=== PATIENT | female | born 1990 | race Caucasian/White ===

== ENCOUNTER 2017-10-03 17:28 | Emergency (ER) | payer BC, OTHER ==
[~2017-10-03] VITALS: Ht 172.7 cm; Wt 70.8 kg
[~2017-10-03 17:28] MED LIST: AMOX1TAB43 PO; ATV1 PO; BCPILLS PO; IBUP-1105 PO; LEVO88TA3 PO; METO25TA3 PO
[2017-10-03 17:34] VITALS: BP 123/82; TEMP 36.6; Ht 172.7 cm; Wt 70.8 kg
[2017-10-03] MEDS ORDERED: TRAMADOL HCL 50 MG TAB PO STA (17:54)
[2017-10-03] MEDS ORDERED: ULT/50 PO (17:59)
[2017-10-03] MEDS ORDERED: NRN/300 PO (17:59)
--- NOTE | 2017-10-03 18:03 | EMERGENCY ROOM VISIT NOTE ---
ED Visit Note First contact with patient: 17:45 CHIEF COMPLAINT: "My neck is pretty broken" HISTORY OF PRESENT ILLNESS: This 27-year-old female patient presents to the emergency department, ambulatory, with her mother, complaining of pain in the neck. She states she has been experiencing severe pain for 2 weeks. She describes a painful/bulging sensation in the lower cervical spine. She was seen by [facility] where a CT scan was performed which did show a bulging disc at C5-C6 with contact with the spinal cord. The patient states she has been having intermittent, but severe pain for the full 2 weeks. Due to her history of sinus tachycardia, she is unable to tolerate steroids or NSAIDs. She states she was started on a trial of steroids, but on day 1 of taking the prednisone, her heart rate was in the 180's. The patient rates the pain as sharp and severe and 8/10. The patient has taken muscle relaxers prescribed to her by her PCP for the pain without relief. She states she last saw her PCP today, and was advised to come to the emergency department for pain management. 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 The patient denies pain of the arms and shoulders. The patient does report numbness and tingling on occasion in the left arm. The patient denies chest pain or shortness of breath. There was no head injury and no loss of consciousness. The patient denies headache, blurred vision, abdominal pain, nausea, or vomiting. The patient denies change in personality. REVIEW OF SYSTEMS: A 10 system review of systems was completed with positives and pertinent negatives listed in the HPI. ALLERGIES: NSAIDs MEDICATIONS: Gay Thyroid, metoprolol succinate, control pills, lorazepam PMH: Sinus tachycardia, hypothyroidism, anxiety SOCIAL HISTORY: She lives locally with family. She denies drug, alcohol, tobacco use. PHYSICAL EXAM: VITALS: Vitals are noted on the nurse's note and reviewed by myself. Vital signs stable. GENERAL: This is a 27-year-old white female, in no acute distress , nondiaphoretic, well-developed well-nourished. SKIN: Capillary reflex less than 2 seconds. HEENT: Normocephalic. PERRLA. EOMI. Nares patent. Mucous membranes moist. Neck is supple without nuchal rigidity. Cervical spine is not tender to palpation. The patient does have tenderness of the paraspinal muscles on the left. There is no lymphadenopathy. MUSCULOSKELETAL: The patient has full range of motion of the bilateral arms. Strength 5/5 of the bilateral upper extremities. The patient has tenderness with any movement of the neck. NEURO: Patient was alert and oriented to person place and time. Normal sensation to light and sharp touch. No focal neurologic deficits. EMERGENCY DEPARTMENT COURSE: I examined the patient. I reviewed her CT scan from [facility]. The patient was given 50 mg tramadol here in the emergency department. I discussed with her proper management of nerve pain including gabapentin. I advised her that the emergency Department is not capable of managing chronic pain. Discharge instructions were reviewed, and the patient was discharged home in good condition. I attest that I have personally reviewed the patient's current medication list. Patient was found to have normal blood pressure on screening and does not require follow-up. DIFFERENTIAL DIAGNOSIS: Disc protrusion, disc herniation, cervicalgia, radiculopathy, malignancy, and others DIAGNOSIS: Disc protrusion at C5-C6 with contact of the spinal cord, neck pain with radiculopathy Problem List Medical Problems: (1) Anxiety Status: Chronic (2) Body aches Status: Resolved (3) Fever Status: Resolved (4) Malaise Status: Resolved (5) Precordial chest pain Status: Resolved (6) Tachycardia Status: Resolved (7) Vaginal delivery Status: Resolved (8) Viral illness Status: Resolved Current/Historical Medications Scheduled Control Pills ( Control Pills), 1 TAB PO DAILY Cyclobenzaprine HCl (Cyclobenzaprine HCl), 10 MG PO HS Gabapentin (Neurontin), 1 CAP PO TID Metoprolol Succinate (Metoprolol Succinate ER), 25 MG PO DAILY Thyroid (Thyroid Extract), 60 MG PO QAM Scheduled PRN Lorazepam (Lorazepam), 0.5 MG PO Q8 PRN for Anxiety Naproxen (Naproxen), 500 MG PO BID PRN for Pain Tramadol Hcl (Ultram), 50 MG PO Q4H PRN for Pain Allergies Coded Allergies: NSAIDs (Verified Adverse Reaction, Unknown, it bothers my heart, 03/08/16) Vital Signs Date Time Temp Pulse Resp B/P (MAP) Pulse Ox O2 Delivery O2 Flow Rate FiO2 11/13/17 18:46 65 20 100 Room Air 10/03/17 17:34 36.6 79 20 123/82 100 Room Air Medications Administered Medications (Trade) Dose Ordered Sig/Damian Route Start Time Stop Time Status Last Admin Dose Admin Tramadol HCl (Ultram Tab) 50 mg NOW STAT PO 10/03/17 17:54 10/03/17 17:56 DC 10/03/17 18:15 50 MG Departure Information Impression Primary Impression: Neck pain Dispostion Home / Self-Care Condition GOOD Prescriptions Gabapentin (NEURONTIN) 300 Mg Cap 1 CAP PO TID for 30 Days, #90 CAP Prov: Eileen Del Rio PA-C 10/03/17 Tramadol Hcl (ULTRAM) 50 Mg Tab 50 MG PO Q4H Y for Pain for 3 Days, #12 TAB PRN PAIN Prov: Eileen Del Rio PA-C 10/03/17 Referrals Yasir Edge PA-C (PCP) Aneudy Vásquez,D.O. Patient Instructions ED Neck Pain No Trauma, My [facility] Additional Instructions You have been treated in the Emergency Department for Neck Pain. You have received pain medicine in the emergency department which impairs your ability to operate a vehicle. It is illegal for you to drive after receiving these medicines. You have been prescribed tramadol 1 tab every 4-6 hours as needed for pain. This is a narcotic medication. You cannot drive or consume alcohol while on this medicine. This medicine should only be used for pain that cannot be controlled with [id number] pain medicines. Continue the muscle relaxers which were prescribed to you by your PCP. For pain control, you can use the following [id number] medicines (if >12 yo): Acetaminophen(Tylenol) may be used for fever or pain. Use 1000mg every six hours as needed. Avoid using more than 3000mg in a 24 hour period. If this is an acute injury, ice can be applied to the area of pain for the first 3 days to help decrease pain and inflammation. After the first 3 days, a heating pad can be used over the area for continued soothing relief. You should schedule a follow-up appointment in 2-3 days with your Primary Care Provider for further evaluation and treatment of your neck pain. As discussed, the ED can not chronically manage your pain. You will need to have this discussion with your PCP and/or mirror painter regarding ongoing pain management. Return to the Emergency Department if your current symptoms worsen despite treatment course outlined above, or if you develop any of the following symptoms : intractable pain despite aforementioned treatment course, facial droop, slurred speech, unilateral weakness, or worsening of her current symptoms.
[2017-10-03] MEDS ORDERED: THY/60 PO (18:41)
[2017-10-03] MEDS ORDERED: TPRSR/25 PO (18:41)
[2017-10-03] MEDS ORDERED: ATV5X PO (18:41)
[2017-10-03] MEDS ORDERED: FLX10 PO (18:41)
[2017-10-03] MEDS ORDERED: NAPR500T3 PO (18:41)
[2017-10-03 18:46] VITALS: PULSE 65; O2SAT 100
== END 2017-10-03 18:46 | disposition home or self-care (01) ==
LOC: C.EDB 17:28 → C.EDD 18:46
DX: M50.122 Cervical disc disorder at C5-C6 level with radiculopathy (principal); Z79.3 Long term (current) use of hormonal contraceptives

== ENCOUNTER 2019-03-01 16:42 | Inpatient (IN) ==
[2019-03-01 18:29] LABS: Basophils # (auto) 0.03 K/uL (0-0.2); Basophils % (auto) 0.4 %; Eosinophils # (auto) 0.11 K/uL (0-0.5); Eosinophils % (auto) 1.5 %; Hematocrit (blood only) 35.3 % (37-47); Hemoglobin 11.9 g/dL (12.0-16.0); Immature Granulocytes # (auto) 0.04 K/uL (0.00-0.02); Immature Granulocytes % (auto) 0.6 %; Lymphocytes % (auto) 26.6 %; Mean Corpuscular Hgb Conc 33.7 g/dL (32-36); Mean Corpuscular Volume 79.1 fL (80-100); Monocytes # (auto) 0.65 K/uL (0.11-0.59); Monocytes % (auto) 9.1 %; Neutrophils % (auto) 61.8 %; Platelet Count 269 K/uL (130-400); RDW Coefficient of Variation 14.2 % (11.5-14.5); RDW Standard Deviation 40.5 fL (36.4-46.3); Red Blood Count 4.46 M/uL (4.2-5.4); White Blood Count 7.13 K/uL (4.8-10.8)
[2019-03-01] MEDS ORDERED: ONDANSETRON INJ 2 MG/ML 2 ML VIAL IV STA (18:45)
[2019-03-01 18:47] LABS: Alanine Aminotransferase 113 U/L (12-78); Albumin Level 3.2 gm/dl (3.4-5.0); Aspartate Aminotransferase 110 U/L (15-37); BUN Creatinine Ratio 11.2 (10-20); Blood Urea Nitrogen 6 mg/dl (7-18); Calcium 9.2 mg/dl (8.5-10.1); Carbon Dioxide 25 mmol/L (21-32); Chloride 108 mmol/L (98-107); Creatinine Clr Calc Pharmacy 180.2 ml/min; Est GFR (African American) > 150.0; Est GFR (Non-African American) 129.9; Glucose 97 mg/dl (70-99); Potassium 3.8 mmol/L (3.5-5.1); Sodium 138 mmol/L (136-145)
--- NOTE | 2019-03-01 19:01 | CT Scan Report ---
CT SCAN OF THE CHEST WITHOUT IV CONTRAST CLINICAL HISTORY: Dyspnea. Atypical chest pain. Status post cardiac arrest. COMPARISON STUDY: Chest x-ray dated 03/08/2016. TECHNIQUE: CT scan of the thorax was performed from the thoracic inlet to the upper abdomen. Images are reviewed in the axial, sagittal, and coronal planes. IV contrast was not administered for this ex amination as per the referring clinician. Note that the examination is suboptimal without IV contrast . A dose lowering technique was utilized adhering to the principles of ALARA. CT DOSE: 307.39 mGy.cm FINDINGS: Thyroid: Imaged portions of the thyroid gland are normal in size and attenuation. Thoracic aorta: The thoracic aorta is normal in caliber and demonstrates standard 3-vessel arch anato my. Heart: The heart is normal in size and there is trace pericardial effusion. Lungs and pleural spaces: Evaluation of the lung parenchyma is modestly degraded by motion artifact. There is bibasilar atelectasis. No airspace consolidation is seen typical for pneumonia. There is no pleural effusion or pneumothorax. The trachea and central airways are clear. Mediastinum: Minimal residual thymic tissue is noted in the anterior mediastinum. There is no mediast inal hematoma or lymphadenopathy. Asha: Not well assessed without IV contrast. Axillae: There is no axillary lymphadenopathy. Upper abdomen: Enteric contrast is identified within the partially imaged left colon. Partially visua lized upper abdominal viscera is otherwise grossly unremarkable. Skeletal structures: The bony thorax appears intact. No distracted rib fracture is seen. No lytic or blastic bony lesions are seen. IMPRESSION: 1. There is no airspace consolidation, pleural effusion, or pneumothorax. 2. The bony thorax appears intact. Electronically signed by: Tavon Acosta M.D. 03/01/2019 7:00 PM
[2019-03-01 19:04] LABS: Albumin Globulin Ratio 0.7 (0.9-2); Alkaline Phosphatase 73 U/L (45-117); Bilirubin,Total 0.2 mg/dl (0.2-1); Globulin 4.3 gm/dl (2.5-4.0); Total Protein 7.5 gm/dl (6.4-8.2); Troponin I 0.139 ng/ml (0-0.045)
[2019-03-01] MEDS: HYDROmorphone INJ 0.5 MG/0.5 ML SYR IV PRN ×3 (19:05→21:56)
[2019-03-01] MEDS ORDERED: ALUMINUM/MAGNESIUM SUSP 30 ML UDC PO STA (21:08)
[2019-03-02] MEDS: HYDROmorphone INJ 0.5 MG/0.5 ML SYR IV PRN (00:17)
--- NOTE | 2019-03-02 00:28 | History & Physical Report ---
Date of Service March 02, 2019 Assessment & Plan (1) Substernal chest pain: 29-year-old female with a past medical history of SVT status post ablation presents with substernal chest pain. The patient was recently ablated on 02/23/2019 at [facility] [place] and subsequently had a cardiac arrest. She received chest compressions. Patient was subsequently found to have Tak[place]ubo cardiomyopathy. She received a heart catheterization which did not show any coronary artery disease. Substernal chest pain, pericarditis? Troponin mildly elevated from 0.1390.144, will continue to trend CT scan showed no abnormalities except for a trace pleural effusion Will empirically treat for pericarditis with 650 mg of aspirin 3 times dailythe patient is allergic to colchicine Cardiology consulted, appreciate recommendations Echocardiogram ordered Ordered the following labs ESR, CRP, mag, phosphorus, TSH Percocet for pain, as needed every 4 hours Reviewed [facility] records: 02/23/2019 post ROSC EF was 25-30%, ---02/26/2019 repeat echo showed EF of 55% with mild LV dilation. ---Cardiac catheterization on 02/23/2019 did not show any [place] coronary artery disease. Other medical conditions: include hypothyroidism, anxietycurrently not on levothyroxine, will continue as needed Lorazepam DVT prophylaxis SCDs, ambulate CODE STATUS Full (2) Elevated troponin: (3) History of prior ablation treatment: (4) Pericardial effusion: (5) H/O supraventricular tachycardia: (6) History of cardiac arrest: History of Present Illness Primary Care Provider: Yasir Edge 29-year-old female with a past medical history of recurrent SVT status post ablation presents with substernal chest pain. Patient was recently admitted at [facility] where she received an ablation on 02/23/2019. The patient experienced cardiac arrest and received chest compressions. She was later transferred to the ICU and was diagnosed with [place] cardiomyopathy. Her echocardiogram showed an ejection fraction of 25%. Patient subsequently received a cardiac catheterization which was negative for coronary artery disease. The patient was discharged on 02/26/2019. At discharge her echocardiogram showed an EF of 55%, mild LV dilation, normal systolic function. The patient had chest pain the days following her resuscitation related to the trauma of chest compressions. She came into the hospital today because she feels like the chest pain is not improving and changing in quality. She describes the chest pain is substernal, pressure like pain that radiates to her back. The pain is palpable and was relieved by Dilaudid in the emergency room. Patient reports feeling lightheaded and occasionally having heart palpitations, but denies syncope or lower extremity swelling. She reports getting winded easily at baseline, but denies any new shortness of breath. Allergies Allergy/AdvReac Type Severity Reaction Status Date / Time Iodinated Contrast- Oral and Allergy Paleness Unverified 03/01/19 17:46 IV Dye NSAIDS (Non-Steroidal AdvReac Unknown it bothers Verified 03/08/16 10:25 Anti-Inflamma my heart Home Medications Home Medications Medication Instructions Recorded Confirmed Type drospirenone-ethinyl estradiol 1 tab PO DAILY 03/01/19 03/01/19 History [Kumar (28)] tizanidine 4 mg PO Q8H 03/01/19 03/01/19 History Past Med/Surg History Medical History Anxiety (Chronic) Cardiac arrest as complication of care Family history non-contributory Surgical History History of prior ablation treatment Family History Other Family history non-contributory Social History Preferred Language: Nepali Communication Ability: Unable 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 Beliefs That Will Affect Care: None Current Living Situation: Family Other Information That Helps Us Care for You: No Feels Safe at Home: Yes Safety Concerns: Feels Safe At This Time Smoking Status: Current every day smoker Hx Alcohol Use: No Hx Substance Use: No Review of Systems All systems reviewed & are unremarkable except as noted in HPI & below Physical Exam Vital Signs (Past 24 Hours): Last Vital Signs Temp 37 C 03/01/19 16:49 Pulse 84 03/01/19 23:01 Resp 14 03/01/19 23:01 BP 121/76 03/01/19 23:00 Pulse Ox 97 03/01/19 23:01 Constitutional: WD/WN, vitals as above Eyes: PERRL, conjunctivae normal, anicteric sclerae ENMT: external ear and nose normal, oropharynx normal Neck: trachea midline, no thyromegaly Respiratory: normal respiratory effort, lungs clear to auscultation Cardiovascular: RRR, no murmur, no edema Vessels: + JVD Chest (Breasts): Additional Comments: chest wall tenderness Gastrointestinal (Abdomen): normal bowel sounds, soft, nontender, no hepatosplenomegaly Musculoskeletal: no cyanosis or clubbing, extremities motor strength 5/5 Skin: no rashes, warm and dry Neurologic: PERRL, EOMI, accommodation nl, no face palsy, no dysarthria CN's II-XI intact bilaterally Psychiatric: A+Ox3, euthymic affect Results & Data Laboratory Results Laboratory Last Values WBC 7.13 K/uL (4.8-10.8) 03/01/19 18:10 RBC 4.46 M/uL (4.2-5.4) 03/01/19 18:10 Hgb 11.9 g/dL (12.0-16.0) L 03/01/19 18:10 Hct 35.3 % (37-47) L 03/01/19 18:10 MCV 79.1 fL (80-100) L 03/01/19 18:10 MCH 26.7 pg (25-34) 03/01/19 18:10 MCHC 33.7 g/dL (32-36) 03/01/19 18:10 RDW Std Deviation 40.5 fL (36.4-46.3) 03/01/19 18:10 RDW Coeff of Dorian 14.2 % (11.5-14.5) 03/01/19 18:10 Plt Count 269 K/uL (130-400) 03/01/19 18:10 MPV 10.0 fL (7.4-10.4) 03/01/19 18:10 Immature Gran % (Auto) 0.6 % 03/01/19 18:10 Neut % (Auto) 61.8 % 03/01/19 18:10 Lymph % (Auto) 26.6 % 03/01/19 18:10 Braxton % (Auto) 9.1 % 03/01/19 18:10 Eos % (Auto) 1.5 % 03/01/19 18:10 Baso % (Auto) 0.4 % 03/01/19 18:10 Immature Gran # (Auto) 0.04 K/uL (0.00-0.02) H 03/01/19 18:10 Neut # (Auto) 4.40 K/uL (1.4-6.5) 03/01/19 18:10 Lymph # (Auto) 1.90 K/uL (1.2-3.4) 03/01/19 18:10 Braxton # (Auto) 0.65 K/uL (0.11-0.59) H 03/01/19 18:10 Eos # (Auto) 0.11 K/uL (0-0.5) 03/01/19 18:10 Baso # (Auto) 0.03 K/uL (0-0.2) 03/01/19 18:10 Sodium 138 mmol/L (136-145) 03/01/19 18:10 Potassium 3.8 mmol/L (3.5-5.1) 03/01/19 18:10 Chloride 108 mmol/L (98-107) H 03/01/19 18:10 Carbon Dioxide 25 mmol/L (21-32) 03/01/19 18:10 Anion Gap 5.0 (3-11) 03/01/19 18:10 BUN 6 mg/dl (7-18) L 03/01/19 18:10 Creatinine 0.51 mg/dl (0.6-1.2) L 03/01/19 18:10 Est Cr Clr Drug Dosing 180.2 ml/min 03/01/19 18:10 Est GFR ( Amer) > 150.0 03/01/19 18:10 Est GFR (Non-Af Amer) 129.9 03/01/19 18:10 BUN/Creatinine Ratio 11.2 (10-20) 03/01/19 18:10 Glucose 97 mg/dl (70-99) 03/01/19 18:10 Calcium 9.2 mg/dl (8.5-10.1) 03/01/19 18:10 Total Bilirubin 0.2 mg/dl (0.2-1) 03/01/19 18:10 AST 110 U/L (15-37) H 03/01/19 18:10 ALT 113 U/L (12-78) H 03/01/19 18:10 Alkaline Phosphatase 73 U/L (45-117) 03/01/19 18:10 Troponin I 0.144 ng/ml (0-0.045) H* 03/01/19 21:27 Total Protein 7.5 gm/dl (6.4-8.2) 03/01/19 18:10 Albumin 3.2 gm/dl (3.4-5.0) L 03/01/19 18:10 Globulin 4.3 gm/dl (2.5-4.0) H 03/01/19 18:10 Albumin/Globulin Ratio 0.7 (0.9-2) L 03/01/19 18:10 Lipase 167 U/L (73-393) 03/01/19 18:10 Diagnostic Findings [place] [phone] CT Scan Report Patient: JOEL TAYLORAdmit Date: 03/01/19 MR#: [id number]: [address] [place] [address] Acct ID:[id number]: Date: 1990ty Zip: [place] [id number] Age: 29Location: ED Sex: F Room/Bed: Att Phy: Diagnosis: CHEST PAIN INTO BACK S/P HEART ABLATION Nathalia Phy: Yasir Edge-CService Date: 03/01/19 Fam Phy: Interpreting Phy: Tavon Acosta MD Admit Phy: Ordering Phy: Matt Lyles MD cc: ~ CT SCAN OF THE CHEST WITHOUT IV CONTRAST CLINICAL HISTORY: Dyspnea. Atypical chest pain. Status post cardiac arrest. COMPARISON STUDY: Chest x-ray dated 03/08/2016. TECHNIQUE: CT scan of the thorax was performed from the thoracic inlet to the upper abdomen. Images are reviewed in the axial, sagittal, and coronal planes. IV contrast was not administered for this examination as per the referring clinician. Note that the examination is suboptimal without IV contrast. A dose lowering technique was utilized adhering to the principles of ALARA. CT DOSE: 307.39 mGy.cm FINDINGS: Thyroid: Imaged portions of the thyroid gland are normal in size and attenuation. Thoracic aorta: The thoracic aorta is normal in caliber and demonstrates standard 3-vessel arch anatomy. Heart: The heart is normal in size and there is trace pericardial effusion. Lungs and pleural spaces: Evaluation of the lung parenchyma is modestly degraded by motion artifact. There is bibasilar atelectasis. No airspace consolidation is seen typical for pneumonia. There is no pleural effusion or pneumothorax. The trachea and central airways are clear. Mediastinum: Minimal residual thymic tissue is noted in the anterior mediastinum. There is no mediastinal hematoma or lymphadenopathy. Asha: Not well assessed without IV contrast. Axillae: There is no axillary lymphadenopathy. Upper abdomen: Enteric contrast is identified within the partially imaged left colon. Partially visualized upper abdominal viscera is otherwise grossly unremarkable. Skeletal structures: The bony thorax appears intact. No distracted rib fracture is seen. No lytic or blastic bony lesions are seen. IMPRESSION: 1. There is no airspace consolidation, pleural effusion, or pneumothorax. 2. The bony thorax appears intact. Electronically signed by: Tavon Acosta M.D. 03/01/2019 7:00 PM Dictated: 03/01/191852 Transcribed: 03/01/191852 Code Status & VTE Plan Code Status full VTE Prophylaxis Plan VTE Prophylaxis will be ordered: Yes Supervising Physician Co-Signing Physician Notes Patient seen and examined, chart reviewed, case discussed with Dr. Coronado and I agree with his assessment and plan as above. Briefly, patient is a 29yo female with history of hypothyroidism, anxiety, atrial tachycardia s/p ablation in 02/2016 with recurrence, s/p ablation last week at [facility]. Patient with subsequent cardiac arrest s/p CPR/epi/shock x 1 with ROSC. Mother reports she was out for appx 2 minutes. Cardiac catheterization performed with clean coronary vessels. Echo with suggestion of stress induced cardiomyopathy with EF of 30% which recovered to 55% with mild LV dilation. Patient presents today with substernal chest pressure as well as back pain. Pain is worse with laying flat and much worse with leaning forward No associated fevers/chills/recent viral illness. No SOB. Troponin mildly elevated 0.139 --> 0.144. As above, patient had ablation performed in 2016 and was admitted 4 days after with chest pain - at that time thought to be possible pericarditis. She was treated with Colchicine and NSAIDS. States that her pain today is much worse than before. On exam she is afebrile, mildlly tachycardic at 101bpm, BP stable Gen: pleasant, non-toxic Skin: redness at tape sites, no lesions HEENT: NC/AT, PERRL, anicteric, MMM, neck supple, No JVD Heart: +S1/S2, regular, tachycardic, no m/r/g, reproducible CP Lungs: CTA Abd: +BS, soft, NT/ND Ext: no edema Labs and images reviewed - small pericardial effusion mentioned on CT Assessment/Plan: 29yo female with SVT s/p ablation followed by cardiac arrest s/p CPR/shock x 1 with ROSC now presenting 6 days later with chest pain, mildly elevated troponin -Suspect pericarditis/inflammation after chest compressions as well as some costochondritis -Admit to PCU, trend troponin, check Echo in AM -Start ASA for possible pericarditis (patient reports having rash with Colchicine) -Cardiology consultation - appreciated -Remainder of plan as above Resident Activity Tracking Resident Involvement: Resident Care Provided Care Provided: Adult Hospital Medicine
[2019-03-02] MEDS ORDERED: ACETAMINOPHEN 325 MG TAB PO PRN (01:20)
[2019-03-02] MEDS: OXYCODONE/ACETAMINOPHEN 5mg/325mg TAB PO PRN ×5 (01:51→20:49)
[2019-03-02 04:20] LABS: C Reactive Protein 2.05 mg/dl (0-0.29); Magnesium 2.2 mg/dl (1.8-2.4); Phosphorus 3.6 mg/dl (2.5-4.9); Troponin I 0.139 ng/ml (0-0.045)
[2019-03-02] MEDS: MoRPHine SULFATE 2 MG/ML CARP IV PRN ×4 (05:17→20:48)
[2019-03-02] MEDS: TIZANIDINE HCL 4 MG TABLET PO SCH ×3 (06:23→21:55)
[2019-03-02 07:20] LABS: Basophils # (auto) 0.04 K/uL (0-0.2); Basophils % (auto) 0.5 %; Eosinophils # (auto) 0.12 K/uL (0-0.5); Eosinophils % (auto) 1.6 %; Hematocrit (blood only) 34.8 % (37-47); Hemoglobin 11.7 g/dL (12.0-16.0); Immature Granulocytes # (auto) 0.02 K/uL (0.00-0.02); Immature Granulocytes % (auto) 0.3 %; Lymphocytes # (auto) 2.11 K/uL (1.2-3.4); Lymphocytes % (auto) 28.9 %; Mean Corpuscular Hgb Conc 33.6 g/dL (32-36); Mean Corpuscular Volume 79.3 fL (80-100); Mean Platelet Volume 9.6 fL (7.4-10.4); Monocytes # (auto) 0.58 K/uL (0.11-0.59); Neutrophils # (auto) 4.42 K/uL (1.4-6.5); Neutrophils % (auto) 60.7 %; Platelet Count 259 K/uL (130-400); RDW Coefficient of Variation 14.2 % (11.5-14.5); RDW Standard Deviation 40.8 fL (36.4-46.3); Red Blood Count 4.39 M/uL (4.2-5.4); White Blood Count 7.29 K/uL (4.8-10.8)
[2019-03-02 08:02] LABS: Albumin Level 3.1 gm/dl (3.4-5.0); BUN Creatinine Ratio 8.7 (10-20); Calcium 9.1 mg/dl (8.5-10.1); Creatinine Clr Calc Pharmacy 176.1 ml/min; Est GFR (African American) 149.6; Est GFR (Non-African American) 129.1; Potassium 3.8 mmol/L (3.5-5.1)
[2019-03-02 08:05] LABS: Albumin Globulin Ratio 0.8 (0.9-2); Bilirubin,Total 0.2 mg/dl (0.2-1); Globulin 3.9 gm/dl (2.5-4.0)
--- NOTE | 2019-03-02 08:57 | Cardiology Consultation ---
Date of Consultation March 02, 2019 Assessment & Plan (1) Substernal chest pain: Based on her symptoms I cannot be sure what is causing her chest discomfort however it sounds as though it may be a combination of pericarditis (which she could have even without a rub or an effusion) and chest wall discomfort from CPR. She is receiving morphine for pain relief, however that needs to be switched to other agents. She is not really allergic to nonsteroidal anti-inflammatory agents and is those. She cannot use colchicine, which would not work for her chest wall discomfort in any case. I am going to start her on high-dose Motrin to see if that can help with her symptoms. I do not believe this is comfort represents myocardial ischemia. (2) Elevated troponin: Although technically elevated her troponin is not terribly high and there is no specific trend so I do not think this represents recurrent spasm, etc. We will continue to follow them but I would treat her symptoms with nonsteroidals at this time. If her echo shows worsening left ventricular function we may have to consider myocarditis but there is no evidence so far of that. 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 We will need to follow this over the long run. (4) Cardiomyopathy: She had a cardiomyopathy identified immediately after her event fifth, however 3 days later her ejection fraction was near normal. I suspect this was standing from the event, corrected quickly. If her ejection fraction on echo today is good I would not consider medical therapy for cardiomyopathy. History of Present Illness Reason for Consultation: Chest discomfort following ablation Attending Physician: Madeline Louise, DO History of Present Illness This is a 29-year-old woman well-known to me from prior evaluations who has a long history of symptomatic sinus tachycardia. We did perform ablation in 2016 which helped temporarily, however with return of her symptoms of palpitations she was sent to [facility] where she underwent elective is a study and ablation on February 23, 2019. As far as I know the procedure was uncomplicated however in the recovery room she had a cardiac arrest as well as asystole, not sure exactly what the sequence of events is. She ended up with a temporary pacemaker for several days, a catheterization which did not show any coronary disease and severe left ventricular dysfunction which evidently was standing because a follow-up echo several days later showed near normalization of her left ventricular function. She did receive chest compressions during this event. She presents now with chest discomfort, she was discharged on Tuesday from [place], was having some discomfort then but not severe, Tuesday the discomfort was much more severe as it was on and she came into the emergency room. She has received intravenous morphine for pain relief. She had chest discomfort after her initial ablation interestingly, but not so severe, and colchicine was attempted but she had hives taking it. She can take nonsteroidal anti-inflammatory agents, she feels that they may increase her heart rate but she is not allergic to them although it is listed as an allergy. The time of my evaluation she is feeling fairly well, she describes the chest discomfort as a tightness in her chest with radiation to her back, aggravated by sitting up, aggravated by deep breathing and aggravated by lifting her arms overhead. She has had no lightheadedness or dizziness and her palpitations seem to be better controlled. Allergies Allergy/AdvReac Type Severity Reaction Status Date / Time colchicine Allergy Hives Verified 03/02/19 09:59 Iodinated Contrast- Oral and Allergy Paleness Unverified 03/01/19 17:46 IV Dye Home Medications Home Medications Medication Instructions Recorded Confirmed Type drospirenone-ethinyl estradiol 1 tab PO DAILY 03/01/19 03/01/19 History [Kumar (28)] tizanidine 4 mg PO Q8H 03/01/19 03/01/19 History Patient History Medical History Anxiety (Chronic) Cardiac arrest as complication of care Family history non-contributory Surgical History History of prior ablation treatment Family History Other Family history non-contributory Social History Preferred Language: Wallisian Communication Ability: Unable [place] Worker Required: No Beliefs That Will Affect Care: None Current Living Situation: Family Other Information That Helps Us Care for You: No Feels Safe at Home: Yes Safety Concerns: Feels Safe At This Time Smoking Status: Current every day smoker Hx Alcohol Use: No Hx Substance Use: No Review of Systems Negative for lightheadedness, dizziness, palpitations, presyncope or syncope. No exertional symptoms, no dyspnea on exertion or exertional chest pain, rest pain as noted. No orthopnea or PND or peripheral edema. No GI complaints, no bleeding. No neurologic complaints such as TIA or stroke symptoms. Other systems negative. Physical Exam Vital Signs (Past 24 Hours): Last Vital Signs Temp 37.1 C 03/02/19 07:41 Pulse 80 03/02/19 07:41 Resp 16 03/02/19 07:41 BP 93/51 L 03/02/19 07:41 Pulse Ox 97 03/02/19 07:41 Physical Exam: Constitutional: Alert, cooperative and in no distress. HEENT: Unremarkable Neck: No jugular venous distention, carotid pulses are normal and equal bilaterally without bruits. Pulmonary: Clear to auscultation bilaterally. Cardiac: Regular rhythm with no murmur, gallop or rub. Abdomen: Soft, nontender with normal bowel sounds. Extremities: No edema. Distal pulses intact. Neurologic: No focal findings. Gait is steady. Skin: No rash, ecchymoses or petechiae. Results & Data Diagnostic Findings Telemetry: Sinus rhythm, overall rate is acceptable and not tachycardic although somewhat elevated for being at rest but she is under stress Electrocardiography: Sinus rhythm, no significant abnormalities
[2019-03-02] MEDS ORDERED: ASPIRIN 325 MG ECTAB PO SCH (09:00)
[2019-03-02] MEDS ORDERED: IBUPROFEN 800 MG TAB PO STA (09:03)
[2019-03-02] MEDS ORDERED: predniSONE 20 MG TAB PO SCH (10:15)
--- NOTE | 2019-03-02 10:54 | Family Medicine Progress Note ---
Date of Service March 02, 2019 Assessment & Plan (1) Substernal chest pain: 29-year-old female with a past medical history of SVT status post ablation presents with substernal chest pain. The patient was recently ablated on 02/23/2019 at [facility] and subsequently had a cardiac arrest. She received chest compressions. Patient was subsequently found to have Takotsubo cardiomyopathy. She received a heart catheterization which did not show any coronary artery disease. Reviewed [facility] records: 02/23/2019 post ROSC EF was 25-30%, ---02/26/2019 repeat echo showed EF of 55% with mild LV dilation. ---Cardiac catheterization on 02/23/2019 did not show any tanacross coronary art savi disease. #Substernal chest pain, 2/2 ?pericarditis v chest wall pain Troponin elev .144 -> .139 -> .096 CT scan showed no abnormalities except for a trace pleural effusion 12Apr repeat TTE shows normal EF 60%, no wall motion abnormalities, mild pericardial effusion. elevated ESR, CRP, elev TSH -Cardiology consulted, appreciate recs. -Motrin 800mg TID (to be continued for as long as symptoms persist, usually at least 2 weeks) -pt is allergic to colchicine -- possible h/o pericarditis. -Pain control requiring IV opioids -plan for transition to PO pain medication tomorrow -heat, supportive care #GERD -PPI started here with some benefit #Abnormal Thyroid function test - TSH >6 -currently not on thyroid medications. Should have it rechecked as outpatient FEN/GI: no indication for fluids at this time DVT ppx: SCDs, ambulate CODE STATUS: FULL DISPO: Tele, daily EKGs. Other medical conditions: include #anxiety -Not on any home meds. will continue as needed Lorazepam #s/p cervical fusion -cont tizanidine (2) Elevated troponin: (3) History of prior ablation treatment: (4) Pericardial effusion: (5) H/O supraventricular tachycardia: (6) History of cardiac arrest: Supervising Physician Co-Signing Physician Notes Resident Physician Supervision Note: I independently interviewed and examined the patient and verified the ocampo history and physical, reviewed labs and image studies, discussed the case with the resident Dr. Coronado and agree with the findings and care plan. Subjective Examined at the bedside this AM. Endorses constant chest pain, "feels like a tightening". Endorses reflux symptoms. Denies visual changes, abdominal pain. Endorses neck tightness. Review of Systems All systems reviewed & are unremarkable except as noted in HPI & below Physical Exam Vital Signs (Past 24 Hours): Last Vital Signs Temp 37.1 C 03/02/19 07:41 Pulse 80 03/02/19 07:41 Resp 16 03/02/19 07:41 BP 93/51 L 03/02/19 07:41 Pulse Ox 97 03/02/19 07:41 Physical Exam: Vitals noted as above and within normal limits . GENERAL: Awake, alert to person, place, and time, nontoxic-appearing, in no distress HENT: Normocephalic, atraumatic. Mucus membranes appear moist. EYES: Normal conjunctiva. Sclera non-icteric. EOMI. NECK: Supple. Full range of motion. No JVD RESPIRATORY: Clear to auscultation. Normal work of breathing. CARDIAC: Regular rate, normal rhythm. Extremities warm and well perfused, 2+ radial pulses bilaterally; 2+ posterior tibialis pulses bilaterally. CHEST: palpation to chest limited by pt's pain. ABDOMEN: Soft, non-distended. No tenderness to palpation in all four quadrants. No rebound or guarding. No masses. Bowel sounds are normal. LOWER EXTREMITIES: Inspection of calves reveal equal size bilaterally. They are non-tender. No edema. No discoloration. NEURO: No focal gross focal motor deficits noted. Sensation in tact. CN II-XII grossly in tact. SKIN: Rash not present. No jaundice noted. Significant lesions not present. PSYCH: Appropriate mood and affect. Cooperative. Exam as done by Geraldine Coronado MD, Clinical Rehabilitation Aide. Results & Data Laboratory Results 03/02/19 03/02/19 03/02/19 Range/Units 09:25 07:07 07:07 WBC 7.29 (4.8-10.8) K/uL RBC 4.39 (4.2-5.4) M/uL Hgb 11.7 L (12.0-16.0) g/dL Hct 34.8 L (37-47) % MCV 79.3 L (80-100) fL MCH 26.7 (25-34) pg MCHC 33.6 (32-36) g/dL RDW Std Deviation 40.8 (36.4-46.3) fL RDW Coeff of Dorian 14.2 (11.5-14.5) % Plt Count 259 (130-400) K/uL MPV 9.6 (7.4-10.4) fL Immature Gran % (Auto) 0.3 % Neut % (Auto) 60.7 % Lymph % (Auto) 28.9 % Lamar % (Auto) 8.0 % Eos % (Auto) 1.6 % Baso % (Auto) 0.5 % Immature Gran # (Auto) 0.02 (0.00-0.02) K/uL Neut # (Auto) 4.42 (1.4-6.5) K/uL Lymph # (Auto) 2.11 (1.2-3.4) K/uL Lamar # (Auto) 0.58 (0.11-0.59) K/uL Eos # (Auto) 0.12 (0-0.5) K/uL Baso # (Auto) 0.04 (0-0.2) K/uL ESR (0-21) mm/hr Sodium 138 (136-145) mmol/L Potassium 3.8 (3.5-5.1) mmol/L Chloride 107 (98-107) mmol/L Carbon Dioxide 24 (21-32) mmol/L Anion Gap 7.0 (3-11) BUN 5 L (7-18) mg/dl Creatinine 0.52 L (0.6-1.2) mg/dl Est Cr Clr Drug Dosing 176.1 ml/min Est GFR ( Amer) 149.6 Est GFR (Non-Af Amer) 129.1 BUN/Creatinine Ratio 8.7 L (10-20) Glucose 98 (70-99) mg/dl Calcium 9.1 (8.5-10.1) mg/dl Phosphorus (2.5-4.9) mg/dl Magnesium (1.8-2.4) mg/dl Total Bilirubin 0.2 (0.2-1) mg/dl AST 77 H (15-37) U/L ALT 102 H (12-78) U/L Alkaline Phosphatase 68 (45-117) U/L Troponin I 0.096 H* (0-0.045) ng/ml C-Reactive Protein (0-0.29) mg/dl Total Protein 7.0 (6.4-8.2) gm/dl Albumin 3.1 L (3.4-5.0) gm/dl Globulin 3.9 (2.5-4.0) gm/dl Albumin/Globulin Ratio 0.8 L (0.9-2) TSH (0.300-4.500) uIu/ml 03/02/19 03/02/19 03/01/19 Range/Units 03:41 03:41 21:27 WBC (4.8-10.8) K/uL RBC (4.2-5.4) M/uL Hgb (12.0-16.0) g/dL Hct (37-47) % MCV (80-100) fL MCH (25-34) pg MCHC (32-36) g/dL RDW Std Deviation (36.4-46.3) fL RDW Coeff of Dorian (11.5-14.5) % Plt Count (130-400) K/uL MPV (7.4-10.4) fL Immature Gran % (Auto) % Neut % (Auto) % Lymph % (Auto) % Lamar % (Auto) % Eos % (Auto) % Baso % (Auto) % Immature Gran # (Auto) (0.00-0.02) K/uL Neut # (Auto) (1.4-6.5) K/uL Lymph # (Auto) (1.2-3.4) K/uL Lamar # (Auto) (0.11-0.59) K/uL Eos # (Auto) (0-0.5) K/uL Baso # (Auto) (0-0.2) K/uL ESR 45 H (0-21) mm/hr Sodium (136-145) mmol/L Potassium (3.5-5.1) mmol/L Chloride (98-107) mmol/L Carbon Dioxide (21-32) mmol/L Anion Gap (3-11) BUN (7-18) mg/dl Creatinine (0.6-1.2) mg/dl Est Cr Clr Drug Dosing ml/min Est GFR ( Amer) Est GFR (Non-Af Amer) BUN/Creatinine Ratio (10-20) Glucose (70-99) mg/dl Calcium (8.5-10.1) mg/dl Phosphorus 3.6 (2.5-4.9) mg/dl Magnesium 2.2 (1.8-2.4) mg/dl Total Bilirubin (0.2-1) mg/dl AST (15-37) U/L ALT (12-78) U/L Alkaline Phosphatase (45-117) U/L Troponin I 0.139 H* 0.144 H* (0-0.045) ng/ml C-Reactive Protein 2.05 H (0-0.29) mg/dl Total Protein (6.4-8.2) gm/dl Albumin (3.4-5.0) gm/dl Globulin (2.5-4.0) gm/dl Albumin/Globulin Ratio (0.9-2) TSH 6.290 H (0.300-4.500) uIu/ml Diagnostic Findings 12Apr: Echo shows normal EF 60%, no wall motion abnormalities, mild pericardial effusion. Medications Administered Current Inpatient Medications Acetaminophen (Tylenol) 650 mg PO Q4H PRN PRN Reason: Pain or Fever Stop: 04/01/19 01:19 Ibuprofen (Motrin) 600 mg PO Q6H [facility] Stop: 04/01/19 15:59 Last Admin: 03/02/19 16:15 Dose: 600 mg Documented by: Lorazepam (Ativan) 1 mg PO QPM PRN PRN Reason: Anxiety Stop: 04/01/19 01:19 Magnesium Hydroxide (Milk Of Magnesia) 30 ml PO Q12H PRN PRN Reason: Constipation Stop: 04/01/19 01:19 Miscellaneous (Order Awaiting Action) 1 ea N/A QS [facility] Stop: 04/01/19 07:59 Last Admin: 03/02/19 17:45 Dose: Not Given Documented by: Morphine Sulfate (Morphine Sulfate) 2 mg IV Q2H PRN PRN Reason: Pain Stop: 03/16/19 04:46 Last Admin: 03/02/19 17:46 Dose: 2 mg Documented by: Oxycodone/Acetaminophen (Percocet 5mg/325mg) 1 tab PO Q4H PRN PRN Reason: Pain Stop: 03/16/19 01:19 Last Admin: 03/02/19 16:19 Dose: 1 tab Documented by: Polyethylene Glycol (Miralax Powder Packet) 17 gm PO DAILY PRN PRN Reason: Constipation Stop: 04/01/19 01:19 Last Admin: 03/02/19 16:20 Dose: 17 gm Documented by: Tizanidine HCl (Zanaflex) 4 mg PO Q8H [facility] Stop: 04/01/19 05:59 Last Admin: 03/02/19 16:15 Dose: 4 mg Documented by: Resident Activity Tracking Resident Involvement: Resident Care Provided Care Provided: Adult Hospital Medicine
[2019-03-02] MEDS ORDERED: HYDROmorphone INJ 1 MG/ML SYRINGE IV STA (11:43)
[2019-03-02] MEDS: IBUPROFEN 600 MG TAB PO SCH ×2 (16:15→21:55)
[2019-03-02] MEDS: POLYETHYLENE (MIRALAX) 17 GM PACK PO PRN (16:20)
--- NOTE | 2019-03-02 19:25 | Emergency Department Note ---
Entered by Caridad Reese acting as a scribe for Matt Lyles MD ED Provider Note CHIEF COMPLAINT: Chest pain HISTORY OF PRESENT ILLNESS: The patient is a 29 year old female presenting to the ED with CP beginning a few days ago. Patient states she recently had an ablation of the inappropriate sinus tachycardia when she coded in the middle of the procedure. Patient shares that CPR was performed twice; she was shocked once and given one dose of Epinephrine. She notes that since the procedure, she has been having moderate CP which has worsened beginning yesterday. Pain is rated a 9/10 and describes as squeezing. She shares she has been having trouble breathing, noting the pain is radiating t o the back. She also includes that she is having associated dizziness, headache and mild abd pain. Patient lastly notes she is allergic to contrast dye as it makes her nauseous. Pt denies LOC, fevers, chills, diaphoresis, visual changes, neck pain, nausea, vomiting, back pain, melena, hematochezia, urinary symptoms, numbness, lymphadenopathy, rash, leg swelling, or other complaints. REVIEW OF SYSTEMS: See HPI for pertinent positives and negatives. A total of ten systems were reviewed and were otherwise negative. PMHx/PSHx: Anxiety, S/P Ablation SOCIAL HISTORY: Patient lives at home. PHYSICAL EXAM: GENERAL: Awake, alert, uncomfortable appearing, in no distress HENT: Normocephalic, atraumatic. Oropharynx unremarkable. EYES: Normal conjunctiva. Sclera non-icteric. NECK: Inspection normal. Non-tender. Supple. No nuchal rigidity. FROM. No masses. RESPIRATORY: Clear to auscultation. No wheezes. No rales. Normal respiratory effort. CARDIAC: Normal rate. Normal rhythm. No murmurs. No rubs. Extremities warm and well perfused. Pulses equal. No JVD. GI: Soft, non-distended. No tenderness to palpation. No rebound or guarding. No masses. RECTAL: Deferred. MUSCULOSKELETAL: Atraumatic.The back is symmetrical on inspection without obvious abnormality. There is no CVA tenderness to palpation. No joint edema. Chest wall tenderness anteriorly LOWER EXTREMITIES: Calves are equal size bilaterally and non-tender. No edema. No discoloration. NEURO: Normal sensorium. No sensory or motor deficits noted. SKIN: No rash or jaundice noted. Erythematous patches on chest. EMERGENCY DEPARTMENT COURSE: 1800: The patient was evaluated in room C11B, and a complete history and physical examination were performed. 2001: Reassessed patient who notes she is feeling better. 2099: Reviewed old notes which showed: On 02/23/19, EKG shows sinus bradycardia with inferior ST. After ablation: EKG shows sinus rhythm with 83 BPM, no ST elevation or depression. Admitted for inappropriate tachycardia and syncope. Catherization reviewed and showed no negative coronary artery disease. Post ablation: asystolic cardiac arrest with low injection fraction of 30%.Patient had temporary pacemaker. Discharged with cardiac arrest with cardiogenic shock secondary to takotsubo cardiomyopathy. Inappropriate sinus tachycardia. 2120: Reassessed patient. Patient will have repeated troponin. 2229: Patients troponin pending. 2250: Updated patient on elevated troponin and plan for admission. She is agreeable to plan. 2252: Discussed patient case with Dr. Louise, who accepts patient for admission. MEDICAL DECISION MAKING: Prior records/ancillary studies reviewed. The patient had a significant event after her ablation. She had an arrest. She had CPR performed. The patient was ultimately diagnosed with a cardiomyopathy, Takotsubo. Triage Nursing notes reviewed and agree them. Additional history obtained from the family. The patient's history was concerning for chest pain. Differential diagnosis: Etiologies such as cardiomyopathy, fracture secondary to CPR, cardiac ischemia, aortic dissection, pulmonary embolism, pneumonia, pneumothorax, musculoskeletal, infections, pericarditis, myocarditis, esophageal rupture, gastrointestinal, as well as others were entertained. Physical examination: As above. ER treatment provided: IV Zofran IV Dilaudid x2 On reassessment the patient felt better. Diagnostic interpretation by me: The electrocardiogram was negative for pathologic change. The labs revealed an unremarkable CBC and chemistry panel except for mild anemia. The patient's LFTs are negative. The patient's troponin is elevated. This was repeated and did increase slightly. Imaging studies: CT scan performed and revealed no evidence of trauma, rib fracture, or intrathoracic pathology. The patient has a an elevated troponin and this has trended upwards. She will need further management in the hospital. Patient and family are in agreement. Consultation: A consultation was placed with the hospitalist. The case was discussed and diagnostics were reviewed. The patient was evaluated in the ER for further t reatment. IMPRESSION: Substernal chest pain, elevated troponin PLAN: Admitted under Dr. Louise's care. Impression & Plan Substernal chest pain, Elevated troponin Past Med/Surg History Medical History Anxiety (Chronic) Cardiac arrest as complication of care Family history non-contributory Surgical History History of prior ablation treatment Family History Other Family history non-contributory Social History Preferred Language: Macedonian Communication Ability: Unable Adapted Physical Education Teacher Required: No Beliefs That Will Affect Care: None Current Living Situation: Family Other Information That Helps Us Care for You: No Feels Safe at Home: Yes Safety Concerns: Feels Safe At This Time Smoking Status: Current every day smoker Hx Alcohol Use: No Hx Substance Use: No Results & Data Vital Signs Vital Signs - 24 hr 03/01/19 19:30 03/01/19 19:31 03/01/19 20:00 Temperature Temperature Source Pulse Rate 90 101 H 85 Pulse Rate [Right Finger] Pulse Rate from SpO2 Sensor 89 100 H 85 Pulse Rhythm [Right Finger] Pulse Strength [Right Finger] Respiratory Rate 13 20 22 Respiratory Effort / Characteristics Respiratory Depth Respiratory Pattern Blood Pressure 110/67 127/73 Blood Pressure [Left Arm] Blood Pressure [Right Arm] Blood Pressure Mean 81 91 Blood Pressure Mean [Left Arm] Blood Pressure Mean [Right Arm] Blood Pressure Position [Left Arm] Blood Pressure Position [Right Arm] Pulse Oximetry 98 97 98 Oxygen Delivery Method 03/01/19 20:01 03/01/19 20:30 03/01/19 20:31 Temperature Temperature Source Pulse Rate 91 H 84 90 Pulse Rate [Right Finger] Pulse Rate from SpO2 Sensor 92 H 84 93 H Pulse Rhythm [Right Finger] Pulse Strength [Right Finger] Respiratory Rate 20 26 H 18 Respiratory Effort / Characteristics Respiratory Depth Respiratory Pattern Blood Pressure 113/74 Blood Pressure [Left Arm] Blood Pressure [Right Arm] Blood Pressure Mean 87 Blood Pressure Mean [Left Arm] Blood Pressure Mean [Right Arm] Blood Pressure Position [Left Arm] Blood Pressure Position [Right Arm] Pulse Oximetry 99 98 98 Oxygen Delivery Method 03/01/19 21:02 03/01/19 21:03 03/01/19 21:30 Temperature Temperature Source Pulse Rate 96 H 102 H 89 Pulse Rate [Right Finger] Pulse Rate from SpO2 Sensor 86 89 Pulse Rhythm [Right Finger] Pulse Strength [Right Finger] Respiratory Rate 21 27 H 15 Respiratory Effort / Characteristics Respiratory Depth Respiratory Pattern Blood Pressure 128/78 Blood Pressure [Left Arm] Blood Pressure [Right Arm] Blood Pressure Mean 94 Blood Pressure Mean [Left Arm] Blood Pressure Mean [Right Arm] Blood Pressure Position [Left Arm] Blood Pressure Position [Right Arm] Pulse Oximetry 96 96 Oxygen Delivery Method 03/01/19 21:35 03/01/19 22:00 03/01/19 22:01 Temperature Temperature Source Pulse Rate 87 93 H 92 H Pulse Rate [Right Finger] Pulse Rate from SpO2 Sensor 89 94 H 91 H Pulse Rhythm [Right Finger] Pulse Strength [Right Finger] Respiratory Rate 16 16 22 Respiratory Effort / Characteristics Respiratory Depth Respiratory Pattern Blood Pressure 116/72 119/73 Blood Pressure [Left Arm] Blood Pressure [Right Arm] Blood Pressure Mean 86 88 Blood Pressure Mean [Left Arm] Blood Pressure Mean [Right Arm] Blood Pressure Position [Left Arm] Blood Pressure Position [Right Arm] Pulse Oximetry 97 96 96 Oxygen Delivery Method 03/01/19 22:30 03/01/19 22:31 03/01/19 23:00 Temperature Temperature Source Pulse Rate 97 H 91 H 86 Pulse Rate [Right Finger] Pulse Rate from SpO2 Sensor 96 H 91 H 85 Pulse Rhythm [Right Finger] Pulse Strength [Right Finger] Respiratory Rate 16 18 19 Respiratory Effort / Characteristics Respiratory Depth Respiratory Pattern Blood Pressure 128/79 121/76 Blood Pressure [Left Arm] Blood Pressure [Right Arm] Blood Pressure Mean 95 91 Blood Pressure Mean [Left Arm] Blood Pressure Mean [Right Arm] Blood Pressure Position [Left Arm] Blood Pressure Position [Right Arm] Pulse Oximetry 96 96 97 Oxygen Delivery Method 03/01/19 23:01 03/02/19 00:18 03/02/19 01:13 Temperature Temperature Source Pulse Rate 84 92 H Pulse Rate [Right Finger] 93 H Pulse Rate from SpO2 Sensor 84 Pulse Rhythm [Right Finger] Regular Pulse Strength [Right Finger] Normal Respiratory Rate 14 21 19 Respiratory Effort / Characteristics Non-Labored Respiratory Depth Normal Respiratory Pattern Regular Blood Pressure 126/75 Blood Pressure [Left Arm] Blood Pressure [Right Arm] 126/77 Blood Pressure Mean Blood Pressure Mean [Left Arm] Blood Pressure Mean [Right Arm] 93 Blood Pressure Position [Left Arm] Blood Pressure Position [Right Arm] Lying Pulse Oximetry 97 98 98 Oxygen Delivery Method Room Air Room Air 03/02/19 01:36 03/02/19 03:10 03/02/19 07:41 Temperature 36.5 C 36.6 C 37.1 C Temperature Source Oral Oral Oral Pulse Rate Pulse Rate [Right Finger] 101 H 83 80 Pulse Rate from SpO2 Sensor Pulse Rhythm [Right Finger] Regular Pulse Strength [Right Finger] Normal Respiratory Rate 20 20 16 Respiratory Effort / Characteristics Non-Labored Respiratory Depth Normal Normal Respiratory Pattern Blood Pressure Blood Pressure [Left Arm] Blood Pressure [Right Arm] 142/81 H 123/60 93/51 L Blood Pressure Mean Blood Pressure Mean [Left Arm] Blood Pressure Mean [Right Arm] 101 81 65 Blood Pressure Position [Left Arm] Blood Pressure Position [Right Arm] Sitting Lying Lying Pulse Oximetry 98 97 97 Oxygen Delivery Method Room Air Room Air Room Air 03/02/19 11:15 03/02/19 15:33 03/02/19 16:00 Temperature 36.7 C 36.7 C Temperature Source Oral Oral Pulse Rate 92 H Pulse Rate [Right Finger] 89 84 Pulse Rate from SpO2 Sensor Pulse Rhythm [Right Finger] Regular Pulse Strength [Right Finger] Normal Respiratory Rate 14 18 Respiratory Effort / Characteristics Non-Labored Respiratory Depth Normal Respiratory Pattern Blood Pressure Blood Pressure [Left Arm] 112/69 Blood Pressure [Right Arm] 116/68 Blood Pressure Mean Blood Pressure Mean [Left Arm] 83 Blood Pressure Mean [Right Arm] 84 Blood Pressure Position [Left Arm] Lying Blood Pressure Position [Right Arm] Sitting Pulse Oximetry 96 99 Oxygen Delivery Method Room Air Room Air Home Medications Current Medication List: was personally reviewed by me Laboratory Data Attestation: I reviewed the patient's lab results. Result diagrams: 03/02/19 07:07 03/02/19 07:07 Lab Results 03/01/19 03/01/19 03/01/19 Range/Units 18:10 18:10 21:27 WBC 7.13 (4.8-10.8) K/uL RBC 4.46 (4.2-5.4) M/uL Hgb 11.9 L (12.0-16.0) g/dL Hct 35.3 L (37-47) % MCV 79.1 L (80-100) fL MCH 26.7 (25-34) pg MCHC 33.7 (32-36) g/dL RDW Std Deviation 40.5 (36.4-46.3) fL RDW Coeff of Dorian 14.2 (11.5-14.5) % Plt Count 269 (130-400) K/uL MPV 10.0 (7.4-10.4) fL Immature Gran % (Auto) 0.6 % Neut % (Auto) 61.8 % Lymph % (Auto) 26.6 % [place] % (Auto) 9.1 % Eos % (Auto) 1.5 % Baso % (Auto) 0.4 % Immature Gran # (Auto) 0.04 H (0.00-0.02) K/uL Neut # (Auto) 4.40 (1.4-6.5) K/uL Lymph # (Auto) 1.90 (1.2-3.4) K/uL [place] # (Auto) 0.65 H (0.11-0.59) K/uL Eos # (Auto) 0.11 (0-0.5) K/uL Baso # (Auto) 0.03 (0-0.2) K/uL ESR (0-21) mm/hr Sodium 138 (136-145) mmol/L Potassium 3.8 (3.5-5.1) mmol/L Chloride 108 H (98-107) mmol/L Carbon Dioxide 25 (21-32) mmol/L Anion Gap 5.0 (3-11) BUN 6 L (7-18) mg/dl Creatinine 0.51 L (0.6-1.2) mg/dl Est Cr Clr Drug Dosing 180.2 ml/min Est GFR ( Amer) > 150.0 Est GFR (Non-Af Amer) 129.9 BUN/Creatinine Ratio 11.2 (10-20) Glucose 97 (70-99) mg/dl Calcium 9.2 (8.5-10.1) mg/dl Phosphorus (2.5-4.9) mg/dl Magnesium (1.8-2.4) mg/dl Total Bilirubin 0.2 (0.2-1) mg/dl AST 110 H (15-37) U/L ALT 113 H (12-78) U/L Alkaline Phosphatase 73 (45-117) U/L Troponin I 0.139 H* 0.144 H* (0-0.045) ng/ml C-Reactive Protein (0-0.29) mg/dl Total Protein 7.5 (6.4-8.2) gm/dl Albumin 3.2 L (3.4-5.0) gm/dl Globulin 4.3 H (2.5-4.0) gm/dl Albumin/Globulin Ratio 0.7 L (0.9-2) Lipase 167 (73-393) U/L TSH (0.300-4.500) uIu/ml 03/02/19 03/02/19 03/02/19 Range/Units 03:41 03:41 07:07 WBC (4.8-10.8) K/uL RBC (4.2-5.4) M/uL Hgb (12.0-16.0) g/dL Hct (37-47) % MCV (80-100) fL MCH (25-34) pg MCHC (32-36) g/dL RDW Std Deviation (36.4-46.3) fL RDW Coeff of Dorian (11.5-14.5) % Plt Count (130-400) K/uL MPV (7.4-10.4) fL Immature Gran % (Auto) % Neut % (Auto) % Lymph % (Auto) % [place] % (Auto) % Eos % (Auto) % Baso % (Auto) % Immature Gran # (Auto) (0.00-0.02) K/uL Neut # (Auto) (1.4-6.5) K/uL Lymph # (Auto) (1.2-3.4) K/uL [place] # (Auto) (0.11-0.59) K/uL Eos # (Auto) (0-0.5) K/uL Baso # (Auto) (0-0.2) K/uL ESR 45 H (0-21) mm/hr Sodium 138 (136-145) mmol/L Potassium 3.8 (3.5-5.1) mmol/L Chloride 107 (98-107) mmol/L Carbon Dioxide 24 (21-32) mmol/L Anion Gap 7.0 (3-11) BUN 5 L (7-18) mg/dl Creatinine 0.52 L (0.6-1.2) mg/dl Est Cr Clr Drug Dosing 176.1 ml/min Est GFR ( Amer) 149.6 Est GFR (Non-Af Amer) 129.1 BUN/Creatinine Ratio 8.7 L (10-20) Glucose 98 (70-99) mg/dl Calcium 9.1 (8.5-10.1) mg/dl Phosphorus 3.6 (2.5-4.9) mg/dl Magnesium 2.2 (1.8-2.4) mg/dl Total Bilirubin 0.2 (0.2-1) mg/dl AST 77 H (15-37) U/L ALT 102 H (12-78) U/L Alkaline Phosphatase 68 (45-117) U/L Troponin I 0.139 H* (0-0.045) ng/ml C-Reactive Protein 2.05 H (0-0.29) mg/dl Total Protein 7.0 (6.4-8.2) gm/dl Albumin 3.1 L (3.4-5.0) gm/dl Globulin 3.9 (2.5-4.0) gm/dl Albumin/Globulin Ratio 0.8 L (0.9-2) Lipase (73-393) U/L TSH 6.290 H (0.300-4.500) uIu/ml 03/02/19 03/02/19 Range/Units 07:07 09:25 WBC 7.29 (4.8-10.8) K/uL RBC 4.39 (4.2-5.4) M/uL Hgb 11.7 L (12.0-16.0) g/dL Hct 34.8 L (37-47) % MCV 79.3 L (80-100) fL MCH 26.7 (25-34) pg MCHC 33.6 (32-36) g/dL RDW Std Deviation 40.8 (36.4-46.3) fL RDW Coeff of Dorian 14.2 (11.5-14.5) % Plt Count 259 (130-400) K/uL MPV 9.6 (7.4-10.4) fL Immature Gran % (Auto) 0.3 % Neut % (Auto) 60.7 % Lymph % (Auto) 28.9 % [place] % (Auto) 8.0 % Eos % (Auto) 1.6 % Baso % (Auto) 0.5 % Immature Gran # (Auto) 0.02 (0.00-0.02) K/uL Neut # (Auto) 4.42 (1.4-6.5) K/uL Lymph # (Auto) 2.11 (1.2-3.4) K/uL [place] # (Auto) 0.58 (0.11-0.59) K/uL Eos # (Auto) 0.12 (0-0.5) K/uL Baso # (Auto) 0.04 (0-0.2) K/uL ESR (0-21) mm/hr Sodium (136-145) mmol/L Potassium (3.5-5.1) mmol/L Chloride (98-107) mmol/L Carbon Dioxide (21-32) mmol/L Anion Gap (3-11) BUN (7-18) mg/dl Creatinine (0.6-1.2) mg/dl Est Cr Clr Drug Dosing ml/min Est GFR ( Amer) Est GFR (Non-Af Amer) BUN/Creatinine Ratio (10-20) Glucose (70-99) mg/dl Calcium (8.5-10.1) mg/dl Phosphorus (2.5-4.9) mg/dl Magnesium (1.8-2.4) mg/dl Total Bilirubin (0.2-1) mg/dl AST (15-37) U/L ALT (12-78) U/L Alkaline Phosphatase (45-117) U/L Troponin I 0.096 H* (0-0.045) ng/ml C-Reactive Protein (0-0.29) mg/dl Total Protein (6.4-8.2) gm/dl Albumin (3.4-5.0) gm/dl Globulin (2.5-4.0) gm/dl Albumin/Globulin Ratio (0.9-2) Lipase (73-393) U/L TSH (0.300-4.500) uIu/ml Administered Medications Ibuprofen (Motrin) 600 mg PO Q6H ADRIAN Stop: 04/01/19 15:59 Last Admin: 03/02/19 16:15 Dose: 600 mg Documented by: [id number] Miscellaneous (Order Awaiting Action) 1 ea N/A QS ADRIAN Stop: 04/01/19 07:59 Last Admin: 03/02/19 17:45 Dose: Not Given Documented by: [id number] Admin: 03/02/19 10:06 Dose: Not Given Documented by: [id number] Morphine Sulfate (Morphine Sulfate) 2 mg IV Q2H PRN PRN Reason: Pain Stop: 03/16/19 04:46 Last Admin: 03/02/19 17:46 Dose: 2 mg Documented by: [id number] Oxycodone/Acetaminophen (Percocet 5mg/325mg) 1 tab PO Q4H PRN PRN Reason: Pain Stop: 03/16/19 01:19 Last Admin: 03/02/19 16:19 Dose: 1 tab Documented by: [id number] Admin: 03/02/19 11:31 Dose: 1 tab Documented by: [id number] Admin: 03/02/19 06:49 Dose: 1 tab Documented by: [id number] Admin: 03/02/19 01:51 Dose: 1 tab Documented by: [id number] Polyethylene Glycol (Miralax Powder Packet) 17 gm PO DAILY PRN PRN Reason: Constipation Stop: 04/01/19 01:19 Last Admin: 03/02/19 16:20 Dose: 17 gm Documented by: [id number] Tizanidine HCl (Zanaflex) 4 mg PO Q8H ADRIAN Stop: 04/01/19 05:59 Last Admin: 03/02/19 16:15 Dose: 4 mg Documented by: [id number] Admin: 03/02/19 06:23 Dose: 4 mg Documented by: [id number] Discontinued Medications Al Hydrox/Mg Hydrox/Simethicone (Maalox) 30 ml PO NOW STA Stop: 03/01/19 21:09 Last Admin: 03/01/19 21:14 Dose: 30 ml Documented by: [id number] Aspirin (Ecotrin) 650 mg PO TID ADRIAN Stop: 04/01/19 08:59 Last Admin: 03/02/19 11:34 Dose: Not Given Documented by: [id number] Hydromorphone HCl (Dilaudid) 0.5 mg IV Q15M PRN PRN Reason: Pain Stop: 03/15/19 18:44 Last Admin: 03/02/19 00:17 Dose: 0.5 mg Documented by: [id number] Admin: 03/01/19 21:56 Dose: 0.5 mg Documented by: [id number] Admin: 03/01/19 21:13 Dose: 0.5 mg Documented by: [id number] Admin: 03/01/19 19:05 Dose: 0.5 mg Documented by: [id number] Hydromorphone HCl (Dilaudid) 1 mg IV NOW STA Stop: 03/02/19 11:44 Last Admin: 03/02/19 12:17 Dose: 1 mg Documented by: [id number] Ibuprofen (Motrin) 800 mg PO NOW STA Stop: 03/02/19 09:04 Last Admin: 03/02/19 10:06 Dose: 800 mg Documented by: [id number] Morphine Sulfate (Morphine Sulfate) 2 mg IV Q4H PRN PRN Reason: Pain Stop: 03/16/19 04:46 Last Admin: 03/02/19 10:11 Dose: 2 mg Documented by: [id number] Admin: 03/02/19 05:17 Dose: 2 mg Documented by: [id number] Ondansetron HCl (Zofran) 4 mg IV NOW STA Stop: 03/01/19 18:46 Last Admin: 03/01/19 19:05 Dose: 4 mg Documented by: [id number] Imaging Data Radiologist's Impression: CT SCAN OF THE CHEST WITHOUT IV CONTRAST CLINICAL HISTORY: Dyspnea. Atypical chest pain. Status post cardiac arrest. COMPARISON STUDY: Chest x-ray dated 03/08/2016. TECHNIQUE: CT scan of the thorax was performed from the thoracic inlet to the upper abdomen. Images are reviewed in the axial, sagittal, and coronal planes. IV contrast was not administered for this examination as per the referring clinician. Note that the examination is suboptimal without IV contrast. A dose lowering technique was utilized adhering to the principles of ALARA. CT DOSE: 307.39 mGy.cm FINDINGS: Thyroid: Imaged portions of the thyroid gland are normal in size and attenu ation. Thoracic aorta: The thoracic aorta is normal in caliber and demonstrates standard 3-vessel arch anatomy. Heart: The heart is normal in size and there is trace pericardial effusion. Lungs and pleural spaces: Evaluation of the lung parenchyma is modestly degraded by motion artifact. There is bibasilar atelectasis. No airspace consolidation is seen typical for pneumonia. There is no pleural effusion or pneumothorax. The trachea and central airways are clear. Mediastinum: Minimal residual thymic tissue is noted in the anterior mediastinum. There is no mediastinal hematoma or lymphadenopathy. Asha: Not well assessed without IV contrast. Axillae: There is no axillary lymphadenopathy. Upper abdomen: Enteric contrast is identified within the partially imaged left colon. Partially visualized upper abdominal viscera is otherwise grossly unremarkable. Skeletal structures: The bony thorax appears intact. No distracted rib fracture is seen. No lytic or blastic bony lesions are seen. IMPRESSION: 1. There is no airspace consolidation, pleural effusion, or pneumothorax. 2. The bony thorax appears intact. Electronically signed by: Tavon Acosta M.D. 03/01/2019 7:00 PM ECG Data Attestation: I personally reviewed and interpreted this ECG as follows: Indication: chest pain Rate (beats per minute): 98 Rhythm: normal sinus Findings: + nonspecific-ST abn; no PAC, no PVC, no ST depression and no ST eleva tion Additional Comments: Repeat EKG at 2105: Normal sinus rhythm at 90 BPM, no acute ischemic changes or ectopy. Blood Pressure Blood Pressure Findings: Normal blood pressure Discharge Plan Visit Data *Final* Discharge Date/Time: 03/02/19 01:13 Chief Complaint: Chest Pain Stated Complaint: CHEST PAIN INTO BACK S/P HEART ABLATION ED Provider: Matt Lyles Discharge Problem: Substernal chest pain, Elevated troponin Patient Disposition: Admitted As Inpatient Discharge Instructions Interventions: ED Discharge Assessment Last Done: 03/02/19 01:13 The scribe's documentation has been prepared under my direction and personally reviewed by me in its entirety. I confirm that the note above accurately reflects all work, treatment, procedures, and medical decision making performed by me.
[2019-03-02] MEDS: LORazepam 1 MG TAB PO PRN (20:49)
[2019-03-02] MEDS ORDERED: MoRPHine SULFATE 4 MG/ML 1 ML CARP\\VIAL ONE (20:59)
[2019-03-02] MEDS ORDERED: OXYCODONE HCL IR 5 MG TAB (IMMEDIATE RELEASE) PO PRN (21:30)
[2019-03-02] MEDS ORDERED: ONDANSETRON INJ 2 MG/ML 2 ML VIAL ONE (21:57)
[2019-03-03] MEDS: ONDANSETRON INJ 2 MG/ML 2 ML VIAL IV PRN ×3 (01:35→12:19)
[2019-03-03] MEDS: MoRPHine SULFATE 4 MG/ML 1 ML CARP\\VIAL IV PRN ×2 (01:35→08:09)
[2019-03-03] MEDS: IBUPROFEN 600 MG TAB PO SCH ×2 (04:13→10:04)
[2019-03-03] MEDS: OXYCODONE HCL IR 5 MG TAB (IMMEDIATE RELEASE) PO PRN ×3 (04:13→18:37)
[2019-03-03] MEDS: TIZANIDINE HCL 4 MG TABLET PO SCH ×3 (08:09→23:06)
[2019-03-03] MEDS: POLYETHYLENE (MIRALAX) 17 GM PACK PO PRN (08:23)
[2019-03-03] MEDS: POLYETHYLENE (MIRALAX) 17 GM PACK PO SCH ×2 (10:03→15:41)
[2019-03-03] MEDS: DOCUSATE SODIUM 100 MG CAP PO SCH ×2 (10:04→20:26)
--- NOTE | 2019-03-03 11:17 | Cardiology Progress Note ---
Date of Service March 03, 2019 Assessment & Plan (1) Substernal chest pain: Based on her symptoms I cannot be sure what is causing her chest discomfort however it sounds as though it may be a combination of pericarditis (which she could have even without a rub or an effusion) and chest wall d iscomfort from CPR. She cannot use colchicine, which probably would not work for her chest wall discomfort in any case. Unfortunately Motrin does not seem to be effective so far, it has now been about 24 hours and usually we see her response. She does not want to try steroids as she feels it affects her heart rate. I do not believe this is comfort represents myocardial ischemia. (2) Elevated troponin: Although technically elevated her troponin is not terribly high and there is no specific trend although the last is slightly lower I do not think this represents recurrent spasm, etc. I would treat her symptoms with nonsteroidals at this time. 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 We will need to follow this over the long run. (4) Cardiomyopathy: She had a cardiomyopathy identified immediately after her event fifth, however 3 days later her ejection fraction was near normal. And now by echo her cardiac function is normal. This is consistent with transient stunning and not a cardiomyopathy. Subjective She continues to have severe chest discomfort, she feels that the current management (Motrin) has not changed her discomfort. No other complaints. Physical Exam Vital Signs (Past 24 Hours): Last Vital Signs Temp 36.7 C 03/03/19 07:38 Pulse 72 03/03/19 07:38 Resp 16 03/03/19 07:38 BP 112/69 03/03/19 07:38 Pulse Ox 98 03/03/19 07:38 Physical Exam: Constitutional: Alert, cooperative and in no distress. HEENT: Unremarkable Neck: No jugular venous distention, carotid pulses are normal and equal bilaterally without bruits. Pulmonary: Clear to auscultation bilaterally. Cardiac: Regular rhythm with no murmur, gallop or rub. Abdomen: Soft, nontender with normal bowel sounds. Extremities: No edema. Distal pulses intact. Neurologic: No focal findings. Gait is steady. Skin: No rash, ecchymoses or petechiae. Results & Data Diagnostic Findings Electrocardiogram: Her last several electrocardiograms have shown sinus rhythm and are essentially normal, although she does have a little bit more ST elevation in the inferolateral leads that was seen on her initial presentation. This could be normal variation as it is really not abnormal or it could be related to pericarditis. So far there have not been T wave inversions adjusting evolution of pericarditis. Echocardiogram: Normal left ventricular size and function, trace pericardial effusion. No regional wall motion abnormalities.
[2019-03-03] MEDS ORDERED: OXYCODONE HCL IR 5 MG TAB (IMMEDIATE RELEASE) PO PRN (11:38)
[2019-03-03] MEDS ORDERED: MoRPHine SULFATE 2 MG/ML CARP ONE (12:17)
--- NOTE | 2019-03-03 13:12 | Family Medicine Progress Note ---
Date of Service March 03, 2019 Assessment & Plan (1) Substernal chest pain: 29-year-old female with a past medical history of SVT status post ablation presents with substernal chest pain. The patient was recently ablated on 02/23/2019 at [place] and subsequently had a cardiac arrest. She received chest compressions. Patient was subsequently found to have Takotsubo cardiomyopathy. She received a heart catheterization which did not show any coronary artery disease. Reviewed [facility] records: 02/23/2019 post ROSC EF was 25-30%, ---02/26/2019 repeat echo showed EF of 55% with mild LV dilation. ---Cardiac catheterization on 02/23/2019 did not show any [place] coronary art savi disease. Substernal chest pain, 2/2 ?pericarditis v chest wall pain Troponin elev .144 -> .139 -> .096 CT scan showed no abnormalities except for a trace pleural effusion 12Apr repeat TTE shows normal EF 60%, no wall motion abnormalities, mild pericardial effusion. elevated ESR, CRP, elev TSH -Cardiology consulted, appreciate recs. -Motrin 800mg TID recommended on discharge. Not responding currently. Will try toradol. -pt is allergic to colchicine -- possible h/o pericarditis. -Pain control requiring IV opioids -plan for transition to PO pain medication -heat, supportive care GERD -PPI started here with some benefit FEN/GI: no indication for fluids at this time DVT ppx: SCDs, ambulate CODE STATUS: FULL DISPO: Tele, daily EKGs. Other medical conditions: include Hypothyroidism -TSH >6 -currently not on thyroid medications; outpatient f/u Anxiety -will continue as needed Lorazepam s/p cervical fusion -cont tizanidine (2) Elevated troponin: (3) History of prior ablation treatment: (4) Pericardial effusion: (5) H/O supraventricular tachycardia: (6) History of cardiac arrest: Supervising Physician Co-Signing Physician Notes Resident Physician Supervision Note: I independently interviewed and examined the patient and verified the ocampo history and physical, reviewed labs and image studies, discussed the case with the resident Dr. Diaz and agree with the findings and care plan. Subjective Patient reports she had rough night with excess pain last night. IV medications were resumed by necessity. She reports on our visit that her pain is minimal. Constitutional: + body aches and + fatigue; no fever Ear, Nose, Mouth, Throat: no dizziness Respiratory: + pain on inspiration; no cough and no dyspnea Cardiovascular: + chest pain (retrosternal, radiates to back); no palpitations Gastrointestinal: + heartburn Genitourinary (Female): no dysuria and no urinary frequency Physical Exam Vital Signs (Past 24 Hours): Last Vital Signs Temp 37.0 C 03/03/19 11:33 Pulse 92 H 03/03/19 11:33 Resp 17 03/03/19 11:33 BP 113/64 03/03/19 11:33 Pulse Ox 98 03/03/19 11:33 Constitutional: WD/WN, vitals as above Eyes: PERRL, conjunctivae normal, anicteric sclerae ENMT: external ear and nose normal, oropharynx normal Neck: trachea midline, no thyromegaly Respiratory: normal respiratory effort, lungs clear to auscultation Cardiovascular: RRR, no murmur, no edema Gastrointestinal (Abdomen): normal bowel sounds, soft, nontender, no hepatosplenomegaly Musculoskeletal: no cyanosis or clubbing, extremities motor strength 5/5 Skin: no rashes, warm and dry Neurologic: PERRL, EOMI, accommodation nl, no face palsy, no dysarthria CN's II-XI intact bilaterally Psychiatric: A+Ox3, euthymic affect Results & Data Medications Administered Current Inpatient Medications Docusate Sodium (Colace) 100 mg PO BID [facility] Stop: 04/02/19 09:59 Last Admin: 03/03/19 10:04 Dose: 100 mg Documented by: Ibuprofen (Motrin) 600 mg PO Q6H [facility] Stop: 04/01/19 15:59 Last Admin: 03/03/19 10:04 Dose: 600 mg Documented by: Lorazepam (Ativan) 1 mg PO QPM PRN PRN Reason: Anxiety Stop: 04/01/19 01:19 Last Admin: 03/02/19 20:49 Dose: 1 mg Documented by: Magnesium Hydroxide (Milk Of Magnesia) 30 ml PO Q12H PRN PRN Reason: Constipation Stop: 04/01/19 01:19 Miscellaneous (Order Awaiting Action) 1 ea N/A QS [facility] Stop: 04/01/19 07:59 Last Admin: 03/03/19 07:17 Dose: Not Given Documented by: Morphine Sulfate (Morphine Sulfate) 4 mg IV Q2H PRN PRN Reason: Pain Stop: 03/16/19 20:59 Last Admin: 03/03/19 08:09 Dose: 4 mg Documented by: Morphine Sulfate (Morphine Sulfate) 2 mg IV Q4H PRN PRN Reason: Pain Stop: 03/17/19 12:13 Ondansetron HCl (Zofran) 4 mg IV Q4H PRN PRN Reason: Nausea Stop: 04/01/19 21:54 Last Admin: 03/03/19 12:19 Dose: 4 mg Documented by: Oxycodone HCl (Roxicodone Immediate Rel) 5 mg PO Q4H PRN PRN Reason: Pain Stop: 03/16/19 21:29 Oxycodone HCl (Roxicodone Immediate Rel) 10 mg PO Q4H PRN PRN Reason: Pain Stop: 03/16/19 21:30 Polyethylene Glycol (Miralax Powder Packet) 17 gm PO Q4H [facility] Stop: 04/02/19 09:59 Last Admin: 03/03/19 10:03 Dose: Not Given Documented by: Tizanidine HCl (Zanaflex) 4 mg PO Q8H [facility] Stop: 04/01/19 05:59 Last Admin: 03/03/19 08:09 Dose: Not Given Documented by: Resident Activity Tracking Resident Involvement: Resident Care Provided Care Provided: Adult Hospital Medicine
[2019-03-03] MEDS: KETOROLAC TROMETHAMINE 15 MG/ML VIAL IV PRN ×2 (15:41→23:06)
[2019-03-03] MEDS: LIDOCAINE 5% 1 PATCH TD SCH (15:41)
[2019-03-03] MEDS: MoRPHine SULFATE 2 MG/ML CARP IV PRN (20:29)
[2019-03-04] MEDS: OXYCODONE HCL IR 5 MG TAB (IMMEDIATE RELEASE) PO PRN ×5 (01:19→23:23)
[2019-03-04] MEDS: KETOROLAC TROMETHAMINE 15 MG/ML VIAL IV PRN ×4 (04:59→21:50)
[2019-03-04] MEDS: TIZANIDINE HCL 4 MG TABLET PO SCH ×3 (04:59→21:48)
[2019-03-04] MEDS: DOCUSATE SODIUM 100 MG CAP PO SCH ×2 (07:58→20:08)
[2019-03-04] MEDS: LIDOCAINE 5% 1 PATCH TD SCH (07:58)
--- NOTE | 2019-03-04 09:49 | Cardiology Progress Note ---
Date of Service March 04, 2019 Assessment & Plan (1) Substernal chest pain: Based on her symptoms I cannot be sure what is causing her chest discomfort however it sounds as though it may be a combination of pericarditis (which she could have even without a rub or an effusion) and chest wall d iscomfort from CPR. She cannot use colchicine, which probably would not work for her chest wall discomfort in any case. Unfortunately Motrin does not seem to be effective, Toradol is working better but I do not know if there is much data on long-term benefit if it is pericarditis. She does not want to try steroids as she feels it affects her heart rate. I do not believe this discomfort represents myocardial ischemia. (2) Elevated troponin: Although technically elevated her troponin is not terribly high and there is no specific trend although the last is slightly lower I do not think this represents recurrent spasm, etc. I would treat her symptoms with nonsteroidals at this time. 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 We will need to follow this over the long run, especially with exercise. (4) Cardiomyopathy: She had a cardiomyopathy identified immediately after her event, however 3 days later her ejection fraction was near normal. And now by echo her cardiac f unction is normal. This is consistent with transient stunning and not a cardiomyopathy. Subjective She is doing better now on Toradol, she still has the discomfort but it is under better control. She has not been having palpitations. Physical Exam Vital Signs (Past 24 Hours): Last Vital Signs Temp 36.7 C 03/04/19 07:27 Pulse 75 03/04/19 09:17 Resp 17 03/04/19 07:27 BP 103/57 L 03/04/19 07:27 Pulse Ox 98 03/04/19 07:27 Physical Exam: Constitutional: Alert, cooperative and in no distress. HEENT: Unremarkable Neck: No jugular venous distention, carotid pulses are normal and equal bilaterally without bruits. Pulmonary: Clear to auscultation bilaterally. Cardiac: Regular rhythm with no murmur, gallop or rub. Abdomen: Soft, nontender with normal bowel sounds. Extremities: No edema. Distal pulses intact. Neurologic: No focal findings. Gait is steady. Skin: No rash, ecchymoses or petechiae. Results & Data Diagnostic Findings ECG: Sinus rhythm, inferolateral ST elevation which could be normal, could represent pericarditis Telemetry: Sinus rhythm with a well-controlled heart rate
[2019-03-04] MEDS: MoRPHine SULFATE 2 MG/ML CARP IV PRN ×2 (11:00→20:08)
--- NOTE | 2019-03-04 11:25 | Family Medicine Progress Note ---
Date of Service March 04, 2019 Assessment & Plan (1) Substernal chest pain: 29-year-old female with a past medical history of SVT status post ablation presents with substernal chest pain. The patient was recently ablated on 02/23/2019 at [place] and subsequently had a cardiac arrest. She received chest compressions. Patient was subsequently found to have Takotsubo cardiomyopathy. She received a heart catheterization which did not show any coronary artery disease. Reviewed [facility] records: 02/23/2019 post ROSC EF was 25-30%, ---02/26/2019 repeat echo showed EF of 55% with mild LV dilation. ---Cardiac catheterization on 02/23/2019 did not show any [place] coronary art savi disease. Substernal chest pain, 2/2 ?pericarditis v chest wall pain Troponin elev .144 -> .139 -> .096 CT scan showed no abnormalities except for a trace pleural effusion 12Apr repeat TTE shows normal EF 60%, no wall motion abnormalities, mild pericardial effusion. elevated ESR, CRP, elev TSH -Cardiology consulted, appreciate recs. -Motrin 800mg TID recommended on discharge. -pt is allergic to colchicine -- possible h/o pericarditis. -Pain better controlled with 15 mg toradol q6h. Has used less of IV opioids -plan for transition to PO pain medication only -heat, supportive care GERD -PPI started here with some benefit FEN/GI: no indication for fluids at this time DVT ppx: SCDs, ambulate CODE STATUS: FULL DISPO: Tele, daily EKGs. Other medical conditions: Hypothyroidism -TSH >6 -currently not on thyroid medications; outpatient f/u Anxiety -will continue as needed Lorazepam s/p cervical fusion -cont tizanidine (2) Elevated troponin: (3) History of prior ablation treatment: (4) Pericardial effusion: (5) H/O supraventricular tachycardia: (6) History of cardiac arrest: Supervising Physician Co-Signing Physician Notes Resident Physician Supervision Note: I independently interviewed and examined the patient and verified the ocampo history and physical, reviewed labs and image studies, discussed the case with the resident Dr. Diaz and agree with the findings and care plan. Subjective Patient had another rough night last night. She does report that she thinks the lidoderm/toradol is slightly better than the motrin. She states she has been trying to use less of the IV morphine but still needs it at times. She finds getting up and about aggravates her pain. She reports her appetite is returning and she did have a bowel movement finally. Physical Exam Vital Signs (Past 24 Hours): Last Vital Signs Temp 36.7 C 03/04/19 07:27 Pulse 75 03/04/19 09:17 Resp 17 03/04/19 07:27 BP 103/57 L 03/04/19 07:27 Pulse Ox 98 03/04/19 07:27 Constitutional: WD/WN, vitals as above Eyes: PERRL, conjunctivae normal, anicteric sclerae ENMT: external ear and nose normal, oropharynx normal Neck: trachea midline, no thyromegaly Respiratory: normal respiratory effort, lungs clear to auscultation Cardiovascular: RRR, no murmur, no edema Vessels: + JVD Gastrointestinal (Abdomen): normal bowel sounds, soft, nontender, no hepatosplenomegaly Musculoskeletal: no cyanosis or clubbing, extremities motor strength 5/5 Skin: no rashes, warm and dry Neurologic: PERRL, EOMI, accommodation nl, no face palsy, no dysarthria CN's II-XI intact bilaterally Psychiatric: A+Ox3, euthymic affect Results & Data Medications Administered Current Inpatient Medications Docusate Sodium (Colace) 100 mg PO BID [facility] Stop: 04/02/19 09:59 Last Admin: 03/04/19 07:58 Dose: 100 mg Documented by: Ibuprofen (Motrin) 600 mg PO Q6H [facility] Stop: 04/01/19 15:59 Last Admin: 03/03/19 10:04 Dose: 600 mg Documented by: Ketorolac Tromethamine (Toradol) 15 mg IV Q6H PRN PRN Reason: Pain Stop: 03/08/19 14:59 Last Admin: 03/04/19 10:10 Dose: 15 mg Documented by: Lidocaine (Lidoderm 5%) 1 patch TD QAM [facility] Stop: 04/02/19 14:44 Last Admin: 03/04/19 07:58 Dose: 1 patch Documented by: Lorazepam (Ativan) 1 mg PO QPM PRN PRN Reason: Anxiety Stop: 04/01/19 01:19 Last Admin: 03/02/19 20:49 Dose: 1 mg Documented by: Magnesium Hydroxide (Milk Of Magnesia) 30 ml PO Q12H PRN PRN Reason: Constipation Stop: 04/01/19 01:19 Miscellaneous (Order Awaiting Action) 1 ea N/A QS [facility] Stop: 04/01/19 07:59 Last Admin: 03/04/19 07:41 Dose: Not Given Documented by: Miscellaneous (Remove Lidoderm Patch) 1 ea N/A DAILY@2100 [facility] Stop: 04/02/19 22:59 Last Admin: 03/03/19 23:06 Dose: 1 ea Documented by: Morphine Sulfate (Morphine Sulfate) 4 mg IV Q2H PRN PRN Reason: Pain Stop: 03/16/19 20:59 Last Admin: 03/03/19 08:09 Dose: 4 mg Documented by: Morphine Sulfate (Morphine Sulfate) 2 mg IV Q4H PRN PRN Reason: Pain Stop: 03/17/19 12:13 Last Admin: 03/04/19 11:00 Dose: 2 mg Documented by: Ondansetron HCl (Zofran) 4 mg IV Q4H PRN PRN Reason: Nausea Stop: 04/01/19 21:54 Last Admin: 03/03/19 12:19 Dose: 4 mg Documented by: Oxycodone HCl (Roxicodone Immediate Rel) 5 mg PO Q4H PRN PRN Reason: Pain Stop: 03/16/19 21:29 Oxycodone HCl (Roxicodone Immediate Rel) 10 mg PO Q4H PRN PRN Reason: Pain Stop: 03/16/19 21:30 Last Admin: 03/04/19 07:56 Dose: 10 mg Documented by: Polyethylene Glycol (Miralax Powder Packet) 17 gm PO DAILY PRN PRN Reason: Constipation Stop: 03/18/19 16:35 Tizanidine HCl (Zanaflex) 4 mg PO Q8H [facility] Stop: 04/01/19 05:59 Last Admin: 03/04/19 04:59 Dose: Not Given Documented by: Resident Activity Tracking Resident Involvement: Resident Care Provided Care Provided: Adult Hospital Medicine
[2019-03-04] MEDS ORDERED: MoRPHine SULFATE 4 MG/ML 1 ML CARP\\VIAL IV STA (13:56)
[2019-03-04] MEDS ORDERED: MoRPHine SULFATE 4 MG/ML 1 ML CARP\\VIAL ONE (13:59)
[2019-03-04] MEDS: POLYETHYLENE (MIRALAX) 17 GM PACK PO PRN (20:03)
[2019-03-04] MEDS: ONDANSETRON INJ 2 MG/ML 2 ML VIAL IV PRN (20:03)
[2019-03-04] MEDS: LORazepam 1 MG TAB PO PRN (21:50)
[2019-03-05] MEDS: OXYCODONE HCL IR 5 MG TAB (IMMEDIATE RELEASE) PO PRN ×2 (03:59→14:46)
[2019-03-05] MEDS: TIZANIDINE HCL 4 MG TABLET PO SCH ×2 (06:05→21:24)
[2019-03-05] MEDS: DOCUSATE SODIUM 100 MG CAP PO SCH ×2 (07:37→21:24)
[2019-03-05] MEDS: LIDOCAINE 5% 1 PATCH TD SCH (07:38)
[2019-03-05] MEDS: MoRPHine SULFATE 2 MG/ML CARP IV PRN ×2 (07:42→12:55)
[2019-03-05] MEDS ORDERED: ACETAMINOPHEN SOLN 160 MG/5 ML BTL PO SCH (09:00)
[2019-03-05] MEDS: KETOROLAC TROMETHAMINE 15 MG/ML VIAL IV PRN (10:08)
[2019-03-05] MEDS: ACETAMINOPHEN 500 MG TAB PO SCH ×3 (10:11→21:25)
--- NOTE | 2019-03-05 13:26 | Cardiology Progress Note ---
Date of Service March 05, 2019 Assessment & Plan (1) Substernal chest pain: Based on her symptoms I cannot be sure what is causing her chest discomfort however it sounds as though it may be a combination of pericarditis (which she could have even without a rub or an effusion) and chest wall d iscomfort from CPR. She cannot use colchicine, which probably would not work for her chest wall discomfort in any case. Unfortunately Motrin does not seem to be effective, Toradol is working better but I do not know if there is much data on long-term benefit if it is pericarditis. She does not want to try steroids as she feels it affects her heart rate. I do not believe this discomfort represents myocardial ischemia. Consider pain management evaluation to see what there is a skeletal issue related to CPR that might be treated by injection, etc. or if they have any other suggestions. (2) Elevated troponin: Although technically elevated her troponin is not terribly high and there is no specific trend although the last is slightly lower I do not think this represents recurrent spasm, etc. I would treat her symptoms with nonsteroidals at this time. 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 We will need to follow this over the long run, especially with exercise. (4) Cardiomyopathy: She had a cardiomyopathy identified immediately after her event, however 3 days later her ejection fraction was near normal. And now by echo her cardiac function is normal. This is consistent with transient stunning and not a cardiomyopathy. Subjective She continues to have severe chest discomfort, it appears to be unrelenting and I am not sure we have made much difference in it with medical therapy. Physical Exam Vital Signs (Past 24 Hours): Last Vital Signs Temp 36.9 C 03/05/19 11:45 Pulse 76 03/05/19 11:45 Resp 18 03/05/19 11:45 BP 103/72 03/05/19 11:45 Pulse Ox 100 03/05/19 11:45 Physical Exam: Constitutional: Alert, cooperative and in no distress. Pulmonary: Clear to auscultation bilaterally. Cardiac: Regular rhythm with no murmur, gallop or rub. Abdomen: Soft, nontender with normal bowel sounds. Extremities: No edema. Skin: No rash, ecchymoses or petechiae. Results & Data Diagnostic Findings Telemetry: Sinus rhythm, no significant arrhythmia
[2019-03-05] MEDS ORDERED: MoRPHine SULFATE 2 MG/ML CARP IV PRN (14:26)
--- NOTE | 2019-03-05 14:31 | Family Medicine Progress Note ---
Date of Service March 05, 2019 Assessment & Plan (1) Substernal chest pain: 29-year-old female with a past medical history of SVT status post ablation presents with substernal chest pain. The patient was recently ablated on 02/23/2019 at [place] and subsequently had a cardiac arrest. She received chest compressions. Patient was subsequently found to have Takotsubo cardiomyopathy. She received a heart catheterization which did not show any coronary artery disease. Reviewed [facility] records: 02/23/2019 post ROSC EF was 25-30%, ---02/26/2019 repeat echo showed EF of 55% with mild LV dilation. ---Cardiac catheterization on 02/23/2019 did not show any [place] coronary art savi disease. Substernal chest pain, 2/2 pericarditis and complicated chest wall pain Troponin peaked .144 -> .139 -> .096, EKG with semi diffuse mild ST elevations in anterior leads. EKG stable. 11Apr CT scan showed no abnormalities except for a trace pleural effusion - no bony abnormalities or fractures. 12Apr repeat TTE shows normal EF 60%, no wall motion abnormalities, mild pericardial effusion. Elevated ESR, CRP. -chest pain seems to be a combination of pericarditis with musculoskeletal spasms/contusion after chest compressions -still a question as to iatrogenic hyperthyroidism (historically) contributing to SVT, now with hypothyroid labs (as below) which needs addressed in outpatient office. Did have outpatient endo appt set up for this week. -Cardiology consulted, appreciate recs: NSAIDs for pericarditis until asymptomatic. Pt is allergic to colchicine. (Initially had said she was allergic to NSAIDs but this was clarified to namely colchicine). Motrin 800mg TID. 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 Add Lyrica 75 BID. -plan for eventual transition to PO pain medication only prior to discharge. Did review PDMP, does not show any suspicious activity. -heat, supportive care Anxiety -ativan PRN FEN/GI: no indication for fluids at this time. Heart healthy diet. DVT ppx: SCDs, ambulate CODE STATUS: FULL DISPO: Step down to Med/Surg, request for single room made given anxiety level and pt is requesting. Other medical conditions: Hypothyroidism -TSH >6 -currently not on thyroid medications; outpatient f/u s/p cervical fusion -cont tizanidine . (2) Elevated troponin: (3) History of prior ablation treatment: (4) Pericardial effusion: (5) H/O supraventricular tachycardia: (6) History of cardiac arrest: Supervising Physician Co-Signing Physician Notes I personally examined the patient and verified all ocampo points of history and exam, discussed case, and agree with decision making with Dr Coronado. Notes pain is completely uncontrolled. She notes about the only thing that help with something they gave her in the ER. She wriley jokes to the rounding team "do not , this is what happens" she notes significant amount of pain with movement Vitals noted, in general she is lying in bed quite still somewhat tearful appearing to be in pain. HEENT normal cephalic atraumatic mucous members are moist. Breathing is unlabored no accessory muscle use. Skin shows no rashes no pallor or icterus. Neuro shows no focal deficits. Chest painappears to be predominantly biomechanical/rib related after CPR. She notes that it does feel better than when she was discharged from [place] but is still fairly atrocious in intensity. There is a question of pericarditis, given a nominal amount of EKG changes and her troponin, but certainly if there is it seems it would be mostly posttraumatic. Continue to work towards better symptom control, given the duration of his symptoms thus far with slow and fairly minimal improvement, we discussed the risks and benefits of adding something that is more geared towards longer-term pain control such as pregabalin. She expresses understanding and willingness to try. 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 Hypothyroidher TSH is currently 6.2, we will need to determine better her prior treatments and tolerabilitys, and certainly medications such as [place] Thyroid are typically less than optimal for treatment of hypothyroidism in general Otherwise as above Subjective Pt seen and examined at bedside this AM and then again in afternoon -- was called to nursing due to crying "I'm tired of this pain" and "I'm tired of being here". Chest pain is described as "tightness" and symptoms increase with walking, showering, brushing her teeth. Very bothersome for the patient. Is overall better than when she left [place], but still pretty bad. Review of Systems All systems reviewed & are unremarkable except as noted in HPI & below Physical Exam Vital Signs (Past 24 Hours): Last Vital Signs Temp 36.9 C 03/05/19 11:45 Pulse 76 03/05/19 11:45 Resp 18 03/05/19 11:45 BP 103/72 03/05/19 11:45 Pulse Ox 100 03/05/19 11:45 Physical Exam: Vitals noted as above and within normal limits . GENERAL: Awake, alert to person, place, and time, nontoxic-appearing, in moderate distress HENT: Normocephalic, atraumatic. Mucus membranes appear moist. EYES: Normal conjunctiva. Sclera non-icteric. EOMI. NECK: Supple. Full range of motion. No JVD RESPIRATORY: Clear to auscultation. Normal work of breathing. CARDIAC: Regular rate, normal rhythm. Extremities warm and well perfused. ABDOMEN: Soft, non-distended. No tenderness to palpation in all four quadrants. Bowel sounds are normal. LOWER EXTREMITIES: They are non-tender. NEURO: No focal gross focal motor deficits noted. Sensation in tact. CN II-XII grossly in tact. SKIN: Rash not present. No jaundice noted. Significant lesions not present. PSYCH: Appropriate mood and affect. Cooperative. +anxious CHEST: exquisitely tender to palpation to sternum at mid chest. Lido patch in place. Exam as done by Geraldine Coronado MD, [employer]. Results & Data Medications Administered Current Inpatient Medications Acetaminophen (Tylenol) 1,000 mg PO TID [facility] Stop: 04/04/19 08:59 Last Admin: 03/05/19 14:41 Dose: 1,000 mg Documented by: Docusate Sodium (Colace) 100 mg PO BID [facility] Stop: 04/02/19 09:59 Last Admin: 03/05/19 07:37 Dose: 100 mg Documented by: Ibuprofen (Motrin) 600 mg PO Q6H [facility] Stop: 04/01/19 15:59 Last Admin: 03/03/19 10:04 Dose: 600 mg Documented by: Ketorolac Tromethamine (Toradol) 15 mg IV Q6H PRN PRN Reason: Pain Stop: 03/08/19 14:59 Last Admin: 03/05/19 10:08 Dose: 15 mg Documented by: Lidocaine (Lidoderm 5%) 1 patch TD QAM [facility] Stop: 04/02/19 14:44 Last Admin: 03/05/19 07:38 Dose: 1 patch Documented by: Lorazepam (Ativan) 1 mg PO TID PRN PRN Reason: Anxiety Stop: 04/01/19 01:19 Last Admin: 03/05/19 14:41 Dose: 1 mg Documented by: Magnesium Hydroxide (Milk Of Magnesia) 30 ml PO Q12H PRN PRN Reason: Constipation Stop: 04/01/19 01:19 Miscellaneous (Order Awaiting Action) 1 ea N/A QS [facility] Stop: 04/01/19 07:59 Last Admin: 03/05/19 10:10 Dose: Not Given Documented by: Miscellaneous (Remove Lidoderm Patch) 1 ea N/A DAILY@2100 [facility] Stop: 04/02/19 22:59 Last Admin: 03/04/19 20:08 Dose: 1 ea Documented by: Morphine Sulfate (Morphine Sulfate) 4 mg IV Q4H PRN PRN Reason: Pain Stop: 03/17/19 12:13 Ondansetron HCl (Zofran) 4 mg IV Q4H PRN PRN Reason: Nausea Stop: 04/01/19 21:54 Last Admin: 03/04/19 20:03 Dose: 4 mg Documented by: Oxycodone HCl (Roxicodone Immediate Rel) 5 mg PO Q4H PRN PRN Reason: Pain Stop: 03/16/19 21:29 Oxycodone HCl (Roxicodone Immediate Rel) 10 mg PO Q4H PRN PRN Reason: Pain Stop: 03/16/19 21:30 Last Admin: 03/05/19 14:46 Dose: 10 mg Documented by: Polyethylene Glycol (Miralax Powder Packet) 17 gm PO DAILY PRN PRN Reason: Constipation Stop: 03/18/19 16:35 Last Admin: 03/04/19 20:03 Dose: 17 gm Documented by: Tizanidine HCl (Zanaflex) 4 mg PO HS [facility] Stop: 04/04/19 20:59 Resident Activity Tracking Resident Involvement: Resident Care Provided Care Provided: Adult Hospital Medicine
[2019-03-05] MEDS: LORazepam 1 MG TAB PO PRN (14:41)
[2019-03-05] MEDS ORDERED: HYDROmorphone INJ 1 MG/ML SYRINGE IV STA (15:22)
[2019-03-05] MEDS: IBUPROFEN 600 MG TAB PO SCH ×2 (16:42→21:27)
[2019-03-05] MEDS: POLYETHYLENE (MIRALAX) 17 GM PACK PO PRN (16:42)
[2019-03-05] MEDS: ONDANSETRON INJ 2 MG/ML 2 ML VIAL IV PRN (17:36)
[2019-03-05] MEDS ORDERED: NALOXONE HCL 0.4 MG/1 ML VIAL/CARP IV PRN (18:49)
[2019-03-05] MEDS: HYDROmorphone HCL 0.5MG/ML 50 ML CASSETTE IV PRN ×2 (19:51→23:21)
--- NOTE | 2019-03-05 20:26 | Medical Student Progress Note ---
Date of Service March 05, 2019 is a 29-year-old female with a pmhx of recurrent SVT and recent dx of Takotsubo cardiomyopathy who is in hospital day 3 for chest pressure and shortness of breath. On 02/23 she received a cardiac ablation in [place] for SVT and went into asystole shortly after the procedure which resulted in her receiving chest compressions. Chest pressure-At first she explains that chest pressure began on 02/23 and has steadily gotten worse. Later, she mentioned that chest pressure has improved since her time in [place] but is still quite bad. She feels as if an elephant is sitting on my chest. Pressure is localized to the center of her chest and she says that even lightly touching her chest hurts tremendously. She notes pressure in the middle of her lower back as well and at posterior portion of her neck at the base. Deep breaths make the pressure worse. Sitting supine at 30 degrees and tilted slightly to the left lessen the pressure somewhat. She notes that she is unsure if pain medication is really helping. She is unsure if she is having any chest palpitations because she thinks that her pressure might be masking these sx. Shortness of breath-She describes feeling short of breath especially when she is walking around. She denies any wheezing. Assessment & Plan (1) Substernal chest pain: Pressure is likely due to a combination of musculoskeletal trauma as well as pericarditis following chest compressions. There is also possibility that her hypothyroidism could be associated with SVT -Pt is allergic to colchicine so cannot be given -Motrin 800 mg TID -Because pain is not well controlled with morphine and oxycodone, begin Dilaudid with SOLE MOLDER to get ahead of the pain. Pt was checked in PDMP. -Pregabalin 75 mg po b.i.d which she can continue in the outpatient setting -Continue with heating pad Present on Admission?: Yes (2) Anxiety: -Lorazepam 1 mg PO qPM as needed Present on Admission?: Yes (3) Hypothyroidism: Pt had an appointment with endocrinology tomorrow which she will have to reschedule because of her hospitalization -TSH was 6.29 It was explained to her that symptomatic hypothyroidism usually begins at a TSH level of 10. Her fatigue is likely due to chest pressure sx. -She could consider levothyroxine over [place] Thyroid which has more stable effects Present on Admission?: Yes Supervising Attestation I personally examined the patient and verified all ocampo points of history and exam, discussed case, and agree with decision making with Hilario Nobles MS2 Notes pain is completely uncontrolled. She notes about the only thing that help with something they gave her in the ER. She wriley jokes to the rounding team "do not , this is what happens" she notes significant amount of pain with movement Vitals noted, in general she is lying in bed quite still somewhat tearful appearing to be in pain. HEENT normal cephalic atraumatic mucous members are moist. Breathing is unlabored no accessory muscle use. Skin shows no rashes no pallor or icterus. Neuro shows no focal deficits. Chest painappears to be predominantly biomechanical/rib related after CPR. She notes that it does feel better than when she was discharged from [place] but is still fairly atrocious in intensity. There is a question of pericarditis, given a nominal amount of EKG changes and her troponin, but certainly if there is it seems it would be mostly posttraumatic. Continue to work towards better symptom control, given the duration of his symptoms thus far with slow and fairly minimal improvement, we discussed the risks and benefits of adding something that is more geared towards longer-term pain control such as pregabalin. She expresses understanding and willingness to try. We also discussed in the acute setting trying to break the "pain cycle" with a SOLE MOLDER, she expresses understanding and appreciation of this approach as well. Hypothyroidher TSH is currently 6.2, we will need to determine better her prior treatments and tolerabilitys, and certainly medications such as [place] Thyroid are typically less than optimal for treatment of hypothyroidism in general Otherwise as above Subjective Review of Systems All systems reviewed & are unremarkable except as noted in HPI & below Constitutional: + fever (denies), + chills (denies ), + fatigue, + weakness and + weight loss Respiratory: as per Subjective / HPI Cardiovascular: as per Subjective / HPI Gastrointestinal: + nausea (denies) and + vomiting (denies ) Physical Exam Vital Signs (Past 24 Hours): Last Vital Signs Temp 36.5 C 03/05/19 18:13 Pulse 96 H 03/05/19 18:13 Resp 20 03/05/19 15:34 BP 117/72 04/15/19 18:13 Pulse Ox 96 03/05/19 18:13 Constitutional: WD/WN, vitals as above + in distress Able to converse though reports being in mild distress Neck: Thyroid: normal thyroid No JVD Respiratory: normal respiratory effort, lungs clear to auscultation Cardiovascular: RRR, no murmur, no edema Vessels: + JVD (NO JVD ) and + carotid bruit (None noted ) Extremities: + edema (None ) Gastrointestinal (Abdomen): normal bowel sounds, soft, nontender, no hepatosplenomegaly Musculoskeletal: no cyanosis or clubbing, extremities motor strength 5/5 Skin: no rashes, warm and dry Psychiatric: Affect: + tearful affect
[2019-03-05] MEDS: PREGABALIN 75 MG CAP PO SCH (21:27)
[2019-03-06] MEDS: IBUPROFEN 600 MG TAB PO SCH ×4 (04:02→21:28)
[2019-03-06 06:30] LABS: BUN Creatinine Ratio 9.4 (10-20); Calcium 8.5 mg/dl (8.5-10.1); Creatinine Clr Calc Pharmacy 154.5 ml/min; Est GFR (African American) 143.6; Est GFR (Non-African American) 123.9
[2019-03-06] MEDS: MAGNESIUM HYDROXIDE SUSP 30 ML UDC PO PRN (07:28)
[2019-03-06] MEDS: DOCUSATE SODIUM 100 MG CAP PO SCH ×2 (09:02→21:28)
[2019-03-06] MEDS: ETHINYL ESTRADIOL PO SCH (09:02)
[2019-03-06] MEDS: DROSPIRENONE PO SCH (09:02)
[2019-03-06] MEDS: ACETAMINOPHEN 500 MG TAB PO SCH ×3 (09:02→21:29)
[2019-03-06] MEDS: PREGABALIN 75 MG CAP PO SCH ×2 (09:04→21:28)
[2019-03-06] MEDS: LIDOCAINE 5% 1 PATCH TD SCH (09:05)
[2019-03-06] MEDS: POLYETHYLENE (MIRALAX) 17 GM PACK PO PRN (09:11)
--- NOTE | 2019-03-06 10:12 | Family Medicine Progress Note ---
Date of Service March 06, 2019 Assessment & Plan (1) Substernal chest pain: 29-year-old female with a past medical history of SVT status post ablation presents with substernal chest pain. The patient was recently ablated on 02/23/2019 at [place] and subsequently had a cardiac arrest. She received chest compressions. Patient was subsequently found to have Takotsubo cardiomyopathy. She received a heart catheterization which did not show any coronary artery disease. Reviewed [facility] records: 02/23/2019 post ROSC EF was 25-30%, ---02/26/2019 repeat echo showed EF of 55% with mild LV dilation. ---Cardiac catheterization on 02/23/2019 did not show any [place] coronary ar saloni disease. #Substernal chest pain, 2/2 pericarditis and complicated chest wall pain Troponin peaked .144 -> .139 -> .096, EKG with semi diffuse mild ST elevations in anterior leads. EKG stable. 11Apr CT scan showed no abnormalities except for a trace pleural effusion - no bony abnormalities or fractures. 12Apr repeat TTE shows normal EF 60%, no wall motion abnormalities, mild pericardial effusion. Elevated ESR, CRP. -chest pain seems to be a combination of pericarditis with musculoskeletal spasms/contusion after chest compressions -still a question as to iatrogenic hyperthyroidism (historically) contributing to SVT, now with hypothyroid labs (as below) which needs addressed in outpatient office. Did have outpatient endo appt set up for this week. -Cardiology consulted, appreciate recs: NSAIDs for pericarditis until asymptomatic. Pt is allergic to colchicine. (Initially had said she was allergic to NSAIDs but this was clarified to namely colchicine). Motrin 800mg TID. 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 Add Lyrica 75 BID. -plan for eventual transition to PO pain medication only prior to discharge. Did review PDMP, does not show any suspicious activity. -heat, supportive care Anxiety -ativan PRN FEN/GI: no indication for fluids at this time. Heart healthy diet. DVT ppx: SCDs, ambulate CODE STATUS: FULL DISPO: Step down to Med/Surg, request for single room made given anxiety level and pt is requesting. Other medical conditions: Hypothyroidism -TSH >6 -currently not on thyroid medications; outpatient f/u s/p cervical fusion -cont tizanidine (2) Elevated troponin: (3) History of prior ablation treatment: (4) Pericardial effusion: (5) H/O supraventricular tachycardia: (6) History of cardiac arrest: Subjective Review of Systems All systems reviewed & are unremarkable except as noted in HPI & below seen at bedside this AM -- states she did well with dilaudid INSULATOR TECHNICIAN, albeit was not able to push while sleeping. Did receive a total of 1.5mg IV from 4p yesterday and up until this AM, reviewed on jan with nursing. No acute events overnight. Per report later in afternoon did complain of more chest tightness. Does not endorse significant drowsiness/side effects/dizziness from lyrica added yesterday. Physical Exam Vital Signs (Past 24 Hours): Last Vital Signs Temp 36.7 C 03/06/19 07:16 Pulse 70 03/06/19 07:16 Resp 18 03/06/19 07:16 BP 111/71 03/06/19 07:16 Pulse Ox 96 03/06/19 07:16 Physical Exam: Vitals noted as above and within normal limits . GENERAL: Awake, alert to person, place, and time, nontoxic-appearing, in moderate distress HENT: Normocephalic, atraumatic. Mucus membranes appear moist. EYES: Normal conjunctiva. Sclera non-icteric. EOMI. NECK: Supple. Full range of motion. No JVD RESPIRATORY: Normal work of breathing. CARDIAC: Regular rate, normal rhythm. Extremities warm and well perfused. CHEST: mild TTP at mid sternum. ABDOMEN: Soft, non-distended. No tenderness to palpation in all four quadrants. Bowel sounds are normal. LOWER EXTREMITIES: No edema. NEURO: No focal gross focal motor deficits noted. Sensation in tact. CN II-XII grossly in tact. SKIN: Rash not present. No jaundice noted. Significant lesions not present. PSYCH: Appropriate mood and affect. Cooperative. +anxious Exam as done by Geraldine Coronado MD, [employer] [facility]. Results & Data Laboratory Results 03/06/19 03/06/19 Range/Units 16:46 05:54 Sodium 137 (136-145) mmol/L Potassium 4.0 (3.5-5.1) mmol/L Chloride 107 (98-107) mmol/L Carbon Dioxide 27 (21-32) mmol/L Anion Gap 3.0 (3-11) BUN 5 L (7-18) mg/dl Creatinine 0.59 L (0.6-1.2) mg/dl Est Cr Clr Drug Dosing 154.5 ml/min Est GFR ( Amer) 143.6 Est GFR (Non-Af Amer) 123.9 BUN/Creatinine Ratio 9.4 L (10-20) Glucose 82 (70-99) mg/dl Calcium 8.5 (8.5-10.1) mg/dl Troponin I 0.027 (0-0.045) ng/ml Medications Administered Current Inpatient Medications Acetaminophen (Tylenol) 1,000 mg PO TID ADRIAN Stop: 04/04/19 08:59 Last Admin: 03/06/19 21:29 Dose: 1,000 mg Documented by: Docusate Sodium (Colace) 100 mg PO BID ADRIAN Stop: 04/02/19 09:59 Last Admin: 03/06/19 21:28 Dose: 100 mg Documented by: Ethinyl Estradiol/Drospirenone (Gianvi 3 Mg-0.02 Mg Tablet) 1 ea PO DAILY ADRIAN Stop: 04/01/19 07:59 Last Admin: 03/06/19 09:02 Dose: 1 ea Documented by: Hydromorphone HCl (Dilaudid Small Package And Bundle Sorter Clerk) 0.25 mg IV PRN PRN; Protocol PRN Reason: Pain Stop: 03/19/19 15:04 Last Admin: 03/05/19 23:21 Dose: 0.25 mg Documented by: Ibuprofen (Motrin) 600 mg PO Q6H ADRIAN Stop: 04/01/19 15:59 Last Admin: 03/06/19 21:28 Dose: 600 mg Documented by: Ketorolac Tromethamine (Toradol) 30 mg IV Q6H PRN PRN Reason: Pain Stop: 03/11/19 14:44 Last Admin: 03/06/19 14:53 Dose: 30 mg Documented by: Lidocaine (Lidoderm 5%) 1 patch TD QAM ADRIAN Stop: 04/02/19 14:44 Last Admin: 03/06/19 09:05 Dose: Not Given Documented by: Lorazepam (Ativan) 1 mg PO TID PRN PRN Reason: Anxiety Stop: 04/01/19 01:19 Last Admin: 03/05/19 14:41 Dose: 1 mg Documented by: Magnesium Hydroxide (Milk Of Magnesia) 30 ml PO Q12H PRN PRN Reason: Constipation Stop: 04/01/19 01:19 Last Admin: 03/06/19 07:28 Dose: 30 ml Documented by: Miscellaneous (Remove Lidoderm Patch) 1 ea N/A DAILY@2100 [facility] Stop: 04/02/19 22:59 Last Admin: 03/06/19 21:30 Dose: Not Given Documented by: Naloxone HCl (Narcan) 0.4 mg IV Q15M PRN PRN Reason: Sedation Stop: 04/04/19 18:48 Ondansetron HCl (Zofran) 4 mg IV Q4H PRN PRN Reason: Nausea Stop: 04/01/19 21:54 Last Admin: 03/06/19 17:22 Dose: 4 mg Documented by: Polyethylene Glycol (Miralax Powder Packet) 17 gm PO DAILY PRN PRN Reason: Constipation Stop: 03/18/19 16:35 Last Admin: 03/06/19 09:11 Dose: 17 gm Documented by: Pregabalin (Lyrica) 75 mg PO BID [facility] Stop: 04/04/19 20:59 Last Admin: 03/06/19 21:28 Dose: 75 mg Documented by: Tizanidine HCl (Zanaflex) 4 mg PO HS [facility] Stop: 04/04/19 20:59 Last Admin: 03/06/19 21:28 Dose: 4 mg Documented by: Resident Activity Tracking Resident Involvement: Resident Care Provided Care Provided: Adult Hospital Medicine
--- NOTE | 2019-03-06 10:37 | Medical Student Progress Note ---
Date of Service March 06, 2019 #Substernal chest pressure-No acute events over night. She is feeling much better today and reports that Dilaudid has helped. Substernal chest pressure/pain is still present but is much more stable and manageable. Taking deep breaths is still difficult. When she took a shower, movement was quite painful. Still, lying at 30 degrees and on her side alleviate pressure. Slept well overnight. She is still feeling fatigued but more energy compared to yesterday. She is unsure how much she is pressing her TELLER COORDINATOR but thinks she is using it pretty frequently. She is tearful when talking about yesterday when she felt like she was perceived as being a burden for asking for pain medications and having to wait 2 hours for her meds. The TELLER COORDINATOR has helped resolved this issue. #SOB-She hasn't felt short of breath but hasn't been ambulating much. She is interested in trying to do more walking today. #Constipation-last bowel movement was Tuesday. Unsure if Colace is doing anything. Reported one episode of vomiting yesterday that was acute onset and quickly resolved. She has had no nausea or vomiting since. Her mother needs a written doctor's note for [place] paperwork so she can take leave from work to visit her. Her mom is her primary caregiver. Assessment & Plan (1) Substernal chest pain: Pressure is likely due to a combination of musculoskeletal trauma as well as pericarditis following chest compressions. -Pt is allergic to colchicine so cannot be given -Motrin 800 mg TID Continue dilaudid with TELLER COORDINATOR to get ahead of the pain. -Pregabalin 75 mg po b.i.d which she can continue in the outpatient setting -Continue with heating pad (2) Anxiety: -Lorazepam 1 mg PO qPM as needed, consider SNRI or TCA as this could modulate pain as well (3) Hypothyroidism: Pt had an appointment with endocrinology which she will have to reschedule because of her hospitalization -TSH was 6.29 It was explained to her that symptomatic hypothyroidism usually begins at a TSH level of 10. Her fatigue is likely due to chest pressure sx. -She could consider levothyroxine over [place] Thyroid which has more stable effects (4) Constipation: joaquina Supervising Attestation I personally examined the patient and verified all ocampo points of history and exam, discussed case, and agree with decision making with Hilario Nobles MS2 Was feeling much better earlier today when seen by medical student and resident, this afternoon we are paged because she was back into 10 out of 10 pain. She had been getting up to go to the bathroom and then had a sudden onset of pain she believes movement related. She does not think she is short of breath as much as it hurts to breathe. EKG was checked and is nonacute/unchanged from prior. Her pain is quite reproducible with palpation on her ribs and sternum. Vitals noted, sitting upright holding heating pad appearing to be sitting quite still to avoid any motion related pain. Breathing is unlabored no accessory muscle use. Chest wall is exquisitely tender to palpation without any crepitus, the pressure even that she is feeling as well as the pain are quite reproducible to palpation. Bilateral thoracic paraspinals right worse than left are high in tone, tender, decreased range of motiondirect myofascial with a degree of improvement in soft tissue. Patient tolerated well Chest painappears to be predominantly biomechanical/rib related after CPR. Was doing better earlier, now seems to have had a worsening due to movement. While this still appears most likely to be musculoskeletal after having had chest compressions, EKG was checked given that she did arrest, and a troponin will be followed up for completeness. Escalate TELLER COORDINATOR, resume Toradol, continue pregabalin (escalate dose tomorrow if she still having worsening pain and is not sedated), consider try cyclic versus S and RI for pain modulation especially given her anxiety surrounding the situation is been through) Hypothyroidher TSH is currently 6.2, we will need to determine better her prior treatments and tolerability, and certainly medications such as [place] Thyroid ar e typically less than optimal for treatment of hypothyroidism in generalwe will review outpatient records as it relates to her thyroid medicines/thyroid disease Somatic dysfunctions ribsOMT done at the rib heads at the thoracic spine, given that she was too tender to really attempt OMT for the entirety of her rib cage. Hopefully loosening of the muscles on the back may have a bit of a downstream effect Otherwise as above Subjective Constitutional: as per Subjective / HPI Respiratory: as per Subjective / HPI Cardiovascular: as per Subjective / HPI Gastrointestinal: as per Subjective / HPI Physical Exam Vital Signs (Past 24 Hours): Last Vital Signs Temp 36.7 C 03/06/19 07:16 Pulse 70 03/06/19 07:16 Resp 18 03/06/19 07:16 BP 111/71 03/06/19 07:16 Pulse Ox 96 03/06/19 07:16 Constitutional: WD/WN, vitals as above Neck: Thyroid: normal thyroid Respiratory: Reduced respiratory effort. Diminished chest rise bilaterally on deep inspiration. Lungs clear. No wheezes, crackles or rales. Cardiovascular: RRR, no murmur, no edema Gastrointestinal (Abdomen): normal bowel sounds, soft, nontender, no hepatosplenomegaly Musculoskeletal: no cyanosis or clubbing, extremities motor strength 5/5 Palpating back and base of neck elicits no pain. However, patient flinches when pressing on center of chest. Skin: no rashes, warm and dry Psychiatric: Affect: + tearful affect
[2019-03-06] MEDS: KETOROLAC 30 MG/ML VIAL IV PRN (14:53)
[2019-03-06] MEDS ORDERED: HYDROmorphone INJ 1 MG/ML SYRINGE IV STA (16:18)
[2019-03-06] MEDS ORDERED: ALUMINUM/MAGNESIUM SUSP 18 ML, LIDOCAINE HCL VISCOUS 2% 6 ML, BARCODE IDENTIFIER 1 EA PO ONE (16:30)
[2019-03-06] MEDS: ONDANSETRON INJ 2 MG/ML 2 ML VIAL IV PRN (17:22)
[2019-03-06] MEDS ORDERED: PROMETHAZINE HCL 12.5 MG in SODIUM CHLORIDE 0.9% 50 ML IV STA (19:02)
[2019-03-06] MEDS: TIZANIDINE HCL 4 MG TABLET PO SCH (21:28)
[2019-03-07] MEDS: IBUPROFEN 600 MG TAB PO SCH ×2 (04:09→09:26)
[2019-03-07] MEDS: KETOROLAC 30 MG/ML VIAL IV PRN (05:48)
[2019-03-07] MEDS: HYDROmorphone HCL 0.5MG/ML 50 ML CASSETTE IV PRN ×2 (07:20→19:15)
--- NOTE | 2019-03-07 08:09 | Medical Student Progress Note ---
Date of Service d March 07, 2019 No acute events over night. #Substernal chest pressure-she has been sleeping well throughout the night. However, when she wakes up she feels excruciating pressure/pain. 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 ARM[employer]ISS[employer]LE [employer] schedule shows that yesterday she received 17 of 54 pushes and received 4 mg total. She explains that pressure/pain has not changed in quality and that she still feels as if something is sitting on her chest. #Breathing-she has not had any SOB but recognizes that she is not working her lungs. She asks about a breathing funnel device that she used in [place] to help with air movement and wonders if that could be given to her here. #Nausea-yesterday she vomited after GI cocktail and eating. She felt pretty immediate relief and hasn't had any nausea today. #Constipation-first bowel movements since Tuesday last night Assessment & Plan (1) Substernal chest pain: Pressure is likely due to a combination of musculoskeletal trauma as well as pericarditis following chest compressions. -Concern that request for basal PCP will work in opposite direction by creating dependency and not move in the direction of getting her well enough to transition home. Consult pain management -Continue Dilaudid with ARM[employer]NAISSANCE [employer]LE CREWMAN 0.25 mg IV prn q15 minutes. Pt was checked in PDMP. 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 She understood this concern. Because pain still not controlled: 1. Increase Dilaudid to .5mg IV PRN q15 minutes 2. Discussed with patient the interplay between physical pain and anxiety and possibility of beginning an SNRI to help. She said that she has taken SSRIS and SNRIs in the past and they made her feel like a "zombie". Thus, we suggested possible TCA. She wrote down the names of some meds and is going to do research. This is something she can think about because as we discussed with her, this would be for halfway rather than immediate management of pain. As per pain managements request: 3. Discontinue Lidocaine patch as she does report difficulty keeping the patch on. 4. She was initiate on Diclofenac gel as it may stay on the chest wall more easily. 5. IV Toradol has been changed from PRN to ADRIAN x 6 hours. 6. PO Ibuprofen has been changed from ADRIAN to PRN x 6 hours. 6. Consider increasing Tizanidine frequency or changing to Baclofen for a short term. 7. Dilaudid [employer]ISS[employer]WMAN. Plan to calculate daily use and convert to PO medication tomorrow. (2) Anxiety: -Lorazepam 1 mg PO qPM as needed (3) Hypothyroidism: Pt had an appointment with endocrinology tomorrow which she will have to reschedule because of her hospitalization -TSH was 6.29 It was explained to her that symptomatic hypothyroidism usually begins at a TSH level of 10. Her fatigue is likely due to chest pressure sx. -She could consider levothyroxine over [place] Thyroid which has more stable effects (4) Constipation: -Continue Miralax 17 pg daily -Continue Colase 100 mg PO (5) Nausea: -Continue Zofran 4mg IV q4 hours PRN Supervising Attestation I personally examined the patient and verified all ocampo points of history and exam, discussed case, and agree with decision making with Hilario Nobles MS2 tearful and notes pain uncontrolled again. appreciates efforts underway to get pain under control, but still not tolerable a lot of the time. seems to come with movements, will go away/at least settle down some, but then when it comes back it typically comes back quickly and intensely. Vitals noted, sitting upright holding heating pad appearing to be sitting quite still to avoid any motion related pain, quite similar to the last few days. Breathing is unlabored no accessory muscle use. skin shows no rashes, no pallor or icterus. mental status is intact wtihout confusion/somnolence, grogginess. Chest painappears to be predominantly biomechanical/rib related after CPR. continue ARM[employer] (for now increase ARM[employer]NAISSANCE [employer]LE CREWMAN dose per click), increase lyrica, appreciate pain management recommendations. discussed with pt and will transition to baclofen as recommended. given that troponin is now negative, can utilize toradol for pain control as initially recommended by pain management, since pain control is larger issue than any lingering effects of pericarditis (which, if present at all, appears to have been post traumatic and now resolving). does appear to have an understandable and significant tie of pain with anxiety (both likely due to the intensity of the pain as well as due to the situation in which the pain arose) - in that respect discussed SNRI (she believes she was on in the past and felt spacey) or TCA (she will give consideration) Hypothyroidher TSH is currently 6.2, on review of old records, appears that at one point she had actually noted that she was feeling a little better on synthroid, then due to inability to affect weight loss she saw PCP who changed to armour (she is interestingly similar or slightly higher weight (depending on inter-scale reliability) than then, when she was on synthroid (april 2016) -- highest TSH i can find on record is around 7.5. 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 will try to have close and ongoing PCP f/u in this regard +/- conside rations for counselling if she feels she would benefit. Otherwise as above Subjective Constitutional: as per Subjective / HPI Respiratory: as per Subjective / HPI Cardiovascular: as per Subjective / HPI Gastrointestinal: as per Subjective / HPI Physical Exam Vital Signs (Past 24 Hours): Last Vital Signs Temp 36.7 C 03/07/19 07:19 Pulse 77 03/07/19 07:19 Resp 18 03/07/19 07:19 BP 98/59 L 03/07/19 07:19 Pulse Ox 96 03/07/19 07:19 Constitutional: WD/WN, vitals as above Neck: Thyroid: normal thyroid Respiratory: normal respiratory effort, lungs clear to auscultation Cardiovascular: RRR, no murmur, no edema Gastrointestinal (Abdomen): normal bowel sounds, soft, nontender, no hepatosplenomegaly Musculoskeletal: no cyanosis or clubbing, extremities motor strength 5/5 Skin: no rashes, warm and dry
[2019-03-07] MEDS: DROSPIRENONE PO SCH (08:41)
[2019-03-07] MEDS: ETHINYL ESTRADIOL PO SCH (08:41)
[2019-03-07] MEDS: ACETAMINOPHEN 500 MG TAB PO SCH ×3 (08:41→20:58)
[2019-03-07] MEDS: LIDOCAINE 5% 1 PATCH TD SCH (08:41)
[2019-03-07] MEDS: PREGABALIN 75 MG CAP PO SCH (08:44)
[2019-03-07] MEDS: DOCUSATE SODIUM 100 MG CAP PO SCH ×2 (08:45→20:59)
[2019-03-07] MEDS ORDERED: PREGABALIN 75 MG CAP PO ONE (09:15)
[2019-03-07] MEDS ORDERED: IBUPROFEN 600 MG TAB PO PRN (09:49)
--- NOTE | 2019-03-07 09:54 | Pain Management Consultation ---
Date of Consultation March 07, 2019 Assessment & Plan (1) Precordial chest pain: 1. Discontinue Lidocaine patch as she does report difficulty keeping the patch on. 2. She was initiate on Diclofenac gel as it may stay on the chest wall more easily. 3. IV Toradol has been changed from PRN to ADRIAN x 6 hours. 4. PO Ibuprofen has been changed from ADRIAN to PRN x 6 hours. 5. Consider increasing Tizanidine frequency or changing to Baclofen for a short term. 6. 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 Plan to calculate daily use and convert to PO medication tomorrow. History of Present Illness Reason for Consultation: Chest pain Attending Physician: Mak Rothman DO History of Present Illness This is a 29-year-old white female that has been seen in consultation at the [facility] for chest pain. Patient did have a cardiac ablation performed for SVT on 02/23/19 at [facility]. She did subsequently have an episode of cardiac arrest that required chest compressions. Was also found to have cardiomyopathy and EF of 25%. After 4 days of hospitalization the EF returned to 55%. She was discharged to home. Patient did go the [facility] on 03/01/19 for chest pain. Patient describes a deep aching and sharp pain with movement. Pain is primarily located along the distal sternum/xiphoid process area. Pain is rated 6/10 currently. The pain is the worst during the nighttime as she feels like she falls behind with pain medication and can't catch up with the pain until the mid morning with the medications. She does have a Dilaudid [employer]INA [employer]Y DOCK MANAGER and has been using it frequently. Used Dilaudid 10.25mg IV over the past 24 hours. Patient does take Tizanidine 4mg QHS since cervical surgery last year. She does find IV Toradol more effective than PO Ibuprofen. Lidocaine patches were slightly helpful but there is a lot of difficulty keeping the patch on her chest wall so she has stopped using them. Patient denies Allergies Allergy/AdvReac Type Severity Reaction Status Date / Time colchicine Allergy Hives Verified 03/02/19 09:59 Iodinated Contrast- Oral and Allergy Paleness Unverified 03/01/19 17:46 IV Dye Home Medications Home Medications Medication Instructions Recorded Confirmed Type drospirenone-ethinyl estradiol 1 tab PO DAILY 03/01/19 03/01/19 History [Kumar (28)] tizanidine 4 mg PO Q8H 03/01/19 03/01/19 History Patient History Medical History Hypothyroidism (Chronic) Cardiomyopathy Substernal chest pain (Acute) Elevated troponin (Acute) Pericardial effusion H/O supraventricular tachycardia History of cardiac arrest Anxiety (Chronic) Cardiac arrest as complication of care Family history non-contributory Surgical History History of prior ablation treatment Family History Other Family history non-contributory Social History Smoking Status: Current every day smoker Review of Systems Constitutional: Negative for fever, chills, sweats Eyes: Negative for eye pain, photophobia, drainage Ear, nose, mouth, throat: Negative for ear pain, nasal congestion, mouth lesions, change in voice Respiratory: Negative for wheezing, sputum production Cardiovascular: + dyspnea on exertion, sternal chest pain. No palpitations Gastrointestinal: Negative for abdominal pain, belching, bloating Genitourinary: Negative for dysuria, urinary incontinence, urinary urgency Musculoskeletal: Negative for deformities Integumentary: Negative for nail changes, skin yellowing, pruritus Neurological: Negative for abnormal speech, seizure type activity Physical Exam Vital Signs (Past 24 Hours): Last Vital Signs Temp 36.7 C 03/07/19 07:19 Pulse 77 03/07/19 07:19 Resp 18 03/07/19 07:19 BP 98/59 L 03/07/19 07:19 Pulse Ox 96 03/07/19 07:19 Physical Exam: GENERAL: 29 year old white female. Speech and cognition is intact. Mood and affect is appropriate. In no acute distress. HEAD: Normocephalic; atraumatic. EYES: Pupils are round, equal, and reactive to light; EOM intact. ENT: No external ear discharge or lesions. No rhinorrhea or epistaxis. No mucosal lesions. NECK: Full ROM; trachea is midline; no TTP. CHEST: Regular chest respiration and excursion. There is hyperpathia along the distal sternum and xiphoid process. No gross deformities noted. ABDOMEN: Non-tender to palpation. No peritoneal signs. EXTREMITIES: Using all extremities appropriately. NEURO: CN II-XII grossly intact with no focal deficits noted. SKIN: No lesions, erythema, or rashes noted. Results Diagnostic Review CT Findings: CT SCAN OF THE CHEST WITHOUT IV CONTRAST CLINICAL HISTORY: Dyspnea. Atypical chest pain. Status post cardiac arrest. COMPARISON STUDY: Chest x-ray dated 03/08/2016. TECHNIQUE: CT scan of the thorax was performed from the thoracic inlet to the upper abdomen. Images are reviewed in the axial, sagittal, and coronal planes. IV contrast was not administered for this examination as per the referring clinician. Note that the examination is suboptimal without IV contrast. A dose lowering technique was utilized adhering to the principles of ALARA. CT DOSE: 307.39 mGy.cm FINDINGS: Thyroid: Imaged portions of the thyroid gland are normal in size and attenuation. Thoracic aorta: The thoracic aorta is normal in caliber and demonstrates standard 3-vessel arch anatomy. Heart: The heart is normal in size and there is trace pericardial effusion. Lungs and pleural spaces: Evaluation of the lung parenchyma is modestly degraded by motion artifact. There is bibasilar atelectasis. No airspace consolidation is seen typical for pneumonia. There is no pleural effusion or pneumothorax. The trachea and central airways are clear. Mediastinum: Minimal residual thymic tissue is noted in the anterior mediastinum. There is no mediastinal hematoma or lymphadenopathy. Asha: Not well assessed without IV contrast. Axillae: There is no axillary lymphadenopathy. Upper abdomen: Enteric contrast is identified within the partially imaged left colon. Partially visualized upper abdominal viscera is otherwise grossly unremarkable. Skeletal structures: The bony thorax appears intact. No distracted rib fracture is seen. No lytic or blastic bony lesions are seen. IMPRESSION: 1. There is no airspace consolidation, pleural effusion, or pneumothorax. 2. The bony thorax appears intact. Electronically signed by: Tavon Acosta M.D. 03/01/2019 7:00 PM Other Findings: EKG: Normal sinus rhythm. Cannot rule out Anterior infarct , age undetermined. Abnormal ECG When compared with ECG of 04-MAR-2019 06:53, NH interval has decreased.
[2019-03-07] MEDS: DICLOFENAC SOD 1% GEL 100 GM TUBE EXT SCH ×3 (11:09→17:39)
[2019-03-07] MEDS ORDERED: KETOROLAC 30 MG/ML VIAL IV SCH (12:00)
[2019-03-07] MEDS ORDERED: IBUPROFEN 600 MG TAB PO SCH (12:15)
[2019-03-07] MEDS ORDERED: BACLOFEN 10 MG TAB PO ONE (14:18)
[2019-03-07] MEDS: KETOROLAC 30 MG/ML VIAL IV SCH (17:36)
[2019-03-07] MEDS ORDERED: KETOROLAC 30 MG/ML VIAL IV PRN (18:00)
[2019-03-07] MEDS: ONDANSETRON INJ 2 MG/ML 2 ML VIAL IV PRN (18:26)
[2019-03-07] MEDS: PREGABALIN 150 MG CAP PO SCH (20:58)
[2019-03-07] MEDS: BACLOFEN 10 MG TAB PO SCH (20:58)
[2019-03-07] MEDS ORDERED: PROMETHAZINE HCL 12.5 MG in SODIUM CHLORIDE 0.9% 50 ML IV STA (21:51)
[2019-03-08] MEDS: KETOROLAC 30 MG/ML VIAL IV SCH ×4 (00:03→17:52)
[2019-03-08] MEDS: DICLOFENAC SOD 1% GEL 100 GM TUBE EXT SCH ×4 (06:20→17:51)
[2019-03-08 06:45] LABS: Calcium 8.9 mg/dl (8.5-10.1); Creatinine Clr Calc Pharmacy 159.9 ml/min; Est GFR (African American) 145.2; Est GFR (Non-African American) 125.3
--- NOTE | 2019-03-08 07:09 | Family Medicine Progress Note ---
Date of Service March 08, 2019 Assessment & Plan (1) Substernal chest pain: 29-year-old female with a past medical history of SVT status post ablation presents with substernal chest pain. The patient was recently ablated on 02/23/2019 at [place] and subsequently had a cardiac arrest. She received chest compressions. Patient was subsequently found to have Takotsubo cardiomyopathy. She received a heart catheterization which did not show any coronary artery disease. Reviewed [facility] records: 02/23/2019 post ROSC EF was 25-30%, ---02/26/2019 repeat echo showed EF of 55% with mild LV dilation. ---Cardiac catheterization on 02/23/2019 did not show any [place] coronary ar saloni disease. #Substernal chest pain, 2/2 pericarditis and complicated chest wall pain Troponin peaked .144 -> .139 -> .096, EKG with semi diffuse mild ST elevations in anterior leads. EKG stable. 11Apr CT scan showed no abnormalities except for a trace pleural effusion - no bony abnormalities or fractures. 12Apr repeat TTE shows normal EF 60%, no wall motion abnormalities, mild pericardial effusion. Elevated ESR, CRP. -chest pain seems to be a combination of pericarditis with musculoskeletal spasms/contusion after chest compressions -Cardiology consulted, appreciate recs: NSAIDs for pericarditis until asymptomatic. Pt is allergic to colchicine. (Initially had said she was allergic to NSAIDs but this was clarified to namely colchicine). Previously on Motrin 600mg q6h, coupled with Toradol IV q6h (for 2 more days) scheduled to see if can help with the pain. -18 Apr: Pain level still requiring IV opioids - 17Apr escalated Dilaudid DEMURRAGE MAN to 0.5mg q15min with good effect. Plan to transition to PO dilaudid gradually tonight/tomorrow morning keeping in mind we want to avoid opioid induced hyperalgesia. -Tolerating Lyrica, increase to 150 BID. -Did review PDMP, does not show any suspicious activity. -Pain management consulted, appreciate assistance. Add Baclofen. -heat, supportive care #H/o SVT, s/p ablation -no acute issues -daily EKGs while on scheduled zofran to watch for QTc changes. #Anxiety / PTSD -pt endorses "PTSD" regarding her 6month old who in 2012 succumbed to SIDS. She said it is especially bothersome at night. Being here reminds her of the baby since this is where she delivered. -ativan PRN -discussed coping skills FEN/GI: no indication for fluids at this time. Heart healthy diet. DVT ppx: SCDs, ambulate CODE STATUS: FULL DISPO: Med/Surg, ongoing need for IV pain medication. Other medical conditions: Hypothyroidism -TSH >6 -still a question as to iatrogenic hyperthyroidism (historically) contributing to SVT, now with hypothyroid labs (as below) which needs addressed in outpatient office. Did have outpatient endo appt set up for this week. 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 s/p cervical fusion -hold home tizanidine - replaced with baclofen as above. (2) Elevated troponin: (3) History of prior ablation treatment: (4) Pericardial effusion: (5) H/O supraventricular tachycardia: (6) History of cardiac arrest: Supervising Physician Co-Signing Physician Notes I personally examined the patient and verified all ocampo points of history and exam, discussed case, and agree with decision making with Dr Coronado. pain doing better. notes that percocet makes her itch. worried about transition from DEMURRAGE MAN but does want to try to progress towards home Vitals noted, appearing to be far more comfortable than last few days - body positioning much more relaxed, laying semi upright no heating pad, breathing unlabored. no rashes no pallor or icterus. no somnolence Chest painappears to be predominantly biomechanical/rib related after CPR. will change prn PO percocet to dilauded since she notes that percocet makes her itch -- will have her work towards trying this first (probably starting at bedtime tonight) but will wait to actively wean DEMURRAGE MAN until tomorrow after discussions with patient regarding her anxiety about the pain worsening now that she finally feels like she's "getting ahead of it" - did discuss narcotics- hyperalgesia representing a bit of a "ticking clock" but that weaning DEMURRAGE MAN tomorrow would be reasonable - d/w nursing that once pt starts to try PO first, to heavily encourage holding off on DEMURRAGE MAN click for at least 30mins post PO dose, continue lyrica, appreciate pain management recommendations. continue baclofen. given that troponin is now negative, continue to utilize toradol for pain control as recommended by pain management, since pain control is larger issue than any lingering effects of pericarditis (which, if present at all, appears to have been post traumatic and now resolving). does appear to have an understandable and significant tie of pain with anxiety (both likely due to the intensity of the pain as well as due to the situation in which the pain arose) - in that respect previously discussed SNRI (she believes she was on in the past and felt spacey) or TCA (she is concerned about orthostasis and tachycardia given her ongoing issues with tachycardia up to most recent ablation) Hypothyroidher TSH is currently 6.2, on review of old records, appears that at one point she had actually noted that she was feeling a little better on synthroid, then due to inability to affect weight loss she saw PCP who changed to armour (she is interestingly similar or slightly higher weight (depending on inter-scale reliability) than then, when she was on synthroid (april 2016) -- highest TSH i can find on record is around 7.5. 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 will try to have close and ongoing PCP f/u in this regard +/- considerations for counselling if she feels she would benefit. anticipate starting low dose synthroid in near future (no urgency, and adjusting so many other meds i would hesitate to add more for now) nausea - likely med side effect related, zofran for now, follow QTc for safety DVT proph - ambulation Subjective Seen and examined pt at bedside this morning. No acute events overnight. Did have episode of increasing chest tightness after her shower yesterday. Was seen by pain management this AM. Pt voices concerns about changing the DEMURRAGE MAN to a decreased dose. Says the current dosing is only beginning to manage her pain. She reiterates that she does not want to be on the DEMURRAGE MAN but that her pain is not tolerable currently without it. She is tearful. She endorses anxiety and irritability. She also endorses "PTSD" regarding her 6month old who in 2013 succumbed to SIDS. She said it is especially bothersome at night. Being here reminds her of the baby since this is where she delivered. 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 She asks for a work note to be faxed to her boss at [phone]. Review of Systems Review of Systems: All systems reviewed & are unremarkable except as noted in HPI & below Physical Exam Physical Exam: Vitals noted and within normal limits . GENERAL: Awake, alert to person, place, and time, nontoxic-appearing, in moderate distress HENT: Normocephalic, atraumatic. Mucus membranes appear moist. EYES: Normal conjunctiva. Sclera non-icteric. EOMI. NECK: Supple. Full range of motion. No JVD RESPIRATORY: Normal work of breathing. CARDIAC: Regular rate, rhythm. Extremities warm and well perfused. CHEST: pt declines palpation to chest, but is able to self palpate without visible pain. ABDOMEN: Soft, non-distended. No tenderness to palpation in all four quadrants. Bowel sounds are normal. LOWER EXTREMITIES: No edema. NEURO: No focal gross focal motor deficits noted. Sensation in tact. CN II-XII grossly in tact. SKIN: Rash not present. No jaundice noted. Significant lesions not present. PSYCH: Appropriate mood and affect. Cooperative. +anxious, tearful at times. Exam as done by Geraldine Coronado MD, High School Band Teacher. Results & Data Vital Signs (Past 12 Hours) Vital Signs Temp Pulse Resp BP Pulse Ox 03/07/19 23:07 36.7 C 68 18 108/69 96 Laboratory Results 03/08/19 Range/Units 05:29 Sodium 140 (136-145) mmol/L Potassium 4.0 (3.5-5.1) mmol/L Chloride 109 H (98-107) mmol/L Carbon Dioxide 25 (21-32) mmol/L Anion Gap 6.0 (3-11) BUN 7 (7-18) mg/dl Creatinine 0.57 L (0.6-1.2) mg/dl Est Cr Clr Drug Dosing 159.9 ml/min Est GFR ( Amer) 145.2 Est GFR (Non-Af Amer) 125.3 BUN/Creatinine Ratio 12.0 (10-20) Glucose 85 (70-99) mg/dl Calcium 8.9 (8.5-10.1) mg/dl Medications Administered Current Inpatient Medications Acetaminophen (Tylenol) 1,000 mg PO TID [facility] Stop: 04/04/19 08:59 Last Admin: 03/08/19 08:09 Dose: 1,000 mg Documented by: Baclofen (Lioresal) 10 mg PO QID [facility] Stop: 04/07/19 12:59 Last Admin: 03/08/19 12:56 Dose: 10 mg Documented by: Diclofenac Sodium (Voltaren 1% Top) 2 appln EXT [id number] [facility] Stop: 04/06/19 09:59 Last Admin: 03/08/19 09:56 Dose: Not Given Documented by: Docusate Sodium (Colace) 100 mg PO BID [facility] Stop: 04/02/19 09:59 Last Admin: 03/08/19 08:11 Dose: 100 mg Documented by: Duloxetine HCl (Cymbalta) 30 mg PO QAM [facility] Stop: 04/07/19 09:14 Last Admin: 03/08/19 12:23 Dose: Not Given Documented by: Ethinyl Estradiol/Drospirenone (Gianvi 3 Mg-0.02 Mg Tablet) 1 ea PO DAILY [facility] Stop: 04/01/19 07:59 Last Admin: 03/08/19 08:12 Dose: 1 ea Documented by: Hydromorphone HCl (Dilaudid Corporate Real Estate Manager) 25 mg IV PRN PRN; Protocol PRN Reason: Pain Stop: 03/21/19 09:28 Last Admin: 03/07/19 19:15 Dose: 25 mg Documented by: Ibuprofen (Motrin) 600 mg PO Q6H PRN PRN Reason: pain Stop: 04/06/19 14:17 Ketorolac Tromethamine (Toradol) 30 mg IV Q6H [facility] Stop: 03/09/19 23:59 Last Admin: 03/08/19 12:55 Dose: 30 mg Documented by: Lorazepam (Ativan) 1 mg PO TID PRN PRN Reason: Anxiety Stop: 04/01/19 01:19 Last Admin: 03/08/19 09:56 Dose: 1 mg Documented by: Magnesium Hydroxide (Milk Of Magnesia) 30 ml PO Q12H PRN PRN Reason: Constipation Stop: 04/01/19 01:19 Last Admin: 03/06/19 07:28 Dose: 30 ml Documented by: Naloxone HCl (Narcan) 0.4 mg IV Q15M PRN PRN Reason: Sedation Stop: 04/04/19 18:48 Ondansetron HCl (Zofran) 4 mg IV Q4H PRN PRN Reason: Nausea Stop: 04/01/19 21:54 Last Admin: 03/08/19 13:29 Dose: 4 mg Documented by: Oxycodone/Acetaminophen (Percocet 5mg/325mg) 1 tab PO Q4H PRN PRN Reason: Pain Stop: 03/22/19 09:14 Polyethylene Glycol (Miralax Powder Packet) 17 gm PO DAILY PRN PRN Reason: Constipation Stop: 03/18/19 16:35 Last Admin: 03/06/19 09:11 Dose: 17 gm Documented by: Pregabalin (Lyrica) 150 mg PO BID [facility] Stop: 04/06/19 08:59 Last Admin: 03/08/19 08:16 Dose: 150 mg Documented by: Resident Activity Tracking Resident Involvement: Resident Care Provided Care Provided: Adult Hospital Medicine
[2019-03-08] MEDS: ACETAMINOPHEN 500 MG TAB PO SCH ×3 (08:09→20:39)
[2019-03-08] MEDS: DOCUSATE SODIUM 100 MG CAP PO SCH ×2 (08:11→20:38)
[2019-03-08] MEDS: DROSPIRENONE PO SCH (08:12)
[2019-03-08] MEDS: BACLOFEN 10 MG TAB PO SCH ×4 (08:12→20:38)
[2019-03-08] MEDS: ETHINYL ESTRADIOL PO SCH (08:12)
[2019-03-08] MEDS: PREGABALIN 150 MG CAP PO SCH ×2 (08:16→20:38)
--- NOTE | 2019-03-08 09:04 | Pain Management Progress Note ---
Date of Service March 08, 2019 Assessment & Plan (1) Precordial chest pain: 1. Will adjust baclofen to 10 mg 4 times daily. 2. Continue diclofenac gel . 3. Patient will continue scheduled IV Toradol per Dr. Rothman. 4. We discussed concerns over her ongoing utilization of hydromorphone SOLUTIONS ARCHITECT and the need to attempt to transition to oral therapies. The patient is hesitant. We discussed the potential contribution of her anxiety. We will adjust her hydromorphone SOLUTIONS ARCHITECT to 0.1 mg every 20 minutes. Will initiate Percocet 5/325 1 tablet p.o. every 4 hours as needed for breakthrough pain. Please encourage the patient to utilize the oral Percocet in place of the Dilaudid SOLUTIONS ARCHITECT to assess e fficacy/tolerability. 5. Will initiate Cymbalta 30 mg every morning in attempt to improve pain control and diminish anxiety response 6. Consider further adjustment of Lyrica therapy moving forward Subjective is a 29-year-old white female with persisting anterior chest wall/sternal pain status post an episode of asystole post cardiac ablation procedure performed for SVT on 02/23/2019 which required chest compressions. Patient describes the pain as aching and sharp with any movement or deep breathing activities. The pain is 100% anterior in the chest wall without any radiating factor. She is rating her pain as a 6-8/10. She reports slightly improved pain today compared to yesterday. She is reporting improved tolerability of baclofen versus tizanidine which contributed to sedation. Patient had been on tizanidine chronically over the past 1 year status post a cervical spine surgery. Patient has utilized 15 mg of IV hydromorphone over the past 24 hours through SOLUTIONS ARCHITECT. She continues to apply Voltaren gel to the anterior chest wall without notable benefit but denies any notable side effects at this time. She reports prior utilization of Percocet around the time of her cervical spine surgery for which she tolerated the medication without side effects. The patient is reporting scheduled Toradol which was adjusted by Dr. Rothman yesterday afternoon has been somewhat effective but feels that the combination of Toradol and hydromorphone SOLUTIONS ARCHITECT is able to control her pain adequately at this time. The patient has no further constitutional complaints at this time. Physical Exam Vital Signs (Past 24 Hours): Last Vital Signs Temp 36.8 C 03/08/19 07:00 Pulse 82 03/08/19 07:00 Resp 18 03/08/19 07:00 BP 116/76 03/08/19 07:00 Pulse Ox 95 03/08/19 07:00 Physical Exam: General: Patient sitting up quietly upon entering the room in no acute distress. Patient hugging a heating pad to the anterior chest wall. Patient appears to be generally anxious. Speech and thought process appropriate. Cognition intact. Chest wall: Patient is tender to palpation over the sternal and costosternal junction from proximal to the level of the third rib distally to the xiphoid region. Patient is apprehensive with physical examination. No significant tenderness with lateral compression of the chest wall. No visible abnormalities of the anterior chest wall region. Neurologic: Cranial nerves grossly intact. Ambulatory function not witnessed.
[2019-03-08] MEDS ORDERED: DULOXETINE HCL 30 MG CAP PO SCH (09:15)
[2019-03-08] MEDS ORDERED: OXYCODONE/ACETAMINOPHEN 5mg/325mg TAB PO PRN (09:15)
[2019-03-08] MEDS: LORazepam 1 MG TAB PO PRN (09:56)
[2019-03-08] MEDS: ONDANSETRON INJ 2 MG/ML 2 ML VIAL IV PRN (13:29)
--- NOTE | 2019-03-08 13:56 | Medical Student Progress Note ---
Date of Service is feeling much better and in much less pain this morning. No acute events overnight. Substernal chest pressure-She says that her chest pressure is becoming "much more bearable". She continues to hold a heating pad to her chest while conversing in bed. She does not have any pain in her back or neck. She denies any chest palpitations, dizziness, or headaches. She is concerned about getting up and moving around in case this will exacerbate the pressure/pain. She denies any shortness of breath but is unsure if she might feel short of breath with more movement. Nausea-She says that during breakfast and lunch she feels fine but tends to have nausea around dinner time especially the past 2 nights. Last night, she had nausea but did not vomit. She is not experiencing any nausea at the moment. Constipation-Mostly resolved. She continues to drink prune juice which has been helping. Anxiety-She researched TCAs as a potential for LT treatment. However, she is concerned because was reading about side effects of hypotension and tachycardia so is wary given her cardiac condition. March 08, 2019 Assessment & Plan (1) Substernal chest pain: Pressure is likely due to a combination of musculoskeletal trauma as well as pericarditis following chest compressions. -Continue Tyelonol 1000 mg PO TID -Continue Motrin 600 mg PO q6HR As per pain managements rec -Change baclofen to 10 mg 4 times daily -Continue diclofenac gel -Continue IV Toradol 30 mg IV q 6H 6. Consider further adjustment of Lyrica therapy moving forward (2) Anxiety: -Lorazepam 1 mg PO qPM as needed (3) Hypothyroidism: Pt had an appointment with endocrinology tomorrow which she will have to reschedule because of her hospitalization -TSH was 6.29 It was explained to her that symptomatic hypothyroidism usually begins at a TSH level of 10. Her fatigue is likely due to chest pressure sx. -She could consider levothyroxine over [place] Thyroid which has more stable effects (4) Constipation: -Continue Miralax 17 pg daily -Continue Colase 100 mg PO (5) Nausea: -Continue Zofran 4mg IV q4 hours PRN Supervising Attestation I personally examined the patient and verified all ocampo points of history and exam, discussed case, and agree with decision making with Hilario Nobles MS2. pain doing better. notes that percocet makes her itch. 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 no rashes no pallor or icterus. no somnolence Chest painappears to be predominantly biomechanical/rib related after CPR. will change prn PO percocet to dilauded since she notes that percocet makes her itch -- will have her work towards trying this first (probably starting at bedtime tonight) but will wait to actively wean MOTOR ASSEMBLER until tomorrow after discussions with patient regarding her anxiety about the pain worsening now that she finally feels like she's "getting ahead of it" - did discuss narcotics- hyperalgesia representing a bit of a "ticking clock" but that weaning MOTOR ASSEMBLER tomorrow would be reasonable - d/w nursing that once pt starts to try PO first, to heavily encourage holding off on MOTOR ASSEMBLER click for at least 30mins post PO dose, continue lyrica, appreciate pain management recommendations. continue baclofen. given that troponin is now negative, continue to utilize toradol for pain control as recommended by pain management, since pain control is larger issue than any lingering effects of pericarditis (which, if present at all, appears to have been post traumatic and now resolving). does appear to have an understandable and significant tie of pain with anxiety (both likely due to the intensity of the pain as well as due to the situation in which the pain arose) - in that respect previously discussed SNRI (she believes she was on in the past and felt spacey) or TCA (she is concerned about orthostasis and tachycardia given her ongoing issues with tachycardia up to most recent ablation) Hypothyroidher TSH is currently 6.2, on review of old records, appears that at one point she had actually noted that she was feeling a little better on synthroid, then due to inability to affect weight loss she saw PCP who changed to blas (she is interestingly similar or slightly higher weight (depending on inter-scale reliability) than then, when she was on synthroid (april 2016) -- highest TSH i can find on record is around 7.5. 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 will try to have close and ongoing PCP f/u in this regard +/- considerations for counselling if she feels she would benefit. anticipate starting low dose synthroid in near future (no urgency, and adjusting so many other meds i would hesitate to add more for now) nausea - likely med side effect related, zofran for now, follow QTc for safety DVT proph - ambulation Subjective Review of Systems All systems reviewed & are unremarkable except as noted in HPI & below Constitutional: as per Subjective / HPI Respiratory: as per Subjective / HPI Cardiovascular: as per Subjective / HPI Gastrointestinal: as per Subjective / HPI Physical Exam Vital Signs (Past 24 Hours): Last Vital Signs Temp 36.8 C 03/08/19 07:00 Pulse 82 03/08/19 07:00 Resp 18 03/08/19 07:00 BP 116/76 03/08/19 07:00 Pulse Ox 95 03/08/19 07:00 Constitutional: Lying in bed hugging a heating pad Respiratory: Clear to auscultation bilaterally. No wheezes, rhonchi or rales. Breath effort slightly diminished but improved since yesterday. Cardiovascular: RRR, no murmur, no edema Pt. does not want to be touched in substernal area because of pain. Stethoscope did not elicit pain or pressure. Gastrointestinal (Abdomen): normal bowel sounds, soft, nontender, no hepatosplenomegaly Musculoskeletal: no cyanosis or clubbing, extremities motor strength 5/5 Skin: no rashes, warm and dry
[2019-03-08] MEDS ORDERED: ONDANSETRON INJ 2 MG/ML 2 ML VIAL IV SCH (15:16)
[2019-03-08] MEDS: HYDROmorphone HCL 0.5MG/ML 50 ML CASSETTE IV PRN (17:04)
[2019-03-08] MEDS: ONDANSETRON HCL 8 MG in DEXTROSE 5% 50 ML IV SCH (17:59)
[2019-03-08] MEDS: POLYETHYLENE (MIRALAX) 17 GM PACK PO PRN (17:59)
[2019-03-08] MEDS: HYDROmorphone HCL 2 MG TAB PO PRN (21:40)
[2019-03-09] MEDS: ONDANSETRON HCL 8 MG in DEXTROSE 5% 50 ML IV SCH ×3 (00:07→12:27)
[2019-03-09] MEDS: KETOROLAC 30 MG/ML VIAL IV SCH ×4 (00:09→17:28)
[2019-03-09] MEDS: DICLOFENAC SOD 1% GEL 100 GM TUBE EXT SCH ×4 (06:24→16:03)
[2019-03-09] MEDS: HYDROmorphone HCL 2 MG TAB PO PRN ×5 (07:29→23:34)
[2019-03-09] MEDS: DOCUSATE SODIUM 100 MG CAP PO SCH ×2 (07:36→20:49)
[2019-03-09] MEDS: ACETAMINOPHEN 500 MG TAB PO SCH ×3 (07:36→20:50)
[2019-03-09] MEDS: BACLOFEN 10 MG TAB PO SCH ×4 (07:36→20:49)
[2019-03-09] MEDS: ETHINYL ESTRADIOL PO SCH (07:37)
[2019-03-09] MEDS: DROSPIRENONE PO SCH (07:37)
[2019-03-09] MEDS: PREGABALIN 150 MG CAP PO SCH ×2 (07:37→20:50)
--- NOTE | 2019-03-09 11:38 | Family Medicine Progress Note ---
Date of Service March 09, 2019 Assessment & Plan (1) Chest pain: (1) Substernal chest pain: 29-year-old female with a past medical history of SVT status post ablation presents with substernal chest pain. The patient was recently ablated on 02/23/2019 at [place] and subsequently had a cardiac arrest. She received chest compressions. Patient was subsequently found to have Takotsubo cardiomyopathy. She received a heart catheterization which did not show any coronary artery disease. She was discharged from [place] but several days after discharge she presented to [facility] with chest pain and found to have MSK pain from compressions and possible mild pericarditis Chest pain - likely multifactorial in nature, there is definitely pain associated with compressions and the mild peridarditis is likely from the chest compressions she received. There is also a psychogenic component to her pain which mild involve PTSD from her recent arrest. She has needed increasing doses of pain medications. Currently she is receiving the following meds: 1) Dilaudid NEURO OPHTHALMOLOGIST pump 2) Toradol 50mg IV q6 3) 2mg dialudid PO prn q4 4) baclofen 10mg tid 5) Lyrica 150mg bid 6) ibuprofen 600mg q6 7) Diclofenac topical gel Our plan for today would be to get the patient off the NEURO OPHTHALMOLOGIST pump and onto oral dilaudid. We will ask nursing to see if they have dilaudid closer to bedside so that there is not such a delay in getting her the dilaudid. #H/o SVT, s/p ablation -no acute issues -daily EKGs while on scheduled zofran to watch for QTc changes. #Anxiety / PTSD -pt endorses "PTSD" regarding her 6month old who in 2013 succumbed to SIDS. She said it is especially bothersome at night. Being here reminds her of the baby since this is where she delivered. -ativan PRN -discussed coping skills FEN/GI: no indication for fluids at this time. Heart healthy diet. DVT ppx: SCDs, ambulate CODE STATUS: FULL DISPO: Med/Surg, ongoing need for IV pain medication. Other medical conditions: Hypothyroidism -TSH >6 -still a question as to iatrogenic hyperthyroidism (historically) contributing to SVT, now with hypothyroid labs (as below) which needs addressed in outpatient office. Did have outpatient endo appt set up for this week. -currently not on thyroid medications; outpatient f/u with her endoc rinologist. s/p cervical fusion -hold home tizanidine - replaced with baclofen as above. Supervising Physician Co-Signing Physician Notes I personally examined the patient and verified all ocampo points of history and exam, discussed case, and agree with decision making with Dr Nova Seems to be improving, did try a degree of the oral pain meds and was able to stave off using the NEURO OPHTHALMOLOGIST quite as much. No other acute complaints. Vitals noted, appearing to be far more comfortable than last few days -overall body positioning much more relaxed, breathing unlabored. no rashes no pallor or icterus. no somnolence Chest painappears to be predominantly biomechanical/rib related after CPR. Start to work a transition off of the NEURO OPHTHALMOLOGIST with oral Dilaudid first NEURO OPHTHALMOLOGIST as backup for breakthrough., continue lyrica, appreciate pain management recommendations. continue baclofen. given that troponin is now negative, continue to utilize toradol for pain control as recommended by pain management, since pain control is larger issue than any lingering effects of pericarditis (which, if present at all, appears to have been post traumatic and now resolving). does appear to have an understandable and significant tie of pain with anxiety (both likely due to the intensity of the pain as well as due to the situation in which the pain arose) - in that respect previously discussed SNRI (she believes she was on in the past and felt spacey) or TCA (she is concerned about orthostasis and tachycardia given her ongoing issues with tachycardia up to most recent ablation) Hypothyroidher TSH is currently 6.2, on review of old records, appears that at one point she had actually noted that she was feeling a little better on synthro id, then due to inability to affect weight loss she saw PCP who changed to armour (she is interestingly similar or slightly higher weight (depending on inter-scale reliability) than then, when she was on synthroid (april 2016) -- highest TSH i can find on record is around 7.5. Certainly her hypothyroidism needs to be managed, but given the potential of T3 preparations to cause hyperthyroid symptoms - which could worsen her tachycardia and anxiety (as well as worsen bone health for the alf) would probably retry synthroid, with ongiong PCP f/u and vigilance for other causes of symptoms that are being attributed to hypothyroidism -- the biggest concern being that she appears to have quite clinically significant and undermanaged anxiety and/or depression at play. will try to have close and ongoing PCP f/u in this regard +/- considerations for counselling if she feels she would benefit. anticipate starting low dose synthroid in near future (no urgency, and adjusting so many other meds i would hesitate to add more for now), probably start Synthroid at discharge or at her close outpatient follow-up. nausea - likely med side effect related, QTC did not lengthen, she is now back to as needed Zofran. DVT proph - ambulation Subjective Patient does note subjective improvement in chest pain this morning. She said she is having trouble with the fact that when she has pain she asks for oral pain meds but it takes 30-40 minutes to get these pain meds and therefore she ends up clicking the NEURO OPHTHALMOLOGIST pump because the pain becomes too severe by the time she gets the oral pain meds. The times at which she has received the oral pain meds promptly she notes she has had adequate pain control. She denies any other symptoms. She notes she is moving her bowels. She denies any shortness of breath, palpitations, fevers, chills, ab pain, nausea, vomiting, diarrhea or constipation. Review of Systems Review of Systems: All systems reviewed & are unremarkable except as noted in HPI & below Physical Exam Physical Exam: GENERAL: Awake, alert to person, place, and time, nontoxic- appearing, in moderate distress HENT: Normocephalic, atraumatic. Mucus membranes appear moist. EYES: Normal conjunctiva. Sclera non-icteric. EOMI. NECK: Supple. Full range of motion. No JVD RESPIRATORY: Normal work of breathing. CARDIAC: Regular rate, rhythm. Extremities warm and well perfused. CHEST: pt lower sternum and mid sternum very tender to palpation ABDOMEN: Soft, non-distended. No tenderness to palpation in all four quadrants. Bowel sounds are normal. LOWER EXTREMITIES: No edema. PSYCH: Appropriate mood and affect. Cooperative. Results & Data Vital Signs (Past 12 Hours) Vital Signs Temp Pulse Resp BP Pulse Ox 03/09/19 07:19 36.8 C 80 16 116/79 97
[2019-03-09] MEDS: LORazepam 1 MG TAB PO PRN (15:30)
[2019-03-09] MEDS ORDERED: ONDANSETRON HCL 8 MG in DEXTROSE 5% 50 ML IV PRN (18:00)
[2019-03-09] MEDS ORDERED: CALCIUM CARBONATE 500 MG CHEWABLE TAB PO PRN (23:40)
[2019-03-10] MEDS: HYDROmorphone HCL 2 MG TAB PO PRN ×5 (04:13→20:18)
[2019-03-10] MEDS: DICLOFENAC SOD 1% GEL 100 GM TUBE EXT SCH ×4 (06:26→16:27)
[2019-03-10] MEDS: BACLOFEN 10 MG TAB PO SCH ×4 (07:48→21:09)
[2019-03-10] MEDS: PREGABALIN 150 MG CAP PO SCH ×2 (07:48→21:12)
[2019-03-10] MEDS: ACETAMINOPHEN 500 MG TAB PO SCH ×3 (07:48→21:09)
[2019-03-10] MEDS: DOCUSATE SODIUM 100 MG CAP PO SCH ×2 (07:48→21:09)
[2019-03-10] MEDS: ETHINYL ESTRADIOL PO SCH (07:49)
[2019-03-10] MEDS: DROSPIRENONE PO SCH (07:49)
--- NOTE | 2019-03-10 10:33 | Family Medicine Progress Note ---
Date of Service March 10, 2019 Assessment & Plan (1) Chest pain: Jocelin is a 29-year-old female with a past medical history of SVT status post ablation to 3 weeks ago at [place] complicated by cardiac arrest and tachycardia Moriah Ryan cardiomyopathy requiring chest compressions. Echo performed at [facility] initially showed a decreased EF consistent with Dr. Carroll but repeat echo showed normal ejection fraction. She was [place] [facility] [place] readmitted to our hospital after she developed chest pain with concern for post compression pain versus pericarditis. Chest Pain, multifactorial like post-traumatic in CPR with possible element of pericarditis - EKG 03/09 nsr, no ST changes >1mm - Echo 03/02 shows no wall motion abnormalities, normal EF - Allergic to colchicine - Ibuprofen 600-800mg Q6H - Diclofenac - Pregabalin 150mg - Baclofen 10 TID - Toradol 50mg IV Q6H - Increase PO hydromorphone from 2mg to 4mg Q4H - Decrease hydromorphine HOUSE SERVANT to .25mg on 30min lockout - Goal to transition to orals in anticipate of d/c SVT s/p Ablation - Stable, ECG daily Constipation - Likely in setting of opioid use and pain - Senna daily - +Docusate, +Miralax - On Zofran 8mg IV Q6H Hypothyroidism - [place] held in setting of ?CP/SVT as above S/p Cervical Fusion - Tizanidine converted to baclofen as above Anxiety/PTSD - Ativan 1mg TID PRN - PDMP shows no excess/inappropriate use. (2) Elevated troponin: (3) H/O supraventricular tachycardia: (4) History of cardiac arrest: (5) History of prior ablation treatment: Supervising Physician Co-Signing Physician Notes I personally examined the patient and verified all ocampo points of history and exam, discussed case, and agree with decision making with Dr Spears. Continues to improve, notes though that the oral Dilaudid does not seem to work quite well enough to avoid the HOUSE SERVANT altogether. Vitals noted, continues to appear more comfortable more relaxed, breathing unlabored she is able to move around in the bed freely. Chest painappears to be predominantly biomechanical/rib related after CPR. Transitioning to p.o. Dilaudid to wean away from pump. Today we will increase the dosing, discussed risks benefits and alternatives, but this seems to be the most rational approach right now. We discussed narcotic hyperalgesia as a possible problem, but agreed that given how severe her pain was right now the main treatment for that would be trying to wean the medicine as soon as possible as an outpatient, and we also discussed physical dependency/addiction, given her background of using lorazepam very sparingly and her noting that she does not feel that she has a very addictive side to her, we discussed that more than likely physical dependency would be the main problem we have to work on and that would be something that could be accomplished by simply weaning the meds over a few weeks instead of a few days should it occur. With all of that we both agreed that given everything else were doing for pain right now increasing the dose of Dilaudid seemed to be the most favorable risk-benefit and working towards getting her off of the HOUSE SERVANT and getting her home. Continue lyrica, appreciate pain management recommendations. continue baclofen. Continue Toradol, but switch over to ibuprofen at time of discharge (pericarditis, which, if present at all, appears to have been post traumatic and now resolving). does appear to have an understandable and significant tie of pain with anxiety (both likely due to the intensity of the pain as well as due to the situation in which the pain arose) - in that respect previously discussed SNRI (she believes she was on in the past and felt spacey) or TCA (she is concerned about orthostasis and tachycardia given her ongoing issues with tachycardia up to most recent ablation) Hypothyroidsee below for prior review of chart and discussion, right now would anticipate starting Synthroid in the near future, but holding off given how many other new medicines are on board right now. Would anticipate starting it either at discharge or at her outpatient follow-up visit. Her TSH is currently 6.2, on review of old records, appears that at one point she had actually noted that she was feeling a little better on synthroid, then due to inability to affect weight loss she saw PCP who changed to blas (she is interestingly similar or slightly higher weight (depending on inter-scale reliability) than then, when she was on synthroid (april 2016) -- highest TSH i can find on record is around 7.5. Certainly her hypothyroidism needs to be managed, but given the potential of T3 preparations to cause hyperthyroid symptoms - which could worsen her tachycardia and anxiety (as well as worsen bone health for the alf) would probably retry synthroid, with ongiong PCP f/u and vigilance for other causes of symptoms that are being attributed to hypothyroidism -- the biggest concern being that she appears to have quite clinically significant and undermanaged anxiety and/or depression at play. will try to have close and ongoing PCP f/u in this regard +/- considerations for counselling if she feels she would benefit. anticipate starting low dose synthroid in near future (no urgency, and adjusting so many other meds i would hesitate to add more for now) nausea -overall improved, QTC did not increase, continue Zofran as needed now. DVT proph - ambulation Subjective She reports today that her pain is at a 6 out of 10. Her goal ranges 5-6 out of 10. The pain is in the low center of her chest just above the xiphoid process and radiates to the back between the shoulder blades. It is worsened by both sitting forward and leaning back. She slept poorly, she relates this is due to the pain but also having some Pepsi with caffeine last night. She endorses some intermittent sporadic shortness of breath, none present at time of visit. She would like to continue the conversion from HOUSE SERVANT to oral, but no she needed to use her HOUSE SERVANT several times last night and a couple of times this morning and thinks the 2 mg every 4 hour p.o. hydromorphone baseline may be a little bit too low. Denies palpitations, syncope, presyncope, headache, or pain this morning. Review of Systems Constitutional: no fever, no chills, no sweats and no fatigue Eyes: no worsening vision Ear, Nose, Mouth, Throat: no problem reported Respiratory: no cough, no chest congestion, no dyspnea, no dyspnea on exertion and no wheezing Cardiovascular: + chest pain and + chest pain at rest; no dyspnea, no dyspnea at rest, no orthopnea, no syncope and no edema Gastrointestinal: no abdominal pain, no nausea and no vomiting Genitourinary: no dysuria and no difficulty urinating Musculoskeletal: no muscle weakness and no body aches Integumentary: + wounds (Small amount of bruising on chest); no rash, no lesions and no new lesions Neurologic: no localized weakness, no generalized weakness, no tingling, no numbness, no dizziness, no syncope, no headache(s) and no confusion Psychiatric: + anxiety Physical Exam Physical Exam: General: A&Ox3. NAD. Cooperative. HEENT: Atraumatic, normocephalic. Pulm: CTAB A&P. -wheezes, -rales, -rhonchi. Symmetrical chest rise. No increase work of breathing. No respiratory distress. Cardiac: RRR, -mrg. Radial pulses intact and symmetrical. No JVD, no edema. Chest: Subtle contusion on the midline chest just above the xiphoid process. Bruised area exquisitely tender to palpation. Endorses pain low sternum on rib compression. Surrounding area of chest nontender to palpation. Abdominal: Nontender, nondistended, soft. BS present. Results & Data Vital Signs (Past 12 Hours) Vital Signs Temp Pulse Resp BP Pulse Ox 03/10/19 08:37 36.8 C 80 16 112/72 98 03/10/19 04:06 36.6 C 76 16 101/59 L 96 03/09/19 23:36 36.6 C 70 18 111/75 98 Resident Activity Tracking Resident Involvement: Resident Care Provided Care Provided: Adult Hospital Medicine
[2019-03-10] MEDS: HYDROmorphone HCL 0.5MG/ML 50 ML CASSETTE IV PRN (11:56)
[2019-03-10] MEDS: POLYETHYLENE (MIRALAX) 17 GM PACK PO PRN ×2 (12:05→18:18)
[2019-03-10] MEDS ORDERED: POLYETHYLENE (MIRALAX) 17 GM PACK PO PRN (12:44)
[2019-03-10] MEDS: BISACODYL 5 MG TABEC PO PRN (17:54)
[2019-03-10] MEDS: LORazepam 1 MG TAB PO PRN (21:12)
[2019-03-11] MEDS: HYDROmorphone HCL 2 MG TAB PO PRN ×6 (02:50→22:53)
[2019-03-11] MEDS: MAGNESIUM HYDROXIDE SUSP 30 ML UDC PO PRN (02:54)
[2019-03-11] MEDS: PREGABALIN 150 MG CAP PO SCH ×2 (07:16→20:41)
[2019-03-11] MEDS: DOCUSATE SODIUM 100 MG CAP PO SCH ×2 (07:16→20:41)
[2019-03-11] MEDS: BISACODYL 5 MG TABEC PO PRN (07:16)
[2019-03-11] MEDS: POLYETHYLENE (MIRALAX) 17 GM PACK PO PRN (07:16)
[2019-03-11] MEDS: DROSPIRENONE PO SCH (07:17)
[2019-03-11] MEDS: ETHINYL ESTRADIOL PO SCH (07:17)
[2019-03-11] MEDS: DICLOFENAC SOD 1% GEL 100 GM TUBE EXT SCH ×4 (07:17→16:52)
[2019-03-11] MEDS: BACLOFEN 10 MG TAB PO SCH ×4 (07:18→20:42)
[2019-03-11 08:36] LABS: BUN Creatinine Ratio 7.8 (10-20); Calcium 8.7 mg/dl (8.5-10.1); Est GFR (African American) 137.7; Est GFR (Non-African American) 118.8; Potassium 3.7 mmol/L (3.5-5.1)
[2019-03-11] MEDS: ACETAMINOPHEN 500 MG TAB PO SCH ×3 (09:04→20:40)
--- NOTE | 2019-03-11 09:56 | Family Medicine Progress Note ---
Date of Service March 11, 2019 Assessment & Plan (1) Chest pain: Jocelin is a 29-year-old female with a past medical history of SVT status post ablation to 3 weeks ago at [place] complicated by cardiac arrest and tachycardia Moriah Ryan cardiomyopathy requiring chest compressions. Echo performed at [facility] initially showed a decreased EF consistent with Dr. Carroll but repeat echo showed normal ejection fraction. She was discharged from [facility] but readmitted to our hospital after she developed chest pain with concern for post compression pain versus pericarditis. Chest Pain, multifactorial like post-traumatic in CPR with possible element of pericarditis - Her pain seems primarily MSK in the setting of post-compression trauma with additional concern for an element of pericarditis in the setting of recent ablation. She may also have some psychogenic component with her pain, although she seems to be low risk for addiction given her past hx. - EKG 03/09 nsr, no ST changes >1mm - Echo 03/02 shows no wall motion abnormalities, normal EF - Allergic to colchicine - Ibuprofen 600-800mg Q6H - Diclofenac - Pregabalin 150mg - Baclofen 10 TID - Toradol 50mg IV Q6H - PO hydromorphone 4mg Q4H - Hydromorphine MATCH UP PERSON to .25mg on 30min lockout. Goal to wean breakthrough doses in anticipation of d/c. no change in management today, anticipate her analgesic needs to decrease as her underlying pain improves. SVT s/p Ablation - Stable, ECG daily Constipation - Likely in setting of opioid use and pain - Senna daily - +Docusate, +Miralax - On Zofran 8mg IV Q6H Hypothyroidism - [place] held in setting of ?CP/SVT as above - Her TSH is currently 6.2. Had switch to armour out of concern for weight loss, but on chart review may have been feeling somehwat better on Synthroid.Question the degree to which she would have noticed her sx vs possible anxiety/depression element given TSH<12. - Will likely restart synthroid on d/c with close PCP followup. Will have to watch for exacerbation of cardiac sx. S/p Cervical Fusion - Tizanidine converted to baclofen as above Anxiety/PTSD - Ativan 1mg TID PRN - PDMP shows no excess/inappropriate use. (2) Elevated troponin: (3) H/O supraventricular tachycardia: (4) History of cardiac arrest: (5) History of prior ablation treatment: Supervising Physician Co-Signing Physician Notes I personally examined the patient and verified all ocampo points of history and e edgardo, discussed case, and agree with decision making with Dr Spears. Feels like maybe she is able to go home but very scared about doing without the MATCH UP PERSON given that she is needed at some. Vitals noted, continues to appear more comfortable more relaxed, breathing unlabored she is able to move around in the bed freely. Chest painappears to be predominantly biomechanical/rib related after CPR. Tra nsitioning to p.o. Dilaudid to wean away from pump. Continue current oral dosing, stop MATCH UP PERSON, in terms of the overall approach we have discussed risks benefits and alternatives, but this seems to be the most rational approach right now. We discussed narcotic hyperalgesia as a possible problem, but agreed that given how severe her pain was right now the main treatment for that would be trying to wean the medicine as soon as possible as an outpatient, and we also discussed physical dependency/addiction, given her background of using lorazepam very sparingly and her noting that she does not feel that she has a very addictive side to her, we discussed that more than likely physical dependency would be the main problem we have to work on and that would be something that could be accomplished by simply weaning the meds over a few weeks instead of a few days should it occur. Stopping MATCH UP PERSON, hopefully she will do well and can go home tomorrow. Continue lyrica, appreciate pain management recommendations. continue baclofen. Continue ibuprofen at time of discharge (pericarditis, which, if present at all, appears to have been post traumatic and now resolving). does appear to have an understandable and significant tie of pain with anxiety (both likely due to the intensity of the pain as well as due to the situation in which the pain arose) - in that respect previously discussed SNRI (she believes she was on in the past and felt spacey) or TCA (she is concerned about orthostasis and tachycardia given her ongoing issues with tachycardia up to most recent ablation) Hypothyroidno current problems, see below for prior review of chart and discussion, right now would anticipate starting Synthroid in the near future, but holding off given how many other new medicines are on board right now. Would anticipate starting it either at discharge or at her outpatient follow-up visit. Her TSH is currently 6.2, on review of old records, appears that at one point she had actually noted that she was feeling a little better on synthroid, then due to inability to affect weight loss she saw PCP who changed to blas (she is interestingly similar or slightly higher weight (depending on inter- scale reliability) than then, when she was on synthroid (april 2016) -- highest TSH i can find on record is around 7.5. Certainly her hypothyroidism needs to be managed, but given the potential of T3 preparations to cause hyperthyroid symptoms - which could worsen her tachycardia and anxiety (as well as worsen bone health for the long-term) would probably retry synthroid, with ongiong PCP f/u and vigilance for other causes of symptoms that are being attributed to hypothyroidism -- the biggest concern being that she appears to have quite clinically significant and undermanaged anxiety and/or depression at play. will try to have close and ongoing PCP f/u in this regard +/- considerations for counselling if she feels she would benefit. anticipate starting low dose synthroid in near future (no urgency, and adjusting so many other meds i would hesitate to add more for now) nausea -overall improved, QTC did not increase, continue Zofran as needed now. DVT proph - ambulation Dispelhopefully home tomorrow as long as she has not struggled off of the MATCH UP PERSON. Alex Jocelin reports she is very tired today, but feels a little bit better than yesterday. She notes she still has not had a bowel movement, but did take both MiraLAX and bisacodyl yesterday. She has had some intermittent nausea, but no repeated episodes of emesis since yesterday afternoon. She is having toast and eggs this morning, has been able to eat about half of her breakfast. Does not currently feel nauseous. She feels her pain still about a 6 out of 10. Notes that she went for an hour yesterday without using the MATCH UP PERSON but that her pain became difficult to bear within that hour and she had to continue to use the MATCH UP PERSON. Feels that it has a much stronger effect than her oral medication. She notes that the vomiting yesterday worsened her chest pain. No fever, chills, sweats, rash, lightheadedness, dizziness, syncope, presyncope, hematemesis, cold-like symptoms, shortness of breath, difficulty breathing, chest pressure today. She continues to endorse central chest pain worsened by laying down, sitting up, and on rib compression. Review of Systems Review of Systems: See HPI. 12 point review of symptoms negative unless otherwise noted. Physical Exam Physical Exam: General: A&Ox3. NAD. Cooperative. HEENT: Atraumatic, normocephalic. Pulm: CTAB A&P. -wheezes, -rales, -rhonchi. Symmetrical chest rise. No increase work of breathing. No respiratory distress. Cardiac: RRR, -mrg. Radial pulses intact and symmetrical. No JVD, no edema. Chest: Subtle contusion on the midline chest just above the xiphoid process. Bruised area continues to be tender to palpation. Endorses pain low sternum on rib compression. Surrounding area of chest nontender to palpation. Abdominal: Mild tenderness to palpation at epigastrum with radiation to central chest pain. Nontender, nondistended, soft. BS present. Results & Data Vital Signs (Past 12 Hours) Vital Signs Temp Pulse Pulse Resp BP BP Pulse Ox 03/11/19 06:50 36.7 C 77 18 105/72 96 03/10/19 23:16 36.6 C 91 H 18 100/65 94 Resident Activity Tracking Resident Involvement: Resident Care Provided Care Provided: Adult Hospital Medicine
[2019-03-11] MEDS ORDERED: HYDROmorphone INJ 1 MG/ML SYRINGE IV PRN (17:25)
[2019-03-11] MEDS: IBUPROFEN 600 MG TAB PO PRN (18:02)
[2019-03-12] MEDS: HYDROmorphone HCL 2 MG TAB PO PRN ×3 (02:59→11:02)
[2019-03-12] MEDS: DICLOFENAC SOD 1% GEL 100 GM TUBE EXT SCH ×3 (06:33→12:42)
[2019-03-12 07:00] VITALS: BP 108/73; PULSE 68; TEMP 97.9; O2SAT 100
[2019-03-12] MEDS: DOCUSATE SODIUM 100 MG CAP PO SCH (07:07)
[2019-03-12] MEDS: ACETAMINOPHEN 500 MG TAB PO SCH (07:07)
[2019-03-12] MEDS: ETHINYL ESTRADIOL PO SCH (07:08)
[2019-03-12] MEDS: BACLOFEN 10 MG TAB PO SCH ×2 (07:08→12:42)
[2019-03-12] MEDS: DROSPIRENONE PO SCH (07:08)
[2019-03-12] MEDS: PREGABALIN 150 MG CAP PO SCH (07:10)
[2019-03-12] MEDS: IBUPROFEN 600 MG TAB PO PRN (09:56)
--- NOTE | 2019-03-12 10:52 | Cardiology Progress Note ---
Date of Service March 12, 2019 Assessment & Plan (1) Substernal chest pain: Based on her symptoms I cannot be sure what is causing her chest discomfort however it sounds as though it may be a combination of pericarditis (which she could have even without a rub or an effusion) and chest wall discomfort from CPR. Her electrocardiogram has shown some J-point elevation which could be pericarditis however it has not changed and there have been no evolutionary changes suggestive of pericarditis (T wave inversion, etc.). Like this makes it less likely that the pain was due to pericarditis although perhaps it was a component early on. (2) Elevated troponin: Although technically elevated her troponin was not terribly high and there was no specific trend. I would not pursue further evaluation. (3) Sinus tachycardia: She has a long history of an inappropriate sinus tachycardia, so far it is symptomatically improved following ablation. We will need to follow this over the long run, especially with exercise. She would prefer to follow-up here rather than go to [place], I think that is acceptable and I have arranged a follow-up visit for her in about 2 weeks. (4) Cardiomyopathy: She had a cardiomyopathy identified immediately after her event, however 3 days later her ejection fraction was near normal. And this visit by echo her cardiac function is normal. This is consistent with transient stunning and not a cardiomyopathy. Subjective Today she is definitely feeling better. She relates this to improved pain medication control as well as time from her event. Symptoms are still present but minimally so. No palpitations or symptoms suggestive of recurrent SVT. Physical Exam Physical Exam: Constitutional: Alert, cooperative and in no distress. Pulmonary: Clear to auscultation bilaterally. Cardiac: Regular rhythm with no murmur, gallop or rub. Abdomen: Soft, nontender with normal bowel sounds. Extremities: No edema. Skin: No rash, ecchymoses or petechiae. Results & Data Vital Signs (Past 12 Hours) Vital Signs Temp Pulse Resp BP Pulse Ox 03/12/19 06:59 36.6 C 68 18 108/73 100 03/11/19 23:13 36.5 C 72 16 111/73 99 Diagnostic Findings Electrocardiogram today demonstrates sinus rhythm with mild J-point elevation consistent with age and a normal electrocardiogram. Similar to prior electrocardiograms.
[2019-03-12] MEDS: POLYETHYLENE (MIRALAX) 17 GM PACK PO PRN (11:07)
--- NOTE | 2019-03-12 17:47 | Discharge Summary ---
Date of Service March 12, 2019 Admission HPI Per Admitting Provider 29-year-old female with a past medical history of recurrent SVT status post ablation presents with substernal chest pain. Patient was recently admitted at [facility] where she received an ablation on 02/23/2019. The patient experienced cardiac arrest and received chest compressions. She was later transferred to the ICU and was diagnosed with [place] cardiomyopathy. Her echocardiogram showed an ejection fraction of 25%. Patient subsequently received a cardiac catheterization which was negative for coronary artery disease. The patient was discharged on 02/26/2019. At discharge her echocardiogram showed an EF of 55%, mild LV dilation, normal systolic function. The patient had chest pain the days following her resuscitation related to the trauma of chest compressions. She came into the hospital today because she feels like the chest pain is not improving and changing in quality. She describes the chest pain is substernal, pressure like pain that radiates to her back. The pain is palpable and was relieved by Dilaudid in the emergency room. Patient reports feeling lightheaded and occasionally having heart palpitations, but denies syncope or lower extremity swelling. She reports getting winded easily at baseline, but denies any new shortness of breath. Admission Exam Per Admitting Provider Constitutional: WD/WN, vitals as above Eyes: PERRL, conjunctivae normal, anicteric sclerae ENMT: external ear and nose normal, oropharynx normal Neck: trachea midline, no thyromegaly Respiratory: normal respiratory effort, lungs clear to auscultation Cardiovascular: RRR, no murmur, no edema Vessels: + JVD Chest (Breasts): Additional Comments: chest wall tenderness Gastrointestinal (Abdomen): normal bowel sounds, soft, nontender, no hepatosplenomegaly Musculoskeletal: no cyanosis or clubbing, extremities motor strength 5/5 Skin: no rashes, warm and dry Neurologic: PERRL, EOMI, accommodation nl, no face palsy, no dysarthria CN's II-XI intact bilaterally Psychiatric: A+Ox3, euthymic affect Principal Diagnosis Chest pain Discharge Exam Constitutional WD/WN, vitals as above no acute distress Eyes PERRL and EOM intact bilaterally Respiratory normal respiratory effort, lungs clear to auscultation Cardiovascular RRR, no murmur, no edema Gastrointestinal (Abdomen) normal bowel sounds, soft, nontender, no hepatosplenomegaly Skin no rashes, warm and dry Discharge Data Allergies Allergy/AdvReac Type Severity Reaction Status Date / Time acetaminophen [From Percocet] Allergy itching Verified 03/08/19 14:29 colchicine Allergy Hives Verified 03/02/19 09:59 Iodinated Contrast- Oral and Allergy Paleness Unverified 03/01/19 17:46 IV Dye oxycodone [From Percocet] Allergy itching Verified 03/08/19 14:29 Consultations 03/01/19 22:57 ED Decision to Admit Stat 03/02/19 01:20 Consult Cardiology Routine 03/07/19 08:41 Consult Pain Management Routine Ordered Studies 03/01/19 18:08 CT chest wo con Stat Hospital Course (1) Chest pain: Jocelin is a 29-year-old female with a past medical history of SVT status post ablation to 3 weeks ago at [place] complicated by cardiac arrest and Tak[place] cardiomyopathy requiring chest compressions. Echo performed at [facility] initially showed a decreased EF consistent with Dr. Carroll but repeat echo showed normal ejection fraction. [place] [facility] [place] hospital after she developed chest pain with concern for post compression pain versus pericarditis. Chest Pain, multifactorial like post-traumatic in CPR with possible element of pericarditis - Her pain seems primarily MSK in the setting of post-compression trauma with additional concern for an element of pericarditis in the setting of recent ablation. She may also have some psychogenic component with her pain, although she seems to be low risk for addiction given her past hx. - EKG 03/09 nsr, no ST changes >1mm - Echo 03/02 shows no wall motion abnormalities, normal EF - Allergic to colchicine - Ibuprofen 600-800mg Q6H - Diclofenac - Pregabalin 150mg - Baclofen 10 TID - Toradol 50mg IV Q6H - PO hydromorphone 4mg Q4H - Hydromorphine [employer]MENT[employer]ICK [employer] to .25mg on 30min lockout. - Weaned to PO Dilaudid on discharge - F/u appointments with primary care and cardiology confirmed SVT s/p Ablation - Stable, ECG daily Constipation - Likely in setting of opioid use and pain - Senna daily - +Docusate, +Miralax - On Zofran 8mg IV Q6H Hypothyroidism - [place] held in setting of ?CP/SVT as above - Her TSH is currently 6.2. Had switch to [place] out of concern for weight loss - Restart [place] and Recheck TSH on f/u S/p Cervical Fusion - baclofen on discharge Anxiety/PTSD - Ativan 1mg TID PRN - PDMP shows no excess/inappropriate use. (2) Elevated troponin: (3) H/O supraventricular tachycardia: (4) History of cardiac arrest: (5) History of prior ablation treatment: Total Time Total Time Spent Total Time Spent (In Minutes): 30 Discharge Plan Discharge Items Patient Disposition: Home - Self-Care Reason For Visit: ELEVATED TROP, RECENT H/O CARDIAC ARREST Discharge Diagnosis: Chest pain Condition: Fair Discharge Goals: Improve disease control, Improve function, Prevent disease and Therapeutic intervention Activity: Resume your previous activity Non-emergency contact: Primary Care Provider and Director Inbound Sales Call non-emergency contact if: you have any medication questions, your symptoms worsen, your pain is not controlled, your pain is worsening and your pain is concerning for you Follow-up/Referrals: Scott Julio MD [Physician] - 03/23/19 12:00 pm (Please, follow up at [facility] Cardiology Office with Dr. Julio on TuesdayMarch 23 at 12:00 pm. *The office is located in [address] of [facility]. This is the big building next to [facility]. If you need to change this appointment, call the office at [phone].) Geraldine Coronado MD [Primary Care Provider] - 03/14/19 3:30 pm (Please, follow up with Dr. Geraldine Coronado on TuesdayMarch 14 at 3:30 pm. *She will be your new primary care provider. The office is located in [address] of [facility]. This is the big building next to this [facility]. If you need to change this appointment, call the office at [phone].) Diet: Regular Addtl Provider Instructions: You were admitted with chest pain following discharge for cardiac ablation and subsequent cardiac arrest/resuscitation. Your current symptoms of chest pain at this time appear to musculoskeletal in origin. You will be sent home with oral Dilaudid pain medication for 5 days. Please take on as needed basis as prescribed. You will need to follow with your PCP within 48 hrs and you will need to follow up with Cardiology for further care. If you experience worsening chest pain uncontrolled by pain medication prior to primary care appointment. Prescriptions: New baclofen 10 mg Tablet 10 mg PO QID PRN (Reason: Pain) Qty: 40 RF: 0 diclofenac sodium 1 % gel See Rx Instructions .ROUTE .COMPLEX PRN (Reason: pain) Qty: 100 RF: 0 hydromorphone 2 mg Tablet 4 mg PO Q4H PRN (Reason: pain) Qty: 24 RF: 0 Lyrica 150 mg Capsule 150 mg PO BID 30 Days Qty: 60 RF: 0 ibuprofen 600 mg Tablet 600 mg PO Q6H Qty: 20 RF: 0 Continued tizanidine 4 mg tablet 4 mg PO Q8H RF: 0 drospirenone-ethinyl estradiol [Gianvi (28)] 3-0.02 mg tablet 1 tab PO DAILY RF: 0 Stand-Alone Forms: [facility], Work/School Release (Inpt) Discharge Orders: Discharge Order (Routine); Ordered 03/12/19 Ordered By: Jamarcus Rojas Admission Data Admit Date/Time: 03/02/19 00:11 Attending Provider: Suki Mao Admit Provider: Brad Coronado Primary Care Provider: Geraldine Coronado Other Providers: Zully Jeff ; Madeline Louise ; Giuseppe Moreira ; Amanda Hobbs Service: Medical Other Interventions: Discharge Summary Assessment (RN) Last Done: 03/12/19 12:34 DC Date/Time DO NOT enter until pt leaves facility: 03/12/19 13:26 Resident Activity Tracking Resident Involvement: Resident Care Provided Care Provided: Adult Hospital Medicine
== END 2019-03-12 13:26 | disposition home or self-care (01) | DRG 315 ==
LOC: ED 16:42 → 2E 03-02 00:11 → SUATTDRO 03-02 00:11 → 2E 03-02 01:13 → 4E 03-05 15:10
DX: Y92.009 Unspecified place in unspecified non-institutional (private) residence as the place of occurrence of the external cause; F17.200 Nicotine dependence, unspecified, uncomplicated; I31.3 Pericardial effusion (noninflammatory); Z98.1 Arthrodesis status; E03.9 Hypothyroidism, unspecified; Y84.8 Other medical procedures as the cause of abnormal reaction of the patient, or of later complication, without mention of misadventure at the time of the procedure; G89.18 Other acute postprocedural pain; I47.1 Supraventricular tachycardia; Z86.74 Personal history of sudden cardiac arrest; F41.9 Anxiety disorder, unspecified; K59.00 Constipation, unspecified

== ENCOUNTER 2019-06-29 06:15 | Observation (INO) ==
[2019-06-29] MEDS ORDERED: LIDOCAINE HCL 1% 20 ML VIAL ONE (06:57)
[2019-06-29] MEDS ORDERED: BACITRACIN INJ 50,000 UNIT VIAL ONE (06:57)
[2019-06-29] MEDS ORDERED: fentaNYL citrate 100 MCG/2 ML VIAL ONE ×3 (07:16→08:28)
[2019-06-29] MEDS ORDERED: MIDAZOLAM HCL 5 MG/ML 1 ML VIAL ONE ×2 (07:16→08:01)
[2019-06-29] MEDS ORDERED: CEFAZOLIN 250 MG/ML 1 GM VIAL ONE (07:16)
--- NOTE | 2019-06-29 07:17 | History & Physical Bridge Note ---
Date of Service June 29, 2019 History & Physical Bridge Note I have examined the patient, reviewed the History & Physical and in the interval since the performance of the History & Physical I have noted the following changes of clinical significance: no changes noted. I reviewed the indications, procedure, risks and alternatives of the procedure with her and her mother and she understands and agrees to proceed. Consent obtained. I also reviewed conscious sedation and she agrees. Consent obtained. She states that she cannot be .
--- NOTE | 2019-06-29 07:18 | Pre Anesthesia Assessment ---
Date of Service June 29, 2019 Pre Sedation Assessment Vital Signs Temp Resp 06/29/19 06:54 36.7 C 16 Cardiovascular RRR, no murmur, no edema Respiratory normal respiratory effort, lungs clear to auscultation Pre-Sedation Airway Assessment Smoking Status: Never smoker Hx Sleep Apnea: No Hx Difficult Intubation: No Short, Thick Neck: No Thyromental Distance: > or= 3.5 Finger Breadths Oral Cavity: + WNL Mallampati Class: I ASA: ASA2 NPO Status Date of Last Intake of Fluids: 06/28/19 Time of Last Intake of Fluids: 21:00 Date of Last Intake of Solid Food: 06/28/19 Time of Last Intake of Solid Foods: 21:00 Procedure Planning Contraindications for Sedation: none Current Medications Reviewed: Yes Notes The planned sedation has been discussed with the patient. Informed Consent was obtained. I have identified the patient, determined the appropriateness of sedation and have assessed the patient immediately prior to the procedure. All medicine(s) and interventions are by my order.
[2019-06-29] MEDS ORDERED: MIDAZOLAM HCL 1 MG/ML 2ML VIAL ONE (08:28)
--- NOTE | 2019-06-29 08:36 | Operative Report ---
Post Operative Report Pre & Post Diagnosis Operation Date: 06/29/19 07:30 Preoperative diagnosis: Inappropriate sinus tachycardia Postoperative diagnosis: Same Procedure Operation Date: 06/29/19 07:30 Actual Procedures p Pacer with Atrial Lead - Scott Julio MD Surgeon Scott Julio MD Cartography Technician None Estimated Blood Loss 20 Findings Consistent with Post-Op Diagnosis Good atrial lead position in the appendage, excellent measurements Specimens None Anesthesia Type Local Complications none Disposition Accompanied Patient To Recovery: No Disposition: PCU Description of Procedure After obtaining informed consent for the procedure, the patient was brought to the laboratory and prepped and draped in the standard sterile manner. The left prepectoral region was anesthetized with 1% lidocaine local anesthetic and left axillary venipuncture was performed by percutaneous technique and a guidewire placed through the left subclavian vein into the superior vena cava. The area was further infiltrated with 1% lidocaine local anesthetic and a 5 cm incision was made parallel to the left clavicle and 2 cm below it and carried down to the anterior pectoralis fascia. A pacemaker pocket was formed by blunt dissection anterior to the pectoralis fascia and a bacitracin-soaked sponge (50,000 units in 50 cc normal saline solution) was placed in the pocket. An 8 Fijian Medtronic lead introducer was placed over the guidewire into the left subclavian vein, the dilator and guidewire were removed and a bipolar active fixation steroid tipped Biotronik atrial lead was advanced through the introducer into the superior vena cava. A guidewire was placed through the introducer and the introducer was stripped from the lead and guidewire. Using a curved stylette the atrial lead was positioned in the right atrial appendage. The screw was extended fixing the lead in position. Pacing and sensing thresholds were evaluated in bipolar configuration and are recorded on the implant data sheet. Once the lead was in position it was attached to the anterior pectoralis fascia using 2 sutures of 0 silk around the lead collar. The bacitracin-soaked sponge was removed from the pocket, hemostasis was obtained, the pacemaker was attached to the lead and placed in the pocket with the lead coiled beneath it. The incision was closed with a running double subcutaneous closure of 3-0 Vicryl absorbable suture, followed by running subcuticular skin closure of 4-0 Vicryl absorbable suture. Bacitracin ointment was placed on the incision and a pressure dressing applied. I attest to the content of the Intraoperative Record and any orders documented therein. Any exceptions are noted below.
[2019-06-29] MEDS ORDERED: KETOROLAC TROMETHAMINE 10 MG TABLET PO PRN (08:38)
[2019-06-29] MEDS ORDERED: LORazepam 0.5 MG TAB PO PRN (08:40)
--- NOTE | 2019-06-29 08:42 | Post Anesthesia Assessment ---
Date of Service June 29, 2019 Post Sedation Assessment Vital Signs Temp Resp 06/29/19 06:54 36.7 C 16 Recovery Score Activity: Moves 4 extremities Respiration: Deep Breath/Cough Circulation: +/-20% PreAnes Value Consciousness: Fully Awake Oxygen Saturation: > 92% On Room Air Discharge Sedation Level of Care: Fast Track Phase II Post Sedation Plan On clinical assessment, the patient appears to have tolerated the sedation without complications. Patient is recovering as anticipated. Patient will continue to be monitored by nursing and may be discharged when sedation discharge criteria are met per below protocol. Upon Completions of procedure and additional 15 minutes continue every 5 minute vital signs and the P.A.R. score; then discharge to a Phase I or Fast Track to Phase II per the following guidelines: * Discharge Patient to appropriate Phase II area if PAR is 8 or greater or return to pre- procedure baseline. The post - procedure orders will be as directed. * If PAR score is less than 8 or not return to pre-procedure baseline then patient will follow Phase I monitoring till PAR is reached for Phase II. The Phase I may be done in procedure room or may call to secure a Phase I area. * If naloxone or flumazenil are used for reversal, hold in Phase I for continued monitoring from when last reversal dose was given for a minimum of 60 minutes or longer pending the nurse and/or physician discretion of patient condition before discharge to Phase II. Please call the Sedation Physician to re-evaluate and complete post-note for discharge to Phase II area. Do NOT discharge from procedure sedation or Phase 1 until post- sedation evaluation note is complete by procedure /sedation MD Sedation Discharge Instructions to be given to the patient at discharge to home.
[2019-06-29] MEDS: TIZANIDINE HCL 4 MG TABLET PO SCH ×3 (09:29→21:59)
[2019-06-29] MEDS: LEVOTHYROXINE SODIUM 50 MCG TABLET PO SCH (09:29)
[2019-06-29] MEDS ORDERED: SODIUM CHLORIDE 0.9% 1000ML 1,000 ML IV SCH (13:00)
--- NOTE | 2019-06-29 13:01 | XRay Report ---
XR chest 2V routine HISTORY: 29 years-old Female Evaluate A lead position status post placement of a left subclavian pac er COMPARISON: Chest CT 03/01/2019, chest radiograph 03/08/2016 TECHNIQUE: Portable AP view of the chest FINDINGS: Cardiomediastinal and hilar silhouettes are within normal limits. Status post placement of a single l ead left subclavian pacer with distal tip of the lead projected over the expected location of the rig ht atrium. The superior lung apices are excluded from the [id number] secondary to positioning. No pneumothorax, pleural effusion, focal airspace consolidation or overt pulmonary edema. Bones appear n ormal. IMPRESSION: Status post placement of a single lead left subclavian pacer. No postprocedural pneumotho rax identified. The above report was generated using voice recognition software. It may contain grammatical, syntax o r spelling errors. Electronically signed by: Jarod Hallman M.D. 06/29/2019 12:59 PM
[2019-06-29] MEDS ORDERED: HYDROmorphone HCL 2 MG TAB PO PRN (16:07)
[2019-06-29] MEDS: HYDROmorphone INJ 1 MG/ML SYRINGE IV PRN (20:07)
[2019-06-30] MEDS: HYDROmorphone INJ 1 MG/ML SYRINGE IV PRN ×3 (00:02→07:09)
[2019-06-30] MEDS: LEVOTHYROXINE SODIUM 50 MCG TABLET PO SCH (06:14)
[2019-06-30] MEDS: TIZANIDINE HCL 4 MG TABLET PO SCH (06:14)
--- NOTE | 2019-06-30 08:12 | XRay Report ---
TWO VIEW CHEST CLINICAL HISTORY: Cardiac pacemaker implantation. FINDINGS: PA and lateral chest radiographs are compared to study dated 06/29/2019. A single lead cardia c pacemaker is in place. The lead projects over the right atrium. The cardiomediastinal silhouette is unremarkable. The pulmonary vasculature is noncongested. The lungs and pleural spaces are clear. The re is no pneumothorax. The bony thorax appears intact. IMPRESSION: 1. A single lead cardiac pacemaker is in place as detailed above. 2. There is no radiographic evidence of congestive failure. 3. No airspace consolidation or pleural effusion is identified. Electronically signed by: Tavon Acosta M.D. 06/30/2019 8:11 AM
--- NOTE | 2019-06-30 09:20 | Cardiology Progress Note ---
Date of Service June 30, 2019 Assessment & Plan (1) Status post placement of cardiac pacemaker: She is doing well following placement of the pacemaker, the device is working adequately although I will check it again on Tuesday prior to her ablation procedure and if characteristics do not improve I will need to reposition the lead at that time. She understands this. We can do it at the same time as the ablation procedure. (2) Sinus tachycardia: She has had no further sinus tachycardia, it is intermittent. We will continue to plan ablation on Tuesday. (3) Unresponsive episode: Her unresponsive episode yesterday and x-rays little hard to explain, it may have been a vagal reaction, her heart rate did not drop but now with the pacemaker in place a vagal reaction will not show up as bradycardia. She may have been hypotensive although her symptoms lasted much longer than a hypotensive episode would have. It clearly was not a significant arrhythmia. Subjective Events of yesterday noted, I suspect she had a vagal reaction as she has had before, most notably at [facility] after her procedure there. Today she feels well, she has had no recurrence. She has not had any of her palpitations here in the hospital. Physical Exam Physical Exam: Her pacemaker site is clean and dry, there is no additional bleeding, only minor bleeding on the dressing which has not continued. No ecchymosis or swelling. Minimal tenderness. Results & Data Vital Signs (Past 12 Hours) Vital Signs Temp Pulse Resp BP Pulse Ox 06/30/19 08:02 36.8 C 84 18 103/70 97 06/30/19 03:54 36.6 C 68 19 96/61 L 98 06/29/19 23:44 36.7 C 74 19 112/72 98 Diagnostic Findings Telemetry: Atrial pacing and sinus rhythm, occasional non-sensed beats and occasional possible loss of capture versus oversensing Pacemaker evaluation: Her pacemaker is functioning well in general, however she continues to have intermittent lack of capture which is hard to explain, this occurs at all outputs above 2 V and does not seem to be a threshold issue. Possible tissue exit block. Sensing has diminished as well, sensing was reduced to 0.5 mV. Chest x-ray: Good lead position on yesterday's and today's x-ray, no pneumothorax PG Care Time/CCT Total # of Minutes Spent Total Time Spent with Patient: Total time spent is greater than 50% in coordination of care (as documented) at patient's floor/unit and/or counseling patient:
--- NOTE | 2019-07-12 08:20 | Discharge Summary ---
Date of Service July 12, 2019 Admission HPI Per Admitting Provider She has had difficulty with paroxysmal tachycardia which is very symptomatic, she has had several ablations and is now being admitted for pacemaker implantation with follow-up ablation. Admission Exam (Per Admitting) [facility] Mallampati Class: I Respiratory normal respiratory effort, lungs clear to auscultation Cardiovascular RRR, no murmur, no edema Discharge Data Procedures Performed Operation Date: 06/29/19 07:30 Actual Procedures p Pacer with Atrial Lead - Scott Julio MD Hospital Course (1) Status post placement of cardiac pacemaker: She is doing well following placement of the pacemaker, the device is working adequately although I will check it again on Tuesday prior to her ablation procedure and if characteristics do not improve I will need to reposition the lead at that time. She understands this. We can do it at the same time as the ablation procedure. (2) Sinus tachycardia: She has had no further sinus tachycardia, it is intermittent. We will continue to plan ablation on Tuesday. (3) Unresponsive episode: She had unresponsive spell which was brief while getting a chest x-ray. Her unresponsive episode yesterday in x-ray is little hard to explain, it may have been a vagal reaction, her heart rate did not drop but now with the pacemaker in place a vagal reaction will not show up as bradycardia. She may have been hypotensive although her symptoms lasted much longer than a hypotensive episode would have. It clearly was not a significant arrhythmia.
== END 2019-06-30 11:32 | disposition home or self-care (01) ==
LOC: 2S 06:15 → EP 06:15
DX: R00.0 Tachycardia, unspecified; F17.210 Nicotine dependence, cigarettes, uncomplicated; Z79.899 Other long term (current) drug therapy; Z88.8 Allergy status to other drugs, medicaments and biological substances; Z88.6 Allergy status to analgesic agent; Z91.040 Latex allergy status; Z88.5 Allergy status to narcotic agent

== ENCOUNTER 2019-07-02 06:22 | Observation (INO) ==
[2019-07-02] MEDS ORDERED: fentaNYL citrate 100 MCG/2 ML VIAL ONE ×4 (08:02→09:34)
[2019-07-02] MEDS ORDERED: MIDAZOLAM HCL 5 MG/ML 1 ML VIAL ONE ×4 (08:03→09:34)
--- NOTE | 2019-07-02 08:06 | Pre Anesthesia Assessment ---
Date of Service July 02, 2019 Pre Sedation Assessment Vital Signs Temp Pulse Resp BP Pulse Ox 07/02/19 07:49 37.0 C 74 16 127/71 100 Cardiovascular RRR, no murmur, no edema Respiratory normal respiratory effort, lungs clear to auscultation Pre-Sedation Airway Assessment Smoking Status: Never smoker Hx Sleep Apnea: No Hx Difficult Intubation: No Short, Thick Neck: No Thyromental Distance: > or= 3.5 Finger Breadths Mallampati Class: II ASA: ASA2 NPO Status Date of Last Intake of Fluids: 07/01/19 Time of Last Intake of Fluids: 21:00 Date of Last Intake of Solid Food: 07/01/19 Time of Last Intake of Solid Foods: 21:00 Procedure Planning Contraindications for Sedation: none Current Medications Reviewed: Yes Notes The planned sedation has been discussed with the patient. Informed Consent was obtained. I have identified the patient, determined the appropriateness of sedation and have assessed the patient immediately prior to the procedure. All medicine(s) and interventions are by my order.
--- NOTE | 2019-07-02 08:06 | History & Physical Bridge Note ---
Date of Service July 02, 2019 History & Physical Bridge Note I have examined the patient, reviewed the History & Physical and in the interval since the performance of the History & Physical I have noted the following changes of clinical significance: no changes noted. I did evaluate her pacemaker, the sensing is still poor although the pacing is adequate. She should have the lead system revised although it will not interfere with the procedure. I am therefore going to proceed with the ablation and then if there is time we will revise the system this morning, if not tomorrow. I did review the indications, procedure, risks and alternatives of ablation and lead revision and she understands and agrees to proceed. Consent obtained. Her mother was present during the discussion. I also discussed sedation with her and she understands and agrees. Consent obtained.
[2019-07-02] MEDS ORDERED: CEFAZOLIN 250 MG/ML 1 GM VIAL ONE (08:07)
[2019-07-02] MEDS ORDERED: ISOPROTERENOL HCL 0.2 MG/ML 5 ML AMP IV ONE (08:07)
--- NOTE | 2019-07-02 10:13 | Post Operative Brief Note ---
PG Immediate Post Op with CF Date of Surgery July 02, 2019 Pre & Post Diagnosis Operation Date: 07/02/19 08:00 Preoperative diagnosis: Inappropriate sinus tachycardia postoperative diagnosis: Atrial tachycardia Procedure Operation Date: 07/02/19 08:00 Actual Procedures p EPS + Ablation for atrial tachycardia- Scott Julio MD Surgeon Scott Julio MD Food Specialist None Estimated Blood Loss 10 Findings See Below At baseline her rhythm map to the sinus node region, on Isuprel up to 6 mcg/min her regular rhythm map to the same region, however there was a lot of atrial ectopy which was difficult to map. This may originate lower in the atrium. Diaphragmatic pacing occurred in the region of the sinus node so ablation was not attempted there. Ablation was performed lowering the atrium where phrenic nerve stimulation was not present. The success is unclear. Anesthesia Type Local Disposition Accompanied Patient To Recovery: No Disposition: PCU
--- NOTE | 2019-07-02 10:14 | Post Anesthesia Assessment ---
Date of Service July 02, 2019 Post Sedation Assessment Vital Signs Temp Pulse Resp BP Pulse Ox 07/02/19 07:49 37.0 C 74 16 127/71 100 Recovery Score Activity: Moves 4 extremities Respiration: Deep Breath/Cough Consciousness: Fully Awake Oxygen Saturation: > 92% On Room Air Discharge Sedation Level of Care: Fast Track Phase II Post Sedation Plan On clinical assessment, the patient appears to have tolerated the sedation without complications. Patient is recovering as anticipated. Patient will continue to be monitored by nursing and may be discharged when sedation discharge criteria are met per below protocol. Upon Completions of procedure and additional 15 minutes continue every 5 minute vital signs and the P.A.R. score; then discharge to a Phase I or Fast Track to Phase II per the following guidelines: * Discharge Patient to appropriate Phase II area if PAR is 8 or greater or return to pre- procedure baseline. The post - procedure orders will be as directed. * If PAR score is less than 8 or not return to pre-procedure baseline then patient will follow Phase I monitoring till PAR is reached for Phase II. The Phase I may be done in procedure room or may call to secure a Phase I area. * If naloxone or flumazenil are used for reversal, hold in Phase I for continued monitoring from when last reversal dose was given for a minimum of 60 minutes or longer pending the nurse and/or physician discretion of patient condition before discharge to Phase II. Please call the Sedation Physician to re-evaluate and complete post-note for discharge to Phase II area. Do NOT discharge from procedure sedation or Phase 1 until post- sedation evaluation note is complete by procedure /sedation MD Sedation Discharge Instructions to be given to the patient at discharge to home.
[2019-07-02] MEDS: CODEINE SULFATE 30 MG TAB PO PRN ×2 (16:42→21:27)
[2019-07-03] MEDS: CODEINE SULFATE 30 MG TAB PO PRN ×3 (01:49→11:41)
--- NOTE | 2019-07-03 09:16 | Cardiology Progress Note ---
Date of Service July 03, 2019 Assessment & Plan (1) Tachycardia: She has had no further tachycardia, the success of the procedure to eliminate her tachycardia is uncertain due to difficulty in performing the ablation due to diaphragmatic pacing from activation of the phrenic nerve in the area of the sinus node. Her arrhythmia is typically with exertion so we may have had better success than it appears. We will know over the next days to weeks. She is stable for discharge (2) Status post placement of cardiac pacemaker: Her pacemaker site looks good, the device continues to have poor sensing but this is not a safety issue therefore she is going to go home today and will plan on revising the system in 3 days. Subjective She is having discomfort at her right groin and her pacemaker insertion site, no bleeding or swelling at either site. No chest pain. No palpitations. Physical Exam Physical Exam: Constitutional: Alert, cooperative and in no distress. Pulmonary: Clear to auscultation bilaterally. Cardiac: Regular rhythm with no murmur, gallop or rub. Abdomen: Soft, nontender with normal bowel sounds. Extremities: No edema. The right groin site looks very good without swelling or bleeding, mild tenderness. Skin: No rash, ecchymoses or petechiae. Her pacemaker site looks clean and dry with no swelling, very minimal ecchymosis as expected. Results & Data Vital Signs (Past 12 Hours) Vital Signs Temp Pulse Pulse Pulse Resp BP Pulse Ox 07/03/19 07:03 36.7 C 86 16 116/68 98 07/03/19 04:19 36.7 C 77 16 102/60 95 07/03/19 00:11 81 07/03/19 00:00 36.9 C 81 16 101/61 95 Diagnostic Findings Electrocardiogram post procedure: Atrial paced predominantly, appropriate pacer function, intact AV conduction Telemetry: Atrial pacing in sinus rhythm, occasional missed sensing of the atrial lead, as before. No tachycardia other than occasional mild sinus tachycardia. PG Care Time/CCT Total # of Minutes Spent Total Time Spent with Patient: Total time spent is greater than 50% in coordination of care (as documented) at patient's floor/unit and/or counseling patient:
--- NOTE | 2019-07-03 09:41 | Operative Report ---
Post Operative Report Pre & Post Diagnosis Operation Date: 07/02/19 08:00 <No data on this case meets the specified criteria> Procedure Operation Date: 07/02/19 08:00 Actual Procedures p EPS + Ablation for SVT Flutter - Scott Julio MD s Drug Stimulation(Not Applicable) - Scott Julio MD s 3D Mapping (Carto)(Not Applicable) - MD carmela Esteban [place] Pacing (Add-On)(Not Applicable) - Scott Julio MD Surgeon Scott Julio MD Leak Hunter None Estimated Blood Loss 10 Findings Consistent with Post-Op Diagnosis Specimens None Anesthesia Type Local Complications none Disposition Accompanied Patient To Recovery: No Disposition: PCU Description of Procedure The patient was brought to laboratory after being n.p.o. after midnight. She was placed on the table, she was prepped and draped in standard manner for an electrophysiologic study. The right groin was anesthetized with lidocaine local anesthetic and a 7 Malay sheath was placed in right femoral vein, additionally an SR 0 ablation sheath was placed in the right femoral vein. Catheters were advanced under fluoroscopic guidance to position in the coronary sinus and the ablation catheter was positioned in the right atrium. Using 3D mapping the atrium was mapped for sinus node activity which appeared to be located in the typical sinus node position. Isuprel was administered and an escalating dose up to 6 mcg/min, for the most part the sinus chencho location on repeat mapping remained in the same position. There was however atrial ectopy and short runs of tachycardia which were difficult to map due to irritability from the catheter as well as the brief episodes of the arrhythmia. Some of these appeared to come from the lower right atrium. There were split potentials in the region of the sinus node consistent with her prior ablation. Phrenic nerve activation was mapped using high voltage pacing output and seem to be present in the normal position along the right lateral right atrium, but also in the region of the earliest sinus chencho activity was present. Ablation could not performed at the site of earliest sinus chencho activity due to risk of phrenic nerve damage. Ablation was performed in the lower right atrium at the site of irritability and possibly earlier atrial ectopy. Ectopy is appeared to be diminished to some extent at the conclusion of the procedure but extensive ablation was not performed due to difficulty in mapping and to determine whether this was the clinical tachycardia. At the conclusion of the procedure the catheters were removed under fluoroscopic guidance, the sheaths were removed and hemostasis was obtained by firm pressure at the catheter sites. I attest to the content of the Intraoperative Record and any orders documented therein. Any exceptions are noted below.
--- NOTE | 2019-07-03 09:44 | Discharge Summary ---
Date of Service July 03, 2019 Admission HPI Per Admitting Provider This is a 29-year-old woman with a long history of palpitations consistent with either an inappropriate sinus tachycardia or paroxysmal atrial tachycardia. She has had 2 ablations performed in the past, one here several years ago and one at [place] this year. She returns now for repeat attempted ablation. Admission Exam (Per Admitting) [facility] Mallampati Class: II Respiratory normal respiratory effort, lungs clear to auscultation Cardiovascular RRR, no murmur, no edema Discharge Data Procedures Performed Operation Date: 07/02/19 08:00 Actual Procedures p EPS + Ablation for SVT Flutter - Soctt Julio MD s Drug Stimulation(Not Applicable) - Scott Julio MD s 3D Mapping (Carto)(Not Applicable) - Scott Julio MD s [place] Pacing (Add-On)(Not Applicable) - Scott Julio MD Hospital Course (1) Tachycardia: Electrophysiologic study and ablation was performed on July 02, 2019. She has had no further tachycardia, the success of the procedure to eliminate her tachycardia is uncertain due to difficulty in performing the ablation due to diaphragmatic pacing from activation of the phrenic nerve in the area of the sinus node. Her arrhythmia is typically with exertion so we may have had better success than it appears. We will know over the next days to weeks. She is stable for discharge (2) Status post placement of cardiac pacemaker: Her pacemaker site looks good, the device continues to have poor sensing but this is not a safety issue therefore she is going to go home today and will plan on revising the system in 3 days.
== END 2019-07-03 14:20 | disposition home or self-care (01) ==
LOC: EP 06:22 → 2E 06:22

== ENCOUNTER 2023-02-12 12:27 | Observation (INO) ==
[2023-02-12] MEDS ORDERED: ASPIRIN CHEW 324 MG PO STA (13:16)
[2023-02-12 13:32] LABS: Basophils # (auto) 0.01 K/uL (0-0.2); Basophils % (auto) 0.3 %; Hematocrit (blood only) 38.7 % (37.0-47.0); Hemoglobin 13.3 g/dl (12.0-16.0); Immature Granulocytes # (auto) 0.01 K/uL (0.01-0.20); Immature Granulocytes % (auto) 0.3 %; Lymphocytes # (auto) 0.32 K/uL (1.2-3.4); Lymphocytes % (auto) 9.5 %; Mean Corpuscular Hemoglobin 28.3 pg (25.0-34.0); Mean Corpuscular Hgb Conc 34.4 g/dL (32.0-36.0); Mean Corpuscular Volume 82.3 fL (80.0-100.0); Mean Platelet Volume 10.8 fL (9.4-12.4); Monocytes # (auto) 0.36 K/uL (0.11-0.59); Monocytes % (auto) 10.7 %; Neutrophils # (auto) 2.66 K/uL (1.40-6.50); Neutrophils % (auto) 79.2 %; Platelet Count 182 K/uL (130-400); RDW Coefficient of Variation 14.7 % (11.5-14.5); RDW Standard Deviation 44.7 fL (36.4-46.3); White Blood Count 3.36 K/ul (4.8-10.8)
[2023-02-12] MEDS ORDERED: SODIUM CHLORIDE 0.9% 1000ML 2,000 ML IV ONE (13:38)
[2023-02-12] MEDS ORDERED: cefTRIAXone SODIUM 1 GM ADDVIAL IV STA (13:45)
[2023-02-12 13:51] LABS: BUN Creatinine Ratio 11.5 (10-20); Calcium 8.6 mg/dl (8.6-10.3); Creatinine Clr Calc Pharmacy 133.6 ml/min; Potassium 3.6 mmol/L (3.5-5.1)
[2023-02-12 13:58] LABS: Troponin I High Sensitivity 3.5 pg/ml (0-14)
[2023-02-12] MEDS ORDERED: cefTRIAXone SODIUM 2000MG/70ML D5W IV ONE (14:00)
[2023-02-12 14:05] LABS: INR 1.1 (0.9-1.1); Partial Thromboplastin Ratio 1.2; Partial Thromboplastin Time 31.9 Seconds (21.0-31.0); Prothrombin Time 11.4 Seconds (9.0-12.0)
[2023-02-12 14:07] LABS: Appearance Urine Cloudy (Clear); Bacteria Urine Automated Negative (Negative); Bilirubin Urine Negative (Negative); Blood Urine Negative (Negative); Cast Urine Automated 0 /lpf (0-5); Color Urine Yellow; Epithelial Cell Urine Auto 0-5 /lpf (0-5); Glucose Urine UA Negative (Negative); Ketones Urine Negative (Negative); Leukocyte Esterase Urine Negative (Negative); Nitrite Urine Negative (Negative); Protein Urine Negative (Negative); RBC Urine Automated 0-4 /hpf (0-4); Specific Gravity Urine 1.004 (1.000-1.030); Urobilinogen Urine Negative (Negative); WBC Urine Automated 0 /hpf (0-5); pH Urine 6.5 (4.5-7.5)
[2023-02-12 14:13] LABS: D Dimer 1250 ug/L FEU (0-500)
--- NOTE | 2023-02-12 14:28 | XRay Report ---
SINGLE VIEW CHEST CLINICAL HISTORY: Atypical chest pain. FINDINGS: An AP, portable, upright chest radiograph is compared to study dated 09/11/2021 and correla [place] with chest CT dated 03/01/2019. A single lead cardiac pacemaker is unchanged in position and parti ally obscures the left lower chest. The cardiomediastinal silhouette is unremarkable. The lungs and p leural spaces are clear noting mild bibasilar atelectasis. No pneumothorax is seen. The bony thorax i s grossly intact. Fusion hardware is seen in the lower cervical spine. IMPRESSION: No active disease in the chest. ACT 112: Negative or not required by law. Electronically signed by: Tavon Acosta M.D. 02/12/2023 2:26 PM
[2023-02-12 14:50] LABS: Influenza A virus by PCR Negative (Neg); Influenza B virus by PCR Negative (Neg); RSV by PCR Negative (Neg)
[2023-02-12 14:58] LABS: SARS CoV2 RNA(COVID-19) Ceph POSITIVE (Negative)
--- NOTE | 2023-02-12 15:05 | History & Physical Report ---
Date of Service February 12, 2023 Assessment & Plan (1) COVID-19: Plan: Day 2 of symptoms on admission, possible exposure on Tuesday Vaccinated and previously had COVID Suspect this is the main cause of her acute symptoms and fever as above given lymphopenia No treatment recommended as she is not hypoxic and despite her complex history she is young and not immunocompromised (2) Pyelonephritis: Plan: I suspect most likely she has acute on chronic back pain related to her acute illness. However given specific right flank pain worse than usual and historically she believes it responds to antibiotics difficult to rule out pyelonephritis as contributing towards her fever on admission. Will repeat urine culture today as prior E. coli should have been treated with nitrofurantoin (I am unclear on the reasoning of recently prescribed ampicillin). Take blood cultures. Continue ceftriaxone pending results of these. Historically she has had normal UAs with positive urine culture although her one's from November are presumably in the [facility] EHR and not available on admission. (3) Elevated d-dimer: Plan: Suspect secondary to COVID-19 as above. Would be very early for a PE as a complication of COVID given symptoms for only 2 days. However she is at increased risk due to combined oral contraceptive pill Suspect sinus tachycardia due to her longstanding history of this in the setting of fever. She is no longer tachycardic (relatively surprisingly given her history) after 2 L NSS. She is not hypoxic. Will preliminary place order for a V/Q scan due to anaphylactic reaction previously to iodinated contrast however relatively low pre-test probability of this and will defer treatment dose anticoagulation on admission If worsening hypoxia prior to V/Q scan recommend treatment dose anticoagulation (4) Inappropriate sinus tachycardia: Plan: Longstanding and very complex history which is well summarized in outpatient cardiology notes from Dr Julio She requests cardiology consult while here given her HR has been up to 180 at home and she feels chronically she would benefit from something to slow down her HR, although I explained start in the current setting would not be advisable until she is definitively improving. I expect her heart rate to significant be elevated on any exertion (5) Interstitial cystitis: Plan: Started s/p straight cath after cervical spinal stenosis surgery. Under urology. Possible incomplete bladder emptying mentioned by patient but would avoid straight cath without urology involvement given this is what started her symptoms Likely worse currently due to E. coli recently found in her urine (6) Hypothyroidism: Plan: TSH WNL in August 2022 Will continue her usual thyroid medications (7) Cardiac arrest as complication of care: Plan: Noted history of this following sino-atrial node ablation for inappropriate sinus tachycardia. Requirement for subseqent ablation and risk of recurrence was the reason for her pacemaker insertion. (8) Cervicalgia: Plan VTE Prophylaxis - Lovenox 40mg SQ daily Diet - regular Disposition - admit to med/tele Admission and Anticipated Discharge Date Admission Date: February 12, 2023 History of Present Illness Chief Complaint: Fever, shortness of breath and tahycardia Primary Care Provider: Juan Manuel Christensen DO Jocelin Brown is a 32 year old female with complex medical history of cervical spine surgery, inappropriate sinus tachycardia and interstitial cystitis who presents to the ER with shortness of breath, tachycardia and fever. Symptoms started yesterday and progressively got worse today with her heart rate 160-180s and significant shortness of breath. She reports T max 103 degrees Fahrenheit yesterday. This is on a background of recent UTI being treated by urology with ampicillin just started yesterday. She reports chronic bilateral (right > left) flank pain, suprapubic pain and difficulty urinating since have a straight cath following cervical spine surgery in March. She is under urology for this with a diagnosis of interstitial cystitis. She did not have a urine culture for months until November when she said she had three different bacteria in her urine (presumably this result is in the [facility] EHR as I cannot confirm this on [facility]). Since then she has been on three different antibiotics which tend to help but not resolve her suprapubic and flank pain. Due to worsening symptoms another urine culture was performed on January 19. She was initially treated with nitrofurantoin for 7 days although she was called yesterday ( I am unclear why) to start on a course of ampicillin. She reports her urine analysis is normally negative but subsequent cultures grow bacteria. She notes her right flank pain is currently much worse than usual. In the ER SARS-COV-2 PCR positive. She does report exposure to someone with a child who was coughing on around Tuesday earlier in the week. She is not hypoxic. D-dimer was elevated but unfortunately is unable to undergo CT for PE de to prior anaphylactic reaction to iodinated contrast. She was referred to medicine for elevated d-dimer, palpitations and elevated lactate. Allergies Allergy/AdvReac Type Severity Reaction Status Date / Time colchicine Allergy Unknown Hives Verified 02/12/23 14:59 Iodinated Contrast Media AdvReac Unknown Paleness Verified 02/12/23 14:59 NSAIDS (Non-Steroidal AdvReac Unknown Palpitation Verified 02/12/23 14:59 Anti-Inflamma s oxycodone [From Percocet] AdvReac Unknown Itching Verified 02/12/23 14:59 Home Medications Medication Instructions Recorded Confirmed Type sumatriptan succinate 50 mg tablet 50 mg PO UD PRN migraines 08/25/21 02/12/23 History magnesium 500 mg PO DAILY 01/29/22 02/12/23 History onabotulinumtoxinA [Botox] 1 syringe intradermal UD 01/29/22 02/12/23 History pyridoxine (vitamin B6) 1 tab PO DAILY 01/29/22 02/12/23 History diazepam 10 mg tablet (Valium) 10 mg PO TID PRN Anxiety 07/28/22 02/12/23 History hydromorphone 4 mg tablet 4 mg PO Q4H PRN Migraine Headache 07/28/22 02/12/23 History (Dilaudid) D[place]den Thyroid 15 mg tablet 15 mg PO QAM #90 tabs 10/19/22 02/12/23 Rx (thyroid (pork)) Drayden Thyroid 60 mg tablet 60 mg PO QAM #90 tabs 10/19/22 02/12/23 Rx (thyroid (pork)) pentosan polysulfate sodium 100 mg 100 mg PO TID 90 days #270 caps 01/04/23 02/12/23 Rx capsule (Elmiron) nitrofurantoin 100 mg PO BID 7 days #14 caps 01/07/23 02/12/23 Rx monohydrate/macrocrystals 100 mg capsule (Macrobid) ethynodiol diacetate-ethinyl 1 tab PO DAILY #84 tabs 01/19/23 02/12/23 Rx estradiol 1 mg-35 mcg tablet (Zovia) ampicillin 500 mg capsule 500 mg PO QID 7 days #28 caps 02/11/23 02/12/23 Rx [id number] 1 tab PO DAILY 02/12/23 02/12/23 History ascorbic acid (vitamin C) 1,000 mg 1 g PO DAILY 02/12/23 02/12/23 History tablet (Vitamin C) cholecalciferol (vitamin D3) 25 25 mcg PO DAILY 02/12/23 02/12/23 History mcg (1,000 unit) tablet cyanocobalamin (vitamin B-12) 2,500 mcg sublingual DAILY 02/12/23 02/12/23 History 2,500 mcg sublingual tablet (Vitamin B-12) loratadine 10 mg tablet 10 mg PO DAILY 02/12/23 02/12/23 History zinc 50 mg tablet 50 mg PO DAILY 02/12/23 02/12/23 History Past Med/Surg History Medical History Anxiety Cardiomyopathy Congenital stricture of urethra Damion's disease History of cardiac arrest 2019- during cardiac ablation - s/p pacemaker placement Per cardio records: Pt had cardiac ablation 02/23/19- "An hour after the procedure she developed what was felt to be an intense vagal reaction for which she received chest compressions, continued to have bradycardia and received epinephrine from which she developed ventricular tachycardia and required cardioversion. A temporary pacemaker was placed, coronary angiography was performed which was unremarkable. Echocardiography showed diffuse hypokinesis with ejection fraction of 25 to 30% and she was hypotensive and required norepinephrine support. By February 26, 2019 her ejection fraction had normalized and she was discharged the following day." History of COVID-19 11/2020 Inappropriate sinus tachycardia Diagnosis several years ago s/p multiple cardiac ablations (per patient, cardiac arrest with second cardiac ablation requiring pacemaker placement) Interstitial cystitis Possible Pacemaker Implanted 2018, [employer], most recent check 04/2021 Surgical History H/O laparoscopy for ectopic, with salpingectomy History of dental surgery History of laparoscopy diagnostic laparoscopy + hysteroscopy 06/08/21 [facility] History of pacemaker Implanted 2019 History of prior ablation treatment x3 Hx of foot surgery Hx of tonsillectomy S/P cervical spinal fusion S/P cystourethroscopy with dilation of urethral stricture Family History Grandfather (Maternal) Coronary heart disease Grandmother (Paternal) Diabetes Aunt Breast cancer Uncle Colorectal cancer Family history of colonic polyps Other No family history of adverse response to anesthesia No family history of bleeding disorder Denies family history of Ovarian cancer Social History Smoking Status: Never smoker Second Hand Exposure: No; Hx Alcohol Use: No Hx Substance Use: No Preferred Language: Serbian Communication Ability: Effective 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[employer]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[employer] Sales Required: No Beliefs That Will Affect Care: None Current Living Situation: Alone 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 Other Information That Helps Us Care for You: No Feels Safe at Home: Yes Safety Concerns: Feels Safe At This Time Assistive Devices: Glasses Review of Systems Review of Systems: All systems reviewed & are unremarkable except as noted in HPI & below (chronic pain in her neck and arms from cervical disc disease) Physical Exam Constitutional: WD/WN, vitals as above no acute distress Eyes: + anicteric sclerae; normal pupil size ENMT: external ear and nose normal, oropharynx normal Neck: trachea midline, no thyromegaly Respiratory: normal respiratory effort, lungs clear to auscultation Cardiovascular: Rate/Rhythm: regular rhythm and + tachycardic Heart Sounds: no murmur Extremities: normal capillary refill; no calf tenderness and no pedal edema Gastrointestinal (Abdomen): normal bowel sounds, soft, nontender, no hepatosplenomegaly Musculoskeletal: no cyanosis or clubbing, extremities motor strength 5/5 Skin: no rashes, warm and dry Neurologic: moves all extremities and awake; not confused Psychiatric: A+Ox3, euthymic affect Genitourinary: + CVA tenderness (bilateral R > L) Results & Data Results & Data Vital Signs (Past 12 Hours) Vital Signs Temp Pulse Resp BP Pulse Ox O2 Del Method 02/12/23 13:30 94 H 18 127/73 95 02/12/23 13:14 95 H 02/12/23 12:33 36.7 C 112 H 20 133/94 96 Room Air Laboratory Results Abnormal lab results 02/12/23 02/12/23 02/12/23 Range/Units 13:00 13:00 13:00 WBC 3.36 L (4.8-10.8) K/ul RDW Coeff of Dorian 14.7 H (11.5-14.5) % Lymph # (Auto) 0.32 L (1.2-3.4) K/uL APTT 31.9 H (21.0-31.0) Seconds D-Dimer 1250 H* (0-500) ug/L FEU Glucose 163 H (70-99(Fasting)) mg/dl Lactate (0.4-2.0) mmol/L C-Reactive Protein 3.83 H (0-0.5) mg/dl Urine Appearance (Clear) SARS-CoV-2 (PCR) (Negative) 02/12/23 02/12/23 02/12/23 Range/Units 13:00 13:40 13:40 WBC (4.8-10.8) K/ul RDW Coeff of Dorian (11.5-14.5) % Lymph # (Auto) (1.2-3.4) K/uL APTT (21.0-31.0) Seconds D-Dimer (0-500) ug/L FEU Glucose (70-99(Fasting)) mg/dl Lactate 2.9 H* (0.4-2.0) mmol/L C-Reactive Protein (0-0.5) mg/dl Urine Appearance Cloudy A (Clear) SARS-CoV-2 (PCR) POSITIVE A* (Negative) Diagnostic Findings SINGLE VIEW CHEST CLINICAL HISTORY: Atypical chest pain. FINDINGS: An AP, portable, upright chest radiograph is compared to study dated 09/11/2021 and correlated with chest CT dated 03/01/2019. A single lead cardiac pacemaker is unchanged in position and partially obscures the left lower chest. The cardiomediastinal silhouette is unremarkable. The lungs and pleural spaces are clear noting mild bibasilar atelectasis. No pneumothorax is seen. The bony thorax is grossly intact. Fusion hardware is seen in the lower cervical spine. IMPRESSION: No active disease in the chest. Medications Administered ER Medications Given: ASA 324mg PO NSS 2L bolus Ceftriaxone 2g IV ECG Rate (beats per minute): 103 Rhythm: sinus tachycardia Findings: no acute ischemic change Comparison ECG Date: from (Sep 11, 2021) Change: no significant change Code Status & VTE Plan Code Status Full VTE Prophylaxis Plan VTE Prophylaxis will be ordered: Yes PG Care Time/CCT Total # of Minutes Spent Total Time Spent with Patient: Total time spent is greater than 50% in coordination of care (as documented) at patient's floor/unit and/or counseling patient: Coding Level of Care Code 84178 INT INP/OBS CARE MIN Diagnoses COVID-19 U07.1 Pyelonephritis N12 Elevated d-dimer R79.89 Inappropriate sinus tachycardia R00.0 Interstitial cystitis N30.10 Hypothyroidism E03.9 Cardiac arrest as complication of care Cervicalgia M54.2
--- NOTE | 2023-02-12 15:47 | Emergency Department Note ---
History of Present Illness General Chief complaint: Cardiac Assessment Stated complaint: CHEST PAIN, OB, KIDNEY PAIN, FEVER Time Seen by Provider: 02/12/23 12:54 History of Present Illness Provider complaint: Chest pain Onset (ago): day(s) 2 Maximum Pain Intensity: 8 Associated symptoms: + chest pain, + cough, + fever/chills and + shortness of breath 32-year-old female presents emergency department for chest pain. Patient reports for the last 2 days she has been having right-sided chest pain and shortness of breath. She also reports fever and cough. Patient also reports no hemoptysis. Patient is on exogenous hormones. No recent travel. Patient not on any blood thinners. Patient also notes right flank pain. Patient states she has been having a UTI that has been going on for the last a year and has been on multiple antibiotics by her urologist Dr. Ratliff. Home Medications Medication Instructions Recorded Confirmed Type sumatriptan succinate 50 mg tablet 50 mg PO UD PRN migraines 08/25/21 02/12/23 History magnesium 500 mg PO DAILY 01/29/22 02/12/23 History onabotulinumtoxinA [Botox] 1 syringe intradermal UD 01/29/22 02/12/23 History pyridoxine (vitamin B6) 1 tab PO DAILY 01/29/22 02/12/23 History diazepam 10 mg tablet (Valium) 10 mg PO TID PRN Anxiety 07/28/22 02/12/23 History hydromorphone 4 mg tablet 4 mg PO Q4H PRN Migraine Headache 07/28/22 02/12/23 History (Dilaudid) [place] Thyroid 15 mg tablet 15 mg PO QAM #90 tabs 10/19/22 02/12/23 Rx (thyroid (pork)) [place] Thyroid 60 mg tablet 60 mg PO QAM #90 tabs 10/19/22 02/12/23 Rx (thyroid (pork)) pentosan polysulfate sodium 100 mg 100 mg PO TID 90 days #270 caps 01/04/23 02/12/23 Rx capsule (Elmiron) nitrofurantoin 100 mg PO BID 7 days #14 caps 01/07/23 02/12/23 Rx monohydrate/macrocrystals 100 mg capsule (Macrobid) ethynodiol diacetate-ethinyl 1 tab PO DAILY #84 tabs 03/01/23 03/25/23 Rx estradiol 1 mg-35 mcg tablet (Zovia) ampicillin 500 mg capsule 500 mg PO QID 7 days #28 caps 02/11/23 02/12/23 Rx [id number] 1 tab PO DAILY 02/12/23 02/12/23 History ascorbic acid (vitamin C) 1,000 mg 1 g PO DAILY 02/12/23 02/12/23 History tablet (Vitamin C) cholecalciferol (vitamin D3) 25 25 mcg PO DAILY 02/12/23 02/12/23 History mcg (1,000 unit) tablet cyanocobalamin (vitamin B-12) 2,500 mcg sublingual DAILY 02/12/23 02/12/23 History 2,500 mcg sublingual tablet (Vitamin B-12) loratadine 10 mg tablet 10 mg PO DAILY 02/12/23 02/12/23 History zinc 50 mg tablet 50 mg PO DAILY 02/12/23 02/12/23 History Allergies Allergy/AdvReac Type Severity Reaction Status Date / Time colchicine Allergy Unknown Hives Verified 02/12/23 14:59 Iodinated Contrast Media AdvReac Unknown Paleness Verified 02/12/23 14:59 NSAIDS (Non-Steroidal AdvReac Unknown Palpitation Verified 02/12/23 14:59 Anti-Inflamma s oxycodone [From Percocet] AdvReac Unknown Itching Verified 02/12/23 14:59 Past Med/Surg History Medical History Anxiety Cardiomyopathy Congenital stricture of urethra Damion's disease History of cardiac arrest 2018- during cardiac ablation - s/p pacemaker placement Per cardio records: Pt had cardiac ablation 02/23/19- "An hour after the procedure she developed what was felt to be an intense vagal reaction for which she received chest compressions, continued to have bradycardia and received epinephrine from which she developed ventricular tachycardia and required cardioversion. A temporary pacemaker was placed, coronary angiography was performed which was unremarkable. Echocardiography showed diffuse hypokinesis with ejection fraction of 25 to 30% and she was h ypotensive and required norepinephrine support. By February 26, 2019 her ejection fraction had normalized and she was discharged the following day." History of COVID-19 11/2020 Inappropriate sinus tachycardia Diagnosis several years ago s/p multiple cardiac ablations (per patient, cardiac arrest with second cardiac ablation requiring pacemaker placement) Interstitial cystitis Possible Pacemaker Implanted 2019, [employer], most recent check 04/2021 Surgical History H/O laparoscopy for ectopic, with salpingectomy History of dental surgery History of laparoscopy diagnostic laparoscopy + hysteroscopy 06/08/21 [facility] History of pacemaker Implanted 2019 History of prior ablation treatment x3 Hx of foot surgery Hx of tonsillectomy S/P cervical spinal fusion S/P cystourethroscopy with dilation of urethral stricture Family History Grandfather (Maternal) Coronary heart disease Grandmother (Paternal) Diabetes Aunt Breast cancer Uncle Colorectal cancer Family history of colonic polyps Other No family history of adverse response to anesthesia No family history of bleeding disorder Denies family history of Ovarian cancer Social History Smoking Status: Never smoker Second Hand Exposure: No; Hx Alcohol Use: No Hx Substance Use: No Preferred Language: Micronesian Communication Ability: Effective Etiquette Coach Required: No Beliefs That Will Affect Care: None Current Living Situation: Parent 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 Feels Safe at Home: Yes Assistive Devices: Glasses Physical Exam Vital Signs Vital Signs - 24 hr 02/12/23 12:33 02/12/23 13:14 02/12/23 13:30 Temperature 36.7 C Temperature Source Temporal Artery Scan Pulse Rate 112 H 95 H 94 H Pulse Rate from SpO2 Sensor 96 H Respiratory Rate 20 18 Respiratory Effort / Characteristics Non-Labored Spontaneous Respiratory Depth Normal Respiratory Pattern Regular Blood Pressure 133/94 127/73 Blood Pressure Mean 107 91 Pulse Oximetry 96 95 Oxygen Delivery Method Room Air Sepsis Recent Fever Within 48 Hours No Sepsis New/Unexplained Change in Mental Status No Sepsis Action Taken by Nursing No Action Required Physical Exam GENERAL: She is oriented to person, place, and time. She appears well-developed and well-nourished. She does not appear distressed. HENT: Exam performed. -Head: Normocephalic and atraumatic. -Right Ear: External ear normal. No mastoid erythema -Left Ear: External ear normal. No mastoid erythema -Mouth/Throat: The oropharynx is clear and moist. No trismus in the jaw. No dental abscesses or uvula swelling. No oropharyngeal exudate or tonsillar abscesses. EYES: Conjunctivae and EOM are normal. Pupils are equal, round, and reactive to light. Right eye exhibits no discharge. Left eye exhibits no discharge. No scleral icterus. NECK: Normal range of motion. Neck supple. No JVD present. No rigidity. No tracheal deviation and normal range of motion present. CV: Tachycardic rate, regular rhythm, normal heart sounds and intact distal pulses. There is no peripheral edema. Palpable radial pulses bue. PULM/CHEST: Effort normal and breath sounds normal. No respiratory distress. No stridor. She has no wheezes. She has no rales. -Chest Wall: She exhibits no tenderness. ABD: The abdomen is soft. There is no tenderness. There is no rebound, no guarding, no cva tenderness bilaterally MUSC/SKEL: Normal range of motion. There is no peripheral edema, tenderness or deformity. LYMPH: No cervical adenopathy. NEURO: Motor and sensation grossly intact. SKIN: Skin is warm and dry. She is not diaphoretic. PSYCH: She has a normal mood and affect. Behavior is normal. Judgment and thought content normal. Course Course 1254: The patient was evaluated in room C12. A complete history and physical exam was performed Administered Medications Discontinued Medications Aspirin (Aspirin Chew 324 Mg) 324 mg PO NOW STA Stop: 02/12/23 13:17 Last Admin: 02/12/23 13:44 Dose: 324 mg Documented By: WANDA Ceftriaxone Sodium (Ceftriaxone Sodium 2000mg/70ml D5w) 2,000 mg IV NOW ONE Stop: 02/12/23 14:01 Last Admin: 02/12/23 14:03 Dose: 2,000 mg Documented By: WANDA Sodium Chloride (Nss 1000ml) 2,000 mls @ 999 mls/hr IV .Q2H1M ONE Stop: 02/12/23 15:38 Last Admin: 02/12/23 13:47 Dose: 999 mls/hr Documented By: WANDA Medical Decision Making Medical Records Attestation: I reviewed the patient's medical records. External medical records reviewed. Patient had a positive urine culture for E. coli done which was pansensitive Laboratory Data Attestation: I reviewed the patient's lab results. 02/12/23 13:00 02/12/23 13:00 Lab Results 02/12/23 02/12/23 02/12/23 Range/Units 13:00 13:00 13:00 WBC 3.36 L (4.8-10.8) K/ul RBC 4.70 (4.20-5.40) M/uL Hgb 13.3 (12.0-16.0) g/dl Hct 38.7 (37.0-47.0) % MCV 82.3 (80.0-100.0) fL MCH 28.3 (25.0-34.0) pg MCHC 34.4 (32.0-36.0) g/dL RDW Std Deviation 44.7 (36.4-46.3) fL RDW Coeff of Dorian 14.7 H (11.5-14.5) % Plt Count 182 (130-400) K/uL MPV 10.8 (9.4-12.4) fL Immature Gran % (Auto) 0.3 % Neut % (Auto) 79.2 % Lymph % (Auto) 9.5 % Walsh % (Auto) 10.7 % Eos % (Auto) 0.0 % Baso % (Auto) 0.3 % Neut # (Auto) 2.66 (1.40-6.50) K/uL Lymph # (Auto) 0.32 L (1.2-3.4) K/uL Walsh # (Auto) 0.36 (0.11-0.59) K/uL Eos # (Auto) 0.00 (0-0.50) K/uL Baso # (Auto) 0.01 (0-0.2) K/uL Immature Gran # (Auto) 0.01 (0.01-0.20) K/uL PT 11.4 (9.0-12.0) Seconds INR 1.1 (0.9-1.1) APTT 31.9 H (21.0-31.0) Seconds PTT Ratio 1.2 D-Dimer 1250 H* (0-500) ug/L FEU Sodium 136 (136-145) mmol/L Potassium 3.6 (3.5-5.1) mmol/L Chloride 106 (98-107) mmol/L Carbon Dioxide 21 (21-32) mmol/L Anion Gap 9 (3-11) BUN 7 (6-23) mg/dl Creatinine 0.61 (0.6-1.2) mg/dl Est Cr Clr Drug Dosing 133.6 ml/min Est GFR ( Amer) 139.0 ml/min Est GFR (Non-Af Amer) 120.0 ml/min BUN/Creatinine Ratio 11.5 (10-20) Glucose 163 H (70-99(Fasting)) mg/dl Lactate (0.4-2.0) mmol/L Calcium 8.6 (8.6-10.3) mg/dl Troponin I High Sens 3.5 (0-14) pg/ml Lipase 25 (11-82) U/L Urine Color Urine Appearance (Clear) Urine pH (4.5-7.5) Ur Specific [place] (1.000-1.030) Urine Protein (Negative) Urine Glucose (UA) (Negative) Urine Ketones (Negative) Urine Blood (Negative) Urine Nitrite (Negative) Urine Bilirubin (Negative) Urine Urobilinogen (Negative) Ur Leukocyte Esterase (Negative) Urine WBC (Auto) (0-5) /hpf Urine RBC (Auto) (0-4) /hpf U Hyaline Cast (Auto) (0-5) /lpf U Epithel Cells (Auto) (0-5) /lpf Urine Bacteria (Auto) (Negative) SARS-CoV-2 (PCR) (Negative) Influenza Type A (PCR) (Neg) Influenza Type B (PCR) (Neg) RSV (RT-PCR) (Neg) 02/12/23 02/12/23 02/12/23 Range/Units 13:00 13:40 13:40 WBC (4.8-10.8) K/ul RBC (4.20-5.40) M/uL Hgb (12.0-16.0) g/dl Hct (37.0-47.0) % MCV (80.0-100.0) fL MCH (25.0-34.0) pg MCHC (32.0-36.0) g/dL RDW Std Deviation (36.4-46.3) fL RDW Coeff of Dorian (11.5-14.5) % Plt Count (130-400) K/uL MPV (9.4-12.4) fL Immature Gran % (Auto) % Neut % (Auto) % Lymph % (Auto) % Walsh % (Auto) % Eos % (Auto) % Baso % (Auto) % Neut # (Auto) (1.40-6.50) K/uL Lymph # (Auto) (1.2-3.4) K/uL Walsh # (Auto) (0.11-0.59) K/uL Eos # (Auto) (0-0.50) K/uL Baso # (Auto) (0-0.2) K/uL Immature Gran # (Auto) (0.01-0.20) K/uL PT (9.0-12.0) Seconds INR (0.9-1.1) APTT (21.0-31.0) Seconds PTT Ratio D-Dimer (0-500) ug/L FEU Sodium (136-145) mmol/L Potassium (3.5-5.1) mmol/L Chloride (98-107) mmol/L Carbon Dioxide (21-32) mmol/L Anion Gap (3-11) BUN (6-23) mg/dl Creatinine (0.6-1.2) mg/dl Est Cr Clr Drug Dosing ml/min Est GFR ( Amer) ml/min Est GFR (Non-Af Amer) ml/min BUN/Creatinine Ratio (10-20) Glucose (70-99(Fasting)) mg/dl Lactate 2.9 H* (0.4-2.0) mmol/L Calcium (8.6-10.3) mg/dl Troponin I High Sens (0-14) pg/ml Lipase (11-82) U/L Urine Color Yellow Urine Appearance Cloudy A (Clear) Urine pH 6.5 (4.5-7.5) Ur Specific [place] 1.004 (1.000-1.030) Urine Protein Negative (Negative) Urine Glucose (UA) Negative (Negative) Urine Ketones Negative (Negative) Urine Blood Negative (Negative) Urine Nitrite Negative (Negative) Urine Bilirubin Negative (Negative) Urine Urobilinogen Negative (Negative) Ur Leukocyte Esterase Negative (Negative) Urine WBC (Auto) 0 (0-5) /hpf Urine RBC (Auto) 0-4 (0-4) /hpf U Hyaline Cast (Auto) 0 (0-5) /lpf U Epithel Cells (Auto) 0-5 (0-5) /lpf Urine Bacteria (Auto) Negative (Negative) SARS-CoV-2 (PCR) POSITIVE A* (Negative) Influenza Type A (PCR) Negative (Neg) Influenza Type B (PCR) Negative (Neg) RSV (RT-PCR) Negative (Neg) Imaging Data Attestation: I personally reviewed and interpreted this imaging study as follow s: My Impression: Chest x-ray negative. Airway clear. No pneumothorax. No consolidation. No cardiomegaly or cephalization.. No free air under the diaphragm. No fractures of the skeletal structures. Radiologist's Impression: Chest X-Ray 02/12/23 13:17 SINGLE VIEW CHEST CLINICAL HISTORY: Atypical chest pain. FINDINGS: An AP, portable, upright chest radiograph is compared to study dated 09/11/2021 and correlated with chest CT dated 03/01/2019. A single lead cardiac pacemaker is unchanged in position and partially obscures the left lower chest. The cardiomediastinal silhouette is unremarkable. The lungs and pleural spaces a re clear noting mild bibasilar atelectasis. No pneumothorax is seen. The bony thorax is grossly intact. Fusion hardware is seen in the lower cervical spine. IMPRESSION: No active disease in the chest. ACT 112: Negative or not required by law. Electronically signed by: Tavon Acosta M.D. 02/12/2023 2:26 PM ECG Data Attestation: I personally reviewed and interpreted this ECG as follows: Indication: + chest pain Rate (beats per minute): 103 Rhythm: + sinus tachycardia ECG Intervals/blocks: + Normal QRS, + Normal PA and + Normal QT-c ECG ST segments: + Normal ST segments MDM Narrative Cardiac monitoring: An order was placed for continuous cardiac monitoring. The monitor shows a rate of 100 with sinus rhythm interpreted by va Labs show leukopenia of 2.36. Lactic acid was elevated 2.9. Patient was treated empirically with Rocephin when the lactic acid resulted given her previous urine cultures being positive for E. coli. Liters of IV fluids ordered for the patient. Status post IV hydration the patient's tachycardia did improve. Urinalysis was negative today however though. The patient's D-dimer is elevated at 1250. Patient states she has an anaphylactic reaction to contrast stating her throat closes up and then she cannot breathe. Given this CT of the angio of the chest will not be performed in the emergency department. Patient will be admitted for rule out PE and to have a VQ scan. Patient did test positive for COVID also which given the positive COVID test, elevated D-dimer, tachycardia, patient being on exogenous hormones, increases her risk for PE significantly. I did discuss this with the [facility] hospitalist team Dr. Anaya will evaluate the patient for admission and states he will decide on anticoagulation for the patient. Impression & Plan COVID-19, Chest pain, D-dimer, elevated Discharge Plan Visit Data Chief Complaint: Cardiac Assessment Stated Complaint: CHEST PAIN, OB, KIDNEY PAIN, FEVER ED Provider: Geovanny Herrera Discharge Problem: COVID-19, Chest pain, D-dimer, elevated Patient Disposition: Being Evaluated by Hospitalist Forms Stand Alone Forms: [facility] Prescriptions Prescriptions: No Action diazepam [Valium] 10 mg tablet 10 mg PO TID PRN (Reason: Anxiety) hydromorphone [Dilaudid] 4 mg tablet 4 mg PO Q4H PRN (Reason: Migraine Headache) nitrofurantoin monohyd/m-cryst [Macrobid] 100 mg capsule 100 mg PO BID 7 Days Qty: 14 0RF Rx Instructions: must administer with a meal/food ethynodiol diac-eth estradiol [Zovia 1-35 (28)] 1-35 mg-mcg tablet 1 tab PO DAILY Qty: 84 0RF Rx Instructions: take active pills only in cont fashion, no placebo pills. ampicillin 500 mg capsule 500 mg PO QID 7 Days Qty: 28 0RF magnesium 500 mg PO DAILY pyridoxine (vitamin B6) 1 tab PO DAILY onabotulinumtoxinA [Botox] 1 syringe intradermal UD Rx Instructions: Q 12 weeks Elmiron 100 mg capsule 100 mg PO TID 90 Days Qty: 270 3RF thyroid (pork) [[place] Thyroid] 60 mg tablet 60 mg PO QAM MDD 75mg Qty: 90 3RF Rx Instructions: 60 mg PO Take 1 tablet daily along with a 15mg tablet; thyroid (pork) [[place] Thyroid] 15 mg tablet 15 mg PO QAM MDD 75mg Qty: 90 3RF Rx Instructions: 15 mg PO Take 1 tablet daily along with a 60mg tablet; sumatriptan succinate 50 mg Tablet 50 mg PO UD PRN (Reason: migraines) ascorbic acid (vitamin C) [Vitamin C] 1,000 mg Tablet 1 g PO DAILY cyanocobalamin (vitamin B-12) [Vitamin B-12] 2,500 mcg Tablet, Sublingual 2,500 mcg SUBLINGUAL DAILY zinc 50 mg Tablet 50 mg PO DAILY loratadine 10 mg Tablet 10 mg PO DAILY cholecalciferol (vitamin D3) 25 mcg (1,000 unit) Tablet 25 mcg PO DAILY [id number]/[id number]/[id number] tablet 1 tab PO DAILY Referrals Referrals: Juan Manuel Christensen DO [Primary Care Provider] -
[2023-02-12 16:03] LABS: C Reactive Protein 3.83 mg/dl (0-0.5)
[2023-02-12] MEDS: ACETAMINOPHEN 325 MG TAB PO PRN (20:05)
[2023-02-12] MEDS: HYDROmorphone HCL 2 MG TAB PO PRN (20:06)
[2023-02-12] MEDS: diazePAM 5 MG TABLET PO PRN (20:07)
[2023-02-12] MEDS: PENTOSAN POLYSULFATE SODIUM 100 MG CAP PO SCH (20:09)
[2023-02-12 20:53] LABS: Pregnancy Test, Urine Negative (Negative)
[2023-02-12] MEDS: ENOXAPARIN INJ 40 MG/0.4 ML SYR SQ SCH (21:39)
[2023-02-13] MEDS: HYDROmorphone HCL 2 MG TAB PO PRN ×2 (02:52→08:43)
[2023-02-13] MEDS: ACETAMINOPHEN 325 MG TAB PO PRN ×3 (02:53→17:06)
[2023-02-13] MEDS ORDERED: HYDROmorphone INJ 0.5 MG/0.5 ML SYR IV STA (03:32)
[2023-02-13] MEDS ORDERED: hydrOXYzine HCl 25 MG TAB PO STA (03:51)
[2023-02-13 06:48] LABS: Basophils # (auto) 0.01 K/uL (0-0.2); Basophils % (auto) 0.3 %; Hematocrit (blood only) 34.2 % (37.0-47.0); Hemoglobin 11.6 g/dl (12.0-16.0); Immature Granulocytes # (auto) 0.02 K/uL (0.01-0.20); Immature Granulocytes % (auto) 0.5 %; Lymphocytes # (auto) 0.53 K/uL (1.2-3.4); Lymphocytes % (auto) 13.6 %; Mean Corpuscular Hemoglobin 27.7 pg (25.0-34.0); Mean Corpuscular Hgb Conc 33.9 g/dL (32.0-36.0); Mean Corpuscular Volume 81.6 fL (80.0-100.0); Mean Platelet Volume 10.8 fL (9.4-12.4); Monocytes # (auto) 0.29 K/uL (0.11-0.59); Monocytes % (auto) 7.4 %; Neutrophils # (auto) 3.06 K/uL (1.40-6.50); Neutrophils % (auto) 78.2 %; Platelet Count 140 K/uL (130-400); RDW Coefficient of Variation 14.9 % (11.5-14.5); Red Blood Count 4.19 M/uL (4.20-5.40); White Blood Count 3.91 K/ul (4.8-10.8)
[2023-02-13 06:58] LABS: Anion Gap 5 (3-11); BUN Creatinine Ratio 8.3 (10-20); Blood Urea Nitrogen 4 mg/dl (6-23); Calcium 7.6 mg/dl (8.6-10.3); Carbon Dioxide 24 mmol/L (21-32); Chloride 108 mmol/L (98-107); Creatinine Clr Calc Pharmacy 169.7 ml/min; Est GFR (African American) > 150.0 ml/min; Est GFR (Non-African American) 129.8 ml/min; Glucose 105 mg/dl (70-99(Fasting)); Potassium 3.7 mmol/L (3.5-5.1); Sodium 137 mmol/L (136-145)
[2023-02-13] MEDS: ARMOUR THYROID 30 MG TAB PO SCH (08:22)
[2023-02-13] MEDS: ASCORBIC ACID 500 MG TAB PO SCH (08:23)
[2023-02-13] MEDS: MAGNESIUM OXIDE 400 MG TAB PO SCH (08:24)
[2023-02-13] MEDS: LORATADINE 10 MG TAB PO SCH (08:24)
[2023-02-13] MEDS: CYANOCOBALAMIN (B-12) 2,500 MCG TABLET SL SCH (08:24)
[2023-02-13] MEDS: CHOLECALCIFEROL 1,000 UNITS 25 MCG TAB PO SCH (08:24)
[2023-02-13] MEDS: PENTOSAN POLYSULFATE SODIUM 100 MG CAP PO SCH ×3 (08:25→20:56)
[2023-02-13] MEDS: ZINC SULFATE 220 MG CAPSULE PO SCH (08:25)
[2023-02-13] MEDS ORDERED: ARMOUR THYROID 30 MG TAB PO SCH (09:00)
[2023-02-13] MEDS ORDERED: [UNRECOGNIZED DRUG - MIXTURE] PO SCH (09:00)
[2023-02-13] MEDS ORDERED: HYDROmorphone HCL 2 MG TAB PO ONE (10:17)
[2023-02-13] MEDS: ONDANSETRON INJ 2 MG/ML 2 ML VIAL IV PRN (11:02)
--- NOTE | 2023-02-13 11:48 | Electrocardiogram Report ---
Test Reason : Blood Pressure : / mmHG Vent. Rate : 103 BPM Atrial Rate : 103 BPM P-R Int : 114 ms QRS Dur : 090 ms QT Int : 330 ms P-R-T Axes : 045 063 040 degrees QTc Int : 432 ms Sinus tachycardia Cannot rule out Anterior infarct , age undetermined Abnormal ECG When compared with ECG of 11-SEP-2021 14:58, Nonspecific T wave abnormality now evident in Anterior leads Confirmed by Juan Manuel Kerr ([id number]) on 02/13/2023 11:48:04 AM Referred By: REFERRED SELF Confirmed By:Juan Manuel Kerr
--- NOTE | 2023-02-13 11:53 | Ultrasound Report ---
US venous doppler LE BI CLINICAL HISTORY: elevated d-dimer, unable to perform CT, risk TECHNIQUE: Bilateral lower extremity real-time compression venous ultrasound with Color Doppler imagi ng. Utilizing real-time ultrasonic imaging multiple real time high-resolution ultrasonic images with compression and noncompression maneuvers of the deep venous system in addition to color doppler imagi ng were performed from the common femoral vein through the proximal calf veins. COMPARISON: Comparison is made to right lower extremity vascular ultrasound 09/25/2015 FINDINGS/IMPRESSION: Currently there is normal compressibility of the deep venous system from the common femoral vein thro ugh the proximal calf veins. No superficial venous thrombosis is identified. ACT 112: Negative or not required by law. Electronically signed by: Mauro Gunn M.D. 02/13/2023 11:52 AM
--- NOTE | 2023-02-13 12:55 | Cardiology Consultation ---
Date of Consultation February 13, 2023 Assessment & Plan (1) Tachycardia: -review of monitor notes sinus rhythm without significant tachycardia. -radiofrequency ablation x3 for inappropriate sinus tachycardia and an atrial tachycardia as above. -tachycardia just prior to presentation likely related to COVID infection and fever. -Dr. Julio to assume her care tomorrow. (2) Cardiac pacemaker: -Biotronik device placed in June 2019. -normal interrogation during an office visit in August. -will likely need a repeat interrogation during this hospitalization. History of Present Illness Attending Physician: Efra Ewing MD History of Present Illness is a 32-year-old female admitted yesterday with a COVID infection. This consultation was ordered to assist in her cardiac management. The patient is typically followed by Dr. Julio in the outpatient setting. She was in her usual state of health until approximately 24-36 hours prior to presentation. She began to note significant shortness of breath, intermittent tachycardia, and fever. She presented to the emergency room for further care and was found to have a COVID infection. In terms of her tachycardia, the patient has been noticing intermittent episodes of her heart rate jumping up to the 140 beats per minute range with associated shortness of breath while doing simple tasks such as walking across the room. 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 She is concerned that she may need another radiofrequency ablation. The patient was diagnosed with an inappropriate sinus tachycardia and underwent to radiofrequency ablations 1 in February 2016, and another in February 2019. The procedure performed in 2019 was complicated by an intense vagal reaction following the ablation required CPR. She required pressor support in the intensive care unit. She was found have a transient cardiomyopathy. She underwent a cardiac catheterization which showed no evidence of coronary disease. Fortunately, left ventricular systolic function normalized quickly and she was discharged home in stable fashion. She had an atrial pacemaker placed in June [address] Julio. Several days later, she underwent an atrial tachycardia ablation. She was last seen by Dr. Julio on August 25, 2022. Interrogation of her device noted normal function. An echocardiogram performed in October noted normal systolic function with ejection fraction 55-60%. There was no valvular pathology. This was unchanged compared with the study done in February 2019. Past medical and surgical history 1. Inappropriate sinus tachycardia-see above 2. Paroxysmal atrial tachycardia 3. Radiofrequency ablation x3-February 2016, February 2019, June 2019 4. Postprocedure arrest-February 2019 5. Transient nonischemic cardiomyopathy-February 2019 6. Atrial pacemaker-June 2019 6. Hypothyroidism 7. Interstitial cystitis 8. Congenital urethral stricture 9. Tonsillectomy 10. C-spine fusion 11. 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 Allergies Allergy/AdvReac Type Severity Reaction Status Date / Time colchicine Allergy Unknown Hives Verified 02/12/23 14:59 Iodinated Contrast Media AdvReac Severe Anaphylaxis Verified 02/13/23 11:19 NSAIDS (Non-Steroidal AdvReac Unknown Palpitation Verified 02/12/23 14:59 Anti-Inflamma s oxycodone [From Percocet] AdvReac Unknown Itching Verified 02/12/23 14:59 Home Medications Medication Instructions Recorded Confirmed Type sumatriptan succinate 50 mg tablet 50 mg PO UD PRN migraines 08/25/21 02/12/23 History magnesium 500 mg PO DAILY 01/29/22 02/12/23 History onabotulinumtoxinA [Botox] 1 syringe intradermal UD 01/29/22 02/12/23 History pyridoxine (vitamin B6) 1 tab PO DAILY 01/29/22 02/12/23 History diazepam 10 mg tablet (Valium) 10 mg PO TID PRN Anxiety 07/28/22 02/12/23 History hydromorphone 4 mg tablet 4 mg PO Q4H PRN Migraine Headache 07/28/22 02/12/23 History (Dilaudid) [place] Thyroid 15 mg tablet 15 mg PO QAM #90 tabs 10/19/22 02/12/23 Rx (thyroid (pork)) [place] Thyroid 60 mg tablet 60 mg PO QAM #90 tabs 10/19/22 02/12/23 Rx (thyroid (pork)) pentosan polysulfate sodium 100 mg 100 mg PO TID 90 days #270 caps 01/04/23 02/12/23 Rx capsule ([place]iron) nitrofurantoin 100 mg PO BID 7 days #14 caps 01/07/23 02/12/23 Rx monohydrate/macrocrystals 100 mg capsule (Macrobid) ethynodiol diacetate-ethinyl 1 tab PO DAILY #84 tabs 01/19/23 02/12/23 Rx estradiol 1 mg-35 mcg tablet (Zovia) ampicillin 500 mg capsule 500 mg PO QID 7 days #28 caps 02/11/23 02/12/23 Rx [id number] 1 tab PO DAILY 02/12/23 02/12/23 History ascorbic acid (vitamin C) 1,000 mg 1 g PO DAILY 02/12/23 02/12/23 History tablet (Vitamin C) cholecalciferol (vitamin D3) 25 25 mcg PO DAILY 02/12/23 02/12/23 History mcg (1,000 unit) tablet cyanocobalamin (vitamin B-12) 2,500 mcg sublingual DAILY 02/12/23 02/12/23 History 2,500 mcg sublingual tablet (Vitamin B-12) loratadine 10 mg tablet 10 mg PO DAILY 02/12/23 02/12/23 History zinc 50 mg tablet 50 mg PO DAILY 02/12/23 02/12/23 History Patient History Medical History (Updated 02/13/23 @ 12:52 by Juan Manuel Kerr MD) Anxiety Cardiomyopathy Congenital stricture of urethra Damion's disease History of cardiac arrest 2019- during cardiac ablation - s/p pacemaker placement Per cardio records: Pt had cardiac ablation 02/23/19- "An hour after the procedure she developed what was felt to be an intense vagal reaction for which she received chest compressions, continued to have bradycardia and received epinephrine from which she developed ventricular tachycardia and required cardioversion. A temporary pacemaker was placed, coronary angiography was performed which was unremarkable. Echocardiography showed diffuse hypokinesis with ejection fraction of 25 to 30% and she was hypotensive and required norepinephrine support. By February 26, 2019 her ejection fraction had normalized and she was discharged the following day." History of COVID-19 11/2020 Inappropriate sinus tachycardia Diagnosis several years ago s/p multiple cardiac ablations (per patient, cardiac arrest with second cardiac ablation requiring pacemaker placement) Interstitial cystitis Possible Pacemaker Implanted 2018, Biot[employer], most recent check 04/2021 Tachycardia Surgical History H/O laparoscopy for ectopic, with salpingectomy History of dental surgery History of laparoscopy diagnostic laparoscopy + hysteroscopy 06/08/21 [facility] History of pacemaker Implanted 2019 History of prior ablation treatment x3 Hx of foot surgery Hx of tonsillectomy S/P cervical spinal fusion S/P cystourethroscopy with dilation of urethral stricture Family History Grandfather (Maternal) Coronary heart disease Grandmother (Paternal) Diabetes Aunt Breast cancer Uncle Colorectal cancer Family history of colonic polyps Other No family history of adverse response to anesthesia No family history of bleeding disorder Denies family history of Ovarian cancer Social History Smoking Status: Never smoker Second Hand Exposure: No; Hx Alcohol Use: No Hx Substance Use: No Preferred Language: Slovak Communication Ability: Effective Emergency Management System Director Required: No Beliefs That Will Affect Care: None Current Living Situation: Alone 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 Anaya as patient in [facility]. Results & Data Vital Signs (Past 12 Hours) Vital Signs Temp Pulse Pulse Resp BP BP Pulse Ox 02/13/23 11:00 02/13/23 11:00 37.6 C H 84 18 111/65 98 02/13/23 08:30 36.9 C 84 18 94/54 L 98 02/13/23 07:37 88 02/13/23 02:55 37.8 C H 94 H 20 122/78 98 O2 Del Method 02/13/23 11:00 Room Air 02/13/23 11:00 Room Air 02/13/23 08:30 Room Air 02/13/23 07:37 02/13/23 02:55 Room Air Diagnostic Findings lunchroom monitor notes sinus rhythm with an occasional atrial paced beat. PG Care Time/CCT Total # of Minutes Spent Total Time Spent with Patient: Total time spent is greater than 50% in coordination of care (as documented) at patient's floor/unit and/or counseling patient: Coding Level of Care Code 66979 IN/OBS CONSULT LVL 4,60M Diagnoses Tachycardia R00.0 Cardiac pacemaker Z95.0
[2023-02-13] MEDS: cefTRIAXone SODIUM 2,000 MG in DEXTROSE 5% 50 ML IV SCH (13:51)
--- NOTE | 2023-02-13 15:53 | Hospitalist Progress Note ---
Date of Service February 13, 2023 Assessment & Plan (1) COVID-19: Plan: Day 2 of symptoms on admission, possible exposure on Tuesday Vaccinated and previously had COVID Suspect this is the main cause of her acute symptoms and fever as above given lymphopenia No treatment recommended as she is not hypoxic and despite her complex history she is young and not immunocompromised (2) Pyelonephritis: Plan: I suspect most likely she has acute on chronic back pain related to her acute illness. However given specific right flank pain worse than usual and historically she believes it responds to antibiotics difficult to rule out pyelonephritis as contributing towards her fever on admission. urine culture pending blood cultures pending. Continue ceftriaxone pending results of these. Historically she has had normal UAs with positive urine culture although her one's from November are presumably in the [facility] EHR and not available on admission. (3) Elevated d-dimer: Plan: Suspect secondary to COVID-19 as above. Would be very early for a PE as a complication of COVID given symptoms for only 2 days. However she is at increased risk due to combined oral contraceptive pill Suspect sinus tachycardia due to her longstanding history of this in the setting of fever. She is no longer tachycardic (relatively surprisingly given her history) after 2 L NSS. She is not hypoxic. Will preliminary place order for a V/Q scan due to anaphylactic reaction previously to iodinated contrast however relatively low pre-test probability of this and will defer treatment dose anticoagulation on admission If worsening hypoxia prior to V/Q scan recommend treatment dose anticoagulation Lower extremity duplex ultrasound negative for DVT (4) Inappropriate sinus tachycardia: Plan: Longstanding and very complex history which is well summarized in outpatient cardiology notes from Dr Julio She requests cardiology consult while here given her HR has been up to 180 at home and she feels chronically she would benefit from something to slow down her HR, although I explained start in the current setting would not be advisable until she is definitively improving. Not tachycardic anymore Bander Hand on board, no intervention recommended at this time (5) Interstitial cystitis: Plan: Started s/p straight cath after cervical spinal stenosis surgery. Under urology. Possible incomplete bladder emptying mentioned by patient but would avoid straight cath without urology involvement given this is what started her symptoms Likely worse currently due to E. coli recently found in her urine If urine cultures come back positive, will consult urology (6) Hypothyroidism: Plan: TSH WNL in August 2022 Will continue her usual thyroid medications (7) Cardiac arrest as complication of care: Plan: Noted history of this following sino-atrial node ablation for inappropriate sinus tachycardia. Requirement for subseqent ablation and risk of recurrence was the reason for her pacemaker insertion. (8) Cervicalgia: Plan: Ordered home dose of Dilaudid 8 mg every 4 as needed. Verified with the pharmacist that this is the correct dose that she has been receiving for several months. Plan VTE Prophylaxis - Lovenox 40mg SQ daily Diet - regular Admission and Anticipated Discharge Date Admission Date: February 12, 2023 Subjective Patient complains of right flank pain. No fever, shortness of breath Review of Systems Review of Systems: All systems reviewed & are unremarkable except as noted in Subjective Physical Exam Physical Exam: General: Awake, conversant, anxious appearing Heart: S1, S2/regular rate and rhythm, no murmur rubs or gallops Lungs: Clear to auscultation bilaterally. Normal effort Abdomen: Soft/nontender/nondistended. No hepatosplenomegaly Extremities: No clubbing/cyanosis. No edema Behavior: Appropriate, cooperative Results & Data Results & Data Vital Signs (Past 12 Hours) Vital Signs Temp Pulse Pulse Resp BP Pulse Ox O2 Del Method 02/13/23 11:00 Room Air 02/13/23 11:00 37.6 C H 84 18 111/65 98 Room Air 02/13/23 08:30 36.9 C 84 18 94/54 L 98 Room Air 02/13/23 07:37 88 Laboratory Results Abnormal lab results 02/12/23 02/13/23 02/13/23 Range/Units 13:00 06:17 06:17 WBC 3.91 L (4.8-10.8) K/ul RBC 4.19 L (4.20-5.40) M/uL Hgb 11.6 L (12.0-16.0) g/dl Hct 34.2 L (37.0-47.0) % RDW Coeff of Dorian 14.9 H (11.5-14.5) % Lymph # (Auto) 0.53 L (1.2-3.4) K/uL Chloride 108 H (98-107) mmol/L BUN 4 L (6-23) mg/dl Creatinine 0.48 L (0.6-1.2) mg/dl BUN/Creatinine Ratio 8.3 L (10-20) Glucose 105 H (70-99(Fasting)) mg/dl Calcium 7.6 L (8.6-10.3) mg/dl C-Reactive Protein 3.83 H (0-0.5) mg/dl Diagnostic Findings Venous Doppler Study 02/13/23 00:00 US venous doppler LE BI CLINICAL HISTORY: elevated d-dimer, unable to perform CT, risk TECHNIQUE: Bilateral lower extremity real-time compression venous ultrasound with Color Doppler imaging. Utilizing real-time ultrasonic imaging multiple real time high-resolution ultrasonic images with compression and noncompression maneuvers of the deep venous system in addition to color doppler imaging were performed from the common femoral vein through the proximal calf veins. COMPARISON: Comparison is made to right lower extremity vascular ultrasound 09/25/2015 FINDINGS/IMPRESSION: Currently there is normal compressibility of the deep venous system from the common femoral vein through the proximal calf veins. No superficial venous thrombosis is identified. ACT 112: Negative or not required by law. Electronically signed by: Mauro Gunn M.D. 02/13/2023 11:52 AM PG Care Time/CCT Total # of Minutes Spent Total Time Spent with Patient: Total time spent is greater than 50% in coordination of care (as documented) at patient's floor/unit and/or counseling patient: Coding Level of Care Code 87296 SUB INP/OBS CARE 2/35MIN Diagnoses COVID-19 U07.1 Pyelonephritis N12 Elevated d-dimer R79.89 Inappropriate sinus tachycardia R00.0 Interstitial cystitis N30.10 Hypothyroidism E03.9 Cardiac arrest as complication of care Cervicalgia M54.2
[2023-02-13] MEDS: ENOXAPARIN INJ 40 MG/0.4 ML SYR SQ SCH (20:56)
[2023-02-13] MEDS: diazePAM 5 MG TABLET PO PRN (21:05)
[2023-02-14] MEDS: ACETAMINOPHEN 325 MG TAB PO PRN ×4 (01:30→14:56)
[2023-02-14] MEDS: ARMOUR THYROID 30 MG TAB PO SCH (05:38)
[2023-02-14] MEDS: diazePAM 5 MG TABLET PO PRN (10:10)
[2023-02-14] MEDS: ASCORBIC ACID 500 MG TAB PO SCH (10:13)
[2023-02-14] MEDS: LORATADINE 10 MG TAB PO SCH (10:14)
[2023-02-14] MEDS: PENTOSAN POLYSULFATE SODIUM 100 MG CAP PO SCH ×3 (10:14→20:13)
[2023-02-14] MEDS: ZINC SULFATE 220 MG CAPSULE PO SCH (10:14)
[2023-02-14] MEDS: CYANOCOBALAMIN (B-12) 2,500 MCG TABLET SL SCH (10:14)
[2023-02-14] MEDS: CHOLECALCIFEROL 1,000 UNITS 25 MCG TAB PO SCH (10:14)
[2023-02-14] MEDS: MAGNESIUM OXIDE 400 MG TAB PO SCH (10:14)
[2023-02-14] MEDS: cefTRIAXone SODIUM 2,000 MG in DEXTROSE 5% 50 ML IV SCH (14:19)
--- NOTE | 2023-02-14 14:38 | Hospitalist Progress Note ---
Date of Service February 14, 2023 Assessment & Plan (1) COVID-19: Plan: Vaccinated and previously had COVID Suspect this is the main cause of her acute symptoms and fever as above given lymphopenia No treatment recommended as she is not hypoxic and despite her complex history she is young and not immunocompromised (2) Pyelonephritis: Plan: I suspect most likely she has acute on chronic back pain related to her acute illness. However given specific right flank pain worse than usual and historically she believes it responds to antibiotics difficult to rule out pyelonephritis as contributing towards her fever on admission. urine culture pending blood cultures pending. Continue ceftriaxone pending results of these. Historically she has had normal UAs with positive urine culture although her one's from November are presumably in the [facility] EHR and not available on admission. (3) Elevated d-dimer: Plan: Suspect secondary to COVID-19 as above. Would be very early for a PE as a complication of COVID given symptoms for only 2 days. However she is at increased risk due to combined oral contraceptive pill Suspect sinus tachycardia due to her longstanding history of this in the setting of fever. She is no longer tachycardic (relatively surprisingly given her history) after 2 L NSS. She is not hypoxic. VQ scan ordered due to anaphylactic reaction previously to iodinated contrast however relatively low pre-test probability of this. Not done yet If worsening hypoxia prior to V/Q scan recommend treatment dose anticoagulation Lower extremity duplex ultrasound negative for DVT (4) Inappropriate sinus tachycardia: Plan: Longstanding and very complex history which is well summarized in outpatient cardiology notes from Dr Julio She requests cardiology consult while here given her HR has been up to 180 at home and she feels chronically she would benefit from something to slow down her HR, although I explained start in the current setting would not be advisable until she is definitively improving. Not tachycardic anymore Rod Greaser on board, no intervention recommended at this time (5) Interstitial cystitis: Plan: Started s/p straight cath after cervical spinal stenosis surgery. Under urology. Possible incomplete bladder emptying mentioned by patient but would avoid straight cath without urology involvement given this is what started her symptoms Likely worse currently due to E. coli recently found in her urine If urine cultures come back positive, will consult urology (6) Hypothyroidism: Plan: TSH WNL in August 2022 Will continue her usual thyroid medications (7) Cardiac arrest as complication of care: Plan: Noted history of this following sino-atrial node ablation for inappropriate sinus tachycardia. Requirement for subseqent ablation and risk of recurrence was the reason for her pacemaker insertion. (8) Cervicalgia: Plan: Ordered home dose of Dilaudid 8 mg every 4 as needed. Verified with the pharmacist that this is the correct dose that she has been receiving for several months. Plan VTE Prophylaxis - Lovenox 40mg SQ daily Diet - regular VQ scan pending Follow-up on finalized urine culture and blood culture results Likely discharge tomorrow if all of the above negative Admission and Anticipated Discharge Date Admission Date: February 12, 2023 Subjective Patient complains that she was not able to sleep all night because of a constantly coughing neighbor. She is in tears because of not being able to sleep. She denies chest pain or shortness of breath. Still complains of flank pain. Review of Systems Review of Systems: All systems reviewed & are unremarkable except as noted in Subjective Physical Exam Physical Exam: General: Awake, conversant, anxious appearing and tearful Heart: S1, S2/regular rate and rhythm, no murmur rubs or gallops Lungs: Clear to auscultation bilaterally. Normal effort Abdomen: Soft/nontender/nondistended. No hepatosplenomegaly Extremities: No clubbing/cyanosis. No edema Behavior: Appropriate, cooperative Results & Data Results & Data Vital Signs (Past 12 Hours) Vital Signs Temp Pulse Pulse Resp BP BP Pulse Ox 02/14/23 11:14 37.2 C 89 18 102/69 98 02/14/23 08:08 36.9 C 78 21 105/68 96 02/14/23 07:21 73 02/14/23 03:00 37.1 C 90 16 106/65 96 O2 Del Method 02/14/23 11:14 Room Air 02/14/23 08:08 Room Air 02/14/23 07:21 02/14/23 03:00 Room Air PG Care Time/CCT Total # of Minutes Spent Total Time Spent with Patient: Total time spent is greater than 50% in coordination of care (as documented) at patient's floor/unit and/or counseling patient: Coding Level of Care Code 42094 SUB INP/OBS CARE 2/35MIN Diagnoses COVID-19 U07.1 Pyelonephritis N12 Elevated d-dimer R79.89 Inappropriate sinus tachycardia R00.0 Interstitial cystitis N30.10 Hypothyroidism E03.9 Cardiac arrest as complication of care Cervicalgia M54.2
--- NOTE | 2023-02-14 15:00 | Cardiology Progress Note ---
Date of Service February 14, 2023 Assessment & Plan (1) SVT (supraventricular tachycardia): (2) Cardiac pacemaker: Plan 1. Tachycardia: Symptomatically she has had difficulty with her atrial tachycardia, her initial electrocardiogram shows a somewhat rapid heart rate and the P wave morphology does not look normal for sinus rhythm and I suspect represents her atrial tachycardia. In the past that has responded well to beta- blockade, she does have some side effects with beta-blockers but at this point would prefer to be on one then feel the arrhythmia. I will start beta-blockade today. I am going to try Bystolic at a low dose due to its minimal side effects although she may have trouble with hypotension. 2. Pacemaker: Her pacemaker seems to be working normally on monitoring, I did not interrogate at this visit. Admission and Anticipated Discharge Date Admission Date: February 12, 2023 Subjective She is tearful and not feeling well today, it is not really cardiac in nature however. She does have intermittent palpitations and senses her heart beating rapidly, mostly when she is active. That has been worse recently and she would like treatment for it. Physical Exam Physical Exam: I did not examine her due to the COVID 19 diagnosis. Results & Data Vital Signs (Past 12 Hours) Vital Signs Temp Pulse Pulse Resp BP BP Pulse Ox 02/14/23 11:14 37.2 C 89 18 102/69 98 02/14/23 08:08 36.9 C 78 21 105/68 96 02/14/23 07:21 73 02/14/23 03:00 37.1 C 90 16 106/65 96 O2 Del Method 02/14/23 11:14 Room Air 02/14/23 08:08 Room Air 02/14/23 07:21 02/14/23 03:00 Room Air Laboratory Results Intake and Output 02/13/23 02/14/23 02/14/23 22:59 06:59 14:59 Intake Total 550 / 1675 500 / 1675 65 / 65 Balance 550 / 1675 500 / 1675 65 / 65 Intake: IV / / 65 cefTRIAXone SODIUM 2,000 mg In 70 65 / Dextrose 5% 50 ml @ 100 mls/hr IV Q24H [facility] Rx#:[id number] Oral 480 / 1605 500 / 1605 Other: # Unmeasured Voids 2 Diagnostic Findings Telemetry: Sinus rhythm with periods of sinus tachycardia, possibly representing an atrial tachycardia although the heart rate trend appears fairly smooth without clear transient heart rate changes. PG Care Time/CCT Total # of Minutes Spent Total Time Spent with Patient: Total time spent is greater than 50% in coordination of care (as documented) at patient's floor/unit and/or counseling patient: Coding Level of Care Code 51516 SUB INP/OBS CARE 2/35MIN Diagnoses SVT (supraventricular tachycardia) I47.1 Cardiac pacemaker Z95.0
--- NOTE | 2023-02-14 15:50 | Nuclear Medicine Report ---
NM pul perfusion CLINICAL HISTORY: Elevated d-dimer. Atypical chest pain.. Tachycardia. COMPARISON STUDY: Chest x-ray 02/12/2023. TECHNIQUE: Immediately following the intravenous administration of 5.6 mCi of technetium 99 M MAA for the perfusion scan, anterior, oblique, lateral, and posterior views of the chest were obtained. FINDINGS: Normal perfusion seen throughout the lungs. No defects identified. The cardiac silhouette i s normal in size. IMPRESSION: Normal perfusion scan. ACT 112: Negative or not required by law. Electronically signed by: Delfin Rice M.D. 02/14/2023 3:49 PM
[2023-02-14] MEDS: ENOXAPARIN INJ 40 MG/0.4 ML SYR SQ SCH (20:12)
[2023-02-14] MEDS: METOPROLOL SUCC 25MG EXT REL TAB PO SCH (20:14)
[2023-02-14] MEDS: ONDANSETRON INJ 2 MG/ML 2 ML VIAL IV PRN (22:12)
[2023-02-14] MEDS ORDERED: POLYETHYLENE (MIRALAX) 17 GM PACK PO PRN (23:08)
[2023-02-14] MEDS ORDERED: DEXTROMETHORPHAN POLYMR COMPLX 30 MG/5 ML UDP PO PRN (23:09)
[2023-02-15] MEDS: diazePAM 5 MG TABLET PO PRN ×3 (00:58→20:40)
[2023-02-15] MEDS: ACETAMINOPHEN 325 MG TAB PO PRN ×3 (03:20→14:42)
[2023-02-15] MEDS: ARMOUR THYROID 30 MG TAB PO SCH (05:15)
[2023-02-15] MEDS: ASCORBIC ACID 500 MG TAB PO SCH (08:31)
[2023-02-15] MEDS: METOPROLOL SUCC 25MG EXT REL TAB PO SCH ×2 (08:32→20:43)
[2023-02-15] MEDS: LORATADINE 10 MG TAB PO SCH (08:32)
[2023-02-15] MEDS: ZINC SULFATE 220 MG CAPSULE PO SCH (08:32)
[2023-02-15] MEDS: MAGNESIUM OXIDE 400 MG TAB PO SCH (08:34)
[2023-02-15] MEDS: CYANOCOBALAMIN (B-12) 2,500 MCG TABLET SL SCH (08:34)
[2023-02-15] MEDS: PENTOSAN POLYSULFATE SODIUM 100 MG CAP PO SCH ×3 (08:35→20:44)
[2023-02-15] MEDS: CHOLECALCIFEROL 1,000 UNITS 25 MCG TAB PO SCH (08:36)
[2023-02-15 09:20] LABS: Basophils # (auto) 0.02 K/uL (0-0.2); Basophils % (auto) 0.3 %; Eosinophils # (auto) 0.02 K/uL (0-0.50); Eosinophils % (auto) 0.3 %; Hematocrit (blood only) 40.4 % (37.0-47.0); Hemoglobin 13.5 g/dl (12.0-16.0); Immature Granulocytes # (auto) 0.01 K/uL (0.01-0.20); Immature Granulocytes % (auto) 0.2 %; Lymphocytes # (auto) 1.41 K/uL (1.2-3.4); Lymphocytes % (auto) 24.4 %; Mean Corpuscular Hgb Conc 33.4 g/dL (32.0-36.0); Mean Corpuscular Volume 83.8 fL (80.0-100.0); Mean Platelet Volume 10.6 fL (9.4-12.4); Monocytes % (auto) 3.5 %; Neutrophils # (auto) 4.13 K/uL (1.40-6.50); Neutrophils % (auto) 71.3 %; Platelet Count 193 K/uL (130-400); RDW Coefficient of Variation 14.7 % (11.5-14.5); RDW Standard Deviation 45.1 fL (36.4-46.3); Red Blood Count 4.82 M/uL (4.20-5.40); White Blood Count 5.79 K/ul (4.8-10.8)
[2023-02-15 09:45] LABS: Creatinine Clr Calc Pharmacy 129.3 ml/min; Est GFR (African American) 137.6 ml/min; Est GFR (Non-African American) 118.7 ml/min
[2023-02-15 09:46] LABS: BUN Creatinine Ratio 6.3 (10-20); Calcium 8.3 mg/dl (8.6-10.3); Creatinine Clr Calc Pharmacy 127.3 ml/min; Est GFR (African American) 136.8 ml/min; Est GFR (Non-African American) 118.1 ml/min; Potassium 3.8 mmol/L (3.5-5.1)
[2023-02-15] MEDS: cefTRIAXone SODIUM 2,000 MG in DEXTROSE 5% 50 ML IV SCH (14:41)
--- NOTE | 2023-02-15 16:26 | Hospitalist Progress Note ---
Date of Service February 15, 2023 Assessment & Plan (1) COVID-19: Plan: Mild stable o2 sats repeat cxr today due to worsening cough/mild rales on exam thus far, however, no indication for Remdesivir or steroid therapy cont airborne precautions try tessalon pearles scheduled for cough add mucinex BID as well (2) Pyelonephritis: Plan: blood cx's negative u/a completely normal urine cx negative she has received 3 days of IV rocephin; suspicion of active UTI/pyelo very low d/c abx today (3) Elevated d-dimer: Plan: likely 2nd to #1 itself LE venous dopplers neg for DVT perfusion scan of lungs negative (4) Inappropriate sinus tachycardia: Plan: s/p ablation procedures in past along with pacemaker placement by Dr Julio appreciate his consult he added back metoprolol succ 12.5mg BID pacing on monitor and no further tachycardia (5) Interstitial cystitis: Plan: cont outpatient meds no active UTI at this time (6) Hypothyroidism: Plan: TSH WNL in August 2022 Cont [place] Thyroid (7) Cardiac arrest as complication of care: Plan: Noted history of this following sino-atrial node ablation for inappropriate sinus tachycardia. Requirement for subsequent ablation and risk of recurrence was the reason for her pacemaker insertion. (8) Cervicalgia: Plan: s/p c-spine surgery x in 2021 chronic pain from such - uses dilaudid prn reports b/l arm weakness - obtain MRI c-spine follows with ortho-spine in [place] (9) Chronic headaches: Plan: migraine type headaches by history she now has acute headache imitrex SC 6mg x 1 along with zofran due to her concerns about family h/o aneurysm will obtain MRA brain along with MRI brain Plan VTE Prophylaxis - Lovenox 40mg SQ daily Diet - regular can d/c home when headache is improved, MRI scans completed, etc complex care coordination today of multiple acute & chronic issues Admission and Anticipated Discharge Date Admission Date: February 12, 2023 Subjective tele overnight - no further tachycardia primarily pacing she feels "a little better" but weak, coughing, appetite is only fair cough is worse today mildly dyspneic on exertion did sleep better overnight reports chronic migraine headaches for several years uses imitrex prn for such with good relief typically has photophobia/phonophobia she has a family history of brain aneurysms and has been worrying about such asks about imaging?? has never seen neurology for her headaches headaches have been a bit worse since her COVID started back pain is at baseline we discussed neg urine cx/blood cx's Review of Systems Review of Systems: gen - chills, fever cv - no chest pain or orthopnea pulm - cough, no wheezing GI - no abd pain; flank pain better - LUTs at baseline musculo - body aches Physical Exam Physical Exam: gen - looks sick but nontoxic mouth - MMM neck - no JVD heart - RRR, s1 s2, no murmur lungs - faint rales (dry) bases; no wheeze; occasionally coughing abd - soft NT ND BS+; no flank tenderness to palpation ext - no edema pulses 2+ b/l neuro - strength 5/5 x 4 exts Results & Data Results & Data Vital Signs (Past 12 Hours) Vital Signs Temp Pulse Pulse Resp BP Pulse Ox O2 Del Method 02/15/23 15:29 85 02/15/23 12:04 36.9 C 77 18 97/63 L 100 Room Air 02/15/23 11:57 70 02/15/23 11:04 Room Air 02/15/23 08:29 36.7 C 78 16 103/66 97 Room Air 02/15/23 05:15 36.8 C Laboratory Results Laboratory Results - last 24 hr 02/15/23 02/15/23 02/15/23 09:07 09:07 09:07 WBC 5.79 RBC 4.82 Hgb 13.5 Hct 40.4 MCV 83.8 MCH 28.0 MCHC 33.4 RDW Std Deviation 45.1 RDW Coeff of Dorian 14.7 H Plt Count 193 MPV 10.6 Immature Gran % (Auto) 0.2 Neut % (Auto) 71.3 Lymph % (Auto) 24.4 Emmons % (Auto) 3.5 Eos % (Auto) 0.3 Baso % (Auto) 0.3 Neut # (Auto) 4.13 Lymph # (Auto) 1.41 Emmons # (Auto) 0.20 Eos # (Auto) 0.02 Baso # (Auto) 0.02 Immature Gran # (Auto) 0.01 Sodium 136 Potassium 3.8 Chloride 102 Carbon Dioxide 28 Anion Gap 6 BUN 4 L Creatinine 0.63 0.64 Est Cr Clr Drug Dosing 129.3 127.3 Est GFR ( Amer) 137.6 136.8 Est GFR (Non-Af Amer) 118.7 118.1 BUN/Creatinine Ratio 6.3 L Glucose 167 H Calcium 8.3 L AST 33 ALT 34 PG Care Time/CCT Total # of Minutes Spent Total Time Spent with Patient: Total time spent is greater than 50% in coordination of care (as documented) at patient's floor/unit and/or counseling patient: Coding Level of Care Code 20462 SUB INP/OBS CARE 3/50MIN Diagnoses COVID-19 U07.1 Pyelonephritis N12 Elevated d-dimer R79.89 Inappropriate sinus tachycardia R00.0 Interstitial cystitis N30.10 Hypothyroidism E03.9 Cardiac arrest as complication of care Cervicalgia M54.2 Chronic headaches R51.9; G89.29
[2023-02-15] MEDS ORDERED: ONDANSETRON INJ 2 MG/ML 2 ML VIAL IV STA (16:27)
[2023-02-15] MEDS ORDERED: SUMAtriptan succinate 6 MG/0.5 ML VIAL SQ ONE (16:30)
--- NOTE | 2023-02-15 19:30 | XRay Report ---
SINGLE VIEW CHEST CLINICAL HISTORY: Cough. Covid. FINDINGS: An AP, portable, upright chest radiograph is compared to study dated 02/12/2023 and correlat ed with chest CT dated 03/01/2019. A single-lead cardiac pacemaker is unchanged in position and partia lly obscures the left lower chest. The heart is enlarged noting atherosclerotic calcification of the thoracic aorta. The pulmonary vasculature is noncongested. The lungs and pleural spaces are clear. No pneumothorax is seen. The skeletal structures are osteopenic. The bony thorax is grossly intact. Fus ion hardware is noted in the lower cervical spine. IMPRESSION: 1. Cardiomegaly and cardiac pacemaker without radiographic evidence of congestive failure. 2. No airspace consolidation or large pleural effusion is identified. ACT 112: Negative or not required by law. Electronically signed by: aTvon Acosta M.D. 02/15/2023 7:29 PM
[2023-02-15] MEDS: guaiFENesin 600 MG TABCR PO SCH (20:44)
[2023-02-15] MEDS: BENZONATATE 100 MG CAPSULE PO SCH (20:45)
[2023-02-15] MEDS: ENOXAPARIN INJ 40 MG/0.4 ML SYR SQ SCH (20:45)
[2023-02-16] MEDS: ARMOUR THYROID 30 MG TAB PO SCH (06:17)
[2023-02-16] MEDS: CYANOCOBALAMIN (B-12) 2,500 MCG TABLET SL SCH (09:32)
[2023-02-16] MEDS: ASCORBIC ACID 500 MG TAB PO SCH (09:32)
[2023-02-16] MEDS: ZINC SULFATE 220 MG CAPSULE PO SCH (09:33)
[2023-02-16] MEDS: guaiFENesin 600 MG TABCR PO SCH ×2 (09:33→20:36)
[2023-02-16] MEDS: CHOLECALCIFEROL 1,000 UNITS 25 MCG TAB PO SCH (09:33)
[2023-02-16] MEDS: BENZONATATE 100 MG CAPSULE PO SCH ×3 (09:33→20:36)
[2023-02-16] MEDS: MAGNESIUM OXIDE 400 MG TAB PO SCH (09:33)
[2023-02-16] MEDS: LORATADINE 10 MG TAB PO SCH (09:33)
[2023-02-16] MEDS: METOPROLOL SUCC 25MG EXT REL TAB PO SCH ×2 (09:33→20:34)
[2023-02-16] MEDS: PENTOSAN POLYSULFATE SODIUM 100 MG CAP PO SCH ×3 (09:34→20:35)
[2023-02-16] MEDS: diazePAM 5 MG TABLET PO PRN ×2 (11:19→20:36)
[2023-02-16] MEDS: ACETAMINOPHEN 325 MG TAB PO PRN ×2 (11:19→20:36)
--- NOTE | 2023-02-16 12:56 | Magnetic Resonance Report ---
MRI OF THE BRAIN WITHOUT IV CONTRAST CLINICAL HISTORY: Chronic migraine headache COMPARISON STUDY: No priors. TECHNIQUE: MRI of the brain was performed utilizing various T1 and T2-weighted sequences in the axial , sagittal, and coronal planes. IV contrast was not administered for this examination. FINDINGS: Brain parenchyma: The brain parenchyma is normal in appearance. There is no hemorrhage or mass effect . There is no restricted diffusion to suggest acute ischemia. Orellana-white matter differentiation is pr eserved. No extra-axial fluid collection is seen. The cerebellar tonsils are normal in configuration. Ventricles, sulci, and cisterns: Normal in configuration. Pituitary and sella: Unremarkable. Intracranial vasculature: Normal flow voids are maintained at the skull base. Orbits: The bony orbits are grossly intact. Orbital contents are normal in appearance. Sinuses and mastoids: There is moderate mucosal thickening within the maxillary antra, as well as the ethmoid and sphenoid sinuses. Trace mucosal thickening is noted in the left frontal sinus. The metat arsals are clear. Calvarium: Unremarkable. Cervical cord: Partially visualized cervical spinal cord is normal in morphology and signal intensity . IMPRESSION: No intracranial abnormality is identified. ACT 112: Negative or not required by law. Electronically signed by: Tavon Acosta M.D. 02/16/2023 12:54 PM
--- NOTE | 2023-02-16 13:00 | Magnetic Resonance Report ---
MR angio head wo con HISTORY: 32 years-old Female family h/o brain aneurysms screening study in a patient with history of aneurysms. No acute complaints COMPARISON: Brain MRI of same day TECHNIQUE: MRA of the head was obtained without the use of IV contrast utilizing 3-D [id number] s equencing with MIP reformats. FINDINGS: The imaged internal carotid arteries appear normal and are widely patent. The middle and anterior cer ebral arteries are patent. The imaged distal vertebral arteries, basilar and posterior cerebral arter ies also appear normal. No aneurysm, dissection, high-grade stenosis or arterial occlusion identified . IMPRESSION: Unremarkable MRA of the head. ACT 112: Negative or not required by law. The above report was generated using voice recognition software. It may contain grammatical, syntax o r spelling errors. Electronically signed by: Viktor Hallman M.D. 02/16/2023 12:59 PM
--- NOTE | 2023-02-16 15:06 | Magnetic Resonance Report ---
CERVICAL SPINE MRI HISTORY: b/l arm weakness, h/o c-spine surgery TECHNIQUE: Multiplanar multisequence MRI of the cervical spine was performed without the use of contr ast. COMPARISON STUDY: Cervical spine CT 02/10/2023. Cervical spine MRI 04/22/2022. FINDINGS: Suboptimal evaluation of the cervical spine due to the mild motion artifact. Anterior cervi michelle discectomy and fusion again noted from C4 through C6. Metallic artifact results in suboptimal bethany luation of these levels. There is straightening of the cervical spine, unchanged. No definite fractur e or subluxation. There is a normal marrow signal intensity seen throughout the visualized osseous st ructures. Remaining disc spaces are preserved. Prevertebral soft tissues and the C1-C2 interval are i ntact. The posterior fossa is unremarkable. The cervical spinal cord appears normal in course, calibe r, and signal intensity. C2-C3: No significant central canal or neural foraminal narrowing. C3-C4: No significant central canal or neural foraminal narrowing. C4-C5: Suboptimally assessed due to the metallic artifact. No definite central canal or neural forami nal narrowing. C5-C6: Suboptimally assessed due to the metallic artifact. No definite central canal or neural forami nal narrowing. C6-C7: No significant central canal or neural foraminal narrowing. C7-T1: No significant central canal or neural foraminal narrowing. IMPRESSION: 1. Suboptimal evaluation of the cervical spine due to the mild motion artifact and the metallic artif act within the mid cervical spine from the prior C4-C6 ACDF. 2. No fracture or subluxation. 3. No significant central canal or neural foraminal narrowing. 4. The cervical spinal cord appears within normal limits. ACT 112: Negative or not required by law. Electronically signed by: Delfin Rice M.D. 02/16/2023 3:03 PM
[2023-02-16] MEDS: ENOXAPARIN INJ 40 MG/0.4 ML SYR SQ SCH (20:36)
--- NOTE | 2023-02-16 21:41 | Hospitalist Progress Note ---
Date of Service February 16, 2023 Assessment & Plan (1) COVID-19: Plan: Mild Stable Improving stable o2 sats cxr 02/15 neg for pneumonia cont to have no indication for Remdesivir or steroid therapy cont airborne precautions cont tessalon pearles cont mucinex BID (2) Pyelonephritis: Plan: ruled out blood cx's negative u/a completely normal urine cx negative s/p 3 days of IV rocephin - abx d/c (3) Elevated d-dimer: Plan: likely 2nd to #1 itself LE venous dopplers neg for DVT perfusion scan of lungs negative o2 sats 100% in room air (4) Inappropriate sinus tachycardia: Plan: s/p ablation procedures in past along with pacemaker placement by Dr Julio appreciate his consult he added back metoprolol succ 12.5mg BID pacing on monitor and no further tachycardia BPs are low-normal - may only tolerate once daily metoprolol rather than BID dosing (5) Interstitial cystitis: Plan: cont outpatient meds no active UTI at this time (6) Hypothyroidism: Plan: TSH WNL in August 2022 Cont [place] Thyroid (7) Cardiac arrest as complication of care: Plan: Noted history of this following sino-atrial node ablation for inappropriate sinus tachycardia. Requirement for subsequent ablation and risk of recurrence was the reason for her pacemaker insertion. (8) Cervicalgia: Plan: s/p c-spine surgery x 2 in 2021 chronic pain from such - uses dilaudid prn reports b/l arm weakness - obtained MRI c-spine today - no neural compromise, hardware intact, no stenosis follows with ortho[place]ine in [place] will push those [place] [facility] [place]) Chronic headaches: Plan: migraine type headaches by history she now has acute headache imitrex SC 6mg x 1 along with zofran improved the headache MRA head neg for aneurysm MRI brain neg for any abnormalities consider neurology referral for chronic headaches Plan VTE Prophylaxis - Lovenox 40mg SQ daily Diet - regular hopefully can dc home tomorrow Admission and Anticipated Discharge Date Admission Date: February 12, 2023 Subjective patient underwent MRI brain, MRA brain, MRI c-spine today she was anxious about her scans also anxious because she thinks the MRI c-spine should have been with IV contrast? she is to see ortho-spine (or neurosurgery) for her c-spine in the next few weeks she continues with cough but no worse than previous eating a little better fatigue a little better headache improved s/p imitrex SC yesterday no new issues anxiety - previously tried buspar and multiple other meds w/o improved symptoms does have a counselor tele overnight - pacing or NSR; no tachycardia Review of Systems Review of Systems: gen - no further fevers, but did have sweats overnight cv - no chest pain pulm - no dyspnea GI - no pain Physical Exam Physical Exam: gen - looks better today, NAD, lying in bed comfortably mouth - MMM neck - no JVD heart - RRR, s1 s2, no murmur lungs - scant dry rales bases; no wheeze; no increased work of breathing; did not cough during the visit bd - soft NT ND BS+; no flank tenderness to palpation ext - no edema pulses 2+ b/l Results & Data Results & Data Vital Signs (Past 12 Hours) Vital Signs Temp Pulse Resp BP Pulse Ox O2 Del Method 02/16/23 20:33 36.8 C 90 20 108/74 94 Room Air 02/16/23 16:05 36.8 C 88 20 115/61 94 Room Air 02/16/23 11:24 36.6 C 81 18 107/71 97 Room Air Diagnostic Findings Brain MRI 02/16/23 00:00 MRI OF THE BRAIN WITHOUT IV CONTRAST CLINICAL HISTORY: Chronic migraine headache COMPARISON STUDY: No priors. TECHNIQUE: MRI of the brain was performed utilizing various T1 and T2-weighted sequences in the axial, sagittal, and coronal planes. IV contrast was not administered for this examination. FINDINGS: Brain parenchyma: The brain parenchyma is normal in appearance. There is no hemorrhage or mass effect. There is no restricted diffusion to suggest acute ischemia. Orellana-white matter differentiation is preserved. No extra-axial fluid collection is seen. The cerebellar tonsils are normal in configuration. Ventricles, sulci, and cisterns: Normal in configuration. Pituitary and sella: Unremarkable. Intracranial vasculature: Normal flow voids are maintained at the skull base. Orbits: The bony orbits are grossly intact. Orbital contents are normal in appearance. Sinuses and mastoids: There is moderate mucosal thickening within the maxillary antra, as well as the ethmoid and sphenoid sinuses. Trace mucosal thickening is noted in the left frontal sinus. The metatarsals are clear. Calvarium: Unremarkable. Cervical cord: Partially visualized cervical spinal cord is normal in morphology and signal intensity. IMPRESSION: No intracranial abnormality is identified. ACT 112: Negative or not required by law. Electronically signed by: Tavon Acosta M.D. 02/16/2023 12:54 PM Head MRA 02/16/23 00:00 MR angio head wo con HISTORY: 32 years-old Female family h/o brain aneurysms screening study in a patient with history of aneurysms. No acute complaints COMPARISON: Brain MRI of same day TECHNIQUE: MRA of the head was obtained without the use of IV contrast utilizing 3-D [id number]-[id number] sequencing with MIP reformats. FINDINGS: The imaged internal carotid arteries appear normal and are widely patent. The middle and anterior cerebral arteries are patent. The imaged distal vertebral arteries, basilar and posterior cerebral arteries also appear normal. No aneurysm, dissection, high-grade stenosis or arterial occlusion identified. IMPRESSION: Unremarkable MRA of the head. ACT 112: Negative or not required by law. The above report was generated using voice recognition software. It may contain grammatical, syntax or spelling errors. Electronically signed by: Viktor Hallman M.D. 02/16/2023 12:59 PM Cervical Spine MRI 02/16/23 08:45 CERVICAL SPINE MRI HISTORY: b/l arm weakness, h/o c-spine surgery TECHNIQUE: Multiplanar multisequence MRI of the cervical spine was performed without the use of contrast. COMPARISON STUDY: Cervical spine CT 02/10/2023. Cervical spine MRI 04/22/2022. FINDINGS: Suboptimal evaluation of the cervical spine due to the mild motion artifact. Anterior cervical discectomy and fusion again noted from C4 through C6. Metallic artifact results in suboptimal evaluation of these levels. There is straightening of the cervical spine, unchanged. No definite fracture or subluxation. There is a normal marrow signal intensity seen throughout the visualized osseous structures. Remaining disc spaces are preserved. Prevertebral soft tissues and the C1-C2 interval are intact. The posterior fossa is unremarkable. The cervical spinal cord appears normal in course, caliber, and signal intensity. C2-C3: No significant central canal or neural foraminal narrowing. C3-C4: No significant central canal or neural foraminal narrowing. C4-C5: Suboptimally assessed due to the metallic artifact. No definite central canal or neural foraminal narrowing. C5-C6: Suboptimally assessed due to the metallic artifact. No definite central canal or neural foraminal narrowing. C6-C7: No significant central canal or neural foraminal narrowing. C7-T1: No significant central canal or neural foraminal narrowing. IMPRESSION: 1. Suboptimal evaluation of the cervical spine due to the mild motion artifact and the metallic artifact within the mid cervical spine from the prior C4-C6 ACDF. 2. No fracture or subluxation. 3. No significant central canal or neural foraminal narrowing. 4. The cervical spinal cord appears within normal limits. ACT 112: Negative or not required by law. Electronically signed by: Delfin Rice M.D. 02/16/2023 3:03 PM PG Care Time/CCT Total # of Minutes Spent Total Time Spent with Patient: Total time spent is greater than 50% in coordination of care (as documented) at patient's floor/unit and/or counseling patient: Coding Level of Care Code 75712 SUB INP/OBS CARE 2/35MIN Diagnoses COVID-19 U07.1 Pyelonephritis N12 Elevated d-dimer R79.89 Inappropriate sinus tachycardia R00.0 Interstitial cystitis N30.10 Hypothyroidism E03.9 Cardiac arrest as complication of care Cervicalgia M54.2 Chronic headaches R51.9; G89.29
[2023-02-17] MEDS: ARMOUR THYROID 30 MG TAB PO SCH (06:34)
[2023-02-17 07:43] LABS: Calcium 8.5 mg/dl (8.6-10.3); Creatinine Clr Calc Pharmacy 161.4 ml/min; Est GFR (African American) 147.4 ml/min; Est GFR (Non-African American) 127.2 ml/min; Magnesium 2.1 mg/dl (1.7-2.4); Potassium 4.1 mmol/L (3.5-5.1)
[2023-02-17] MEDS: METOPROLOL SUCC 25MG EXT REL TAB PO SCH (08:27)
[2023-02-17] MEDS: MAGNESIUM OXIDE 400 MG TAB PO SCH (08:27)
[2023-02-17] MEDS: ASCORBIC ACID 500 MG TAB PO SCH (08:28)
[2023-02-17] MEDS: CYANOCOBALAMIN (B-12) 2,500 MCG TABLET SL SCH (08:28)
[2023-02-17] MEDS: LORATADINE 10 MG TAB PO SCH (08:28)
[2023-02-17] MEDS: PENTOSAN POLYSULFATE SODIUM 100 MG CAP PO SCH ×2 (08:28→14:46)
[2023-02-17] MEDS: guaiFENesin 600 MG TABCR PO SCH (08:28)
[2023-02-17] MEDS: ZINC SULFATE 220 MG CAPSULE PO SCH (08:28)
[2023-02-17] MEDS: CHOLECALCIFEROL 1,000 UNITS 25 MCG TAB PO SCH (08:28)
[2023-02-17] MEDS: BENZONATATE 100 MG CAPSULE PO SCH ×2 (08:28→14:46)
--- NOTE | 2023-02-17 14:20 | Discharge Summary ---
Date of Service February 17, 2023 Admission HPI Per Admitting Provider Jocelin Brown is a 32 year old female with complex medical history of cervical spine surgery, inappropriate sinus tachycardia and interstitial cystitis who presents to the ER with shortness of breath, tachycardia and fever. Symptoms started yesterday and progressively got worse today with her heart rate 160-180s and significant shortness of breath. She reports T max 103 degrees Fahrenheit yesterday. This is on a background of recent UTI being treated by urology with ampicillin just started yesterday. She reports chronic bilateral (right > left) flank pain, suprapubic pain and difficulty urinating since have a straight cath following cervical spine surgery in March. She is under urology for this with a diagnosis of interstitial cystitis. She did not have a urine culture for months until November when she said she had three different bacteria in her urine (presumably this result is in the [facility] EHR as I cannot confirm this on [employer]). Since then she has been on three different antibiotics which tend to help but not resolve her suprapubic and flank pain. Due to worsening symptoms another urine culture was performed on January 19. She was initially treated with nitrofurantoin for 7 days although she was called yesterday ( I am unclear why) to start on a course of ampicillin. She reports her urine analysis is normally negative but subsequent cultures grow bacteria. She notes her right flank pain is currently much worse than usual. In the ER SARS-COV-2 PCR positive. She does report exposure to someone with a child who was coughing on around Tuesday earlier in the week. She is not hypoxi c. D-dimer was elevated but unfortunately is unable to undergo CT for PE de to prior anaphylactic reaction to iodinated contrast. She was referred to medicine for elevated d-dimer, palpitations and elevated lactate. Discharge Exam gen - looks better today, NAD, lying in bed comfortably mouth - MMM neck - no JVD heart - RRR, s1 s2, no murmur lungs - scant dry rales bases; no wheeze; no increased work of breathing; did not cough during the visit bd - soft NT ND BS+; no flank tenderness to palpation ext - no edema pulses 2+ b/l Discharge Data Allergies Allergy/AdvReac Type Severity Reaction Status Date / Time colchicine Allergy Unknown Hives Verified 02/12/23 14:59 Iodinated Contrast Media AdvReac Severe Anaphylaxis Verified 02/13/23 11:19 NSAIDS (Non-Steroidal AdvReac Unknown Palpitation Verified 02/12/23 14:59 Anti-Inflamma s oxycodone [From Percocet] AdvReac Unknown Itching Verified 02/12/23 14:59 Consultations 02/12/23 14:25 ED Decision to Admit Stat 02/12/23 18:17 Consult Cardiology Routine 02/17/23 08:12 Burn CD for patient Routine Ordered Studies 02/13/23 00:00 US venous doppler LE BI Urgent 02/16/23 00:00 MR angio head wo con Routine MR brain wo con Routine 02/16/23 08:45 MR cervical spine wo con Routine Hospital Course (1) COVID-19: Mild Stable Improving stable o2 sats cxr 02/15 neg for pneumonia cont to have no indication for Remdesivir or steroid therapy cont airborne precautions cont tessalon pearles cont mucinex BID (2) Pyelonephritis: ruled out blood cx's negative u/a completely normal urine cx negative s/p 3 days of IV rocephin - abx d/c (3) Elevated d-dimer: likely 2nd to #1 itself LE venous dopplers neg for DVT perfusion scan of lungs negative o2 sats 100% in room air (4) Inappropriate sinus tachycardia: s/p ablation procedures in past along with pacemaker placement by Dr Julio appreciate his consult he added back metoprolol succ 12.5mg BID pacing on monitor and no further tachycardia BPs are low-normal - may only tolerate once daily metoprolol rather than BID dosing (5) Interstitial cystitis: cont outpatient meds no active UTI at this time (6) Hypothyroidism: TSH WNL in August 2022 Cont [place] Thyroid (7) Cardiac arrest as complication of care: Noted history of this following sino-atrial node ablation for inappropriate sinus tachycardia. Requirement for subsequent ablation and risk of recurrence was the reason for her pacemaker insertion. (8) Cervicalgia: s/p c-spine surgery x 2 in 2021 chronic pain from such - uses dilaudid prn reports b/l arm weakness - obtained MRI c-spine today - no neural compromise, hardware intact, no stenosis follows with ortho[place]spine in [place] will push those films via PACS [place] [facility] (9) Chronic headaches: migraine type headaches by history she now has acute headache imitrex SC 6mg x 1 along with zofran improved the headache MRA head neg for aneurysm MRI brain neg for any abnormalities consider neurology referral for chronic headaches Plan VTE Prophylaxis - Lovenox 40mg SQ daily Diet - regular hopefully can dc home tomorrow Discharge Plan Discharge Items Patient Disposition: Home - Self-Care Reason For Visit: COVID-19 Infection Discharge Diagnosis: 1. COVID-19 infection - improving 2. tachycardia (fast heart rate) - improved with medication 3. chronic, bothersome urinary tract symptoms (interstitial cystitis) - no urinary tract infection while here 4. chronic headaches 5. history of cervical spine surgery 6. family history of brain aneurysm - no aneurysms seen on brain MRA Activity: As commented below Activity Comment: gradually increase activities over the next week Non-emergency contact: Primary Care Provider, Specialist and Respiratory Tech Call non-emergency contact if: you have any medication questions, your symptoms worsen, your pain is not controlled, your pain is worsening and you have a fever Follow-up/Referrals: Mushtaq Majano MD [Physician] - 05/16/23 3:00 pm (THIS APPOINTMENT WILL BE WITH WILL) Scott Julio MD [Physician] - (please call Dr Julio's office to schedule follow-up in about 3-4 weeks) Alex Blanton MD [Outside Practitioners] - (see your neck surgeons at [facility] as scheduled; be sure to bring your CD with your films to that appointment) Ernesto Manzo MD [Resident] - 02/22/23 1:45 pm Diet: Regular Addtl Attending Provider Instructions: , You were hospitalized for COVID-19 infection. There was also some concern early on about possible urinary tract infection or even kidney infection. Your urine and blood cultures were both negative. Your urinalysis was normal as well. Thus, we did not find any urinary infection or bloodstream infection. Chest x-rays on two occasions did not show any pneumonia. Your scan of your lungs for blood clots was normal. Your dopplers of your legs did not show any blood clots in the legs either. Dr Julio saw you for your heart and your tachycardia. He started you back on "beta pipo" medication and this worked very well at controlling your fast heart rate. Due to chronic headaches we obtained an MRI of the brain and MRA of the head. Both studies were normal - we did not find tumors, excess fluid on the brain, aneurysms, or any other abnormalities. Your MRI of the cervical spine showed intact hardware and no other abnormalities. The openings through which the nerves travel appeared well opened. Your COVID symptoms gradually improved with time and supportive care. Your oxygen levels were normal throughout your stay. Recommendations - 1. For cough/wheeze/shortness of breath - * tessalon pearles 100mg every 8 hours as needed * xqtf-lof-bqnypjg mucinex up to 1200mg twice daily as needed * Xopenex inhaler - 2 puffs every 6 hours as needed for cough/wheeze/shortness of breath; use with spacer device (see handout) 2. For your heart take - * Bystolic 2.5mg once daily - first dose AM of 02/18/23 3. Through the COVID pandemic we have seen that the virus itself can increase the risk of DVT blood clots by way of "thickening the blood." Taking control pills can also increase the risk of DVT blood clots. To reduce the risk of developing clots during your recovery from COVID I would recommend taking -- * zffr-[id number]-[id number] aspirin, 81mg twice daily, for about 4 weeks * take the aspirin with food 4. Isolation - to be on the safe side I would recommend isolating at home through Tuesday, February 21. At that time you can return to normal activities out in the community as long as you are continuing to feel better and if you have no fever this weekend. 5. Focus on good nutrition and staying well-hydrated over the next week as you recover from your illness. 6. During your recovery take it easy and gradually increase activities as juvencio ated. Follow-up - see separate section Return to [facility] if - * you develop recurrent fevers over 101 degrees * you have worsening shortness of breath * you have chest pains * you have inability to eat or drink due to nausea/vomiting * you have severe headaches * any other concerns It was our pleasure to care for you! Please continue to feel better & Happy Birthday, Dr Olivas Pending Studies at Discharge: No Stand-Alone Forms: My [facility], Smoking Cessation Medications and DC Order Prescriptions: New benzonatate 100 mg Capsule 100 mg PO TID PRN (Reason: cough) Qty: 20 0RF nebivolol [Bystolic] 2.5 mg tablet 2.5 mg PO DAILY Qty: 30 2RF levalbuterol tartrate [Xopenex HFA] 45 mcg/actuation HFA aerosol inhaler 2 inh inhalation Q6H PRN (Reason: shortness of breath/cough/wheeze) Qty: 15 0RF (DME) Aerochamber MV Spacer See Rx Instructions .Route Qty: 10 0RF Rx Instructions: As directed with Xopenex HFA aspirin 81 mg tablet,delayed release (DR/EC) 81 mg PO BID Qty: 60 0RF Rx Instructions: purchase [id number] Continued diazepam [Valium] 10 mg tablet 10 mg PO TID PRN (Reason: Anxiety) hydromorphone [Dilaudid] 4 mg tablet 4 mg PO Q4H PRN (Reason: Migraine Headache) ethynodiol diac-eth estradiol [Zovia 1-35 (28)] 1-35 mg-mcg tablet 1 tab PO DAILY Qty: 84 0RF Rx Instructions: take active pills only in cont fashion, no placebo pills. magnesium 500 mg PO DAILY pyridoxine (vitamin B6) 1 tab PO DAILY onabotulinumtoxinA [Botox] 1 syringe intradermal UD Rx Instructions: Q 12 weeks Elmiron 100 mg capsule 100 mg PO TID 90 Days Qty: 270 3RF thyroid (pork) [[place] Thyroid] 60 mg tablet 60 mg PO QAM MDD 75mg Qty: 90 3RF Rx Instructions: 60 mg PO Take 1 tablet daily along with a 15mg tablet; thyroid (pork) [[place] Thyroid] 15 mg tablet 15 mg PO QAM MDD 75mg Qty: 90 3RF Rx Instructions: 15 mg PO Take 1 tablet daily along with a 60mg tablet; sumatriptan succinate 50 mg Tablet 50 mg PO UD PRN (Reason: migraines) ascorbic acid (vitamin C) [Vitamin C] 1,000 mg Tablet 1 g PO DAILY cyanocobalamin (vitamin B-12) [Vitamin B-12] 2,500 mcg Tablet, Sublingual 2,500 mcg SUBLINGUAL DAILY zinc 50 mg Tablet 50 mg PO DAILY loratadine 10 mg Tablet 10 mg PO DAILY cholecalciferol (vitamin D3) 25 mcg (1,000 unit) Tablet 25 mcg PO DAILY [id number] tablet 1 tab PO DAILY Discontinued nitrofurantoin monohyd/m-cryst [Macrobid] 100 mg capsule 100 mg PO BID 7 Days Qty: 14 0RF Rx Instructions: must administer with a meal/food ampicillin 500 mg capsule 500 mg PO QID 7 Days Qty: 28 0RF Discharge Orders: Discharge Order (Routine); Ordered 02/17/23 Ordered By: Albert Alvarado/Other Patient Handouts: Using an Inhaler with a Spacer Admission Data Admit Date/Time: 02/12/23 15:35 Attending Provider: Albert Olivas Admit Provider: Albert Anaya Primary Care Provider: Juan Manuel Christensen Other Providers: Albert Anaya ; Juan Manuel Kerr Coding Diagnoses COVID-19 U07.1 Pyelonephritis N12 Elevated d-dimer R79.89 Inappropriate sinus tachycardia R00.0 Interstitial cystitis N30.10 Hypothyroidism E03.9 Cardiac arrest as complication of care Cervicalgia M54.2 Chronic headaches R51.9; G89.29
[2023-02-17] MEDS: ACETAMINOPHEN 325 MG TAB PO PRN (14:46)
== END 2023-02-17 16:31 | disposition home or self-care (01) ==
LOC: ED 12:27 → 2N 15:35 → SUATTDRO 15:35 → INTOOBSV 15:35 → 2N 17:48

== ENCOUNTER 2023-12-16 17:43 | Inpatient (IN) ==
--- NOTE | 2023-12-16 17:58 | ED Triage Note ---
Date of Service December 16, 2023 Provider in Triage Author: Lashonda Cooper History of Present Illness This patient was briefly evaluated while in triage. An abbreviated physical exam was performed. This patient is a 33-year-old Female who presents to the ED for evaluation of concern by mother that she overdosed on her fentanyl patch. She was started on this about 2.5 weeks ago for her back/neck pain. Her dosage was just increased from 1 patch to 2 patches every 72 hours. Her mother states that the patient was talking to her girlfriend and seemed to be off, hallucinating and slurring her speech. The girlfriend called her mother who came home and removed 1 fentanyl patch, the patient had already removed 1 before she came home. Patient is now tearful, complaining of severe back pain. Physical Exam VITALS: Vitals are noted on the nurse's note and reviewed by myself. GENERAL: This is a 33-year-old female, tearful, shaky. HEART: Regular rate and rhythm without murmurs gallops or rubs. LUNGS: Clear to auscultation bilaterally without wheezes, rales or rhonchi. NEURO: Patient was alert and oriented to person place and time. Initial orders for labs and / or imaging were placed and patient was placed in the waiting area until a bed is available. Please see further documentation for the full ED course.
[2023-12-16 18:47] LABS: Basophils # (auto) 0.03 K/uL (0.00-0.20); Basophils % (auto) 0.4 %; Eosinophils # (auto) 0.01 K/uL (0.00-0.50); Eosinophils % (auto) 0.1 %; Hematocrit (blood only) 42.2 % (37.0-47.0); Immature Granulocytes # (auto) 0.03 K/uL (0.01-0.20); Immature Granulocytes % (auto) 0.4 %; Lymphocytes # (auto) 1.07 K/uL (1.20-3.40); Lymphocytes % (auto) 13.6 %; Mean Corpuscular Hemoglobin 27.1 pg (25.0-34.0); Mean Corpuscular Hgb Conc 33.2 g/dL (32.0-36.0); Mean Corpuscular Volume 81.6 fL (80.0-100.0); Mean Platelet Volume 11.1 fL (9.4-12.4); Monocytes # (auto) 0.31 K/uL (0.11-0.59); Monocytes % (auto) 3.9 %; Neutrophils # (auto) 6.43 K/uL (1.40-6.50); Neutrophils % (auto) 81.6 %; Platelet Count 268 K/uL (130-400); RDW Coefficient of Variation 13.8 % (11.5-14.5); RDW Standard Deviation 40.9 fL (36.4-46.3); Red Blood Count 5.17 M/uL (4.20-5.40); White Blood Count 7.88 K/ul (4.8-10.8)
[2023-12-16 19:14] LABS: Albumin Level 4.4 gm/dl (3.4-5.0); Anion Gap 7 (3-11); Bilirubin,Total 0.3 mg/dl (0.2-1.0); Calcium 9.2 mg/dl (8.6-10.3); Carbon Dioxide 24 mmol/L (21-32); Chloride 103 mmol/L (98-107); Sodium 134 mmol/L (136-145)
[2023-12-16 19:20] LABS: Alanine Aminotransferase 16 U/L (7-52); Albumin Globulin Ratio 1.5 (0.9-2); Alkaline Phosphatase 72 U/L (34-104); Aspartate Aminotransferase 17 U/L (13-39); BUN Creatinine Ratio 16.7 (10-20); Blood Urea Nitrogen 9 mg/dl (6-23); Est GFR (African American) 143.7 ml/min; Glucose 114 mg/dl (70-99(Fasting)); Total Protein 7.4 gm/dl (6.0-8.3)
[2023-12-16 20:37] LABS: Appearance Urine Clear (Clear); Bilirubin Urine Negative (Negative); Blood Urine Negative (Negative); Color Urine Yellow; Glucose Urine UA Negative (Negative); Ketones Urine Negative (Negative); Leukocyte Esterase Urine 1+ (Negative); Nitrite Urine Negative (Negative); Protein Urine Negative (Negative); Specific Gravity Urine 1.009 (1.000-1.030); Urobilinogen Urine Negative (Negative); pH Urine 7.5 (4.5-7.5)
[2023-12-16 20:47] LABS: Bacteria Urine 1+ (Negative); Hyaline Casts Urine 0-5 /lpf (0-5); Mucus Urine Present (None Prsent); RBC Urine 0-4 /hpf (0-4)
[2023-12-16] MEDS: HYDROmorphone INJ 1 MG/ML SYRINGE IV STA (21:51)
[2023-12-16 21:57] LABS: Amphetamines+Metham, Urine Neg (Neg); Barbiturates, Urine Neg (Neg); Benzodiazepine, Urine Pos (Neg); Cocaine, Urine Neg (Neg); MDMA (Ecstacy), Urine Neg (Neg); Marijuana, Urine Pos (Neg); Methadone, Urine Neg (Neg); Opiate, Urine Pos (Neg); Phencyclidine, Urine Neg (Neg)
[2023-12-16] MEDS: BACLOFEN 20 MG TAB PO STA (22:15)
[2023-12-16] MEDS: tiZANidine HCL 4 MG TABLET PO STA (22:23)
[2023-12-16] MEDS: diazePAM 5 MG/ML 10ML VIAL IV STA (22:23)
--- NOTE | 2023-12-16 22:27 | Emergency Department Note ---
Impression & Plan Chronic pain ED Provider Note NAME: JOEL TAYLOR AGE: 33 SEX: F : 1990 ARRIVES VIA: Walk-In INFORMANT: Patient, ED PROVIDER(S): Nam Maldonado MD CHIEF COMPLAINT: Medication overdose/withdrawal/pain HPI: This is a 33-year-old female with history of cervical spine fusion, SVT, Damion's thyroiditis presenting for possible medication overdose/withdrawal and pain. Patient recently had medication changes and was previous on high doses of Dilaudid orally as well as Valium. Patient has not had a decrease in her Dilaudid dose and increasing her fentanyl patch dose. Mother states that patient was confused earlier this afternoon, not making sense making calls and patient remembering. Patient will get 2 fentanyl patches on, as this was the medication change. Patient herself had removed 1 and mother remove the other around 5 PM. They then presented here for further evaluation. Patient now in excruciating neck pain. She recently had a cervical fusion after removal of spinal hardware which failed. ROS: See above HPI for pertinent positives & negatives. A total of 10 systems reviewed and were otherwise negative. PAST MEDICAL HISTORY: See Below PAST SURGICAL HISTORY: See Below FAMILY HISTORY: See Below SOCIAL HISTORY: See Below HOME MEDICATIONS: See Below ALLERGIES: See Below VITALS: See Below PHYSICAL EXAMINATION: General: Significant distress due to pain Head: Normocephalic and atraumatic Eyes: Normal inspection, extraocular muscles intact Ear, nose, throat: Normal external exam Neck: Normal range of motion Respiratory: lungs clear to auscultation bilaterally Cardiovascular: Regular rate/rhythm, no murmur GI: soft, nontender, no guarding or rebound Extremities: nontender, moves all extremities Neuro: Moves extremity spontaneously, awake and alert Skin: Warm, dry, and intact MEDICAL DECISION MAKING: This is a 33-year-old female with history of cervical spine fusion, Damion's diabetes presenting for possible medication overdose/withdrawal. Patient has a longstanding history of pain management and opioid prescription. Mother found her confused and took off fentanyl patches. Patient having excruciating spasming pain to her cervical spine. She had previous spinal fusion after a failed disc replacement. At this time will evaluate cervical spine for any fractures or surgical complications. Patient is an anaphylactic reaction to contrast. -Otherwise pain medications are limited as patient has allergies to NSAIDs -Patient given Valium, Dilaudid, Flexeril -Patient notes adverse reaction of Flexeril, requesting tenacity instead -Despite multiple doses of pain medications, patient still in excruciating severe muscle spasm and pain, patient is persistently tearful and crying in bed with episodes of spasm -Patient uses high doses of opiates, will likely require admission for pain control -Patient is comfortable with attempting ketamine use for pain control after multiple other methods of failed -Cervical spine did not reveal any new process -Will admit for further pain control as pain is still not adequately controlled Differential diagnosis: Hypersensitivity reaction, cervical spine fracture, spinal abscess ER treatment provided: See below Diagnostics interpreted by me: ECG: ECG independently interpreted by me with normal sinus rhythm, rate of 100, normal axis, normal VA, normal QRS, normal QTc, no ST segment elevations consistent with STEMI criteria Cardiac Monitoring: An order was placed for continuous cardiac monitoring. The monitor shows a rate of with rhythm. Laboratory studies: As stated above and show below. Imaging studies: See below. Past Med/Surg History Medical History (Updated 12/18/23 @ 00:34 by Nam Maldonado MD) History of anesthesia reaction TEND TO BURN THROUGH SEDATION QUICKLY Chronic headaches Chest pain Cervicalgia Congenital stricture of urethra Interstitial cystitis History of COVID-19 11/2020, TESTED THRU [facility] (-), BUT PARTNER TESTED POSITIVE AND THEY HAD ALL SAME SYMPTOMS>RESOLVED. END OF 01/2023, ADMITTED TO [facility] FOR 5 DAYS; WENT TO HOSPITAL WITH RT FLANK PAIN, FEVER, TACHYCARDIA, HEADACHE>RESOLVED. 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 HACKETT, [facility] SVT (supraventricular tachycardia) Hypothyroidism [place] Cardiomyopathy Cardiac arrest as complication of care 02/2019 [facility] [place]LLOWING CARDIAC ABLATION History of cardiac arrest 2018- during cardiac ablation - s/p pacemaker placement Per cardio records: Pt had cardiac ablation 02/23/19- "An hour after the procedure she developed what was felt to be an intense vagal reaction for which she received chest compressions, continued to have bradycardia and received epinephrine from which she developed ventricular tachycardia and required cardioversion. A temporary pacemaker was placed, coronary angiography was performed which was unremarkable. Echocardiography showed diffuse hypokinesis with ejection fraction of 25 to 30% and she was hypotensive and required norepinephrine support. By February 26, 2019 her ejection fraction had normalized and she was discharged the following day." Tachycardia Anxiety Surgical History (Updated 05/20/23 @ 14:11 by Leandra Knott PA-C) History of cardiac radiofrequency ablation 2015 [facility], 02/2019 [facility] [place], 06/2019 [facility] S/P cystourethroscopy with dilation of urethral stricture History of laparoscopy diagnostic laparoscopy + hysteroscopy 06/08/21 [facility] S/P cervical spinal fusion x2; ROM IS LIMITED H/O laparoscopy for ectopic, with salpingectomy Hx of tonsillectomy Hx of foot surgery History of dental surgery Family History Grandfather (Maternal) Coronary heart disease Grandmother (Paternal) Diabetes Aunt Breast cancer Uncle Colorectal cancer Family history of colonic polyps Other No family history of adverse response to anesthesia No family history of bleeding disorder Denies family history of Ovarian cancer Prostate cancer Myocardial infarction Social History Smoking Status: Never smoker Second Hand Exposure: No; Do You Dip or Chew Tobacco: No; Hx Alcohol Use: No Hx Substance Use: Yes Preferred Language: Greenlandic Communication Ability: Effective Visual Impairment: No Limitations Hvac Lead Required: No Beliefs That Will Affect Care: None Current Living Situation: Alone 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 Other Information That Helps Us Care for You: No Feels Safe at Home: Yes Safety Concerns: Feels Safe At This Time Assistive Devices: Contacts and Glasses Allergies Allergies Allergy/AdvReac Type Severity Reaction Status Date / Time colchicine Allergy Intermediate Hives Verified 12/16/23 19:11 oxycodone [From Percocet] Allergy Intermediate Itching Verified 12/16/23 19:11 Iodinated Contrast Media AdvReac Severe Anaphylaxis Verified 12/16/23 19:11 indomethacin AdvReac Intermediate Tachycardia Verified 12/16/23 19:11 NSAIDS (Non-Steroidal AdvReac Intermediate Palpitation Verified 12/16/23 19:11 Anti-Inflamma s Home Meds Home Medications Medication Instructions Recorded Confirmed onabotulinumtoxinA [Botox] 1 syringe intradermal DIRECTED 01/29/22 12/16/23 hydromorphone 4 mg tablet 4 mg PO QID PRN CERVICAL PAIN 07/28/22 12/16/23 (Dilaudid) ascorbic acid (vitamin C) 1,000 mg 1 g PO QAM 02/12/23 12/16/23 tablet (Vitamin C) cholecalciferol (vitamin D3) 25 25 mcg PO QAM 02/12/23 12/16/23 mcg (1,000 unit) tablet cyanocobalamin (vitamin B-12) 2,500 mcg sublingual QAM 02/12/23 12/16/23 2,500 mcg sublingual tablet (Vitamin B-12) loratadine 10 mg tablet 10 mg PO QAM 02/12/23 12/16/23 turmeric root extract 500 mg 500 mg PO HS 04/05/23 12/16/23 capsule diazepam 2 mg tablet 2 mg PO DIRECTED PRN NEEDED 11/30/23 12/16/23 PER PT fentanyl 25 mcg/hr transdermal 2 patch transdermal Q72H 11/30/23 12/16/23 patch etonogestrel 0.12 mg-ethinyl 1 vag ring vaginal DIRECTED 12/16/23 12/16/23 estradiol 0.015 mg/24 hr vaginal ring (NuvaRing) magnesium oxide 500 mg tablet 500 mg PO DAILY 12/16/23 12/16/23 pyridoxine (vitamin B6) 250 mg 0 mg PO DAILY 12/16/23 12/16/23 tablet (Vitamin B-6) zinc gluconate 50 mg tablet 50 mg PO DAILY 12/16/23 12/16/23 Previous Rx's Medication Instructions Recorded pentosan polysulfate sodium 100 mg 100 mg PO TID 90 days #270 caps 01/04/23 capsule (Elmiron) divalproex 500 mg tablet,extended 500 mg PO HS #7 tabs 05/16/23 release 24 hr (Depakote ER) nebivolol 5 mg tablet 5 mg PO DAILY #90 tabs 06/01/23 galcanezumab-gnlm 120 mg/mL 120 mg subcut MONTHLY #1 mL 07/08/23 subcutaneous pen injector (Emgality Pen) [place] Thyroid 15 mg tablet 15 mg PO QAM #90 tabs 08/11/23 (thyroid (pork)) [place] Thyroid 60 mg tablet 60 mg PO QAM #90 tabs 08/11/23 (thyroid (pork)) rizatriptan 10 mg tablet See Rx Instructions PO .COMPLEX #9 11/30/23 tabs Results & Data (ED) Vital Signs Vital Signs - 24 hr 12/17/23 01:00 12/17/23 01:00 12/17/23 01:30 Pulse Rate 81 87 Pulse Rate from SpO2 Sensor 82 87 Respiratory Rate 12 16 Blood Pressure 117/77 Blood Pressure Mean 82 Pulse Oximetry 98 99 12/17/23 01:30 Pulse Rate Pulse Rate from SpO2 Sensor Respiratory Rate Blood Pressure 107/77 Blood Pressure Mean 85 Pulse Oximetry Laboratory Data 12/17/23 06:02 12/17/23 06:02 Lab Results 12/16/23 12/16/23 Range/Units 18:11 20:18 WBC 7.88 (4.8-10.8) K/ul RBC 5.17 (4.20-5.40) M/uL Hgb 14.0 (12.0-16.0) g/dl Hct 42.2 (37.0-47.0) % MCV 81.6 (80.0-100.0) fL MCH 27.1 (25.0-34.0) pg MCHC 33.2 (32.0-36.0) g/dL RDW Std Deviation 40.9 (36.4-46.3) fL RDW Coeff of Dorian 13.8 (11.5-14.5) % Plt Count 268 (130-400) K/uL MPV 11.1 (9.4-12.4) fL Immature Gran % (Auto) 0.4 % Neut % (Auto) 81.6 % Lymph % (Auto) 13.6 % [place] % (Auto) 3.9 % Eos % (Auto) 0.1 % Baso % (Auto) 0.4 % Neut # (Auto) 6.43 (1.40-6.50) K/uL Lymph # (Auto) 1.07 L (1.20-3.40) K/uL Lipscomb # (Auto) 0.31 (0.11-0.59) K/uL Eos # (Auto) 0.01 (0.00-0.50) K/uL Baso # (Auto) 0.03 (0.00-0.20) K/uL Immature Gran # (Auto) 0.03 (0.01-0.20) K/uL Sodium 134 L (136-145) mmol/L Potassium 4.0 (3.5-5.1) mmol/L Chloride 103 (98-107) mmol/L Carbon Dioxide 24 (21-32) mmol/L Anion Gap 7 (3-11) BUN 9 (6-23) mg/dl Creatinine 0.54 L (0.6-1.2) mg/dl Est Cr Clr Drug Dosing Not Reportable Est GFR ( Amer) 143.7 ml/min Est GFR (Non-Af Amer) 124.0 ml/min BUN/Creatinine Ratio 16.7 (10-20) Glucose 114 H (70-99(Fasting)) mg/dl Calcium 9.2 (8.6-10.3) mg/dl Total Bilirubin 0.3 (0.2-1.0) mg/dl AST 17 (13-39) U/L ALT 16 (7-52) U/L Alkaline Phosphatase 72 (34-104) U/L Total Protein 7.4 (6.0-8.3) gm/dl Albumin 4.4 (3.4-5.0) gm/dl Globulin 3.0 (2.5-4.0) gm/dl Albumin/Globulin Ratio 1.5 (0.9-2) Urine Color Yellow Urine Appearance Clear (Clear) Urine pH 7.5 (4.5-7.5) Ur Specific [place] 1.009 (1.000-1.030) Urine Protein Negative (Negative) Urine Glucose (UA) Negative (Negative) Urine Ketones Negative (Negative) Urine Blood Negative (Negative) Urine Nitrite Negative (Negative) Urine Bilirubin Negative (Negative) Urine Urobilinogen Negative (Negative) Ur Leukocyte Esterase 1+ H (Negative) Urine RBC 0-4 (0-4) /hpf Urine WBC 5-10 H (0-5) /hpf Ur Epithelial Cells 5-10 H (0-5) /lpf Urine Bacteria 1+ H (Negative) Hyaline Casts 0-5 (0-5) /lpf Urine Mucus Present A (None Prsent) Urine Opiates Screen Pos H (Neg) Ur Methadone, Qual Neg (Neg) Urine Barbiturates Neg (Neg) Ur Phencyclidine (PCP) Neg (Neg) U Amphetamin/Meth Scrn Neg (Neg) MDMA (Ecstasy) Screen Neg (Neg) U Benzodiazepines Scrn Pos H (Neg) Ur Cocaine Metabolite Neg (Neg) U Marijuana (THC) Screen Pos H (Neg) Administered Medications Ascorbic Acid (Ascorbic Acid 500 Mg Tab) 1,000 mg PO QAM [facility] Stop: 01/16/24 08:59 Last Admin: 12/17/23 09:29 Dose: 1,000 mg Documented By: WANDA Cyanocobalamin (Cyanocobalamin (B-12) 2,500 Mcg Tablet) 2,500 mcg [facility] Stop: 01/16/24 08:59 Last Admin: 12/17/23 09:30 Dose: 2,500 mcg Documented By: WANDA Diazepam (Diazepam 5 Mg/Ml 10ml Vial) 4 mg IV Q6H PRN PRN Reason: spasm Stop: 01/16/24 11:42 Last Admin: 12/17/23 19:31 Dose: 4 mg Documented By: Admin: 12/17/23 13:26 Dose: 4 mg Documented By: WANDA Divalproex Sodium (Divalproex Extended Release 500 Mg Tab) 500 mg PO [facility] Stop: 01/16/24 20:59 Last Admin: 12/17/23 20:11 Dose: 500 mg Documented By: EDWARD Hydromorphone HCl (Hydromorphone Inj 2 Mg/Ml Syr/Vial) 2 mg IV Q4H PRN PRN Reason: Pain Stop: 12/31/23 15:15 Last Admin: 12/17/23 23:56 Dose: 2 mg Documented By: Admin: 12/17/23 19:44 Dose: 2 mg Documented By: Admin: 12/17/23 16:00 Dose: 2 mg Documented By: TERESO Hydromorphone HCl (Hydromorphone Inj 1 Mg/Ml Syringe) 1 mg IV Q6H PRN PRN Reason: Pain Stop: 12/31/23 18:26 Last Admin: 12/17/23 18:34 Dose: 1 mg Documented By: TERESO Lactated Ringer's (Lr) 1,000 mls @ 80 mls/hr IV .[id number] [facility] Stop: 01/16/24 11:29 Last Admin: 12/17/23 11:35 Dose: 80 mls/hr Documented By: WANDA Acetaminophen (Ofirmev) 1,000 mg in 100 mls @ 400 mls/hr IV Q8H [facility] Stop: 12/20/23 22:59 Last Infusion: 12/17/23 23:15 Dose: Infused Documented By: Admin: 12/17/23 23:00 Dose: 400 mls/hr Documented By: JENNIFER Loratadine (Loratadine 10 Mg Tab) 10 mg PO QAM [facility] Stop: 01/16/24 08:59 Last Admin: 12/17/23 09:30 Dose: 10 mg Documented By: WANDA Magnesium Oxide (Magnesium Oxide 400 Mg Tab) 400 mg PO DAILY [facility] Stop: 01/16/24 08:59 Last Admin: 12/17/23 09:30 Dose: 400 mg Documented By: WANDA Metaxalone (Metaxalone 800 Mg Tablet) 800 mg PO TID [facility] Stop: 01/16/24 13:59 Last Admin: 12/17/23 20:11 Dose: 800 mg Documented By: Admin: 12/17/23 15:06 Dose: 800 mg Documented By: MANDO Metoprolol Tartrate (Metoprolol Tartrate 25 Mg Tab) 25 mg PO BID [facility] Stop: 01/16/24 08:59 Last Admin: 12/17/23 22:05 Dose: 25 mg Documented By: Admin: 12/17/23 09:30 Dose: Not Given Documented By: WANDA Pyridoxine HCl (Pyridoxine Hcl 50 Mg Tab) 50 mg PO DAILY [facility] Stop: 01/16/24 08:59 Last Admin: 12/17/23 09:30 Dose: 50 mg Documented By: WANDA Thyroid ([place] Thyroid 30 Mg Tab) 60 mg PO DAILYBB [facility] Stop: 01/16/24 06:29 Last Admin: 12/17/23 09:28 Dose: 60 mg Documented By: WANDA Thyroid ([place] Thyroid 30 Mg Tab) 15 mg PO DAILYBB [facility] Stop: 01/16/24 06:29 Last Admin: 12/17/23 09:29 Dose: 15 mg Documented By: WANDA Vitamin D (Cholecalciferol 1,000 Units 25 Mcg Tab) 1,000 units PO QAM [facility] Stop: 01/16/24 08:59 Last Admin: 12/17/23 09:30 Dose: 1,000 units Documented By: WANDA Zinc Sulfate (Zinc Sulfate 220 Mg Capsule) 220 mg PO DAILY [facility] Stop: 01/16/24 08:59 Last Admin: 12/17/23 09:30 Dose: 220 mg Documented By: WANDA Discontinued Medications Acetaminophen (Acetaminophen 1000 Mg/100 Ml Iv) Confirm Administered Dose 1,000 mg IV .STK-MED ONE Stop: 12/17/23 22:57 Last Admin: 12/17/23 23:00 Dose: Not Given Documented By: JENNIFER Baclofen (Baclofen 20 Mg Tab) 20 mg PO NOW STA Stop: 12/16/23 21:31 Last Admin: 12/16/23 22:15 Dose: Not Given Documented By: MICAELA Diazepam (Diazepam 5 Mg/Ml 10ml Vial) 2 mg IV NOW STA Stop: 12/16/23 22:12 Last Admin: 12/16/23 22:23 Dose: 2 mg Documented By: MICAELA Diazepam (Diazepam 2 Mg Tablet) 2 mg PO QID PRN PRN Reason: muscle spasm/anxiety Stop: 01/16/24 04:06 Last Admin: 12/17/23 11:03 Dose: 2 mg Documented By: WANDA Diazepam (Diazepam 5 Mg/Ml 10ml Vial) 4 mg IV NOW STA Stop: 12/17/23 23:28 Last Admin: 12/17/23 23:33 Dose: 4 mg Documented By: EDWARD Diphenhydramine HCl (Diphenhydramine 50 Mg/Ml Vial) 25 mg IV NOW STA Stop: 12/17/23 21:24 Last Admin: 12/17/23 21:43 Dose: 25 mg Documented By: EDWARD Hydromorphone HCl (Hydromorphone Inj 1 Mg/Ml Syringe) 1 mg IV NOW STA Stop: 12/16/23 21:32 Last Admin: 12/16/23 21:51 Dose: 1 mg Documented By: MARISA Hydromorphone HCl (Hydromorphone Inj 2 Mg/Ml Syr/Vial) 2 mg IV NOW STA Stop: 12/16/23 23:21 Last Admin: 12/17/23 02:35 Dose: Not Given Documented By: MICAELA Hydromorphone HCl (Hydromorphone Hcl 2 Mg Tab) 4 mg PO QID PRN PRN Reason: CERVICAL PAIN Stop: 12/31/23 04:12 Last Admin: 12/17/23 09:27 Dose: 4 mg Documented By: WANDA Hydromorphone HCl (Hydromorphone Hcl 2 Mg Tab) 4 mg PO NOW STA Stop: 12/17/23 05:25 Last Admin: 12/17/23 05:40 Dose: 4 mg Documented By: TAVO Hydromorphone HCl (Hydromorphone Inj 2 Mg/Ml Syr/Vial) 2 mg IV NOW STA Stop: 12/17/23 11:20 Last Admin: 12/17/23 11:36 Dose: 2 mg Documented By: WANDA Hydromorphone HCl (Hydromorphone Inj 1 Mg/Ml Syringe) 1 mg IV NOW STA Stop: 12/17/23 21:24 Last Admin: 12/17/23 22:00 Dose: 1 mg Documented By: EDWARD Hydromorphone HCl (Hydromorphone Inj 2 Mg/Ml Syr/Vial) 2 mg IV NOW STA Stop: 12/17/23 22:35 Last Admin: 12/17/23 22:58 Dose: 2 mg Documented By: JENNIFER Ketamine HCl 5 mg/ Sodium (Chloride) 50.1 mls @ 300.6 mls/hr IV NOW ONE Stop: 12/16/23 23:55 Last Admin: 12/17/23 04:08 Dose: Not Given Documented By: MARY Miscellaneous (Fentanyl Patch Remove & Waste) 1 each N/A ONE ONE Stop: 12/17/23 04:08 Last Admin: 12/17/23 05:07 Dose: Not Given Documented By: TAVO Tizanidine HCl (Tizanidine Hcl 4 Mg Tablet) 4 mg PO NOW STA Stop: 12/16/23 22:12 Last Admin: 12/16/23 22:23 Dose: 4 mg Documented By: AAW Discharge Plan Visit Data Chief Complaint: Overdose (Accidental) Stated Complaint: FETNAL PATCH, POSSIBLE OVERDOSE ED Provider: Nam Maldonado Discharge Problem: Chronic pain Patient Disposition: Admitted As Inpatient Discharge Instructions Interventions: ED Discharge Assessment Last Done: 12/17/23 04:06
--- NOTE | 2023-12-16 23:56 | CT Scan Report ---
Exam(s): CT C SPINE EXAM: CT Cervical Spine Without Intravenous Contrast CLINICAL HISTORY: Reason for exam: recent spine surg/fusion. TECHNIQUE: Axial computed tomography images of the cervical spine without intravenous contrast. CTDI is 20.14 mGy and DLP is 408.88 mGy-cm. Automated exposure control was utilized for the study. A dose lowering technique was utilized adhering to the principles of ALARA. COMPARISON: No relevant prior studies available. FINDINGS: The vertebral body heights are maintained. The craniocervical junction is intact. The atlanto-dens interval is maintained. The dens is intact. There is no spondylolisthesis. ACDF at C4-C5. Anterior interbody fusion at C5-C6. No CT evidence of hardware failure. Evaluation is limited due to motion artifact. The intervertebral disc spaces are preserved. There is no spinal canal or neural foraminal stenosis. IMPRESSION: No acute fracture or subluxation of the cervical spine. ACDF at C4-C5. Anterior interbody fusion at C5-C6. No CT evidence of hardware failure. Evaluation is limited due to motion artifact. Electronically signed by: Hector Patricia MD 12/16/23 23:55 PM
--- OUTSIDE RECORDS SUMMARY | 2023-12-17 00:12 | External Medical Summary | Continuity of Care Document ---
Author Name Unknown Organization [address] Address [address] [place] [address] [id number] Care Team Providers Care Abalone Sheller Name Role Phone Sandra Hsu Primary Care Physician [phone] Encounter [facility] [id number] Date(s): 12/06/23 - 12/06/23 [facility] [address] [place] [id number] [facility] Sports Medicine [address] [place], [place] [id number] Encounter Diagnosis Neck pain(Discharge Diagnosis) - 12/06/23 Discharge Disposition: Home or Self Care Attending Physician: DO Hsu Mehwish Allergies, Adverse Reactions, Alerts Substance Reaction Severity Status colchicine 1 hives unknown Active oxyCODONE Itching Active IVP dye SOB Active NSAIDS (nonsteroidal anti-inflammatory a gents) 2 Palpitations unknown Active 1hives 2tachycardia Assessment and Plan Extracted from: Title:Orthopaedics Office Visit Note Author:Olivia gr DO, Ravin Date:12/06/23 1.Neck pain She should continue with her multimodalpain plan that she has in place with her pain management doctor as well as neurosurgeon Risks, benefits, alternatives, and indications fortrigger point injections at9 sites of herback/neckwere discussed (we looked at4 areas on the left including theparaspinal musculature in the C-spinetrapezius muscleand rhomboidas well as5 areas on the right side of her neck including theparaspinal musculaturein the C-spine trapezius muscle levator rhomboid. Consent was obtained. [facility] was [facility] by Dr. Hsu.Alcohol prep pad was used. Ethyl chloride was used for skin anesthesia. Then, a 25 gaugeneedle was placed at the5 trigger points. This was then injected with1 cc of 1% Lidocaine in each region. Fenestration of the trigger points wasdone. Pt tolerated the procedure well. After care discussed. She is okay to follow-up and repeat injections in6 weeks, okay to alternate between Dr. Ferguson and myself. Immunizations Given and Recorded Vaccine Date Status Refusal Reason SARS-CoV-2 (COVID-19) mRNA BNT-162b2 vax 1 11/25/21 Recorded 1Result Comment: Left Deltoid, Lot #[id number] Medications Hertel Thyroid 15 mg oral tablet 75 mg =, PO, qAM Start Date: 11/28/19 Status: Ordered Botox 100 units injection Start: 10/03/23 13:39:00 EST, See Instructions, Disp# 1 each, Refills: 3, For IM injections for headaches, Pharmacy: [facility] Start Date: 10/03/23 Status: Ordered Dilaudid 4 mg oral tablet Start: 11/23/23 15:16:00 EST, 1 tab, PO, q6h, Disp# 100 tab, Refills: 0, Skip if feeling drowsy., PRN: as needed for pain, Pharmacy: [facility] Start Date: 11/23/23 Status: Ordered divalproex sodium 500 mg oral tablet, extended release Take one tablet by mouth daily at bedtime Start Date: 05/26/23 Status: Ordered Elmiron 100 mg oral capsule TAKE 1 CAPSULE BY MOUTH 3 TIMES A DAY Start Date: 06/08/22 Status: Ordered fentaNYL 25 mcg/hr transdermal film, extended release Start: 11/23/23 15:13:00 EST, 1 patch, topical, q72h, Disp# 10 patch, Refills: 0, Pharmacy: [facility] Start Date: 11/23/23 Status: Ordered magnesium oxide 400 mg (241.3 mg elemental magnesium) oral tablet Start: 10/02/21 13:56:00 EST, 1 tab, PO, qhs, Disp# 100 tab, Pharmacy: [facility] Start Date: 10/02/21 Status: Ordered Nebivolol 2.5 mg oral tablet TAKE 1 TABLET BY MOUTH DAILY Start Date: 02/22/23 Status: Ordered nebivolol 5 mg oral tablet Start: 10/24/23 11:24:00 EST, 1 tab, PO, Daily Start Date: 10/24/23 Status: Ordered Nurtec ODT 75 mg oral tablet, disintegrating Start: 05/26/23 16:17:00 EDT, 1 tab, PO, ONCE, every other day Start Date: 05/26/23 Status: Ordered NuvaRing Start: 10/24/23 11:26:00 EST Start Date: 10/24/23 Status: Ordered Retin-A 0.05% topical cream Start: 09/27/23 15:31:00 EST, 1 appl, topical, qhs, Disp# 45 g, Refills: 0, Pharmacy: [facility] Start Date: 09/27/23 Status: Ordered SUMAtriptan 50 mg oral tablet Start: 05/02/23 14:36:00 EDT, 1 tab, PO, ONCE, Disp# 18 tab, Refills: 0, as needed for migraine; may repeat dose in 2 hours if needed, PRN: as needed for migraine headache, Pharmacy: [facility] Start Date: 05/02/23 Status: Ordered Valium 2 mg oral tablet Start: 11/23/23 15:20:00 EST, 1 tab, PO, qid, Disp# 80 tab, PRN: as needed for anxiety, Pharmacy: [facility] Start Date: 11/23/23 Status: Ordered Vitamin B6 Start: 01/15/22 13:23:00 EST, 100 mg =, PO, Daily Start Date: 01/15/22 Status: Ordered Vitamin C Start: 12/23/22 9:13:00 EST, 1,000 mg =, Daily Start Date: 12/23/22 Status: Ordered Vitamin D3 1000 intl units (25 mcg) oral tablet Start: 12/23/22 9:13:00 EST, 1 tab, PO, Daily Start Date: 12/23/22 Status: Ordered Mental Status 12/06/23 Barriers to Learning one year None evide nt Mandatory Health Literacy Documentation Yes Health Literacy Communication Barriers N ever Primary Language Ukrainian Problem List Condition Confirmation Course Effective Dates Status H ealth Status Informant Acute upper respiratory infection, unspecified Confirmed Active Anxiety Confirmed Active Pacemaker Confirmed Active Herniation of cervical intervertebral disc with radiculopathy Confirmed Active Fusion of spine, cervical region Confirmed Active Chronic tension headaches Confirmed Active Disc disease, degenerative, cervical Confirmed Active History of sudden cardiac arrest successfully resuscitated 1 Confirmed Active History of supraventricular tachycardia Confirmed Active History of recurrent UTIs Confirmed Active Hypothyroidism Confirmed Active Inappropriate sinus tachycardia Confirmed Active Migraines Confirmed Active PTSD (post-traumatic stress disorder) Confirmed Active 1after ablation therapy Diagnosis Diagnosis Type Effective Dates Health Status [facility] Service Informant Neck pain Discharge Diagnosis 12/06/23 Procedures Procedure Date Related Diagnosis Body Site Status Laparoscopy 1 06/08/21 Completed Pacemaker implantation 06/29/19 Co mpleted Discectomy 2 11/21/16 Completed Ablation 3 Completed Arthroplasty 4 Completed Cervical spinal fusion Co mpleted Cystoureteroscopy 5 Compl eted Dental Completed Foot Completed History of tubal ligation Completed Laparoscopy 6 Completed Tonsillectomy Completed 1diagnostic laparoscopy and hysteroscopy 2With Dr. Blount ULANG 3x3 ablation treatment 4cervical 5With dilation of urethral structure 6For ectopic with salpingectomy Social History Social History Type Response Tobacco Former smoker, Cigar ettes, Stopped age 22 Years. Smoking Status Never smoked cigaret regino Sex Female Implantable Device List Procedure Provider Procedure Date Device Type Site Unknown Unknown 06/08/22 Unknown Unknown Device Identifier Serial Number Lot or Batch Number Manufacturing Date Expiration Date Distinct Identification Code MRI Safety Implantable Status Assigning Authority Unknown Unknown n/a Unknown 09/05/24 Unknown Unknown Active Unk nown Unknown Unknown n/a Unknown Unknown Unknown Unknown Active Unkn own Unknown Unknown n/a Unknown Unknown Unknown Unknown Active Unkn own Unknown Unknown n/a Unknown Unknown Unknown Unknown Active Unkn own Procedure Provider Procedure Date Device Type Site Unknown Unknown 03/09/22 Unknown Unknown Device Identifier Serial Number Lot or Batch Number Manufacturing Date Expiration Date Distinct Identification Code MRI Safety Implantable Status Assigning Authority Unknown Unknown [id number] Unknown 10/21/25 Unknown Unknown Active Unk nown Ortho Outpt Note * DO Hsu Mehwish: MODIFY DO Hsu Mehwish: MODIFY, MODIFY Event Display: Ortho Outpt Note Authored Date: [id number] Primary Care Provider DO Hsu Mehwish Chief Complaint Trigger point injections History of Present Illness Joel is a 33-year-old female who is coming in for continued evaluation ofneck pain. She is here for trigger point injectioninto the bilateralparaspinalmusculature as well as trapezius and rhomboids. Physical Exam Generalwell-appearing MSK: Paraspinalhypertonicity along the cervical spine Tenderness palpation along thebilateral trapezius muscles as well as bilateralrhomboid muscles Assessment/Plan 1.Neck pain She should continue with her multimodalpain plan that she has in place with her pain management doctor as well as neurosurgeon Risks, benefits, alternatives, and indications fortrigger point injections at9 sites of herback/neckwere discussed (we looked at4 areas on the left including theparaspinal musculature in the C-spinetrapezius muscleand rhomboidas well as5 areas on the right side of her neck including theparaspinal musculaturein the C-spine trapezius muscle levator rhomboid. Consent was obtained. [facility]Procedure was [facility] by Dr. Hsu.Alcohol prep pad was used. Ethyl chloride was used for skin anesthesia. Then, a 25 gauge needle was placed at the5 trigger points. This was then injected with1 cc of 1% Lidocaine in each region. Fenestration of the trigger points wasdone. Pt tolerated the procedure well. After care discussed. She is okay to follow-up and repeat injections in6 weeks, okay to alternate between Dr. Ferguson and myself. Attestation I was present with fellow during ocampo portions of the history and physical exam. I discussed the case with Dr. Maldonado and agree with the findings and plan, as documented in the fellow's note. I was present for the entirety of the procedure available for assistance and supervision- bilateral neck/upper back trigger point injection. Verbal consent obtained by me. - Dr. Sandra Hsu, DO CA[facility] Problem List/Past Medical History Ongoing Acute upper respiratory infection, unspecified Anxiety Chronic tension headaches Disc disease, degenerative, cervical Fusion of spine, cervical region Herniation of cervical intervertebral disc with radiculopathy History of recurrent UTIs History of sudden cardiac arrest successfully resuscitated History of supraventricular tachycardia Hypothyroidism Inappropriate sinus tachycardia Migraines Pacemaker PTSD (post-traumatic stress disorder) Historical Chest wall pain Opioid use Palpitations Prolonged QT interval Sinusitis Procedure/Surgical History Laparoscopy (06/08/2021)Pacemaker implantation (06/29/2019)Discectomy (11/21/2016)FootHistory of tubal ligationTonsillectomyDentalCervical spinal fusionCystoureteroscopyAblationLaparoscopyArthroplasty Medications ascorbic acid(Vitamin C), 1000 mg, Daily cholecalciferol(Vitamin D3 1000 intl units (25 mcg) oral tablet), 25 mcg= 1 tab, PO, Daily diazePAM(Valium 2 mg oral tablet), 2 mg= 1 tab, PO, qid, PRN divalproex sodium(divalproex sodium 500 mg oral tablet, extended release) ethinyl estradiol-etonogestrel(NuvaRing) fentaNYL(fentaNYL 25 mcg/hr transdermal film, extended release), 1 patch, topical, q72h HYDROmorphone(Dilaudid 4 mg oral tablet), 4 mg= 1 tab, PO, q6h, PRN magnesium oxide(magnesium oxide 400 mg (241.3 mg elemental magnesium) oral tablet), 400 mg= 1 tab, PO, qhs nebivolol(Nebivolol 2.5 mg oral tablet) nebivolol(nebivolol 5 mg oral tablet), 5 mg= 1 tab, PO, Daily onabotulinumtoxinA(Botox 100 units injection), See Instructions, 3 refills pentosan polysulfate sodium(Elmiron 100 mg oral capsule) pyridoxine(Vitamin B6), 100 mg, PO, Daily rimegepant(Nurtec ODT 75 mg oral tablet, disintegrating), 75 mg= 1 tab, PO, ONCE SUMAtriptan(SUMAtriptan 50 mg oral tablet), 50 mg= 1 tab, PO, ONCE, PRN thyroid desiccated(Hertel Thyroid 15 mg oral tablet), 75 mg, PO, qAM tretinoin topical(Retin-A 0.05% topical cream), 1 appl, topical, qhs Allergies IVP dyeSOB NSAIDS (nonsteroidal anti-inflammatory agents)Palpitations, unknown colchicinehives, unknown oxyCODONEItching Social History Smoking Status Never smoked cigarettes Employment/School Status:Student 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 Cancer: Unknown. Health Status Family Member(s) Immunizations Vaccine Date Status SARS-CoV-2 (COVID-19) mRNA BNT-162b2 vax 11/25/2021 Recorded Comments : Left Deltoid, Lot #[id number] Electronic Signature on File Electronically Reviewed/Signed by: Ko Maldonado DO Author Signature Dt/Tm:12/06/2023 12:19 PM Resident Division of Sports Medicine Electronically Reviewed/Signed by: Ko Maldonado DO Cosigner Signature Dt/Tm: 12/06/2023 12:23 PM Resident Division of Sports Medicine Electronically Reviewed/Signed by: Sandra Hsu DO Cosigner Signature Dt/Tm: 12/06/2023 04:37PM Division of Sports Medicine RP Patient Care team information Care Team Personnel Name: MD Thalia, Juan M Becerra Position: Resident Member Role: Lifetime Relationship Address: Address: [address] [place] [address] [address] [place] [address] [place] Name: MD Ariana, Naresh Position: Physician - Anesthesiologist Member Role: Lifetime Relationship Address: Address: [address] [place] [address] [address] [place] [address] [place] Name: DO Hsu Mehwish Position: Physician Member Role: Primary Care Provider Address: Address: [address] [address] [place] Name: Neha Barrett Kyle Position: Pharmacist Member Role: Pharmacy - Lifetime Address: Address: [address] [place] [id number] Care Team Related Persons Name: TIM TAYLOR Address: home [address] [place] [phone]
--- NOTE | 2023-12-17 01:04 | History & Physical Report ---
Date of Service December 17, 2023 Assessment & Plan (1) Chronic neck pain: Plan: -Patient with multiple spinal surgeries last in 2021 and has chronic neck pain and follows with pain management. -Cervical spine CT showed no acute fractures or subluxation. Also showed no evidence of hardware failure of ACDF at C4-C5 or anterior interbody fusion at C5-C6. -Thoracic spine CT negative. -CBC and CMP benign. -UA showed leukocyte Estrace and white blood cells. Patient not having any urinary complaints at this time. -Drug screen positive for opioids, benzodiazepine, and marijuana. -Will hold fentanyl patch at this time, unclear when patient put on and took off fentanyl patch. Patient's mother is also at bedside and does not want her daughter on a fentanyl patch. Should be reassessed with patient once more alert. -Continue current pain management and monitor for signs of withdrawal/overdose. Narcan as needed ordered. -4 mg Dilaudid 4 times daily as needed. -Will need to try to change to a better schedule if she is no longer wanting to use the patch. Should be assessed once the patient is more alert. (2) Opioid use: Plan: -Pain management consulted. -Once patient is more alert, talk about treatment plan for pain. (3) Cardiac pacemaker: Plan: -Pacemaker investigated on 12/05. (4) Damion's thyroiditis: Plan: -Continue home medication. History of Present Illness Chief Complaint: Opioid withdrawal Primary Care Provider: Sandra Hsu DO Patient is a 33-year-old female with past medical history for chronic neck pain, pacemaker in place, SVT, 3 cervical surgeries. Patient has received trigger point injections and Botox injections. Patient has had 2 C-spine surgeries in 2021, C4-5 arthroplasty followed by C4-5 ACDF. She has also had a C5-6 ACDF. Patient has been following with pain management and has been taking hydromorphone and recently started fentanyl patches. Patient was started on 25 mcg fentanyl patches back on 11/23. She then had a follow-up approximately 3 days ago and her fentanyl patch was increased to 50 mcg. Patient also takes Valium which was decreased from 5 mg to 2 mg back on 11/23. Patient presented to the ED with mother. Patient's mother called patient this afternoon and the patient was not making sense and was mumbling things and leonie jared about her daughter. Mother states that the patient was having trouble with walking. Patient's brother removed her fentanyl patch and states that the patient earlier removed her other fentanyl patch. The mother removed the second fentanyl patch around 5 PM. The patient came into the ED in excruciating neck pain. She was given [place] morphine 1 mg, tizanidine 4 mg, and diazepam 2mg. When going to evaluate patient, patient was sleeping and majority of history had to be obtained from mother and chart review. Did wake up patient briefly to ask about fentanyl patch. Patient states that she put the patches on Tuesday and was supposed to take about Tuesday. Patient states that she is also having pain everywhere and specifically excruciating pain in her neck. Patient though was still going in and out of sleep and not responding to some questions due to falling back asleep. Of note, mother states that she does not want her daughter to be on a fentanyl patch. Allergies Allergy/AdvReac Type Severity Reaction Status Date / Time colchicine Allergy Intermediate Hives Verified 12/16/23 19:11 oxycodone [From Percocet] Allergy Intermediate Itching Verified 12/16/23 19:11 Iodinated Contrast Media AdvReac Severe Anaphylaxis Verified 12/16/23 19:11 indomethacin AdvReac Intermediate Tachycardia Verified 12/16/23 19:11 NSAIDS (Non-Steroidal AdvReac Intermediate Palpitation Verified 12/16/23 19:11 Anti-Inflamma s Home Medications Medication Instructions Recorded Confirmed Type onabotulinumtoxinA [Botox] 1 syringe intradermal DIRECTED 01/29/22 12/16/23 History hydromorphone 4 mg tablet 4 mg PO QID PRN CERVICAL PAIN 07/28/22 12/16/23 History (Dilaudid) pentosan polysulfate sodium 100 mg 100 mg PO TID 90 days #270 caps 01/04/23 12/16/23 Rx capsule (Elmiron) ascorbic acid (vitamin C) 1,000 mg 1 g PO QAM 02/12/23 12/16/23 History tablet (Vitamin C) cholecalciferol (vitamin D3) 25 25 mcg PO QAM 02/12/23 12/16/23 History mcg (1,000 unit) tablet cyanocobalamin (vitamin B-12) 2,500 mcg sublingual QAM 02/12/23 12/16/23 History 2,500 mcg sublingual tablet (Vitamin B-12) loratadine 10 mg tablet 10 mg PO QAM 02/12/23 12/16/23 History turmeric root extract 500 mg 500 mg PO HS 04/05/23 12/16/23 History capsule divalproex 500 mg tablet,extended 500 mg PO HS #7 tabs 05/16/23 12/16/23 Rx release 24 hr (Depakote ER) nebivolol 5 mg tablet 5 mg PO DAILY #90 tabs 06/01/23 12/16/23 Rx galcanezumab-gnlm 120 mg/mL 120 mg subcut MONTHLY #1 mL 07/08/23 12/16/23 Rx subcutaneous pen injector (Emgality Pen) [place] Thyroid 15 mg tablet 15 mg PO QAM #90 tabs 08/11/23 12/16/23 Rx (thyroid (pork)) [place] Thyroid 60 mg tablet 60 mg PO QAM #90 tabs 08/11/23 12/16/23 Rx (thyroid (pork)) diazepam 2 mg tablet 2 mg PO DIRECTED PRN NEEDED 11/30/23 12/16/23 History PER PT fentanyl 25 mcg/hr transdermal 2 patch transdermal Q72H 11/30/23 12/16/23 History patch rizatriptan 10 mg tablet See Rx Instructions PO .COMPLEX #9 11/30/23 12/16/23 Rx tabs etonogestrel 0.12 mg-ethinyl 1 vag ring vaginal DIRECTED 12/16/23 12/16/23 History estradiol 0.015 mg/24 hr vaginal ring (NuvaRing) magnesium oxide 500 mg tablet 500 mg PO DAILY 12/16/23 12/16/23 History pyridoxine (vitamin B6) 250 mg 0 mg PO DAILY 12/16/23 12/16/23 History tablet (Vitamin B-6) zinc gluconate 50 mg tablet 50 mg PO DAILY 12/16/23 12/16/23 History Past Med/Surg History Medical History (Updated 12/18/23 @ 00:34 by Nam Maldonado MD) History of anesthesia reaction TEND TO BURN THROUGH SEDATION QUICKLY Chronic headaches Chest pain Cervicalgia Congenital stricture of urethra Interstitial cystitis History of COVID-19 11/2020, TESTED THRU [facility] (-), BUT PARTNER TESTED POSITIVE AND THEY HAD ALL SAME SYMPTOMS>RESOLVED. END OF 01/2023, ADMITTED TO [facility] FOR 5 DAYS; WENT TO HOSPITAL WITH RT FLANK PAIN, FEVER, TACHYCARDIA, HEADACHE>RESOLVED. [facility]/2021 Inappropriate sinus tachycardia Diagnosis several years ago s/p multiple cardiac ablations (per patient, cardiac arrest with second cardiac ablation requiring pacemaker placement) Damion's disease Cardiac pacemaker 06/2019, [facility]; F/[place] [facility] [facility] [place]supraventricular tachy[place]) Hypothyroidism [place] Cardiomyopathy Cardiac arrest as complication of care 02/2019 [facility] [place] FOLLOWING CARDIAC ABLATION History of cardiac arrest 2018- during cardiac ablation - s/p pacemaker placement Per cardio records: Pt had cardiac ablation 02/23/19- "An hour after the procedure she developed what was felt to be an intense vagal reaction for which she received chest compressions, continued to have bradycardia and received epinephrine from which she developed ventricular tachycardia and required cardioversion. A temporary pacemaker was placed, coronary angiography was performed which was unremarkable. Echocardiography showed diffuse hypokinesis with ejection fraction of 25 to 30% and she was hypotensive and required norepinephrine support. By February 26, 2019 her ejection fraction had normalized and she was discharged the following day." Tachycardia Anxiety Surgical History (Updated 05/20/23 @ 14:11 by Leandra Knott PA-C) History of cardiac radiofrequency ablation 2015 [facility], 02/2019 [facility] [place], 06/2019 [facility] S/P cystourethroscopy with dilation of urethral stricture History of laparoscopy diagnostic laparoscopy + hysteroscopy 06/08/21 [facility] S/P cervical spinal fusion x2; ROM IS LIMITED H/O laparoscopy for ectopic, with salpingectomy Hx of tonsillectomy Hx of foot surgery History of dental surgery Family History Grandfather (Maternal) Coronary heart disease Grandmother (Paternal) Diabetes Aunt Breast cancer Uncle Colorectal cancer Family history of colonic polyps Other No family history of adverse response to anesthesia No family history of bleeding disorder Denies family history of Ovarian cancer Prostate cancer Myocardial infarction Social History Smoking Status: Never smoker Second Hand Exposure: No; Do You Dip or Chew Tobacco: No; Hx Alcohol Use: No Hx Substance Use: Yes Preferred Language: Barbadian Communication Ability: Effective Visual Impairment: No 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 Beliefs That Will Affect Care: None Current Living Situation: Alone 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 Other Information That Helps Us Care for You: No Feels Safe at Home: Yes Safety Concerns: Feels Safe At This Time Assistive Devices: Contacts and Glasses Review of Systems Review of Systems: Unobtainable due to reduced consciousness Physical Exam Constitutional: + lethargic; no acute distress Neck: trachea midline, no thyromegaly Respiratory: normal respiratory effort, lungs clear to auscultation Cardiovascular: RRR, no murmur, no edema Gastrointestinal (Abdomen): Normal bowel sounds, diffused tenderness throughout abdomen with mild palpitation Musculoskeletal: Unable to assess due to patient being asleep Results & Data Results & Data Vital Signs (Past 12 Hours) Vital Signs Temp Pulse Pulse Resp BP BP Pulse Ox 12/17/23 00:00 90 21 95 12/17/23 00:00 123/82 12/16/23 23:30 120/91 12/16/23 23:30 89 20 97 12/16/23 23:23 79 23 99 12/16/23 22:30 117/70 12/16/23 22:30 73 19 98 12/16/23 22:17 90 12/16/23 22:00 83 15 98 12/16/23 21:20 103 H 17 12/16/23 19:03 107 H 22 118/74 97 12/16/23 18:38 79 12/16/23 17:48 36.4 C L 108 H 20 102/58 L 100 O2 Del Method 12/17/23 00:00 12/17/23 00:00 12/16/23 23:30 12/16/23 23:30 12/16/23 23:23 12/16/23 22:30 12/16/23 22:30 12/16/23 22:17 12/16/23 22:00 12/16/23 21:20 12/16/23 19:03 Room Air 12/16/23 18:38 12/16/23 17:48 Room Air Supervising Physician Co-Signing Physician Notes Attending addendum: I have physically seen this patient, have supervised the medical residents activities, and agree with the H&P unless as otherwise noted. Assessment and Plan: Acute worsening of chronic back pain- Patient is status post multiple cervical spine surgeries, hardware failure, with most recent resulting in spinal fusion Patient reportedly had an recently started on fentanyl patch, which was removed by family due to concerns regarding what they felt was potential for drug abuse Patient is somewhat sedated after receiving appropriate treatment in the ED with IV Dilaudid and IV diazepam, tizanidine and baclofen Will need to hold off on any pain treatment this evening, unless patient becomes more alert and has breakthrough Fentanyl patch will be held, which again is noted above, was removed by family prior to coming to the ED Divalproex similarly will be converted to valproic acid IV Admit to monitored bed IV fluids as noted Consult to pain management Hypothyroidism- Appointment when patient is more alert, will resume her usual [place] Thyroid Interstitial cystitis- Will resume pentosan polysulfate when more alert to take p.o. Will resume oral medications as able to when patient depends more alert Resident Activity Tracking Resident Involvement: Resident Care Provided Care Provided: Adult Hospital Medicine
--- NOTE | 2023-12-17 01:35 | CT Scan Report ---
Exam(s): CT T SPINE EXAM: CT Thoracic Spine Without Intravenous Contrast CLINICAL HISTORY: Reason for exam: Recent surgery. TECHNIQUE: Axial computed tomography images of the thoracic spine without intravenous contrast. CTDI is 38.31 mGy and DLP is 1302.41 mGy-cm. Automated exposure control was utilized for the study. A dose lowering technique was utilized adhering to the principles of ALARA. COMPARISON: No relevant prior studies available. FINDINGS: The vertebral body heights are maintained. The thoracic kyphosis is preserved. There is no spondylolisthesis. The posterior elements are maintained, without evidence of acute fracture. The pedicles are intact. There is no spinal canal or foraminal stenosis. The visualized intra-thoracic contents are grossly unremarkable. IMPRESSION: No acute fracture or subluxation of the thoracic spine. The need for MRI should be determined clinically. Electronically signed by: Hector Patricia MD 12/17/23 01:34 AM
[2023-12-17] MEDS: HYDROmorphone INJ 2 MG/ML SYR/VIAL IV STA ×3 (02:35→22:58)
[2023-12-17] MEDS ORDERED: ONDANSETRON INJ 2 MG/ML 2 ML VIAL IV PRN (04:07)
[2023-12-17] MEDS: SODIUM CHLORIDE 0.9% IV ONE (04:08)
[2023-12-17] MEDS: KETAMINE HCL IV ONE (04:08)
[2023-12-17] MEDS: HYDROmorphone HCL 2 MG TAB PO STA (05:40)
[2023-12-17 06:37] LABS: Basophils # (auto) 0.04 K/uL (0.00-0.20); Basophils % (auto) 0.5 %; Eosinophils # (auto) 0.02 K/uL (0.00-0.50); Eosinophils % (auto) 0.2 %; Hematocrit (blood only) 41.5 % (37.0-47.0); Hemoglobin 14.1 g/dl (12.0-16.0); Immature Granulocytes # (auto) 0.03 K/uL (0.01-0.20); Immature Granulocytes % (auto) 0.4 %; Lymphocytes # (auto) 1.66 K/uL (1.20-3.40); Lymphocytes % (auto) 20.5 %; Mean Corpuscular Hemoglobin 27.2 pg (25.0-34.0); Mean Platelet Volume 11.1 fL (9.4-12.4); Monocytes % (auto) 6.2 %; Neutrophils # (auto) 5.86 K/uL (1.40-6.50); Neutrophils % (auto) 72.2 %; Platelet Count 267 K/uL (130-400); RDW Coefficient of Variation 13.6 % (11.5-14.5); RDW Standard Deviation 39.7 fL (36.4-46.3); Red Blood Count 5.19 M/uL (4.20-5.40); White Blood Count 8.11 K/ul (4.8-10.8)
[2023-12-17 06:51] LABS: Albumin Globulin Ratio 1.4 (0.9-2); Bilirubin,Total 0.4 mg/dl (0.2-1.0); Calcium 9.4 mg/dl (8.6-10.3); Creatinine Clr Calc Pharmacy 152.3 ml/min; Est GFR (African American) 144.6 ml/min; Est GFR (Non-African American) 124.8 ml/min; Globulin 2.9 gm/dl (2.5-4.0); Potassium 3.5 mmol/L (3.5-5.1); Total Protein 6.9 gm/dl (6.0-8.3)
--- NOTE | 2023-12-17 07:53 | Electrocardiogram Report ---
Test Reason : Blood Pressure : / mmHG Vent. Rate : 100 BPM Atrial Rate : 100 BPM P-R Int : 114 ms QRS Dur : 080 ms QT Int : 332 ms P-R-T Axes : 060 073 016 degrees QTc Int : 428 ms Normal sinus rhythm Nonspecific T wave abnormality Abnormal ECG When compared with ECG of 16-DEC-2023 18:07, (unconfirmed) No significant change was found Confirmed by Robles Boland ([id number]) on 12/17/2023 7:53:02 AM Referred By: REFERRED SELF Confirmed By:Gregorio Boland
[2023-12-17] MEDS: HYDROmorphone HCL 2 MG TAB PO PRN (09:27)
[2023-12-17] MEDS: ARMOUR THYROID 30 MG TAB PO SCH ×2 (09:28→09:29)
[2023-12-17] MEDS: ASCORBIC ACID 500 MG TAB PO SCH (09:29)
[2023-12-17] MEDS: METOPROLOL TARTRATE 25 MG TAB PO SCH (09:30)
[2023-12-17] MEDS: CYANOCOBALAMIN (B-12) 2,500 MCG TABLET SL SCH (09:30)
[2023-12-17] MEDS: MAGNESIUM OXIDE 400 MG TAB PO SCH (09:30)
[2023-12-17] MEDS: ZINC SULFATE 220 MG CAPSULE PO SCH (09:30)
[2023-12-17] MEDS: LORATADINE 10 MG TAB PO SCH (09:30)
[2023-12-17] MEDS: PYRIDOXINE HCL 50 MG TAB PO SCH (09:30)
[2023-12-17] MEDS: CHOLECALCIFEROL 25 MCG (1000 UNITS) TAB PO SCH (09:30)
--- NOTE | 2023-12-17 10:15 | Electrocardiogram Report ---
Test Reason : Blood Pressure : / mmHG Vent. Rate : 094 BPM Atrial Rate : 094 BPM P-R Int : 108 ms QRS Dur : 082 ms QT Int : 334 ms P-R-T Axes : 083 080 030 degrees QTc Int : 417 ms Sinus rhythm with short MT Abnormal ECG When compared with ECG of 12-FEB-2023 12:55, Inverted T waves have replaced nonspecific T wave abnormality in Inferior leads Nonspecific T wave abnormality now evident in Lateral leads Confirmed by Juan Manuel Kerr ([id number]) on 12/17/2023 10:15:16 AM Referred By: REFERRED SELF Confirmed By:Juan Manuel Kerr
[2023-12-17] MEDS: diazePAM 2 MG TABLET PO PRN (11:03)
[2023-12-17] MEDS: LACTATED RINGER'S 1,000 ML IV SCH (11:35)
[2023-12-17] MEDS ORDERED: HYDROmorphone HCL 2 MG TAB PO PRN (11:47)
[2023-12-17] MEDS: diazePAM 5 MG/ML 10ML VIAL IV PRN (13:26)
--- NOTE | 2023-12-17 14:28 | Hospitalist Progress Note ---
Date of Service December 17, 2023 Assessment & Plan (1) Chronic neck pain: (2) Opioid use: (3) Cardiac pacemaker: (4) Damion's thyroiditis: Plan #Chronic Neck Pain -Patient with multiple spinal surgeries last in 2021 -CT negative for acute process -2mg dilaudid IV q4h PRN -4mg valium IV q6h PRN -800mg skelaxin PO TID -Plan to titrate PRN dosing to appropriate level -Once achieved, convert to PO equivalent at lowest effective dose #Opioid Use -Pain management consulted. -Otherwise, as above #Cardiac Pacemaker -Pacemaker investigated on 12/05 #Damion's Thyroiditis -Continue home medication. Admission and Anticipated Discharge Date Admission Date: December 17, 2023 ATTESTATION I also saw the patient and confirmed ocampo portions of the history and exam. I agree with the impression and plan in the resident documentation, and as summarized below. Upon our midmorning exam, the patient remains in the emergency department. She is in quite a bit of pain; it causes her to pause her speech for what seems to be consistent with frequent, intermittent spasms. She states the pain is predominantly in her cervical and upper thoracic area. We were able to review the notes from her most recent two pain clinic visits at [facility] [place]. It looks as if they tried to transition her from hydromorphone to fentanyl patch; most recently they increased her fentanyl patch from 25 mcg to 50 mcg. Jocelin states that the pain was reasonably well-controlled on the prior regimen; since her transition, has had progressively increasing pain; since increasing the fentanyl to 50 mcg, she has felt increased pain as well as an altered sensorium (increased sleepiness, mumbling, talking about her daughter). EXAM 150/68, 80, 26, 36.4, 100% on room air She is oriented. Lying supine; obvious discomfort Mildly tachycardic and hypertensive, although consistent with her degree of pain DATA Labs CBC and BMP unremarkable LFTs normal UDS positive for opiates, benzodiazepine, THC Imaging CT of the thoracic and cervical spine show ACDF at C4-C5, anterior interbody fusion at C5-C6. No CT evidence of hardware failure. No other acute findings. Micro Urine culture collected 12/16/2023 shows no growth, preliminary, culture pending IMPRESSION & PLAN Acute on chronic neck pain Patient in obvious pain upon presentation; she was relatively well-controlled up until the transition to the Duragesic patch earlier this month At this point, discussed reverting back to her previous regimen to get her pain under more reasonable control; then likely outpatient follow-up with pain management to discuss other options She was really in too much pain today to have more extensive conversation Additional per resident documentation Subjective No acute events overnight. Patient seen and evaluated at bedside this morning. Very tearful and reporting 9-10/10 pain during encounter. Pt off of fentanyl patch since last evening. Only one dose of Dilaudid since admission. Complaining of extreme L neck pain radiating down LUE and neck/upper thoracic spasms. Prior had been on hydromorphone 4-8mg PO q4-6hr; diazepam 5-10mg qHS. This is prior to recently being switched to 25mcg fentanyl patch, Dilaudid up to 20mg per day (in 4mg tabs), and Valium 2-4mg qHS. Labs reviewed and unremarkable. VSS. Review of Systems Review of Systems: reviewed, per HPI Physical Exam Physical Exam: Constitutional: exam limited by acuity of pain. clearly distressed and tearful during exam HEENT: NCAT, no conjunctival injection CV: regular rhythm, no murmur appreciated, extremities well-perfused, no LE edema Resp: CTABL, no wheezes/rales/rhonchi appreciated, no increased work of breathing GI: soft, nondistended, nontender MSK: no gross deformities appreciated, acutely TTP L lateral neck Skin: warm, dry, no rash appreciated Neuro: alert, oriented, no focal neurologic deficit appreciated Results & Data Results & Data Vital Signs (Past 12 Hours) Vital Signs Pulse Pulse Resp BP BP Pulse Ox Pulse Ox 12/17/23 11:37 80 26 H 150/68 H 100 12/17/23 09:24 78 22 98/62 L 99 12/17/23 07:18 73 12/17/23 05:28 98 12/17/23 05:28 82 14 134/104 H 98 12/17/23 05:28 98 12/17/23 04:00 81 20 99/70 L 98 12/17/23 03:30 78 15 109/64 97 12/17/23 02:40 83 12/17/23 02:40 82 14 93 O2 Del Method O2 Del Method 12/17/23 11:37 Room Air 12/17/23 09:24 Room Air 12/17/23 07:18 12/17/23 05:28 Room Air 12/17/23 05:28 Room Air 12/17/23 05:28 Room Air 12/17/23 04:00 Room Air 12/17/23 03:30 Room Air 12/17/23 02:40 12/17/23 02:40 Room Air
[2023-12-17] MEDS: METAXALONE 800 MG TABLET PO SCH (15:06)
[2023-12-17] MEDS: HYDROmorphone INJ 2 MG/ML SYR/VIAL IV PRN (16:00)
[2023-12-17] MEDS: HYDROmorphone INJ 1 MG/ML SYRINGE IV PRN (18:34)
[2023-12-17] MEDS: DIVALPROEX EXTENDED RELEASE 500 MG TAB PO SCH (20:11)
[2023-12-17] MEDS ORDERED: NON-FORMULARY MEDICATION (Turmeric Root Extract 500 mg Capsule) PO SCH (21:00)
[2023-12-17] MEDS ORDERED: diphenhydrAMINE 50 MG/ML VIAL IV PRN (21:30)
[2023-12-17] MEDS: diphenhydrAMINE 50 MG/ML VIAL IV STA (21:43)
[2023-12-17] MEDS: HYDROmorphone INJ 1 MG/ML SYRINGE IV STA (22:00)
[2023-12-17] MEDS: LIDOCAINE 5% 1 PATCH TD STA (22:48)
[2023-12-17] MEDS: ACETAMINOPHEN 1,000 MG/100 ML VIAL IV SCH (23:00)
[2023-12-17] MEDS: ACETAMINOPHEN 1000 MG/100 ML IV IV ONE (23:00)
[2023-12-17] MEDS: diazePAM 5 MG/ML 10ML VIAL IV STA (23:33)
[2023-12-18] MEDS ORDERED: NALOXONE HCL 0.4 MG/1 ML VIAL/CARP IV PRN (00:29)
[2023-12-18] MEDS: SODIUM CHLORIDE 0.9% 1,000 ML IV SCH (01:21)
[2023-12-18] MEDS: HYDROmorphone Bolus from PCA IV STA (01:21)
[2023-12-18] MEDS: HYDROmorphone PCA 30 MG/30 ML IV PRN (01:21)
--- NOTE | 2023-12-18 08:57 | Hospitalist Progress Note ---
Date of Service December 18, 2023 Assessment & Plan (1) Chronic neck pain: (2) Opioid use: (3) Cardiac pacemaker: (4) Damion's thyroiditis: Plan #Chronic Neck Pain -Patient with multiple spinal surgeries last in 2021 -CT negative for acute process -[place] J neck brace -Now on dilaudid PC 0.5mg/hr base rate, 0.4mg q15m -4mg valium IV q6h PRN -800mg skelaxin PO TID -Plan to titrate PRN dosing to appropriate level -Once achieved, convert to PO equivalent at lowest effective dose #Opioid Use -Pain management consulted. -Otherwise, as above #Cardiac Pacemaker -Pacemaker investigated on 12/05 #Damion's Thyroiditis -Continue home medication. Admission and Anticipated Discharge Date Admission Date: December 17, 2023 Supervising Physician Co-Signing Physician Notes I also saw the patient and confirmed ocampo portions of the history and exam. I agree with the impression and plan in the resident documentation, and as summarized below. Overnight the patient was transition to a SAP MOBILITY ARCHITECT. She seems to be a little more comfortable this morning compared to when I saw her yesterday, but certainly still more pain than her usual baseline. EXAM Hemodynamically stable, afebrile. SpO2 90% on nasal cannula 1 L/min She is alert and oriented. Lying supine; she has a cervical collar in place for comfort. DATA Micro Urine culture collected 12/16/2023 shows probable skin juan. IMPRESSION & PLAN Acute on chronic neck pain Cervical degenerative disc disease status post fusion Continue current regimen, including SAP MOBILITY ARCHITECT, for today Consult pain management, will likely see Tuesday Additional per resident documentation Subjective Pt with extreme pain beginning late yesterday evening despite using all PRNs as written. Night team placed pt on SAP MOBILITY ARCHITECT pump which will offer up to 50.4mg/24hr of dilaudid IV. Also prn up to 16 valium daily. 800mg skelaxin scheduled TID. Labs reviewed and unremarkable. VSS. Pt reports improved pain control with SAP MOBILITY ARCHITECT and neck brace. Remains unable to ambulate without significant pain/spasm. Otherwise, denies CP, SOB, N/V/D. Review of Systems Review of Systems: reviewed, per HPI Physical Exam Physical Exam: Constitutional: exam limited by acuity of pain. less distressed today. Interactive and cooperative. Expresses understanding that PO pain regimen will have to be achieved for discharge HEENT: NCAT, no conjunctival injection CV: regular rhythm, no murmur appreciated, extremities well-perfused, no LE edema Resp: CTABL, no wheezes/rales/rhonchi appreciated, no increased work of breathing GI: soft, nondistended, nontender MSK: no gross deformities appreciated, acutely TTP L lateral neck Skin: warm, dry, no rash appreciated Neuro: alert, oriented, no focal neurologic deficit appreciated Results & Data Results & Data Vital Signs (Past 12 Hours) Vital Signs Temp Pulse Pulse Pulse Resp BP Pulse Ox 12/18/23 07:57 36.6 C 80 23 111/80 100 12/18/23 05:00 12/18/23 04:21 36.6 C 92 H 11 L 105/68 100 12/18/23 03:21 36.4 C 81 94/66 L 98 12/18/23 02:21 37.7 C H 83 13 112/69 98 12/18/23 01:21 91 H 24 136/82 100 12/17/23 22:33 80 12/17/23 22:00 37.6 C H 90 22 119/86 100 Pulse Ox O2 Del Method O2 Del Method O2 Flow Rate O2 Flow Rate 12/18/23 07:57 Nasal Cannula 1 12/18/23 05:00 99 Nasal Cannula 1 12/18/23 04:21 Nasal Cannula 1 12/18/23 03:21 Nasal Cannula 1 12/18/23 02:21 Nasal Cannula 1 12/18/23 01:21 Room Air 12/17/23 22:33 12/17/23 22:00 Room Air
--- NOTE | 2023-12-18 10:04 | Electrocardiogram Report ---
Test Reason : Blood Pressure : / mmHG Vent. Rate : 091 BPM Atrial Rate : 091 BPM P-R Int : 192 ms QRS Dur : 092 ms QT Int : 368 ms P-R-T Axes : 071 076 050 degrees QTc Int : 452 ms Poor data quality, interpretation may be adversely affected Atrial-paced rhythm Nonspecific T wave abnormality Abnormal ECG When compared with ECG of 16-DEC-2023 19:59, Electronic atrial pacemaker has replaced Sinus rhythm Inverted T waves have replaced nonspecific T wave abnormality in Inferior leads Confirmed by Juan Manuel Kerr ([id number]) on 12/18/2023 10:03:38 AM Referred By: REFERRED SELF Confirmed By:Juan Manuel Kerr
--- NOTE | 2023-12-18 19:15 | Billing Data ---
Date of Service December 18, 2023 Coding Level of Care Code 60182 INT INP/OBS CARE
[2023-12-18] MEDS: HYDROmorphone PCA 30 MG/30 ML IV ONE (23:41)
[2023-12-19] MEDS: METAXALONE 800 MG TABLET PO ONE (06:38)
[2023-12-19] MEDS ORDERED: HYDROmorphone HCL 2 MG TAB PO PRN (09:08)
[2023-12-19] MEDS: diazePAM 5 MG TABLET PO PRN (09:38)
[2023-12-19] MEDS ORDERED: HYDROmorphone INJ 1 MG/ML SYRINGE IV PRN (11:30)
[2023-12-19] MEDS: PREGABALIN 75 MG CAP PO SCH (11:49)
[2023-12-19] MEDS: HYDROmorphone INJ 1 MG/ML SYRINGE IV STA (11:49)
--- NOTE | 2023-12-19 12:42 | Hospitalist Progress Note ---
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 -Otherwise, as above #Cardiac Pacemaker -Pacemaker investigated on 12/05 #Damion's Thyroiditis -Continue home medication. Admission and Anticipated Discharge Date Admission Date: December 17, 2023 Supervising Physician Co-Signing Physician Notes I personally examined the patient and verified all ocampo points of history and exam, discussed case, and agree with decision making with Dr Zuleta Appearing to be in significant pain whenever I come in the room. Laying in bed fairly still but frequently tenses up with what appears to be waves of muscle spasm. Pain predominantly in her neck, although she notes whenever the spasms happen they radiate down to her back as well. Chronic pain largely in her neck, some to her left shoulder blade, and occasionally going down both arms and into her hands left more than right. She notes that she formerly saw a DO with [facility] sports medicine who was doing regular OMT and trigger point injections with significant benefit. Vitals noted, in general she is lying in bed appears to be fairly uncomfortable with waves of spasm a bit tearful. HEENT normocephalic atraumatic mucous membranes moist. Breathing unlabored no accessory muscle use good effort. Skin shows no rashes no pallor or icterus. Musculoskeletal deferred for today given that she has hard collar in place and was having spasms at the time I saw her. Acute on chronic neck paindoes not appear to have a clear role for nerve root injections or further surgeries. Work on pain control, mobility, multimodal pain management approach, we will work on getting her set up for outpatient OMT again, especially given that she had such benefit. Otherwise as above. DVT proph - ambulation Subjective No acute events overnight. Patient seen and evaluated at bedside this morning. VSS. Pt reports improved pain control with STAGECRAFT PROFESSOR and neck brace. Remains unable to ambulate without significant pain/spasm. Otherwise, denies CP, SOB, N/V/D. Review of Systems Review of Systems: reviewed, per HPI Physical Exam Physical Exam: Constitutional: appears very uncomfortable, in neck brace, tearful HEENT: NCAT, no conjunctival injection CV: regular rhythm, no murmur appreciated, extremities well-perfused, no LE edema Resp: CTABL, no wheezes/rales/rhonchi appreciated, hyperventilating GI: soft, nondistended, nontender, BS normoactive MSK: no gross deformities appreciated Skin: warm, dry, no rash appreciated Neuro: alert, oriented, no focal neurologic deficit appreciated Results & Data Results & Data Vital Signs (Past 12 Hours) Vital Signs Temp Pulse Pulse Resp BP Pulse Ox Pulse Ox 12/19/23 08:00 36.9 C 90 18 118/69 99 12/19/23 05:00 100 12/19/23 03:29 80 12/19/23 02:50 37.1 C 89 18 105/71 98 O2 Del Method O2 Del Method 12/19/23 08:00 Room Air 12/19/23 05:00 Room Air 12/19/23 03:29 12/19/23 02:50 Room Air
--- NOTE | 2023-12-19 12:53 | Pain Management Consultation ---
Date of Consultation December 19, 2023 Assessment & Plan (1) Opiate dependence: Complication of substance-induced condition: with unspecified complication (2) Opioid-induced hyperalgesia: (3) Myofascial muscle pain: (4) Chronic neck pain: Plan 1. Suspect opiate hyperalgesia as she has diffuse global tenderness. Due to concerns over sedation with fentanyl patches, recommend resuming previous plan of hydromorphone 4mg po TID prn pain. Recommend discontinuation of SHAREMILKER due to hypopnea. She may follow up with [facility] pain mgt as an outpt. She does not need to f/u at [facility] pain mgt as [facility] is her prescriber. 2. Recommend conversion of IV valium to PO in prep for d/c. 3. We discussed her MRI and CT scans in detail today. 4. Recommend she continue to work with psychology for her PTSD. 5. Discussed utilization of adjuvant medications such as baclofen, SNRI, etc but she states she has already tried a multitude of medications with side effects. 6. Please call with any questions. History of Present Illness Attending Physician: Mak Rothman DO History of Present Illness 33 year old female with cervicalgia, myofascial spasm and previous ACDF C4-6 (2- 3 separate procedures most recently 2021 Dr. Blanton [facility]). She has been on the bed bug exterminator opiates and is a relatively new patient of [facility] pain management office. She was placed on fentanyl patches which was recently increased to 50 mcg every 72 hours. In addition she has been utilizing hydromorphone and patient presented to ED 12/17/23 with mental status changes and her fentanyl patch was subsequently removed. She reports that her most successful pain management regimen in the past was hydromorphone 4 mg tablets. Per PDMP review she was receiving 80 tablets per 7 days. She reports use of baclofen with poor effect in the past and sedation. She reports utilization of other adjuvants such as Flexeril and gabapentin without success. She reports she has mild benefit from heat and wearing her [place] J collar for comfort. She reports she will sleep in her [place] J collar as it provides her stability. She denies dropping items or bowel/bladder incontinence. Pain ranges between 9- 10 out of 10 characterized as cramping sharp stabbing worst over her cervical spine region but radiating to her thoracolumbar margin. Additionally she reports some pain over her bilateral lateral thighs to the level of the knee. Pain is worse with movement improved with medication. She reports significant impact into her sleep quality secondary to pain. She has a counselor/neonatal social worker that she utilizes for her PTSD. Pain Assessment Full Body Front + Back: 2 1. 2. 3. Allergies Allergy/AdvReac Type Severity Reaction Status Date / Time colchicine Allergy Intermediate Hives Verified 12/16/23 19:11 oxycodone [From Percocet] Allergy Intermediate Itching Verified 12/16/23 19:11 Iodinated Contrast Media AdvReac Severe Anaphylaxis Verified 12/16/23 19:11 indomethacin AdvReac Intermediate Tachycardia Verified 12/16/23 19:11 NSAIDS (Non-Steroidal AdvReac Intermediate Palpitation Verified 12/16/23 19:11 Anti-Inflamma s Home Medications Medication Instructions Recorded Confirmed Type onabotulinumtoxinA [Botox] 1 syringe intradermal DIRECTED 01/29/22 12/16/23 History hydromorphone 4 mg tablet 4 mg PO QID PRN CERVICAL PAIN 07/28/22 12/16/23 History (Dilaudid) pentosan polysulfate sodium 100 mg 100 mg PO TID 90 days #270 caps 01/04/23 12/16/23 Rx capsule (Elmiron) ascorbic acid (vitamin C) 1,000 mg 1 g PO QAM 02/12/23 12/16/23 History tablet (Vitamin C) cholecalciferol (vitamin D3) 25 25 mcg PO QAM 02/12/23 12/16/23 History mcg (1,000 unit) tablet cyanocobalamin (vitamin B-12) 2,500 mcg sublingual QAM 02/12/23 12/16/23 History 2,500 mcg sublingual tablet (Vitamin B-12) loratadine 10 mg tablet 10 mg PO QAM 02/12/23 12/16/23 History turmeric root extract 500 mg 500 mg PO HS 04/05/23 12/16/23 History capsule divalproex 500 mg tablet,extended 500 mg PO HS #7 tabs 05/16/23 12/16/23 Rx release 24 hr (Depakote ER) nebivolol 5 mg tablet 5 mg PO DAILY #90 tabs 06/01/23 12/16/23 Rx galcanezumab-gnlm 120 mg/mL 120 mg subcut MONTHLY #1 mL 07/08/23 12/16/23 Rx subcutaneous pen injector (Emgality Pen) Liberty Thyroid 15 mg tablet 15 mg PO QAM #90 tabs 08/11/23 12/16/23 Rx (thyroid (pork)) Liberty Thyroid 60 mg tablet 60 mg PO QAM #90 tabs 08/11/23 12/16/23 Rx (thyroid (pork)) diazepam 2 mg tablet 2 mg PO DIRECTED PRN NEEDED 11/30/23 12/16/23 History PER PT fentanyl 25 mcg/hr transdermal 2 patch transdermal Q72H 11/30/23 12/16/23 History patch rizatriptan 10 mg tablet See Rx Instructions PO .COMPLEX #9 11/30/23 12/16/23 Rx tabs etonogestrel 0.12 mg-ethinyl 1 vag ring vaginal DIRECTED 12/16/23 12/16/23 History estradiol 0.015 mg/24 hr vaginal ring (NuvaRing) magnesium oxide 500 mg tablet 500 mg PO DAILY 12/16/23 12/16/23 History pyridoxine (vitamin B6) 250 mg 0 mg PO DAILY 12/16/23 12/16/23 History tablet (Vitamin B-6) zinc gluconate 50 mg tablet 50 mg PO DAILY 12/16/23 12/16/23 History Patient History Medical History (Updated 12/19/23 @ 12:49 by Amanda Hobbs DO) PTSD (post-traumatic stress disorder) Myofascial muscle pain Opioid-induced hyperalgesia Opiate dependence History of anesthesia reaction high tolerance Chronic headaches Chest pain Cervicalgia Congenital stricture of urethra Interstitial cystitis History of COVID-19 11/2020, TESTED THRU [facility] (-), BUT PARTNER TESTED POSITIVE AND THEY HAD ALL SAME SYMPTOMS>RESOLVED. END OF 01/2023, ADMITTED TO [facility] FOR 5 DAYS; WENT TO HOSPITAL WITH RT FLANK PAIN, FEVER, TACHYCARDIA, HEADACHE>RESOLVED. Pacemaker Implanted 2018, [facility], most recent check 04/2021 Inappropriate sinus tachycardia Diagnosis several years ago s/p multiple cardiac ablations (per patient, cardiac arrest with second cardiac ablation requiring pacemaker placement) Damion's disease Cardiac pacemaker 06/2019, [facility]; F/U DR. HACKETT, [facility] [place] (supraventricular tachycardia) Hypothyroidism Hashimotos Cardiomyopathy Cardiac arrest as complication of care 02/2019 [facility], FOLLOWING CARDIAC ABLATION History of cardiac arrest 2019- during cardiac ablation - s/p pacemaker placement Per cardio records: Pt had cardiac ablation 02/23/19- "An hour after the procedure she developed what was felt to be an intense vagal reaction for which she received chest compressions, continued to have bradycardia and received epinephrine from which she developed ventricular tachycardia and required cardioversion. A temporary pacemaker was placed, coronary angiography was performed which was unremarkable. Echocardiography showed diffuse hypokinesis with ejection fraction of 25 to 30% and she was hypotensive and required norepinephrine support. By February 26, 2019 her ejection fraction had normalized and she was discharged the following day." Tachycardia Anxiety Surgical History History of cardiac radiofrequency ablation 2015 [facility], 02/2019 [facility], 06/2019 [facility] S/P cystourethroscopy with dilation of urethral stricture History of laparoscopy diagnostic laparoscopy + hysteroscopy 06/08/21 [facility] S/P cervical spinal fusion x2; ROM IS LIMITED H/O laparoscopy for ectopic, with salpingectomy Hx of tonsillectomy Hx of foot surgery History of dental surgery Family History Grandfather (Maternal) Coronary heart disease Grandmother (Paternal) Diabetes Aunt Breast cancer Uncle Colorectal cancer Family history of colonic polyps Other No family history of adverse response to anesthesia No family history of bleeding disorder Denies family history of Ovarian cancer Prostate cancer Myocardial infarction Social History Smoking Status: Never smoker Second Hand Exposure: No; Do You Dip or Chew Tobacco: No; Hx Alcohol Use: No Hx Substance Use: Yes Preferred Language: [place]dean Communication Ability: Effective Visual Impairment: No Limitations Customer Liaison Required: No Beliefs That Will Affect Care: Pentecostal Current Living Situation: Alone 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 Respiratory rate slowed, patient easily arousable and able to answer questions with repeated verbal stimulation. Recent memory appears grossly intact, tearful at times. Eyes: Pupils are equally round and reactive to light with normal size pupils, eyelids appear normal Ear, nose, mouth, and throat: Moist nasal and oral membranes, lips and tongues appear normal, no external ear abnormalities are noted Neck: The trachea is midline without deviation and no thyromegaly is noted Respiratory: Normal respiratory effort without distress, no audible wheezes or rhonchi CV: Normal S1 and S2, warm distal extremities Chest: Deferred GI/abdomen: Non-tender Musculoskeletal: Head is normocephalic and atraumatic, gait not observed, slowly log rolls in bed Cervical: Patient in a [place] J collar throughout the exam at her desire Lordotic curve: Normal Range of motion is decreased in all planes secondary to collar Tenderness: moderately tender over the axial midline Facet provocation: Negative bilaterally Step-off injuries: None Strength: Strength is grossly equal bilaterally with 5 out of 5 strength in all planes Sensation of upper extremities: Intact bilaterally Myofascial spasm: Moderate global spasm. A few scattered discrete trigger points noted Thoracic: Kyphotic curve: Normal Range of motion is normal with extension, flexion, side-bending, rotation Tenderness: Moderately diffusely tender over the axial midline Facet provocation: Negative bilaterally Scoliosis present: None Step-off injuries: None Myofascial spasm: Moderate global spasm. A few scattered discrete trigger points noted Lumbar: Lordotic curve: Normal Range of motion is normal with extension, flexion, side-bending, rotation Tenderness: Moderately tender over the axial midline Strength: Strength is grossly equal bilaterally with 5 out of 5 strength in all planes Myofascial spasm: Moderate global spasm. A few scattered discrete trigger points noted Greater trochanters: mildly tender bilaterally Sacroiliac joints: mildly tender bilaterally Pathologic reflexes noted: None Skin: No rashes, lesions, ulcers, or induration noted Neuro: No nystagmus noted, the tongue is midline, the patient is able to rotate their head bilaterally : Deferred Results (Pain Clinic) Diagnostic Review MRI: non enhanced, reports reviewed and findings discussed with patient MRI Findings: 11/17/23 MRI OF THE CERVICAL SPINE WITHOUT IV CONTRAST CLINICAL HISTORY: Cervicalgia. Migraine. COMPARISON STUDY: MRI of the cervical spine dated 02/16/2023. CT of the cervical spine dated 02/10/2023. TECHNIQUE: MRI of the cervical spine is performed utilizing various T1 and T2- weighted sequences in the axial and sagittal planes. IV contrast was not administered for this examination. The examination is degraded by susceptibility artifact from metallic spinal hardware. FINDINGS: Cervical spine: Vertebral body height and alignment are maintained throughout the cervical spine. There is straightening of the cervical lordosis. The atlantodens articulation is maintained. The spinous processes appear intact. There is postsurgical change from anterior spinal fusion at C4-C5 and C5-C6. No destructive bony lesion is seen. Intervertebral discs: There has been discectomy at C4-C5 and C5-C6. The remaining disc spaces are maintained. Spinal cord: The cervical cord is normal in morphology and signal intensity. C2-C3: Unremarkable. C3-C4: Unremarkable. C4-C5: Unremarkable. C5-C6: Unremarkable. C6-C7: Unremarkable. C7-T1: Unremarkable. Soft tissues: The prevertebral and paraspinous soft tissues are normal as visualized. Brain parenchyma: The imaged brain parenchyma at the skull base is within normal limits. IMPRESSION: 1. Postsurgical change as above with no disc herniation, central canal stenosis, or neural foraminal narrowing seen throughout the cervical spine. 2. The cervical cord is normal in morphology and signal intensity. 3. No destructive bony process is identified. 11/17/23 MR brain wo/w con HISTORY: 33 years-old Female R27.8 - Other lack of coordination COMPARISON: MRI cervical spine of same day, brain MRI TECHNIQUE: Multiplanar multisequence MRI of the brain was obtained with and without the use of IV contrast. FINDINGS: There is no restricted diffusion. The midline structures appear unremarkable. Subcentimeter pineal gland cyst. No pathologic blooming artifact. No acute intracranial hemorrhage, midline shift, abnormal extra-axial collection, hydrocephalus or intracranial mass identified. Normal volume and signal of the brain parenchyma. There is no abnormal enhancement. Cerebral venous sinuses and major arterial flow voids appear patent. The skull, orbits and soft tissues are unremarkable. Mastoid air cells and paranasal sinuses are clear. IMPRESSION: Stable exam from the 02/16/2023 study with unremarkable appearance of the brain. CT: non enhanced, reports reviewed and findings discussed with patient CT Findings: 12/16/23 Exam(s): CT C SPINE EXAM: CT Cervical Spine Without Intravenous Contrast CLINICAL HISTORY: Reason for exam: recent spine surg/fusion. TECHNIQUE: Axial computed tomography images of the cervical spine without intravenous contrast. CTDI is 20.14 mGy and DLP is 408.88 mGy-cm. Automated exposure control was utilized for the study. A dose lowering technique was utilized adhering to the principles of ALARA. COMPARISON: No relevant prior studies available. FINDINGS: The vertebral body heights are maintained. The craniocervical junction is intact. The atlanto-dens interval is maintained. The dens is intact. There is no spondylolisthesis. ACDF at C4-C5. Anterior interbody fusion at C5-C6. No CT evidence of hardware failure. Evaluation is limited due to motion artifact. The intervertebral disc spaces are preserved. There is no spinal canal or neural foraminal stenosis. IMPRESSION: No acute fracture or subluxation of the cervical spine. ACDF at C4-C5. Anterior interbody fusion at C5-C6. No CT evidence of hardware failure. Evaluation is limited due to motion artifact. 12/16/23 Exam(s): CT T SPINE EXAM: CT Thoracic Spine Without Intravenous Contrast CLINICAL HISTORY: Reason for exam: Recent surgery. TECHNIQUE: Axial computed tomography images of the thoracic spine without intravenous contrast. CTDI is 38.31 mGy and DLP is 1302.41 mGy-cm. Automated exposure control was utilized for the study. A dose lowering technique was utilized adhering to the principles of ALARA. COMPARISON: No relevant prior studies available. FINDINGS: The vertebral body heights are maintained. The thoracic kyphosis is preserved. There is no spondylolisthesis. The posterior elements are maintained, without evidence of acute fracture. The pedicles are intact. There is no spinal canal or foraminal stenosis. The visualized intra-thoracic contents are grossly unremarkable. IMPRESSION: No acute fracture or subluxation of the thoracic spine. The need for MRI should be determined clinically. Previous Records Review Previous Records: none available for review Previous Records Findings: [facility] pain notes not available for review Opioid Risk Assessment Opioid Risk Assessment: risk assessment performed and moderate risk identified
[2023-12-19] MEDS ORDERED: NALOXONE HCL 0.4 MG/1 ML VIAL/CARP IV PRN (13:08)
[2023-12-19] MEDS ORDERED: diazePAM 5 MG/ML 10ML VIAL IV PRN ×2 (13:18→17:49)
[2023-12-19 13:23] LABS: 7-Aminoclonaz, Confirm NEGATIVE ng/mL (<25); Codeine Urine NEGATIVE ng/mL (<50); Hydro-Alp Ur, GC/MS NEGATIVE ng/mL (<25); Hydrocodone Urine NEGATIVE ng/mL (<50); Hydromor Urine 829 ng/mL (<50); Hydroxyethylflurazepam, Conf NEGATIVE ng/mL (<50); Hydroxymidazolam Ur, GC/MS NEGATIVE ng/mL (<50); Hydroxytriazolam NEGATIVE ng/mL (<50); Lorazepam, Ur GC/MS NEGATIVE ng/mL (<50); Marijuana Quant, GCMS Urine 901 ng/mL (<5); Morphine Urine NEGATIVE ng/mL (<50); Nordiazepam, Confirm 296 ng/mL (<50); Norhydrocodone Conf Ur NEGATIVE ng/mL (<50); Noroxycodone Urine NEGATIVE ng/mL (<50); Oxazepam Ur, GC/MS 735 ng/mL (<50); Oxycodone Urine NEGATIVE ng/mL (<50); Oxymorph Urine NEGATIVE ng/mL (<50); Temazepam, Confirm 988 ng/mL (<50)
[2023-12-19] MEDS: HYDROmorphone INJ 1 MG/ML SYRINGE IV PRN (13:28)
[2023-12-19] MEDS: HYDROmorphone PCA 30 MG/30 ML IV PRN (13:58)
[2023-12-19] MEDS: diazePAM 5 MG/ML 10ML VIAL IV STA (14:27)
[2023-12-19] MEDS: SODIUM CHLORIDE 0.9% 1,000 ML IV SCH (14:35)
[2023-12-19] MEDS: HYDROmorphone PCA 30 MG/30 ML IV ONE (14:36)
[2023-12-19] MEDS: DULoxetine HCL 30 MG CAP PO SCH (14:44)
--- NOTE | 2023-12-19 16:00 | Billing Data ---
Date of Service December 19, 2023 Coding Level of Care Code 64140 SUB INP/OBS CARE MIN
[2023-12-19] MEDS: NALOXONE HCL 0.4 MG/1 ML VIAL/CARP IV PRN (17:28)
[2023-12-19] MEDS: KETOROLAC 30 MG/ML VIAL IV ONE (17:49)
[2023-12-19] MEDS: KETOROLAC 30 MG/ML VIAL ONE (17:49)
[2023-12-19] MEDS: KETOROLAC 30 MG/ML VIAL IV SCH (18:28)
[2023-12-19 18:37] LABS: Base Excess ABG -2.5 mEq/L (-9-1.8); HCO3 ABG 22 mmol/L (19-24); Oxygen Saturation ABG 99.8 % (90-95); PCO2 ABG 35 mmHg (35-46); PO2 ABG 149 mmHg (80-95)
[2023-12-19 19:24] LABS: Allen Test Pos (Pos)
[2023-12-19] MEDS: ONDANSETRON 4 MG OD TAB PO PRN (19:58)
[2023-12-19] MEDS: DICLOFENAC SOD 1% GEL 100 GM TUBE EXT SCH (21:19)
[2023-12-19] MEDS: PENTOSAN POLYSULFATE SODIUM 100 MG CAP PO SCH (21:22)
--- NOTE | 2023-12-20 07:03 | Hospitalist Progress Note ---
Date of Service December 20, 2023 Assessment & Plan (1) Chronic neck pain: (2) Opioid use: (3) Cardiac pacemaker: (4) Damion's thyroiditis: Plan #Chronic Neck Pain -Patient with multiple spinal surgeries last in 2021 -CT negative for acute process -[place] J neck brace -800mg skelaxin PO TID -Lyrica 75mg -Cymbalta 30mg -Tylenol IV q8h -Lidocaine patch -Toradol 30mg q30m QID -1.5mg Dilaudid q30m PRN -Plan to titrate PRN dosing to appropriate level -Once achieved, convert to PO equivalent at lowest effective dose -Will require a combination of opioid, benzo, SNRI, neuropathic, and manipulative treatment for custodial management -Pain management consulted, unable to provide adequate therapy for pt #Opioid Use -Pain management consulted. -Otherwise, as above #Cardiac Pacemaker -Pacemaker investigated on 12/05 #Damion's Thyroiditis -Continue home medication. Admission and Anticipated Discharge Date Admission Date: December 17, 2023 Supervising Physician Co-Signing Physician Notes I personally examined the patient and verified all ocampo points of history and exam, discussed case, and agree with decision making with Dr Zuleta checked on 3 separate times today. Fortunately 2 of them she was sleeping and at rest. 1 she was unfortunately in a significant amount of pain. Pain was predominantly in her neck and her back, no clear radiation. Seemed to come and go in wavesbiggest trigger being any attempt at getting upright/moving. She relates that last night's episode this during which she received Narcan she believed were more of a passing out like she gets with her tachycardia syndromeshe has been evaluated for POTS type physiology and while she does not quite fit diagnostic criteria, it seems that she has a somewhat similar phenotypeand relates that during the episode during which she received Narcan she actually had pretty good recall for events. Currently still in a good deal of pain. Continuing to review voluminous old records to get a better feel for her background. Today she expresses concern about the strain that all of this pain is placing on her heart. Vitals noted, the 2 times I passed the room that she is asleep she appears to fortunately be resting comfortably. C-collar is in place. Whenever I see her and she is awake she is he unfortunately does appear to be in a significant amount of pain is tearful, uncomfortable in tenses with what appeared to be waves of pain. She does allow me to take the c-collar off, she has fairly exquisite bony tenderness and to a lesser degree left-sided paraspinal tenderness more than right-sided paraspinal tendernessparaspinal muscles themselves the left side feels mildly tight the right actually feels surprisingly supple, but it seems that the bony tenderness is the most significant. Neuro shows cranial nerves II through XII to be grossly intact gross motor and sensory are intact. Acute on chronic neck pain Etiology not clearthe specter of hardware loosening was apparently mentioned to herresident physician is trying to reach out to her neurosurgeon at [facility], was able to communicate with the on-call team, but not her actual neurosurgeonand the on-call team noted outpatient follow-up. Given a rather abrupt worsening of her pain that seems to be unremitting now, we will update her MRI. As far as pain control itself, we discussed in grave detail the risks/benefits and difficulty with pain control with herparticularly given last night's episode. Discussed that it certainly could have been a POTS like episode that was much more syncope than sedation (and the fact that she does recall events makes me feel more comfortable that probably was the case), but at the same time, certainly we need to be careful that we do not cause any true respiratory suppression that could in fact be life-threatening. She expresses a good understanding of that and understands the difficult balance that we are trying to face. Definitely tried to make it clear that we believe her pain and are validating her symptoms, but that it is a difficult balance given what appears to be a more narrow therapeutic window between benefit and harm. Given the POTS type physiologywe discussed that we might be able to help blunt that given that the main impact the narcotics would have on that would be reduction in SVRand to try to blunt that and provide a little more flexibility with dosingI doubled her IV fluid rate, and added m idodrine 3 times daily. With that, and with her understanding the risk/benefit, and understanding that if Narcan is administered its only out of concern for her wellbeing (and she expressed appreciation of that) will increase her as needed Dilaudid to 1.5 mg. Given that oral narcotics will likely have less of a reduction on her SVR, and given that they will have in most patients a longer "effective time" and given that we will eventually need to build an outpatient pain planwe will schedule 4 milligram Dilaudid p.o. 4 times daily in the hopes of the evening out her pain control having less ups and downs, and potentially having less ADRs than purely relying on IV. In the meantime continue pregabalinI will hold on increasing it just yet given yesterday's episode. We discussed changing her Skelaxin to baclofenbut she notes having had significant sedation and confusion to that in the past. Continue scheduled Toradol, continue scheduled Tylenol. With how tender her neck is, she has been declining Voltaren gelchanged to a lidocaine patch for topical benefit. Continue as needed Valium. Continue to follow closely. DVT proph - ambulation Subjective No acute events overnight. Patient seen and evaluated at bedside this morning. VSS. In dramatic pain this morning after having a oversedation event last night that resulted in narcan administration. Talking to patient she may have history of POTS like picture. Oversedation/syncopal episode may have been more related to this. Remains unable to ambulate without significant pain/spasm. Otherwise, denies CP, SOB, N/V/D. Review of Systems Review of Systems: reviewed, per HPI Physical Exam Physical Exam: Constitutional: appears very uncomfortable, in neck brace, tearful HEENT: NCAT, no conjunctival injection CV: regular rhythm, no murmur appreciated, extremities well-perfused, no LE edema Resp: CTABL, no wheezes/rales/rhonchi appreciated, hyperventilating GI: soft, nondistended, nontender, BS normoactive MSK: no gross deformities appreciated Skin: warm, dry, no rash appreciated Neuro: alert, oriented, no focal neurologic deficit appreciated Results & Data Results & Data Vital Signs (Past 12 Hours) Vital Signs Temp Pulse Pulse Resp BP Pulse Ox O2 Del Method 12/20/23 02:14 36.8 C 92 H 18 113/69 98 Room Air 12/19/23 23:20 73 12/19/23 19:54 86 20 123/77 100 Nasal Cannula O2 Flow Rate 12/20/23 02:14 12/19/23 23:20 12/19/23 19:54 6
[2023-12-20] MEDS: diazePAM 5 MG TABLET PO PRN (08:27)
[2023-12-20] MEDS: HYDROmorphone HCL 2 MG TAB PO STA (14:31)
[2023-12-20] MEDS: LIDOCAINE 5% 1 PATCH TD SCH (14:32)
--- NOTE | 2023-12-20 15:53 | XCELERA ---
[id number]
[2023-12-20] MEDS: HYDROmorphone INJ 2 MG/ML SYR/VIAL IV PRN (16:02)
[2023-12-20] MEDS: HYDROmorphone HCL 4 MG TAB PO SCH (17:32)
[2023-12-20] MEDS: MIDODRINE HCL 2.5 MG TAB PO SCH (17:33)
--- NOTE | 2023-12-20 18:01 | Billing Data ---
Date of Service December 20, 2023 Coding Level of Care Code 83452 SUB INP/OBS CARE MIN
--- NOTE | 2023-12-20 18:01 | Billing Data ---
Date of Service December 20, 2023 Coding Level of Care Code 60338 SUB INP/OBS CARE MIN
[2023-12-21 08:04] LABS: Basophils # (auto) 0.06 K/uL (0.00-0.20); Basophils % (auto) 0.7 %; Eosinophils # (auto) 0.23 K/uL (0.00-0.50); Eosinophils % (auto) 2.8 %; Hemoglobin 11.8 g/dl (12.0-16.0); Immature Granulocytes # (auto) 0.02 K/uL (0.01-0.20); Immature Granulocytes % (auto) 0.2 %; Lymphocytes # (auto) 2.18 K/uL (1.20-3.40); Lymphocytes % (auto) 26.6 %; Mean Corpuscular Hemoglobin 26.7 pg (25.0-34.0); Mean Corpuscular Hgb Conc 32.8 g/dL (32.0-36.0); Mean Corpuscular Volume 81.4 fL (80.0-100.0); Mean Platelet Volume 10.7 fL (9.4-12.4); Monocytes # (auto) 0.43 K/uL (0.11-0.59); Monocytes % (auto) 5.2 %; Neutrophils # (auto) 5.28 K/uL (1.40-6.50); Neutrophils % (auto) 64.5 %; Platelet Count 234 K/uL (130-400); RDW Coefficient of Variation 13.8 % (11.5-14.5); Red Blood Count 4.42 M/uL (4.20-5.40)
[2023-12-21 08:11] LABS: Alanine Aminotransferase 11 U/L (7-52); Albumin Globulin Ratio 1.5 (0.9-2); Albumin Level 3.4 gm/dl (3.4-5.0); Alkaline Phosphatase 50 U/L (34-104); Anion Gap 4 (3-11); Aspartate Aminotransferase 13 U/L (13-39); BUN Creatinine Ratio 7.1 (10-20); Bilirubin,Total 0.3 mg/dl (0.2-1.0); Blood Urea Nitrogen 3 mg/dl (6-23); C Reactive Protein 1.38 mg/dl (0-0.5); Calcium 8.6 mg/dl (8.6-10.3); Carbon Dioxide 29 mmol/L (21-32); Chloride 108 mmol/L (98-107); Creatinine Clr Calc Pharmacy 208.7 ml/min; Est GFR (African American) > 150.0 ml/min; Est GFR (Non-African American) 134.7 ml/min; Globulin 2.3 gm/dl (2.5-4.0); Glucose 105 mg/dl (70-99(Fasting)); Magnesium 1.8 mg/dl (1.7-2.4); Potassium 3.6 mmol/L (3.5-5.1); Sodium 141 mmol/L (136-145); Total Protein 5.7 gm/dl (6.0-8.3)
[2023-12-21] MEDS: diazePAM 5 MG/ML 10ML VIAL IV STA (09:24)
[2023-12-21] MEDS: HYDROmorphone INJ 2 MG/ML SYR/VIAL IV PRN (09:43)
[2023-12-21] MEDS: MAGNESIUM SULFATE / D5W 1 GM/100 ML BAG IV SCH (09:45)
--- NOTE | 2023-12-21 10:30 | Hospitalist Progress Note ---
Date of Service December 21, 2023 Assessment & Plan (1) Chronic neck pain: (2) Opioid use: (3) Cardiac pacemaker: (4) Damion's thyroiditis: Plan #Chronic Neck Pain -Patient with multiple spinal surgeries last in 2021 -CT negative for acute process -[place] J neck brace -800mg skelaxin PO TID -Lyrica 75mg -Cymbalta 30mg -Tylenol IV q8h -Lidocaine patch -Toradol 30mg q30m QID -2mg Dilaudid q30m PRN, frequent dosing when not able to tolerate PO -Plan to titrate PRN dosing to appropriate level -Once achieved, convert to PO equivalent at lowest effective dose -Will require a combination of opioid, benzo, SNRI, neuropathic, and manipulative treatment for director long term care management -Pain management consulted, unable to provide adequate therapy for pt #Opioid Use -Pain management no longer involved -Otherwise, as above #Cardiac Pacemaker -Pacemaker investigated on 12/05 #Damion's Thyroiditis -Continue home medication. Admission and Anticipated Discharge Date Admission Date: December 17, 2023 Subjective No acute events overnight. Patient seen and evaluated at bedside this morning. VSS. Having significant spasms again today. Remains unable to ambulate without significant pain/spasm. Otherwise, denies CP, SOB, N/V/D. Review of Systems Review of Systems: reviewed, per HPI Physical Exam Physical Exam: Constitutional: appears very uncomfortable, in neck brace, tearful HEENT: NCAT, no conjunctival injection CV: regular rhythm, no murmur appreciated, extremities well-perfused, no LE edema Resp: CTABL, no wheezes/rales/rhonchi appreciated, hyperventilating GI: soft, nondistended, nontender, BS normoactive MSK: no gross deformities appreciated Skin: warm, dry, no rash appreciated Neuro: alert, oriented, no focal neurologic deficit appreciated Results & Data Results & Data Vital Signs (Past 12 Hours) Vital Signs Temp Pulse Pulse Resp BP Pulse Ox O2 Del Method 12/21/23 08:04 36.9 C 75 16 134/82 95 Room Air 12/21/23 04:41 37.7 C H 90 22 120/83 96 Room Air 12/21/23 00:00 80
--- NOTE | 2023-12-21 14:03 | Magnetic Resonance Report ---
CERVICAL SPINE MRI HISTORY: Neck pain. Numbness in upper extremities. examine hardware for stability TECHNIQUE: Multiplanar multisequence MRI of the cervical spine was performed without the use of contr ast. COMPARISON STUDY: Cervical spine CT 12/16/2023. Cervical spine MRI 11/17/2023. FINDINGS: Suboptimal evaluation of the cervical spine due to the motion artifact. There is again note d straightening the cervical spine. Prevertebral soft tissues and the C1-C2 interval appear intact. N o definite fracture or subluxation. There is again noted anterior cervical discectomy and fusion from C4 through C6. Remaining disc spaces are preserved. Questionable focal deformity within the anterior cord at the C5-C6 levels likely due to the metallic artifact. This remains unchanged. Otherwise, the cervical spinal cord is normal in caliber. Evaluation for cord signal abnormality is near nondiagnos tic due to the motion artifact. The visualized posterior fossa is unremarkable. Difficult evaluation for central canal and neural foraminal narrowing due to the motion artifact. However, no high-grade c entral canal or neural foraminal stenosis. This is similar to the prior study. IMPRESSION: 1. Difficult evaluation of the cervical spine due to the significant motion artifact. 2. The cervical spine does not appear to be significantly changed compared to the 11/17/2023 examinat ion. 3. Postoperative changes as described above. 4. No high-grade central canal or neural foraminal narrowing. ACT 112: Negative or not required by law. Electronically signed by: Delfin Rice M.D. 12/21/2023 2:01 PM
[2023-12-21] MEDS: PREGABALIN 75 MG CAP PO SCH (15:03)
--- NOTE | 2023-12-21 19:22 | Hospitalist Progress Note ---
Date of Service December 21, 2023 Assessment & Plan (1) Chronic neck pain: Plan: Chronic pain syndrome with acute worseningexact cause of the acute worsening not entirely clear. This was in the context of her being at home with family concern of her being overmedicatedbut since then her pain has been significantly worse despite very aggressive attempts at pain control. MRI rechecked to evaluate for any signs of hardware looseningfortunately this does not appear to be the case, nor does her CT imaging from earlier this hospital stay. Discussed with patient I suspect her pain is likely multifactorialsome structural from bone/disc/arthritic changes, some musculoligamentous, and some nervous system facilitation (both peripheral and central). - Bone/disc: Nothing appears to be fractured or displaced loosened or otherwise surgical. Largely this will be function for pain control with medicationscontinue to titrate as possible. For now continuing an aggressive approach given the severity of her pain (she is frequently in bed with appearance of jolts of spasm, laying extremely still and tearful). Discussed with patient multiple times that I feel like a MORTICIAN INVESTIGATOR would be beneficial for the pain, but given her POTS like physiology leading to what appeared to be an unresponsive episode on Tuesday (that appeared quite consistent with narcotics related oversedation until after being able to really review the situation, including discussing with the patient the next day) I do not feel it is safe to have patient controlled IV narcotics in her contextgiven the need for nursing pre and post assessment with each dose. She expresses an understanding of this. - Muscle/ligamentlong-term I believe she would benefit from OMT (she notes that she did benefit from OMT and trigger point injections in the past) and we will set this up as we get closer to discharge. Short-term, utilizing muscle relaxants, initiated Voltaren gel, as she progresses hopefully I can start to do some gentle OMT in the hospital. Discussed the "gelling" phenomenon where roseanna iqbal still will make muscles and ligaments more stiffnoted that her cervical collar provides comfort by keeping things from being able to move, but also likely allows them to be stiff for overallshe expressed an understanding of this. We will have her try to take her cervical collar off for at least 5 minutes different times throughout the day. Initially "range of motion" may be nothing more than the basic movements her neck does without the collar in place, and then we will try to gradually progress this to more true range of motion, or hopefully even a degree of passive OMT techniques. - Peripheral and central nervous system facilitation: Continuing to titrate up on pregabalin, will titrate up further on duloxetine in the near future. Discussed desensitizationand discussed that while the Voltaren gel really primarily would be indicated for the muscle and ligament pain/arthritic pain, right now for her it is probably just as important to utilize as a means of desensitization. We discussed that it is likely to be a bit uncomfortable initially, and that it would be okay to premedicate (especially for the first time or 2) before treatment is applied. While she does not carry a rheumatologic diagnosis, it has been investigated. I wonder about the efficacy of steroids and assisting with her pain controlespecially if there is any degree of inflammatory or autoimmune process at play. The risk/benefit for therapeutic trial seems to be fairly low riskand after we discussed this, she agreed that it seemed reasonable to try. Will initiate corticosteroids tomorrow morning given the stimulant effectand I would rather that she be able to get good sleep. We will give that a therapeutic trial for a few daysif it seems to be benefiting, then we will continue treatment and likely taper similar to what we would do for unknown autoimmune/rheumatologic process, and also if she has affect, then it would warrant revisiting rheumatologic evaluation. If a few days go by and it does not really seem to be benefiting at all, then we will discontinue as a failed therapeutic trial. (2) Opioid use: Plan: Almost certainly will need some degree of narcotics regimen at dischargehopefully slowly over time with multimodal approach, reinitiation of OMT, etc.things may be able to be weaned, as we get closer to discharge we will definitely need to coordinate closely with her [place] pain management team to ensure a smooth transition of care. (3) Cardiac pacemaker: Plan: She has been investigated for POTS, and did not quite fit criteria, but definitely shows some degree of that type of physiologyparticularly with her syncopal event on Tuesday night that even to my eye initially appeared consistent with narcotics related sedation, and only after being able to truly evaluate with hindsight, including talking to the patient the next day, was it clear that it was more of a syncopal event not over sedation. because of this for now, and because of the ongoing need for fairly high potency narcotics to control what appears to be quite intense pain, continue isotonic IV fluids and midodrine to help protect against future syncopal events. As we are able to get away from especially IV narcotics, we should be able to stop the midodrine. (4) Damion's thyroiditis: Plan: Continue [place] Thyroid Plan DVT prophylaxisinitiate Lovenox given that she has been fairly immobile. Given patient's concerns about events of Tuesday night, I have tried to have open and honest conversations with hernoting that even to my eye initially things appeared consistent with narcotics mediated oversedation, and it was only after hindsight, including being able to talk to her the next day, that it was clear it was more of a syncopal event (probably brought on by narcotics dropping her SVR in the context of POTS like physiology) -especially given that she was generally poorly responsive enough during the episode that I felt compelled to check an ABG to ensure that she was not hypoventilating. Service excellence is looking into what are likely legitimate complaints on the patient's part, but in regards to her physician care team, I did discuss with her that Dr. Zuleta has been pouring a lot of effort into her care, and truly does care about her wellbeing. I noted that I did not want her to feel any pressure to accept him back into her care team, if she did not feel it right/if she did not want toand made it clear to her that I absolutely would not change my efforts taking care of her or my attitude towards her if she felt that she could not allow him back on the teambut noted that he definitely would like to mend their physician- patient relationship if she was willing. She very readily said that she would like to sit and talk with him. Admission and Anticipated Discharge Date Admission Date: December 17, 2023 Results & Data Results & Data Vital Signs (Past 12 Hours) Vital Signs Temp Pulse Resp BP Pulse Ox O2 Del Method 12/21/23 15:50 98.2 F 86 18 114/73 98 Room Air 12/21/23 11:06 98.2 F 90 18 117/82 95 Room Air 12/21/23 08:04 98.4 F 75 16 134/82 95 Room Air PG Care Time/CCT Total # of Minutes Spent Total Time Spent with Patient: Total time spent is greater than 50% in coordination of care (as documented) at patient's floor/unit and/or counseling patient: Coding Level of Care Code 67702 SUB INP/OBS CARE 3/50MIN Diagnoses Chronic neck pain M54.2; G89.29 Opioid use F11.90 Cardiac pacemaker Z95.0 Damion's thyroiditis E06.3
[2023-12-21] MEDS: DICLOFENAC SOD 1% GEL 100 GM TUBE EXT SCH (20:52)
[2023-12-21] MEDS: HYDROmorphone INJ 2 MG/ML SYR/VIAL IV SCH (21:10)
[2023-12-22] MEDS: HYDROmorphone HCL 4 MG TAB PO ONE (00:24)
[2023-12-22] MEDS: HYDROmorphone HCL 4 MG TAB PO SCH (06:23)
[2023-12-22 07:24] LABS: Anion Gap 5 (3-11); BUN Creatinine Ratio 5.1 (10-20); Basophils # (auto) 0.07 K/uL (0.00-0.20); Blood Urea Nitrogen 2 mg/dl (6-23); Calcium 8.7 mg/dl (8.6-10.3); Carbon Dioxide 29 mmol/L (21-32); Chloride 107 mmol/L (98-107); Creatinine Clr Calc Pharmacy 226.1 ml/min; Eosinophils # (auto) 0.44 K/uL (0.00-0.50); Est GFR (African American) > 150.0 ml/min; Glucose 97 mg/dl (70-99(Fasting)); Hematocrit (blood only) 39.2 % (37.0-47.0); Hemoglobin 12.9 g/dl (12.0-16.0); Immature Granulocytes # (auto) 0.03 K/uL (0.01-0.20); Immature Granulocytes % (auto) 0.4 %; Lymphocytes # (auto) 1.79 K/uL (1.20-3.40); Lymphocytes % (auto) 24.4 %; Magnesium 2.1 mg/dl (1.7-2.4); Mean Corpuscular Hgb Conc 32.9 g/dL (32.0-36.0); Mean Corpuscular Volume 82.2 fL (80.0-100.0); Mean Platelet Volume 11.1 fL (9.4-12.4); Monocytes % (auto) 5.4 %; Neutrophils # (auto) 4.61 K/uL (1.40-6.50); Neutrophils % (auto) 62.8 %; Platelet Count 254 K/uL (130-400); Potassium 4.1 mmol/L (3.5-5.1); RDW Coefficient of Variation 14.3 % (11.5-14.5); RDW Standard Deviation 42.5 fL (36.4-46.3); Red Blood Count 4.77 M/uL (4.20-5.40); Sodium 141 mmol/L (136-145); White Blood Count 7.34 K/ul (4.8-10.8)
[2023-12-22] MEDS: MAGNESIUM SULFATE / D5W 1 GM/100 ML BAG IV SCH (07:38)
[2023-12-22] MEDS: diazePAM 5 MG TABLET PO PRN (07:45)
[2023-12-22] MEDS: methylPREDNISolone 60 MG in SYRINGE 0 ML IV SCH (08:48)
[2023-12-22] MEDS: ENOXAPARIN INJ 40 MG/0.4 ML SYR SQ SCH (08:59)
[2023-12-22] MEDS: POLYETHYLENE (MIRALAX) 17 GM PACK PO PRN (09:06)
[2023-12-22] MEDS: PREGABALIN 150 MG CAP PO SCH (09:06)
--- NOTE | 2023-12-22 15:45 | Hospitalist Progress Note ---
Date of Service December 22, 2023 Assessment & Plan (1) Chronic neck pain: Plan: Chronic pain syndrome with acute worseningexact cause of the acute worsening not entirely clear. This was in the context of her being at home with family concern of her being overmedicatedbut since then her pain has been significantly worse despite very aggressive attempts at pain control. MRI rechecked to evaluate for any signs of hardware looseningfortunately this does not appear to be the case, nor does her CT imaging from earlier this hospital stay. Discussed with patient I suspect her pain is likely multifactorialsome structural from bone/disc/arthritic changes, some musculoligamentous, and some nervous system facilitation (both peripheral and central). - Bone/disc: Nothing appears to be fractured or displaced loosened or otherwise surgical. Largely this will be function for pain control with medicationscontinue to titrate as possible. For now continuing an aggressive approach given the severity of her pain (she is frequently in bed with appearance of jolts of spasm, laying extremely still and tearful). Discussed with patient multiple times that I feel like a SKI MAKER would be beneficial for the pain, but given her POTS like physiology leading to what appeared to be an unresponsive episode on Tuesday (that appeared quite consistent with narcotics related oversedation until after being able to really review the situation, including discussing with the patient the next day) I do not feel it is safe to have patient controlled IV narcotics in her contextgiven the need for nursing pre and post assessment with each dose. She expresses an understanding of this. Today (12/22/2023)it appears that we are starting to make headway in her pain. I think today it is most prudent to stay the course and not adjust anything, but hopefully by tomorrow if the trend of yesterday and today continue, I anticipate starting to switch more of her narcotics to oral and start to space out the IVs, possibly tomorrow versus the next day starting long-acting oral narcotics as well to start to build more of an outpatient plan. - Muscle/ligamentlong-term I believe she would benefit from OMT (she notes that she did benefit from OMT and trigger point injections in the past) and we will set this up as we get closer to discharge. Short-term, utilizing muscle relaxants, initiated Voltaren gel, as she progresses hopefully I can start to do some gentle OMT in the hospital. Discussed the "gelling" phenomenon where laying still will make muscles and ligaments more stiffnoted that her cervical collar provides comfort by keeping things from being able to move, but also likely allows them to be stiff for overallshe expressed an understanding of this. We will have her try to take her cervical collar off for at least 5 minutes different times throughout the day. Initially "range of motion" may be nothing more than the basic movements her neck does without the collar in place, and then we will try to gradually progress this to more true range of motion, or hopefully even a degree of passive OMT techniques. Today (12/22/2023) she is absolutely following through with removing her c-collar at times, and allowed very gentle OMT, allowing Voltaren gel. - Peripheral and central nervous system facilitation: Continuing to titrate up on pregabalin (up to 150 twice daily on 12/22/2023), will titrate up further on duloxetine in the near future. Discussed desensitizationand discussed that while the Voltaren gel really primarily would be indicated for the muscle and ligament pain/arthritic pain, right now for her it is probably just as important to utilize as a means of desensitization. She is following through with this well. While she does not carry a rheumatologic diagnosis, it has been investigated. I wonder about the efficacy of steroids and assisting with her pain controlespecially if there is any degree of inflammatory or autoimmune process at play. The risk/benefit for therapeutic trial seems to be fairly low riskand after we discussed this, she agreed that it seemed reasonable to try. Started methylprednisolone today. We will give that a therapeutic trial for a few days (probably through 12/24/2023 before really giving it a) number on efficacy)if it seems to be benefiting, then we will continue treatment and likely taper similar to what we would do for unknown autoimmune/rheumatologic process, and also if she has affect, then it would warrant revisiting rheumatologic evaluation. If a few days go by and it does not really seem to be benefiting at all, then we will discontinue as a failed therapeutic trial. (2) Opioid use: Plan: Almost certainly will need some degree of narcotics regimen at dischargehopefully slowly over time with multimodal approach, reinitiation of OMT, etc.things may be able to be weaned, as we get closer to discharge we will definitely need to coordinate closely with her [facility] pain management team to ensure a smooth transition of care. See above (3) Cardiac pacemaker: Plan: She has been investigated for POTS, and did not quite fit criteria, but defin itely shows some degree of that type of physiologyparticularly with her syncopal event on Tuesday night that even to my eye initially appeared consistent with narcotics related sedation, and only after being able to truly evaluate with hindsight, including talking to the patient the next day, was it clear that it was more of a syncopal event not over sedation. because of this for now, and because of the ongoing need for fairly high potency narcotics to control what appears to be quite intense pain, continue isotonic IV fluids (fairly high volume of clear urine outputreduce rate today) and midodrine to help protect against future syncopal events. As we are able to get away from especially IV narcotics, we should be able to stop the midodrine. (4) Damion's thyroiditis: Plan: Continue [place] Thyroid Plan DVT prophylaxis Lovenox given that she has been fairly immobile. Admission and Anticipated Discharge Date Admission Date: December 17, 2023 Subjective Multiple discussions with nursing todaypatient visited several times. Nursing notes that the patient had a fairly good night by comparison to previous nights, patient herself notes she slept about 5 hours. Nursing notes that once patient was awake she was fairly behind on pain and it took a little while to get caught back up, but then she was able to have breakfast (it sounds like probably better than for many days) and spent a reasonable amount of time with her cervical collar off. Whenever I saw the patient (after she was back in pain) she corroborated that she did have a pretty good night and a pretty good morning compared to her previous days, and she was actually feeling well enough that she thought she might be able to check a few work emails. Unfortunately where she went to do this, the movement precipitated a lot of neck muscle spasms and she was back to how she had been feeling frequently the last few days. Nursing gave her as needed Dilaudid, as well as as needed Valium, and reasonably quickly the spasms started to subsidewhen I revisited the patient about 2 hours later she was sleeping soundly and nursing noted that she had been more or less since I had last seen her. Patient had requested one-on-one discussion with resident physician, Dr. Zuleta has attempted to talk with her several timesand at first the patient had wanted it to be a little bit later to for it to be truly just the 2 of them, and then later she was fairly sedated with medications. He asked nursing to inform him when she is awake so that they can hopefully discuss things. Review of Systems Review of Systems: All systems reviewed & are unremarkable except as noted in HPI & below Physical Exam Physical Exam: Initial exam she is awake, pleasant but definitely in spasms of pain, and appears in a degree of distress with this. Her neck is supple, paraspinal muscles do feel a little bit more boggy than on prior exam, patient does in fact have her cervical collar off, and while I do exceedingly gentle myofascial OMT, she is able to tolerate very very gentle fairly superficial myofascial release. Breathing unlabored no accessory muscle use good effort. Skin shows no rashes no pallor or icterus. Neuro without focal deficits. On revisit later, she is sleeping comfortably, no more waves of spasm, breathing unlabored, appearing in no distress. Results & Data Results & Data Vital Signs (Past 12 Hours) Vital Signs Temp Pulse Resp BP Pulse Ox O2 Del Method 12/22/23 15:30 98.4 F 83 18 106/70 96 Room Air 12/22/23 11:59 97.9 F 80 113/76 95 Room Air 12/22/23 07:38 98.6 F 78 18 123/81 93 Room Air PG Care Time/CCT Total # of Minutes Spent Total Time Spent with Patient: Total time spent is greater than 50% in coordination of care (as documented) at patient's floor/unit and/or counseling patient: Coding Level of Care Code 80320 SUB INP/OBS CARE 3/50MIN Diagnoses Chronic neck pain M54.2; G89.29 Opioid use F11.90 Cardiac pacemaker Z95.0 Damion's thyroiditis E06.3
[2023-12-22] MEDS: POLYETHYLENE (MIRALAX) 17 GM PACK PO SCH (20:31)
[2023-12-22] MEDS ORDERED: Nursing to Pharmacy Communication SCH (22:00)
[2023-12-22] MEDS: LACTATED RINGER'S 1,000 ML IV SCH (22:26)
[2023-12-23 06:48] LABS: Basophils # (auto) 0.05 K/uL (0.00-0.20); Basophils % (auto) 0.6 %; Eosinophils # (auto) 0.17 K/uL (0.00-0.50); Eosinophils % (auto) 2.2 %; Hematocrit (blood only) 36.5 % (37.0-47.0); Hemoglobin 11.9 g/dl (12.0-16.0); Immature Granulocytes # (auto) 0.02 K/uL (0.01-0.20); Immature Granulocytes % (auto) 0.3 %; Lymphocytes % (auto) 32.1 %; Mean Corpuscular Hgb Conc 32.6 g/dL (32.0-36.0); Mean Platelet Volume 11.3 fL (9.4-12.4); Monocytes # (auto) 0.49 K/uL (0.11-0.59); Monocytes % (auto) 6.3 %; Neutrophils # (auto) 4.56 K/uL (1.40-6.50); Neutrophils % (auto) 58.5 %; Platelet Count 230 K/uL (130-400); RDW Coefficient of Variation 14.4 % (11.5-14.5); RDW Standard Deviation 43.2 fL (36.4-46.3); White Blood Count 7.79 K/ul (4.8-10.8)
[2023-12-23] MEDS: MAGNESIUM SULFATE / D5W 1 GM/100 ML BAG IV SCH (08:25)
[2023-12-23] MEDS: CHOLECALCIFEROL 25 MCG (1000 UNITS) TAB PO SCH (08:31)
[2023-12-23] MEDS: SENNA 8.6 MG TAB PO SCH (08:32)
[2023-12-23] MEDS: DULoxetine HCL 60 MG CAP PO SCH (08:41)
[2023-12-23] MEDS: MoRPHine SULFATE CR 15 MG TABCR PO SCH (11:28)
--- NOTE | 2023-12-23 12:29 | Hospitalist Progress Note ---
Date of Service December 23, 2023 Assessment & Plan (1) Chronic neck pain: Plan: Chronic pain syndrome with acute worseningexact cause of the acute worsening not entirely clear. This was in the context of her being at home with family concern of her being overmedicatedbut since then her pain has been significantly worse despite very aggressive attempts at pain control. MRI rechecked to evaluate for any signs of hardware looseningfortunately this does not appear to be the case, nor does her CT imaging from earlier this hospital stay. Discussed with patient I suspect her pain is likely multifactorialsome structural from bone/disc/arthritic changes, some musculoligamentous, and some nervous system facilitation (both peripheral and central). - Bone/disc: Nothing appears to be fractured or displaced loosened or otherwise surgical. Largely this will be function for pain control with medicationscontinue to titrate as possible. For now continuing an aggressive approach given the severity of her pain (she is frequently in bed with appearance of jolts of spasm, laying extremely still and tearful). Discussed with patient multiple times that I feel like a RIPPER OPERATOR would be beneficial for the pain, but given her POTS like physiology leading to what appeared to be an unresponsive episode on Tuesday (that appeared quite consistent with narcotics related oversedation until after being able to really review the situation, including discussing with the patient the next day) given that she is starting to have longer blocks of good moments with better pain controlwe will start to slowly transition off of significant doses that are predominantly IV and try to roll over to more moderate doses with a long and short acting p.o. strategy. Today we will add MS Contin 15 mg twice daily, and leave the rest of her plan unchangedhopefully by tomorrow we can escalate the MS Contin if needed, but also increase her p.o. Dilaudid and make it to every 4 hours as needed, and start to scale back to the IV Dilaudid. - Muscle/ligamentlong-term I believe she would benefit from OMT (she notes that she did benefit from OMT and trigger point injections in the past) and we will set this up as we get closer to discharge. Short-term, utilizing muscle relaxants, continue Voltaren gel, started 12/22 with very gentle OMT. Have previously discussed the "gelling" phenomenon where laying still will make muscles and ligaments more stiffnoted that her cervical collar provides comfort by keeping things from being able to move, but also likely allows them to be stiff for overallshe expressed an understanding of this. Removing cervical collar off for at least 5 minutes different times throughout the day. Initially "range of motion" may be nothing more than the basic movements her neck does without the collar in place, and then we will try to gradually progress this to more true range of motion, or hopefully even a degree of passive OMT techniques. - Peripheral and central nervous system facilitation: Continuing to titrate up on pregabalin (up to 150 twice daily on 12/22/2023), increased duloxetine to 60mg (12/23). Discussed desensitizationand discussed that while the Voltaren gel really primarily would be indicated for the muscle and ligament pain/arthritic pain, right now for her it is probably just as important to utilize as a means of desensitization. She is following through with this well. While she does not carry a rheumatologic diagnosis, it has been investigated. I wonder about the efficacy of steroids and assisting with her pain controlespecially if there is any degree of inflammatory or autoimmune process at play. The risk/benefit for therapeutic trial seems to be fairly low riskand after we discussed this, she agreed that it seemed reasonable to try. she does seem to be showing some improvement - it will be very difficult to tease apart variables but with correlation of showing improvement around the time of starting steroids - will conitnue IV through 12/24 then on 12/25 switch to PO prednisone with intent to taper. for pt safety - ONE short course of steroids given her medical hx is quite low risk, but will need to ensure she knows that it was largely in the category of having tried so many other things and pt still having significant pain - not a clear repeatable indication; and will need to make clear that with all the variables at play we can see correlation but this correlation absolutely doesn't prove cause-effect (will need to ensure this given that her risk of iatrogenic harm from one course of steroids empirically is quite low, but if this were to initiate a repeated mode of steroids over and over, then she truly could suffer iatrogenic harm - particularly if no clear indication arises. will ask she follow closely w PCP +/- revisit with rheumatology in this regard) (2) Opioid use: Plan: Almost certainly will need some degree of narcotics regimen at dischargehopefully slowly over time with multimodal approach, reinitiation of OMT, etc.things may be able to be weaned, as we get closer to discharge we will definitely need to coordinate closely with her [place] pain management team to ensure a smooth transition of care. See above (3) Cardiac pacemaker: Plan: She has been investigated for POTS, and did not quite fit criteria, but definitely shows some degree of that type of physiologyparticularly with her syncopal event on Tuesday night that even to my eye initially appeared consistent with narcotics related sedation, and only after being able to truly evaluate with hindsight, including talking to the patient the next day, was it clear that it was more of a syncopal event not over sedation. because of this for now, and because of the ongoing need for fairly high potency narcotics to control what appears to be quite intense pain, continue isotonic IV fluids (fairly high volume of clear urine outputreduce rate today) and midodrine to help protect against future syncopal events. As we are able to get away from especially IV narcotics, we should be able to stop the midodrine. (4) Damion's thyroiditis: Plan: Continue [place] Thyroid Plan DVT prophylaxis Lovenox given that she has been fairly immobile. Admission and Anticipated Discharge Date Admission Date: December 17, 2023 Subjective Once again had a bit of a better morning. Was able to eat breakfast. Was up more. Worked with therapy and now is having a ton of spasms and pain. Nursing working with as needed medications to get pain under better control. Tried to outline "big picture plan" for patient. Review of Systems Review of Systems: All systems reviewed & are unremarkable except as noted in HPI & below Physical Exam Physical Exam: Awake and alert, lying in bed appearing in a significant amount of pain, tearful, nursing actively getting medications to quell the pain, I got a cool washcloth to try to be helpful as well. Breathing unlabored no accessory muscle use good effort. Skin shows no rashes no pallor or icterus. Neuro without focal deficits. Results & Data Results & Data Vital Signs (Past 12 Hours) Vital Signs Temp Pulse Resp BP BP Pulse Ox O2 Del Method 12/23/23 11:48 99.1 F 86 20 124/85 Nasal Cannula 12/23/23 07:56 98.2 F 76 18 106/63 99 Nasal Cannula 12/23/23 05:50 96 Nasal Cannula 12/23/23 04:15 98.6 F 93 H 20 116/86 93 Room Air O2 Flow Rate 12/23/23 11:48 2 12/23/23 07:56 2 12/23/23 05:50 2 12/23/23 04:15 PG Care Time/CCT Total # of Minutes Spent Total Time Spent with Patient: Total time spent is greater than 50% in coordination of care (as documented) at patient's floor/unit and/or counseling patient: Coding Level of Care Code 78786 SUB INP/OBS CARE 3/50MIN Diagnoses Chronic neck pain M54.2; G89.29 Opioid use F11.90 Cardiac pacemaker Z95.0 Damion's thyroiditis E06.3
[2023-12-24 06:34] LABS: Basophils # (auto) 0.07 K/uL (0.00-0.20); Basophils % (auto) 0.9 %; Eosinophils # (auto) 0.13 K/uL (0.00-0.50); Eosinophils % (auto) 1.6 %; Hematocrit (blood only) 36.2 % (37.0-47.0); Hemoglobin 12.1 g/dl (12.0-16.0); Immature Granulocytes # (auto) 0.03 K/uL (0.01-0.20); Immature Granulocytes % (auto) 0.4 %; Lymphocytes # (auto) 2.86 K/uL (1.20-3.40); Lymphocytes % (auto) 35.3 %; Mean Corpuscular Hemoglobin 27.4 pg (25.0-34.0); Mean Corpuscular Hgb Conc 33.4 g/dL (32.0-36.0); Mean Corpuscular Volume 82.1 fL (80.0-100.0); Mean Platelet Volume 10.8 fL (9.4-12.4); Monocytes # (auto) 0.51 K/uL (0.11-0.59); Monocytes % (auto) 6.3 %; Neutrophils % (auto) 55.5 %; Platelet Count 236 K/uL (130-400); RDW Coefficient of Variation 14.5 % (11.5-14.5); RDW Standard Deviation 42.3 fL (36.4-46.3); Red Blood Count 4.41 M/uL (4.20-5.40)
[2023-12-24] MEDS ORDERED: HYDROmorphone INJ 2 MG/ML SYR/VIAL IV PRN (07:31)
[2023-12-24] MEDS: MoRPHine SULFATE CR 15 MG TABCR PO SCH (08:01)
--- NOTE | 2023-12-24 11:14 | Hospitalist Progress Note ---
Date of Service December 24, 2023 Assessment & Plan (1) Chronic neck pain: Plan: With acute- worsening Cervical collar Patient with multiple spinal surgeries last in 2021 Ct Neg for acute process MRI: Pain management: MS Contin 30 mg BID, Diluid PO 8 mg Q4hr prn, IV Diluid 2 mg q2hr prn, lidocaine patch Valium for spams Neuropathy: pregabalin, duloxetine Steroids IV- transition to po on / for taper, risks vs benefits discussed Plan to titrate PRN dosing to appropriate level Miralax janie Will require a combination of opioid, benzo, SNRI, neuropathic, and manipulative treatment for usp management Consider as well OMT and trigger point injections (2) Opioid use: Plan: Prob will discharge with opioid transitioning to PO today Close follow up with [facility] pain management (3) Cardiac pacemaker: Plan: POTS Syncopal event on admission IV fluids Midodrine consider d/c after full transition to po pain meds (4) Damion's thyroiditis: Plan: continue [place] thyroiditis Plan Dipo: PCU/Telemetry DVT prophylaxis Lovenox Regular diet Admission and Anticipated Discharge Date Admission Date: December 17, 2023 Supervising Physician Co-Signing Physician Notes I personally examined the patient and verified all [place]ampo points of history and exam, discussed case, and agree with decision making with Dr Jay De La Cruz feeling better overall resting. slept well. pain doing better. less need for prn meds. doesn't feel sedated or confused. vitals noted nad heent nc at mmm breathing unlabored no accessory muscles good effort skin no rashes no pallor or icterus Chronic pain syndrome with acute worseningexact cause of the acute worsening not entirely clear. This was in the context of her being at home with family concern of her being overmedicatedbut since then her pain has been significantly worse despite very aggressive attempts at pain control. MRI rechecked to evaluate for any signs of hardware looseningfortunately this does not appear to be the case, nor does her CT imaging from earlier this hospital stay. Discussed with patient I suspect her pain is likely multifactorialsome structural from bone/disc/arthritic changes, some musculoligamentous, and some nervous system facilitation (both peripheral and central). - Bone/disc: Nothing appears to be fractured or displaced loosened or otherwise surgical. Largely this will be function for pain control with medicationscontinue to titrate as possible. For now continuing an aggressive approach given the severity of her pain (she is frequently in bed with appearance of jolts of spasm, laying extremely still and tearful). Discussed with patient multiple times that I feel like a BROADCAST OPERATIONS MANAGER would be beneficial for the pain, but given her POTS like physiology leading to what appeared to be an unresponsive episode on Tuesday (that appeared quite consistent with narcotics related oversedation until after being able to really review the situation, including discussing with the patient the next day) given that she is starting to have longer blocks of good moments with better pain controlwe will start to slowly transition off of significant doses that are predominantly IV and try to roll over to more moderate doses with a long and short acting p.o. strategy. doing well on transition to PO meds for discharge - with some sleepiness today and very little need for prn, i am (a) optimistic that this transition will be successful and possibly faster than i anticipated, and (b) will need to follow - it's probably that she just was so far behind on rest that now that she has adequate pain control she is catching up on sleep (especially since she does not appear confused/delirious/etc) but will be paying attention to if the MSContin dose needs to be adjusted down at all - Muscle/ligamentlong-term I believe she would benefit from OMT (she notes that she did benefit from OMT and trigger point injections in the past) and we will set this up as we get closer to discharge. Short-term, utilizing muscle relaxants, continue Voltaren gel, started 12/22 with very gentle OMT. Have previously discussed the "gelling" phenomenon where laying still will make muscles and ligaments more stiffnoted that her cervical collar provides comfort by keeping things from being able to move, but also likely allows them to be stiff for overallshe expressed an understanding of this. Removing cervical collar off for at least 5 minutes different times throughout the day. Initially "range of motion" may be nothing more than the basic movements her neck does without the collar in place, and then we will try to gradually progress this to more true range of motion, or hopefully even a degree of passive OMT techniques. - Peripheral and central nervous system facilitation: Continuing to titrate up on pregabalin (up to 150 twice daily on 12/22/2023), increased duloxetine to 60mg (12/23). Discussed desensitizationand discussed that while the Voltaren gel really primarily would be indicated for the muscle and ligament pain/arthritic pain, right now for her it is probably just as important to utilize as a means of desensitization. She is following through with this well. While she does not carry a rheumatologic diagnosis, it has been investigated. I wonder about the efficacy of steroids and assisting with her pain controlespecially if there is any degree of inflammatory or autoimmune process at play. The risk/benefit for therapeutic trial seems to be fairly low riskand after we discussed this, she agreed that it seemed reasonable to try. she does seem to be showing some improvement - it will be very difficult to tease apart variables but with correlation of showing improvement around the time of starting steroids - switch to PO prednisone starting tomorrow, titrate down over ~a week DVT proph - ambulation Subjective No overnight events. Seem in the morning found awake, alert and oriented, refers pain better controlled with change from yesterday. No bowel movements since a couple of days, will uptitrated her current Miralax/ Senna regimen. Will transition titrate up MS Contin for full discontinue of IV opioids. . Remains unable to ambulate without significant pain/spasm. Denied VALDIVIA, nausea, vomiting, diarrhea, chest pain or any other symptoms Review of Systems Review of Systems: All systems reviewed & are unremarkable except as noted in HPI & below Physical Exam Constitutional: WD/WN, vitals as above with neck collar Respiratory: normal respiratory effort, lungs clear to auscultation Cardiovascular: RRR, no murmur, no edema Gastrointestinal (Abdomen): normal bowel sounds, soft, nontender, no hepatosplenomegaly Results & Data Results & Data Vital Signs (Past 12 Hours) Vital Signs Temp Pulse Pulse Resp BP Pulse Ox O2 Del Method 12/24/23 10:14 Room Air 12/24/23 07:50 36.6 C 74 18 99/61 L 98 Room Air 12/24/23 07:26 79 12/24/23 03:00 36.6 C 74 18 136/90 99 Nasal Cannula Resident Activity Tracking Resident Involvement: Resident Care Provided Care Provided: Adult [facility]
[2023-12-24] MEDS: HYDROmorphone INJ 2 MG/ML SYR/VIAL IV PRN (12:04)
[2023-12-24] MEDS: POLYETHYLENE (MIRALAX) 17 GM PACK PO SCH (13:30)
[2023-12-25 06:32] LABS: Basophils # (auto) 0.04 K/uL (0.00-0.20); Basophils % (auto) 0.5 %; Eosinophils # (auto) 0.16 K/uL (0.00-0.50); Eosinophils % (auto) 1.9 %; Hematocrit (blood only) 39.3 % (37.0-47.0); Hemoglobin 12.7 g/dl (12.0-16.0); Immature Granulocytes # (auto) 0.03 K/uL (0.01-0.20); Immature Granulocytes % (auto) 0.4 %; Lymphocytes # (auto) 3.26 K/uL (1.20-3.40); Lymphocytes % (auto) 38.7 %; Mean Corpuscular Hemoglobin 26.8 pg (25.0-34.0); Mean Corpuscular Hgb Conc 32.3 g/dL (32.0-36.0); Mean Corpuscular Volume 83.1 fL (80.0-100.0); Mean Platelet Volume 10.5 fL (9.4-12.4); Monocytes # (auto) 0.52 K/uL (0.11-0.59); Monocytes % (auto) 6.2 %; Neutrophils # (auto) 4.41 K/uL (1.40-6.50); Neutrophils % (auto) 52.3 %; Platelet Count 266 K/uL (130-400); RDW Coefficient of Variation 14.5 % (11.5-14.5); RDW Standard Deviation 43.8 fL (36.4-46.3); Red Blood Count 4.73 M/uL (4.20-5.40); White Blood Count 8.42 K/ul (4.8-10.8)
[2023-12-25 06:48] LABS: Calcium 8.8 mg/dl (8.6-10.3); Creatinine Clr Calc Pharmacy 174.8 ml/min; Est GFR (African American) 147.4 ml/min; Est GFR (Non-African American) 127.2 ml/min; Magnesium 1.9 mg/dl (1.7-2.4); Potassium 3.8 mmol/L (3.5-5.1)
--- NOTE | 2023-12-25 07:22 | Hospitalist Progress Note ---
Date of Service December 25, 2023 Assessment & Plan (1) Chronic neck pain: Plan: With acute- worsening Cervical collar Patient with multiple spinal surgeries last in 2021 Ct Neg for acute process MRI: No high-grade central canal or neural foraminal narrowing. Pain management: MS Contin 30 mg BID, Diluid PO 8 mg Q4hr prn, IV Diluid 2 mg q2hr prn, lidocaine patch Valium BID, magnesium for spams Neuropathy: pregabalin, duloxetine Steroids IV- transitioned to po on 12/25 for taper, risks vs benefits discussed Plan to titrate PRN dosing to appropriate level Miralax janie Will require a combination of opioid, benzo, SNRI, neuropathic, and manipulative treatment for [facility] management Consider as well OMT and trigger point injections (2) Opioid use: Plan: Prob will discharge with opioid transitioning to PO today Close follow up with [facility] (3) Cardiac pacemaker: Plan: POTS Syncopal event on admission IV fluids Midodrine consider d/c after full transition to po pain meds (4) Damion's thyroiditis: Plan: continue [place] thyroiditis Plan Dipo: PCU/Telemetry DVT prophylaxis ambulation, SCDs Regular diet Admission and Anticipated Discharge Date Admission Date: December 17, 2023 Supervising Physician Co-Signing Physician Notes I personally examined the patient and verified all ocampo points of history and exam, discussed case, and agree with decision making with Dr Jay De La Cruz first time i saw her she was sleeping and appearing comfortable. then called due to spasms - at bedside for ~30-40mins with eval, stepwise but quick titration/addition of meds, eventual improvement in symptoms vitals noted first time sleeping comfortably on revisit unfortunately recurrence of spasms like earlier in the week - tearful, laying very still but then visibly gripped with spasms every few seconds. breathing unlabored no accessory muscles. no focla neuro deficits. Chronic pain syndrome with acute worseningexact cause of the acute worsening not entirely clear. This was in the context of her being at home with family concern of her being overmedicatedbut since then her pain has been significantly worse despite very aggressive attempts at pain control. MRI rechecked to evaluate for any signs of hardware looseningfortunately this does not appear to be the case, nor does her CT imaging from earlier this hospital stay. Discussed with patient I suspect her pain is likely multifactorialsome structural from bone/disc/arthritic changes, some musculoligamentous, and some nervous system facilitation (both peripheral and central). - Bone/disc: Nothing appears to be fractured or displaced loosened or otherwise surgical. Largely this will be function for pain control with medicationscontinue to titrate as possible. --->eventual short term goal would be to reach a point of stability with pain meds compatible with life outside the hospital. anticipate this to likely include tylenol/NSAID (listed as causing palpitations but has had good benefit from toradol here), long acting narcotic base and short acting narcotic breakthrough (and if this is the case would need to coordinate w dr cornel piper pain management to assume management of the meds after discharge) -had been working in that direction nicely the last 2 days - unfortunately today's setback likely also requires regression of pain med regimen -> likely to need more IV meds for now - Muscle/ligament -range of motion (remove collar throughout the day, increase activity), OMT (dr juanis rene has agreed to take her on as OMT patient), voltaren gel; for now continue w skelaxin and valium - hopefully can wean these (for now with today's setback - and since valium has helped as much as just about anything but IV dilauded for acute breakthrough spasm episodes/because she is on ~2mg TID - QID subacutely at home -> will keep prn valium "as is" but scheduling 5mg AM and dinnertime for now. -has responded quite well to IV mag (3-4g dosing) --> since today' recurrent spasms --> mag 4g IV today, eventually transition to mag ox 400mg bid - Peripheral and central nervous system facilitation: -pregabalin now at 150mg bid -cymbalta 60mg daily (increase again in a few days) -voltaren gel also for desensitization While she does not carry a rheumatologic diagnosis, it has been investigated. I wonder about the efficacy of steroids and assisting with her pain controlespecially if there is any degree of inflammatory or autoimmune process at play. The risk/benefit for therapeutic trial seems to be fairly low riskand after we discussed this, she agreed that it seemed reasonable to try. she does seem to be showing some improvement - it will be very difficult to tease apart variables but with correlation of showing improvement around the time of starting steroids - now on PO prednisone starting tomorrow, titrate down over ~a week DVT proph - ambulation, lovenox Subjective No overnight events. She refers having problems with sleeping. Spasms return in the early afternoon. Needing Dilaudid, Toradol, Tylenol. Had diarrhea yesterday afternoon. Remains unable to ambulate without significant pain/spasm. Denied VADLIVIA, nausea, vomiting, diarrhea, chest pain or any other symptoms Review of Systems Review of Systems: All systems reviewed & are unremarkable except as noted in HPI & below Physical Exam Constitutional: WD/WN, vitals as above Respiratory: normal respiratory effort, lungs clear to auscultation Cardiovascular: RRR, no murmur, no edema Gastrointestinal (Abdomen): normal bowel sounds, soft, nontender, no hepatosplenomegaly Results & Data Results & Data Vital Signs (Past 12 Hours) Vital Signs Temp Pulse Pulse Resp BP Pulse Ox O2 Del Method 12/24/23 22:30 36.5 C 68 18 138/62 99 Room Air 12/24/23 22:00 91 H Resident Activity Tracking Resident Involvement: Resident Care Provided Care Provided: Adult Hospital Medicine
[2023-12-25] MEDS ORDERED: IBUPROFEN 600 MG TAB PO PRN (07:25)
[2023-12-25] MEDS: predniSONE 20 MG TAB PO SCH (08:12)
[2023-12-25] MEDS: MIDODRINE HCL 2.5 MG TAB PO SCH ×2 (08:12→13:42)
[2023-12-25] MEDS: POLYETHYLENE (MIRALAX) 17 GM PACK PO SCH (08:14)
[2023-12-25] MEDS: MAGNESIUM OXIDE 400 MG TAB PO SCH (08:16)
[2023-12-25] MEDS: ACETAMINOPHEN 325 MG TAB PO SCH (08:16)
[2023-12-25] MEDS: HYDROmorphone INJ 2 MG/ML SYR/VIAL IV STA (11:10)
[2023-12-25] MEDS: KETOROLAC 30 MG/ML VIAL IV ONE (11:31)
[2023-12-25] MEDS: MAGNESIUM SULFATE / D5W 1 GM/100 ML BAG IV SCH (11:32)
[2023-12-25] MEDS: ACETAMINOPHEN 1,000 MG/100 ML VIAL IV STA (11:35)
[2023-12-25] MEDS: HYDROmorphone INJ 1 MG/ML SYRINGE ONE ×2 (11:45→12:00)
[2023-12-25] MEDS: HYDROmorphone INJ 1 MG/ML SYRINGE IV STA ×2 (11:59)
--- NOTE | 2023-12-25 13:59 | Billing Data ---
Date of Service December 25, 2023 Coding Level of Care Code 65386 SUB INP/OBS CARE
[2023-12-25] MEDS: diazePAM 5 MG TABLET PO SCH (16:43)
[2023-12-25] MEDS: diazePAM 5 MG/ML 10ML VIAL ONE (20:25)
[2023-12-25] MEDS: diazePAM 5 MG/ML 10ML VIAL IV STA (20:25)
[2023-12-25] MEDS ORDERED: HYDROmorphone INJ 2 MG/ML SYR/VIAL IV SCH (21:00)
[2023-12-25] MEDS ORDERED: HYDROmorphone HCL 4 MG TAB PO SCH (21:00)
[2023-12-26 06:29] LABS: Basophils # (auto) 0.06 K/uL (0.00-0.20); Basophils % (auto) 0.5 %; Eosinophils # (auto) 0.08 K/uL (0.00-0.50); Eosinophils % (auto) 0.7 %; Hematocrit (blood only) 40.3 % (37.0-47.0); Hemoglobin 13.4 g/dl (12.0-16.0); Immature Granulocytes # (auto) 0.05 K/uL (0.01-0.20); Immature Granulocytes % (auto) 0.5 %; Lymphocytes # (auto) 2.73 K/uL (1.20-3.40); Lymphocytes % (auto) 24.9 %; Mean Corpuscular Hemoglobin 27.6 pg (25.0-34.0); Mean Corpuscular Hgb Conc 33.3 g/dL (32.0-36.0); Mean Corpuscular Volume 82.9 fL (80.0-100.0); Mean Platelet Volume 11.2 fL (9.4-12.4); Monocytes # (auto) 0.84 K/uL (0.11-0.59); Monocytes % (auto) 7.7 %; Neutrophils # (auto) 7.19 K/uL (1.40-6.50); Neutrophils % (auto) 65.7 %; Platelet Count 285 K/uL (130-400); RDW Coefficient of Variation 14.6 % (11.5-14.5); RDW Standard Deviation 43.7 fL (36.4-46.3); Red Blood Count 4.86 M/uL (4.20-5.40); White Blood Count 10.95 K/ul (4.8-10.8)
[2023-12-26 06:50] LABS: Anion Gap 6 (3-11); BUN Creatinine Ratio 15.6 (10-20); Blood Urea Nitrogen 7 mg/dl (6-23); Calcium 8.5 mg/dl (8.6-10.3); Carbon Dioxide 31 mmol/L (21-32); Chloride 103 mmol/L (98-107); Creatinine Clr Calc Pharmacy 194.8 ml/min; Est GFR (African American) > 150.0 ml/min; Est GFR (Non-African American) 131.7 ml/min; Glucose 86 mg/dl (70-99(Fasting)); Magnesium 2.4 mg/dl (1.7-2.4); Potassium 3.8 mmol/L (3.5-5.1); Sodium 140 mmol/L (136-145)
--- NOTE | 2023-12-26 07:02 | Hospitalist Progress Note ---
Date of Service December 26, 2023 Assessment & Plan (1) Chronic neck pain: Plan: Acute worsening prior to current admission Was seen by [facility] pain management prior to admission. Tried to wean from home regimen on 10-12 4mg Dilaudid daily to fentanyl patch with Dilaudid for breakthrough, but did not control pain as well as Dilaudid Patient with multiple spinal surgeries last in 2021; C3/C4 and C4/C5 spinal fusion Repeat imaging this admission without acute changes Current Pain management: MS Contin 30 mg BID, Diluid PO 8 mg Q4hr prn, IV Diluid 2 mg q2hr prn, lidocaine patch, Tylenol, voltaren gel Skelaxin, Valium 5mg BID and 10mg q6 for muscle spasm. 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 Subjective Notes that overnight she did have episode of muscle spasm, 2mg Dilaudid not not help spasm. Overall pain largely unchanged from yesterday. Review of Systems Review of Systems: As per above Physical Exam Physical Exam: Constitutional: well-appearing, no acute distress HEENT: NCAT, no conjunctival injection CV: regular rhythm, no murmur appreciated, extremities well-perfused, no LE edema Resp: CTABL, no wheezes/rales/rhonchi appreciated, no increased work of breathing GI: soft, nondistended, nontender, BS normoactive MSK: no gross deformities appreciated; Cervical spine collar in place Skin: warm, dry, no rash appreciated Neuro: alert, oriented, no focal neurologic deficit appreciated Results & Data Results & Data Vital Signs (Past 12 Hours) Vital Signs Temp Pulse Resp BP Pulse Ox O2 Del Method O2 Flow Rate 12/26/23 05:51 36.4 C L 12/26/23 03:00 90 21 110/74 98 Nasal Cannula 12/25/23 23:30 Nasal Cannula 2 12/25/23 23:00 91 H 19 116/82 99 Nasal Cannula 12/25/23 20:05 Nasal Cannula 2 12/25/23 19:00 80 20 122/76 99 Room Air Resident Activity Tracking Resident Involvement: Resident Care Provided Care Provided: Adult Hospital Medicine
[2023-12-26] MEDS: diazePAM 5 MG/ML 10ML VIAL IV STA (15:41)
[2023-12-26] MEDS: diazePAM 5 MG/ML 10ML VIAL ONE (15:41)
[2023-12-27] MEDS: HYDROmorphone INJ 2 MG/ML SYR/VIAL IV PRN (01:55)
[2023-12-27] MEDS: diazePAM 5 MG/ML 10ML VIAL IV STA ×4 (02:10→15:21)
[2023-12-27] MEDS: METAXALONE 800 MG TABLET PO STA (04:08)
[2023-12-27 06:57] LABS: Basophils # (auto) 0.04 K/uL (0.00-0.20); Basophils % (auto) 0.4 %; Eosinophils # (auto) 0.05 K/uL (0.00-0.50); Eosinophils % (auto) 0.5 %; Hematocrit (blood only) 40.1 % (37.0-47.0); Hemoglobin 13.1 g/dl (12.0-16.0); Immature Granulocytes # (auto) 0.05 K/uL (0.01-0.20); Immature Granulocytes % (auto) 0.5 %; Lymphocytes # (auto) 2.47 K/uL (1.20-3.40); Lymphocytes % (auto) 24.3 %; Mean Corpuscular Hemoglobin 27.2 pg (25.0-34.0); Mean Corpuscular Hgb Conc 32.7 g/dL (32.0-36.0); Mean Corpuscular Volume 83.4 fL (80.0-100.0); Mean Platelet Volume 10.8 fL (9.4-12.4); Monocytes # (auto) 0.74 K/uL (0.11-0.59); Monocytes % (auto) 7.3 %; Platelet Count 278 K/uL (130-400); RDW Coefficient of Variation 14.6 % (11.5-14.5); RDW Standard Deviation 44.2 fL (36.4-46.3); Red Blood Count 4.81 M/uL (4.20-5.40); White Blood Count 10.15 K/ul (4.8-10.8)
--- NOTE | 2023-12-27 06:57 | Hospitalist Progress Note ---
Date of Service December 27, 2023 Assessment & Plan (1) Chronic neck pain: Plan: Acute worsening prior to current admission Was seen by [facility] prior to admission. Tried to wean from home regimen on 10-12 4mg Dilaudid daily to fentanyl patch with Dilaudid for breakthrough, but did not control pain as well as Dilaudid Patient with multiple spinal surgeries last in 2021; C3/C4 and C4/C5 spinal fusion Repeat imaging this admission without acute changes Current Pain management: MS Contin 30 mg BID, Diluid PO 8 mg Q4hr prn, IV Diluid 2 mg q2hr prn, lidocaine patch, Tylenol, voltaren gel Skelaxin, Valium 5mg BID and 10mg q6 for muscle spasm. S/p magnesium 2/4-> defer repeat mag dosing today as Mg= 2.4 Neuropathy: pregabalin, duloxetine Steroids: Currently on 60mg prednisone with plan to taper Continue bowel regimen - Will try for multidisciplinary meeting. Reach out to [facility] tomorrow to consider transfer. (2) Opioid use: Plan: Working towards oral pain management regimen but given high MME daily has been challenging to get adequate pain control Close follow up with [facility] pain management (3) Cardiac pacemaker: Plan: POTS Syncopal event on admission Midodrine consider d/c after full transition to po pain meds (4) Damion's thyroiditis: Plan: continue [place] thyroiditis Plan DVT prophylaxis Lovenox 40mg daily Regular diet Luna catheter in place; will need to remove as soon as pt can tolerate Admission and Anticipated Discharge Date Admission Date: December 17, 2023 Supervising Physician Co-Signing Physician Notes Attending Physician Supervision Note: I independently interviewed and examined the patient and verified the ocampo history and physical, reviewed labs and image studies and agree with findings and care plan noted above. Subjective Pt resting comfortably this morning. Overnight had muscle spasm that required multiple doses of IV Valium and hydromorphone. Was finally able to get some relief early this morning. Review of Systems Review of Systems: As per above Physical Exam Physical Exam: Constitutional: well-appearing, no acute distress HEENT: NCAT CV: extremities well-perfused Resp: no increased work of breathing GI: soft, nondistended, nontender, BS normoactive MSK: no gross deformities appreciated; Cervical spine collar in place Skin: warm, dry, no rash appreciated Neuro: alert, oriented, no focal neurologic deficit appreciated Results & Data Results & Data Vital Signs (Past 12 Hours) Vital Signs Temp Pulse Pulse Resp BP Pulse Ox O2 Del Method 12/27/23 03:50 37.3 C 77 20 126/88 95 Nasal Cannula 12/26/23 22:52 37.5 C 79 20 125/79 95 Room Air 12/26/23 19:28 36.4 C L 84 20 113/81 94 Room Air O2 Flow Rate 12/27/23 03:50 3 12/26/23 22:52 12/26/23 19:28 Resident Activity Tracking Resident Involvement: Resident Care Provided Care Provided: Adult Hospital Medicine
[2023-12-27 07:16] LABS: Anion Gap 6 (3-11); Blood Urea Nitrogen 14 mg/dl (6-23); Calcium 8.6 mg/dl (8.6-10.3); Carbon Dioxide 30 mmol/L (21-32); Chloride 105 mmol/L (98-107); Creatinine Clr Calc Pharmacy 201.8 ml/min; Est GFR (African American) > 150.0 ml/min; Est GFR (Non-African American) 136.9 ml/min; Glucose 93 mg/dl (70-99(Fasting)); Potassium 3.5 mmol/L (3.5-5.1); Sodium 141 mmol/L (136-145)
[2023-12-27] MEDS: diazePAM 5 MG/ML 10ML VIAL ONE (14:43)
[2023-12-27] MEDS: HYDROmorphone INJ 1 MG/ML SYRINGE IV STA ×2 (14:51→21:33)
[2023-12-27] MEDS: MAGNESIUM SULFATE / D5W 1 GM/100 ML BAG IV ONE (14:53)
[2023-12-27] MEDS: diazePAM 5 MG/ML 10ML VIAL IV PRN (22:41)
[2023-12-28] MEDS: diazePAM 5 MG/ML 10ML VIAL IV STA ×2 (01:11→23:51)
[2023-12-28 06:56] LABS: Anion Gap 5 (3-11); Calcium 8.1 mg/dl (8.6-10.3); Carbon Dioxide 29 mmol/L (21-32); Chloride 106 mmol/L (98-107); Magnesium 2.1 mg/dl (1.7-2.4); Potassium 3.6 mmol/L (3.5-5.1); Sodium 140 mmol/L (136-145)
[2023-12-28 07:01] LABS: BUN Creatinine Ratio 22.2 (10-20); Blood Urea Nitrogen 8 mg/dl (6-23); Creatinine Clr Calc Pharmacy 224.2 ml/min; Est GFR (African American) > 150.0 ml/min; Est GFR (Non-African American) 141.7 ml/min; Glucose 89 mg/dl (70-99(Fasting))
[2023-12-28 07:54] LABS: Basophils # (auto) 0.05 K/uL (0.00-0.20); Basophils % (auto) 0.5 %; Eosinophils # (auto) 0.03 K/uL (0.00-0.50); Eosinophils % (auto) 0.3 %; Hematocrit (blood only) 40.3 % (37.0-47.0); Hemoglobin 13.3 g/dl (12.0-16.0); Immature Granulocytes # (auto) 0.06 K/uL (0.01-0.20); Immature Granulocytes % (auto) 0.7 %; Lymphocytes # (auto) 2.99 K/uL (1.20-3.40); Lymphocytes % (auto) 32.7 %; Mean Corpuscular Hemoglobin 27.3 pg (25.0-34.0); Mean Corpuscular Volume 82.6 fL (80.0-100.0); Mean Platelet Volume 10.4 fL (9.4-12.4); Monocytes # (auto) 0.64 K/uL (0.11-0.59); Neutrophils # (auto) 5.37 K/uL (1.40-6.50); Neutrophils % (auto) 58.8 %; Platelet Count 274 K/uL (130-400); RDW Coefficient of Variation 14.8 % (11.5-14.5); Red Blood Count 4.88 M/uL (4.20-5.40); White Blood Count 9.14 K/ul (4.8-10.8)
--- NOTE | 2023-12-28 14:33 | Hospitalist Progress Note ---
Date of Service December 28, 2023 Assessment & Plan (1) Chronic neck pain: Plan: Acute on chronic exacerbation. She says everything worsened when and all of her medications were switched by the stage setting painter apprentice in [place]. She has now been changed back to her usual home protocol which she states was working well for her. (2) Opioid use: Plan: Chronic. She has high tolerance as a result. She has been switched back to her usual regimen so she can be discharged to soon as possible (3) Cardiac pacemaker: Plan: Apparently due to her history of POTS. She may have had a syncopal event on admission. Now on midodrine (4) Damion's thyroiditis: Plan: Stable. Continue [place] thyroid Plan Hopeful discharge to home soon. Referral to [facility] will likely be denied by insurance. Will discontinue Luna catheter prior to discharge. Admission and Anticipated Discharge Date Admission Date: December 17, 2023 Subjective Alert and oriented. No distress. She states she was doing fine until the pain medicine doctor and her she changed everything around which initiated her current problems. She has been switched back to her usual outpatient medications including Dilaudid and scheduled Valium. Prednisone has been discontinued. Hopefully she can go home soon Review of Systems 2 Review of Systems: Constitutional-no fever or chills ENT-no blurred vision, no double vision, no epistaxis, no sore throat Respiratory-no cough, no wheezing, no shortness of breath Cardiac-no palpitations, no chest pain, no syncope GI-no nausea, vomiting, diarrhea, melena, hematochezia -no urinary retention, no urinary incontinence, no dysuria, no hematuria Musculoskeletal-chronic cervical pain with intermittent muscle spasms Skin-no bruising, no rashes, no pruritus Neuro-no isolated weakness, no paresthesia Psych-no depression, no anxiety Physical Exam 2 Physical Exam: General-alert and oriented x3, no fevers, no chills HEENT-head atraumatic and normocephalic, pupils equal and reactive to light, extraocular muscles intact Neck- cervical collar in place for immobilization Chest-clear to auscultation. No rales, wheezing or rhonchi Cardiac-regular rate and rhythm, normal S1 and S2 Abdomen-normal bowel sounds, nontender, no hepatosplenomegaly Extremities-no cyanosis, clubbing, or edema Neuro-cranial nerves II through XII intact, motor and sensory function within normal limits, strength symmetrical, no focal deficits Psych-normal affect, normal mood Results & Data Results & Data Vital Signs (Past 12 Hours) Vital Signs Temp Pulse Pulse Resp BP Pulse Ox O2 Del Method 12/28/23 11:39 36.8 C 81 18 90/64 L 96 Room Air 12/28/23 08:30 37.2 C 91 H 17 104/72 96 Room Air Laboratory Results 12/28/23 07:30 12/28/23 06:25 PG Care Time/CCT Total # of Minutes Spent Total Time Spent with Patient: Total time spent is greater than 50% in coordination of care (as documented) at patient's floor/unit and/or counseling patient: Coding Level of Care Code 42972 SUB INP/OBS CARE 3/50MIN Diagnoses Chronic neck pain M54.2; G89.29 Opioid use F11.90 Cardiac pacemaker Z95.0 Damion's thyroiditis E06.3
[2023-12-28] MEDS: diazePAM 5 MG TABLET PO SCH (18:14)
[2023-12-28] MEDS: HYDROmorphone INJ 2 MG/ML SYR/VIAL IV PRN (23:13)
[2023-12-29] MEDS: diazePAM 5 MG/ML 10ML VIAL IV STA ×3 (00:27→23:52)
[2023-12-29] MEDS: HYDROmorphone INJ 2 MG/ML SYR/VIAL IV PRN (01:30)
--- NOTE | 2023-12-29 15:19 | Hospitalist Progress Note ---
Date of Service December 29, 2023 Assessment & Plan (1) Chronic neck pain: Plan: Acute on chronic exacerbation. She says everything worsened when and all of her medications were switched by the painting technician in [place]. She has now been changed back to her usual home protocol which she states was working well for her and she has improved (2) Opioid use: Plan: Chronic. She has high tolerance as a result. She has been switched back to her usual regimen which seems to be working better (3) Cardiac pacemaker: Plan: Apparently due to her history of POTS. She may have had a syncopal event on admission. Now on midodrine for blood pressure support (4) Damion's thyroiditis: Plan: Stable. Continue [place] thyroid Plan She was transferred to a general medical bed today, December 29. Hopeful discharge to home tomorrow, December 30. Luna catheter was removed today, December 29 Admission and Anticipated Discharge Date Admission Date: December 17, 2023 Subjective Alert and oriented. No distress. She is aware that intermittent cervical muscle spasms could continue indefinitely. She will be transferred to a medical bed without telemetry. The Luna catheter has been removed. Oxygen will be discontinued. Hopefully she can go home soon, possibly tomorrow, December 30. She appears to be doing better however with her usual home medication regimen. She remains on midodrine for blood pressure support. This is a new medication for her Review of Systems 2 Review of Systems: Constitutional-no fever or chills ENT-no blurred vision, no double vision, no epistaxis, no sore throat Respiratory-no cough, no wheezing, no shortness of breath Cardiac-no palpitations, no chest pain, no syncope GI-no nausea, vomiting, diarrhea, melena, hematochezia -no urinary retention, no urinary incontinence, no dysuria, no hematuria Musculoskeletal-chronic cervical pain with intermittent muscle spasms Skin-no bruising, no rashes, no pruritus Neuro-no isolated weakness, no paresthesia Psych-no depression, no anxiety Physical Exam 2 Physical Exam: General-alert and oriented x3, no fevers, no chills HEENT-head atraumatic and normocephalic, pupils equal and reactive to light, extraocular muscles intact Neck- cervical collar in place for immobilization Chest-clear to auscultation. No rales, wheezing or rhonchi Cardiac-regular rate and rhythm, normal S1 and S2 Abdomen-normal bowel sounds, nontender, no hepatosplenomegaly Extremities-no cyanosis, clubbing, or edema Neuro-cranial nerves II through XII intact, motor and sensory function within normal limits, strength symmetrical, no focal deficits Psych-normal affect, normal mood Results & Data Results & Data Vital Signs (Past 12 Hours) Vital Signs Temp Pulse Pulse Pulse Resp BP BP 12/29/23 11:19 36.8 C 90 16 120/83 12/29/23 08:00 89 12/29/23 07:48 36.7 C 85 16 107/71 12/29/23 03:42 36.5 C 89 20 120/84 Pulse Ox O2 Del Method O2 Flow Rate 12/29/23 11:19 94 Nasal Cannula 3.0 12/29/23 08:00 12/29/23 07:48 99 Nasal Cannula 4.0 12/29/23 03:42 99 Nasal Cannula 2 Laboratory Results 12/28/23 07:30 12/28/23 06:25 PG Care Time/CCT Total # of Minutes Spent Total Time Spent with Patient: Total time spent is greater than 50% in coordination of care (as documented) at patient's floor/unit and/or counseling patient: Coding Level of Care Code 00932 SUB INP/OBS CARE 3/50MIN Diagnoses Chronic neck pain M54.2; G89.29 Opioid use F11.90 Cardiac pacemaker Z95.0 Damion's thyroiditis E06.3
[2023-12-29] MEDS: LORazepam 2 MG in SYRINGE 1 ML IV STA (21:38)
--- NOTE | 2023-12-30 17:56 | Hospitalist Progress Note ---
Date of Service December 30, 2023 Assessment & Plan (1) Chronic neck pain: Plan: Acute on chronic exacerbation of cervicalgia. She says everything worsened when and all of her medications were switched by the airbrush painter in [place]. She has now been changed back to her usual home protocol which she states was working well for her in the past. Muscle spasms are the main problem now, despite scheduled Valium. Will restart parenteral steroid therapy and see if this helps. Fortunately cervical MRI scan done earlier this admission did not show any significant pathology besides previous surgical findings (2) Opioid use: Plan: Chronic. She has high tolerance as a result. She has been switched back to her usual regimen which seems to be working better (3) Cardiac pacemaker: Plan: Apparently due to her history of POTS. She may have had a syncopal event on admission. Now on midodrine for blood pressure support (4) Damion's thyroiditis: Plan: Stable. Continue [place] thyroid Plan To be determined. Luna catheter was removed on December 29 but reinserted last night due to urinary retention reported by patient Admission and Anticipated Discharge Date Admission Date: December 17, 2023 Subjective Alert and oriented but she is tearful at the time of my second visit today. I spoke to her mother by phone. Unfortunately she states that all previous antispasmodics did not work and she is now back on her usual Valium which has worked in the past. Parenteral steroid therapy has been started and this may help. Fortunately, cervical MRI done earlier this admission did not reveal any significant findings. Review of Systems 2 Review of Systems: Constitutional-no fever or chills ENT-no blurred vision, no double vision, no epistaxis, no sore throat Respiratory-no cough, no wheezing, no shortness of breath Cardiac-no palpitations, no chest pain, no syncope GI-no nausea, vomiting, diarrhea, melena, hematochezia -no urinary retention, no urinary incontinence, no dysuria, no hematuria Musculoskeletal-chronic cervical pain with intermittent muscle spasms Skin-no bruising, no rashes, no pruritus Neuro-no isolated weakness, no paresthesia Psych-no depression, no anxiety Physical Exam 2 Physical Exam: General-alert and oriented x3, no fevers, no chills HEENT-head atraumatic and normocephalic, pupils equal and reactive to light, extraocular muscles intact Neck- cervical collar in place for immobilization Chest-clear to auscultation. No rales, wheezing or rhonchi Cardiac-regular rate and rhythm, normal S1 and S2 Abdomen-normal bowel sounds, nontender, no hepatosplenomegaly Extremities-no cyanosis, clubbing, or edema Neuro-cranial nerves II through XII intact, motor and sensory function within normal limits, strength symmetrical, no focal deficits Psych-normal affect, normal mood Results & Data Results & Data Vital Signs (Past 12 Hours) Vital Signs Temp Pulse Resp BP BP Pulse Ox O2 Del Method 12/30/23 15:58 36.8 C 90 22 109/74 94 Room Air 12/30/23 11:40 36.9 C 88 20 108/74 98 Room Air 12/30/23 07:44 37.2 C 76 20 103/66 96 Room Air Laboratory Results 12/28/23 07:30 12/28/23 06:25 PG Care Time/CCT Total # of Minutes Spent Total Time Spent with Patient: Total time spent is greater than 50% in coordination of care (as documented) at patient's floor/unit and/or counseling patient: Coding Level of Care Code 87693 SUB INP/OBS CARE 3/50MIN Diagnoses Chronic neck pain M54.2; G89.29 Opioid use F11.90 Cardiac pacemaker Z95.0 Damion's thyroiditis E06.3
[2023-12-30] MEDS: methylPREDNISolone 60 MG in SYRINGE 0 ML IV SCH (19:29)
[2023-12-31 07:55] LABS: Basophils # (auto) 0.01 K/uL (0.00-0.20); Basophils % (auto) 0.1 %; Hematocrit (blood only) 40.3 % (37.0-47.0); Hemoglobin 13.9 g/dl (12.0-16.0); Immature Granulocytes # (auto) 0.04 K/uL (0.01-0.20); Immature Granulocytes % (auto) 0.5 %; Lymphocytes # (auto) 0.73 K/uL (1.20-3.40); Lymphocytes % (auto) 9.9 %; Mean Corpuscular Hemoglobin 27.9 pg (25.0-34.0); Mean Corpuscular Hgb Conc 34.5 g/dL (32.0-36.0); Mean Corpuscular Volume 80.8 fL (80.0-100.0); Mean Platelet Volume 10.5 fL (9.4-12.4); Monocytes # (auto) 0.07 K/uL (0.11-0.59); Monocytes % (auto) 0.9 %; Neutrophils # (auto) 6.54 K/uL (1.40-6.50); Neutrophils % (auto) 88.6 %; Platelet Count 295 K/uL (130-400); RDW Coefficient of Variation 14.5 % (11.5-14.5); RDW Standard Deviation 42.5 fL (36.4-46.3); Red Blood Count 4.99 M/uL (4.20-5.40); White Blood Count 7.39 K/ul (4.8-10.8)
[2023-12-31 08:16] LABS: Anion Gap 8 (3-11); BUN Creatinine Ratio 25.6 (10-20); Blood Urea Nitrogen 11 mg/dl (6-23); Calcium 9.2 mg/dl (8.6-10.3); Carbon Dioxide 26 mmol/L (21-32); Chloride 102 mmol/L (98-107); Est GFR (African American) > 150.0 ml/min; Est GFR (Non-African American) 133.6 ml/min; Glucose 141 mg/dl (70-99(Fasting)); Potassium 4.4 mmol/L (3.5-5.1); Sodium 136 mmol/L (136-145)
--- NOTE | 2023-12-31 14:55 | Hospitalist Progress Note ---
Date of Service December 31, 2023 Assessment & Plan (1) Chronic neck pain: Plan: Acute on chronic exacerbation of cervicalgia. She says everything worsened when and all of her medications were switched by the painter and decorator apprentice in [place]. She has now been changed back to her usual home protocol which she states was working well for her in the past. Muscle spasms are the main problem now, despite scheduled Valium. Solu-Medrol was initiated yesterday, December 30, and seems to be helping her situation. Fortunately cervical MRI scan done earlier this admission did not show any significant pathology besides previous surgical findings. She has requested that this be repeated but it will have to wait until Tuesday since technicians informing that a pacemaker rep will need to be present. (2) Opioid use: Plan: Chronic. She has high tolerance as a result. She has been switched back to her usual regimen which seems to be working better for pain control (3) Cardiac pacemaker: Plan: Apparently due to her history of POTS. She may have had a syncopal event on admission. Now on midodrine for blood pressure support (4) Damion's thyroiditis: Plan: Stable. Continue [place] thyroid Plan To be determined. Luna catheter was removed on December 29 but had to be reinserted due to urinary retention Admission and Anticipated Discharge Date Admission Date: December 17, 2023 Subjective Alert and oriented. She appears more comfortable and is not tearful. She has requested that the cervical spine MRI scan be repeated but it will have to wait until Tuesday since she has a pacemaker and a pacemaker rep will need to be present. Review of Systems 2 Review of Systems: Constitutional-no fever or chills ENT-no blurred vision, no double vision, no epistaxis, no sore throat Respiratory-no cough, no wheezing, no shortness of breath Cardiac-no palpitations, no chest pain, no syncope GI-no nausea, vomiting, diarrhea, melena, hematochezia -no urinary retention, no urinary incontinence, no dysuria, no hematuria Musculoskeletal-chronic cervical pain with intermittent muscle spasms Skin-no bruising, no rashes, no pruritus Neuro-no isolated weakness, no paresthesia Psych-no depression, no anxiety Physical Exam 2 Physical Exam: General-alert and oriented x3, no fevers, no chills HEENT-head atraumatic and normocephalic, pupils equal and reactive to light, extraocular muscles intact Neck- cervical collar in place for immobilization Chest-clear to auscultation. No rales, wheezing or rhonchi Cardiac-regular rate and rhythm, normal S1 and S2 Abdomen-normal bowel sounds, nontender, no hepatosplenomegaly Extremities-no cyanosis, clubbing, or edema Neuro-cranial nerves II through XII intact, motor and sensory function within normal limits, strength symmetrical, no focal deficits Psych-normal affect, normal mood Results & Data Results & Data Vital Signs (Past 12 Hours) Vital Signs Temp Pulse Resp BP Pulse Ox O2 Del Method 12/31/23 11:16 36.8 C 85 16 114/75 96 Room Air 12/31/23 07:42 37.2 C 80 16 112/73 96 Room Air Laboratory Results 12/31/23 07:25 12/31/23 07:25 PG Care Time/CCT Total # of Minutes Spent Total Time Spent with Patient: Total time spent is greater than 50% in coordination of care (as documented) at patient's floor/unit and/or counseling patient: Coding Level of Care Code 49383 SUB INP/OBS CARE 3/50MIN Diagnoses Chronic neck pain M54.2; G89.29 Opioid use F11.90 Cardiac pacemaker Z95.0 Damion's thyroiditis E06.3
--- NOTE | 2024-01-01 15:15 | Hospitalist Progress Note ---
Date of Service January 01, 2024 Assessment & Plan (1) Chronic neck pain: Plan: Acute on chronic exacerbation of cervicalgia. She says everything worsened when and all of her medications were switched by the spray painter in [place]. She has now been changed back to her usual home protocol which she states was working well for her in the past. Muscle spasms are the main problem now, despite scheduled Valium. Solu-Medrol was initiated yesterday, December 30, and seems to be helping her situation. Fortunately cervical MRI scan done earlier this admission did not show any significant pathology besides previous surgical findings. She has requested that this be repeated but it will have to wait until Tuesday since technicians inform me that a pacemaker rep will need to be present. (2) Opioid use: Plan: Chronic. She has high tolerance as a result. She has been switched back to her usual regimen which seems to be working better for pain control (3) Cardiac pacemaker: Plan: Apparently due to her history of POTS. She may have had a syncopal event on admission. Now on midodrine for blood pressure support (4) Damion's thyroiditis: Plan: Stable. Continue [place] thyroid Plan Hopefully home tomorrow, January 02, if the repeat cervical MRI scan is unremarkable and she continues to be stable. She will remain on a prednisone tapering dose along with her usual pain medications and follow-up in the residents clinic until she can secure a PCP. The Luna catheter will be removed before discharge Admission and Anticipated Discharge Date Admission Date: December 17, 2023 Subjective Alert and oriented. She has not had any neck muscle spasms for the past 48 hours. Parenteral Solu-Medrol appears to be helping quite a bit. Will obtain repeat C-spine MRI scan tomorrow, January 02, when a pacemaker real estate representative can be present. This is being done at the patient's request. I spoke to her mother, Alisa, today by phone. If she is doing well tomorrow and the cervical spine MRI does not show anything surprising, I will probably discharge her to home. She can follow-up in the residents clinic until she is able to secure a PCP long-term. Review of Systems 2 Review of Systems: Constitutional-no fever or chills ENT-no blurred vision, no double vision, no epistaxis, no sore throat Respiratory-no cough, no wheezing, no shortness of breath Cardiac-no palpitations, no chest pain, no syncope GI-no nausea, vomiting, diarrhea, melena, hematochezia -no urinary retention, no urinary incontinence, no dysuria, no hematuria Musculoskeletal-chronic cervical pain with intermittent muscle spasms Skin-no bruising, no rashes, no pruritus Neuro-no isolated weakness, no paresthesia Psych-no depression, no anxiety Physical Exam 2 Physical Exam: General-alert and oriented x3, no fevers, no chills HEENT-head atraumatic and normocephalic, pupils equal and reactive to light, extraocular muscles intact Neck- cervical collar in place for immobilization Chest-clear to auscultation. No rales, wheezing or rhonchi Cardiac-regular rate and rhythm, normal S1 and S2 Abdomen-normal bowel sounds, nontender, no hepatosplenomegaly Extremities-no cyanosis, clubbing, or edema Neuro-cranial nerves II through XII intact, motor and sensory function within normal limits, strength symmetrical, no focal deficits Psych-normal affect, normal mood Results & Data Results & Data Vital Signs (Past 12 Hours) Vital Signs Temp Pulse Pulse Resp BP Pulse Ox O2 Del Method 01/01/24 11:27 36.7 C 76 20 104/67 93 Room Air 01/01/24 11:08 82 01/01/24 07:49 36.4 C L 92 H 19 110/74 92 Room Air 01/01/24 04:00 36.5 C 77 18 127/78 96 Room Air Laboratory Results 12/31/23 07:25 12/31/23 07:25 PG Care Time/CCT Total # of Minutes Spent Total Time Spent with Patient: Total time spent is greater than 50% in coordination of care (as documented) at patient's floor/unit and/or counseling patient: Coding Level of Care Code 51996 SUB INP/OBS CARE 2/35MIN Diagnoses Chronic neck pain M54.2; G89.29 Opioid use F11.90 Cardiac pacemaker Z95.0 Damion's thyroiditis E06.3
[2024-01-01] MEDS: methylPREDNISolone 40 MG in SYRINGE 0 ML IV SCH (17:35)
[2024-01-01 21:18] LABS: Appearance Urine Clear (Clear); Bacteria Urine Automated 1+ (Negative); Bilirubin Urine Negative (Negative); Blood Urine Negative (Negative); Color Urine Yellow; Epithelial Cell Urine Auto >30 /lpf (0-5); Glucose Urine UA Negative (Negative); Ketones Urine 1+ (Negative); Leukocyte Esterase Urine Trace (Negative); Nitrite Urine Negative (Negative); Protein Urine Trace (Negative); RBC Urine Automated 0-4 /hpf (0-4); Specific Gravity Urine 1.028 (1.000-1.030); Urobilinogen Urine Negative (Negative); pH Urine 6.5 (4.5-7.5)
--- NOTE | 2024-01-02 13:22 | Magnetic Resonance Report ---
CLINICAL HISTORY: cervicalgia TECHNIQUE: MRI of the cervical spine is performed utilizing various T1 and T2 sequences in the axial and sagittal planes. IV contrast was not administered for this examination. Comparison: Comparison is made to MRI cervical spine 12/21/2023 FINDINGS: ACDF spanning C4-C6. C2-C3: Unremarkable. C3-C4: Unremarkable. C4-C5: Unremarkable. C5-C6: Unremarkable. C6-C7: Unremarkable. C7-T1: Unremarkable. The spinal ligaments are intact, without evidence of disruption or abnormal signal intensity. The spi nal cord is normal in signal intensity and there is no evidence of cord edema. There is no evidence o f an extradural, intradural, extramedullary or intramedullary lesion. Visualized soft tissues are nor mal. Visualized brain parenchyma is normal. IMPRESSION: No evidence of cord compression or significant neuroforaminal narrowing. ACT 112: Negative or not required by law. Electronically signed by: Mauro Gunn M.D. 01/02/2024 1:21 PM
--- NOTE | 2024-01-02 14:34 | Discharge Summary ---
Date of Service January 02, 2024 Admission HPI Per Admitting Provider Patient is a 33-year-old female with past medical history for chronic neck pain, pacemaker in place, SVT, 3 cervical surgeries. Patient has received trigger point injections and Botox injections. Patient has had 2 C-spine surgeries in 2021, C4-5 arthroplasty followed by C4-5 ACDF. She has also had a C5-6 ACDF. Patient has been following with pain management and has been taking hydromorphone and recently started fentanyl patches. Patient was started on 25 mcg fentanyl patches back on 11/23. She then had a follow-up approximately 3 days ago and her fentanyl patch was increased to 50 mcg. Patient also takes Valium which was decreased from 5 mg to 2 mg back on 11/23. Patient presented to the ED with mother. Patient's mother called patient this afternoon and the patient was not making sense and was mumbling things and talking about her daughter. Mother states that the patient was having trouble with walking. Patient's brother removed her fentanyl patch and states that the patient earlier removed her other fentanyl patch. The mother removed the second fentanyl patch around 5 PM. The patient came into the ED in excruciating neck pain. She was given Ovid morphine 1 mg, tizanidine 4 mg, and diazepam 2mg. When going to evaluate patient, patient was sleeping and majority of history had to be obtained from mother and chart review. Did wake up patient briefly to ask about fentanyl patch. Patient states that she put the patches on Tuesday and was supposed to take about Tuesday. Patient states that she is also having pain everywhere and specifically excruciating pain in her neck. Patient though was still going in and out of sleep and not responding to some questions due to falling back asleep. Of note, mother states that she does not want her daughter to be on a fentanyl patch. Principal Diagnosis Cervicalgia, acute on chronic pain Discharge Exam General-alert and oriented x3, no fevers, no chills HEENT-head atraumatic and normocephalic, pupils equal and reactive to light, extraocular muscles intact Neck- cervical collar in place for immobilization Chest-clear to auscultation. No rales, wheezing or rhonchi Cardiac-regular rate and rhythm, normal S1 and S2 Abdomen-normal bowel sounds, nontender, no hepatosplenomegaly Extremities-no cyanosis, clubbing, or edema Neuro-cranial nerves II through XII intact, motor and sensory function within normal limits, strength symmetrical, no focal deficits Psych-normal affect, normal mood Discharge Data Allergies Allergy/AdvReac Type Severity Reaction Status Date / Time colchicine Allergy Intermediate Hives Verified 12/16/23 19:11 oxycodone [From Percocet] Allergy Intermediate Itching Verified 12/16/23 19:11 Iodinated Contrast Media AdvReac Severe Anaphylaxis Verified 12/16/23 19:11 indomethacin AdvReac Intermediate Tachycardia Verified 12/16/23 19:11 NSAIDS (Non-Steroidal AdvReac Intermediate Palpitation Verified 12/16/23 19:11 Anti-Inflamma s Consultations 12/17/23 00:55 ED Decision to Admit Stat Ordered Studies 12/16/23 22:08 CT cervical spine wo con Stat 12/16/23 23:07 CT thoracic spine wo con Stat 12/21/23 00:00 MR cervical spine wo con Routine 01/02/24 00:00 MR cervical spine wo con Urgent Hospital Course (1) Chronic neck pain: Acute on chronic exacerbation of cervicalgia. She says everything worsened when and all of her medications were switched by the paint roller cover machine setter in [place]. She has now been changed back to her usual home protocol which she states was working well for her in the past. Muscle spasms are the main problem now, despite scheduled Valium. Solu-Medrol was initiated yesterday, December 30, and seems to be helping her situation. Fortunately cervical MRI scan done earlier this admission did not show any significant pathology besides previous surgical findings. Cervical MRI scan was repeated today, January 02, at the patient's request and shows no significant changes and no surgical indication warranted. (2) Opioid use: Chronic. She has high tolerance as a result. She has been switched back to her usual regimen which seems to be working better for pain control (3) Cardiac pacemaker: Apparently due to her history of POTS. She may have had a syncopal event on admission. Now on midodrine for blood pressure support (4) Damion's thyroiditis: Stable. Continue [place] thyroid Plan Home today, January 02. Narcotic prescriptions were sent to the pharmacy for a 2-week supply along with a prednisone tapering dose. She will be seen in the residents clinic for ongoing medical care and refills. Total Time Total Time Spent Total Time Spent (In Minutes): 45 minutes Discharge Plan Discharge Items Patient Disposition: Home - Self-Care Reason For Visit: MEDICATION WITHDRAWAL Discharge Diagnosis: Cervicalgia, acute on chronic neck pain, opioid tolerance Activity: Resume your previous activity Non-emergency contact: Primary Care Provider Call non-emergency contact if: your symptoms worsen Follow-up/Referrals: Joi Velez PA-C [Physician Beauty Artist] - (Hospital discharge follow up Joi Velez) Peter Saini DO [Physician] - ([facility] appointment) Sandra Hsu DO [Primary Care Provider] - Karine Martinez MD [Physician] - 03/02/24 8:00 am (PCP follow up appointment: March 02 8am) Diet: Regular Addtl Attending Provider Instructions: Take prednisone in a tapering dose fashion as directed. Pain medication has been refilled for 2 weeks. Prescriptions have been sent to the [facility] in [place]. Follow-up in the resident's medical clinic for ongoing care and medication refills. Pending Studies at Discharge: No Stand-Alone Forms: [facility] amaysim, Smoking Cessation Medications and DC Order Prescriptions: New hydromorphone 8 mg Tablet 8 mg PO Q4H PRN (Reason: pain) Qty: 40 0RF midodrine 2.5 mg Tablet 5 mg PO TID Qty: 60 0RF diazepam 5 mg Tablet 5 mg PO QID Qty: 60 0RF diclofenac sodium [Voltaren Arthritis Pain] 1 % Gel 2 g EXT QID Qty: 60 0RF prednisone 10 mg tablet See Rx Instructions .ROUTE .COMPLEX Qty: 18 0RF Rx Instructions: 10 mg orally 3 times a day for 3 days, then 10 mg twice a day for 3 days, then 10 mg daily for 3 days, then stop hydromorphone [Dilaudid] 4 mg tablet 8 mg PO Q4H PRN (Reason: pain) Qty: 10 0RF Continued thyroid (pork) [[place] Thyroid] 60 mg tablet 60 mg PO QAM MDD 75mg Qty: 90 3RF Rx Instructions: 60 mg PO Take 1 tablet daily along with a 15mg tablet; thyroid (pork) [[place] Thyroid] 15 mg tablet 15 mg PO QAM MDD 75mg Qty: 90 3RF Rx Instructions: 15 mg PO Take 1 tablet daily along with a 60mg tablet; onabotulinumtoxinA [Botox] 1 syringe intradermal DIRECTED Rx Instructions: Q 12 weeks Emgality Pen 120 mg/mL pen injector 120 mg subcut MONTHLY Qty: 1 6RF Elmiron 100 mg capsule 100 mg PO TID 90 Days Qty: 270 3RF diazepam 2 mg tablet 2 mg PO DIRECTED PRN (Reason: NEEDED PER PT) fentanyl 25 mcg/hr patch 72 hour 2 patch transdermal Q72H rizatriptan 10 mg tablet See Rx Instructions PO .COMPLEX Qty: 9 2RF Rx Instructions: take 1 tab at onset of headache; if no relief may repeat 1 tab after at least 2 hrs; max = 3 tabs/24 hr PO nebivolol 5 mg tablet 5 mg PO DAILY Qty: 90 3RF divalproex [Depakote ER] 500 mg tablet extended release 24 hr 500 mg PO HS Qty: 7 0RF ascorbic acid (vitamin C) [Vitamin C] 1,000 mg Tablet 1 g PO QAM cyanocobalamin (vitamin B-12) [Vitamin B-12] 2,500 mcg Tablet, Sublingual 2,500 mcg SUBLINGUAL QAM loratadine 10 mg Tablet 10 mg PO QAM cholecalciferol (vitamin D3) 25 mcg (1,000 unit) Tablet 25 mcg PO QAM turmeric root extract 500 mg Capsule 500 mg PO HS magnesium oxide 500 mg Tablet 500 mg PO DAILY zinc gluconate 50 mg Tablet 50 mg PO DAILY pyridoxine (vitamin B6) [Vitamin B-6] 250 mg Tablet 0 mg PO DAILY Rx Instructions: PT UNSURE OF STRENGTH etonogestrel-ethinyl estradiol [NuvaRing] 0.12-0.015 mg/24 hr ring 1 vag ring vaginal DIRECTED Rx Instructions: one ring in vagina every 4 weeks. Discontinued hydromorphone [Dilaudid] 4 mg tablet 4 mg PO QID PRN (Reason: CERVICAL PAIN) Rx Instructions: A4K-B1F, PER PT "MAY TAKE 2 ADDITIONAL DOSES IN 24 HRS, IF NEEDED" Discharge Orders: Discharge Order (Routine); Ordered 01/02/24 Ordered By: Dex Orr Admission Data Admit Date/Time: 12/17/23 01:31 Attending Provider: Dex Orr Admit Provider: Tavon Boateng Primary Care Provider: Sandra Hsu Other Providers: Mak Rothman; [facility]; Dale Loomis Coding Level of Care Code 73547 INP/OBS DISCH >30 MIN Diagnoses Chronic neck pain M54.2; G89.29 Opioid use F11.90 Cardiac pacemaker Z95.0 Damion's thyroiditis E06.3
--- NOTE | 2024-01-02 16:34 | Hospitalist Progress Note ---
Date of Service January 02, 2024 Assessment & Plan (1) Chronic neck pain: Plan: Acute on chronic exacerbation of cervicalgia. She says everything worsened when and all of her medications were switched by the painter helper in [place]. She has now been changed back to her usual home protocol which she states was working well for her in the past. Muscle spasms are the main problem now, despite scheduled Valium. Solu-Medrol was initiated yesterday, December 30, and seems to be helping her situation. Fortunately cervical MRI scan done earlier this admission did not show any significant pathology besides previous surgical findings. Cervical MRI scan was repeated today, January 02, at the patient's request and shows no significant changes and no surgical indication warranted. However, she refuses to go home. Parenteral narcotics have been discontinued. She will have to use oral pain control measures at this time. (2) Opioid use: Plan: Chronic. She has high tolerance as a result. She has been switched back to her usual regimen which seems to be working better for pain control (3) Cardiac pacemaker: Plan: Apparently due to her history of POTS. She may have had a syncopal event on admission. Now on midodrine for blood pressure support (4) Damion's thyroiditis: Plan: Stable. Continue [place] thyroid Plan Discharge as soon as possible. Narcotic prescriptions were sent to the pharmacy for a 2-week supply along with a prednisone tapering dose. She will be seen in the residents clinic for ongoing medical care and refills. Admission and Anticipated Discharge Date Admission Date: December 17, 2023 Subjective Expected discharge today, January 02, was canceled because the patient is refusing to leave and is now tearful. She has had extensive discussions with nursing and case management along with myself. Parenteral narcotics will be discontinued and she will have to use oral medication for pain control since this is what she will be on at home. Dilaudid prescription was sent to the [facility] and [place], a 2-week supply, which will give her enough time to be seen in the resident's medical clinic for continued care until she can find a PCP. Review of Systems 2 Review of Systems: Constitutional-no fever or chills ENT-no blurred vision, no double vision, no epistaxis, no sore throat Respiratory-no cough, no wheezing, no shortness of breath Cardiac-no palpitations, no chest pain, no syncope GI-no nausea, vomiting, diarrhea, melena, hematochezia -no urinary retention, no urinary incontinence, no dysuria, no hematuria Musculoskeletal-chronic cervical pain with intermittent muscle spasms Skin-no bruising, no rashes, no pruritus Neuro-no isolated weakness, no paresthesia Psych-no depression, no anxiety Physical Exam 2 Physical Exam: General-alert and oriented x3, no fevers, no chills HEENT-head atraumatic and normocephalic, pupils equal and reactive to light, extraocular muscles intact Neck- cervical collar in place for immobilization Chest-clear to auscultation. No rales, wheezing or rhonchi Cardiac-regular rate and rhythm, normal S1 and S2 Abdomen-normal bowel sounds, nontender, no hepatosplenomegaly Extremities-no cyanosis, clubbing, or edema Neuro-cranial nerves II through XII intact, motor and sensory function within normal limits, strength symmetrical, no focal deficits Psych-normal affect, normal mood Results & Data Results & Data Vital Signs (Past 12 Hours) Vital Signs Temp Pulse Resp BP Pulse Ox O2 Del Method 01/02/24 15:00 37 C 89 18 143/90 H 92 Room Air 01/02/24 11:06 37.1 C 89 22 126/85 94 Room Air 01/02/24 07:42 36.5 C 86 20 112/77 92 Room Air Laboratory Results 12/31/23 07:25 12/31/23 07:25 PG Care Time/CCT Total # of Minutes Spent Total Time Spent with Patient: Total time spent is greater than 50% in coordination of care (as documented) at patient's floor/unit and/or counseling patient: Coding Level of Care Code 92979 SUB INP/OBS CARE 3/50MIN Diagnoses Chronic neck pain M54.2; G89.29 Opioid use F11.90 Cardiac pacemaker Z95.0 Damion's thyroiditis E06.3
--- NOTE | 2024-01-03 15:49 | Hospitalist Progress Note ---
Date of Service January 03, 2024 Assessment & Plan (1) Chronic neck pain: Plan: Acute on chronic exacerbation of cervicalgia. She says everything worsened when and all of her medications were switched by the machine paint mixer in [place]-started Fentanyl patch and titrated up to 50 mcg, decreased Valium dose to 2mg, decreased po dilaudid dose to 4mg qid. She has now been changed back to her usual home protocol which she states was working well for her in the past. Muscle spasms are the main problem now but improved with resuming usual Valium 5mg dose and steroids Three MRI Cervical spine since 10/2023 all without any significant findings other than post-op changes Pain Management here suspected opiate hyperalgesia and due to excessive sedation, recommended discontinuing previous [employer]PERATOR pump she was on and resuming po Dilaudid -change Solu-Medrol to prednisone 60mg daily tomorrow and taper down -STOPPED Fentanyl patch -added Lyrica 150mg po bid -continue dilaudid 8mg po q4h prn and add dilaudid 4mg po q2h for dose between 8mg dose as needed -continue Valium 5mg po qid prn -continue to remove neck collar daily and stretch, get ROM -recommend OMT and PT upon discharge -voltaren gel , heating pad to neck -continue bowel regimen to prevent OIC (2) Opioid use: Plan: Chronic, as above (3) Cardiac pacemaker: Plan: Due to her history of POTS. She may have had a syncopal event on admission. Now on midodrine for blood pressure support Also on metoprolol for tachycardia NSR on tele (4) Damion's thyroiditis: Plan: Stable. Continue [place] thyroid Plan DVT proph-Lovenox Dispo-continued stay for pain control, likely discharge tomorrow Admission and Anticipated Discharge Date Admission Date: December 17, 2023 Subjective Pain ongoing in neck, thinks an extra dose of po dilaudid between 8mg doses would be helpful. Muscle spasms in neck have improved with steroids. Has tingling in left upper back and tingling down both arms. Eating and drinking, ambulating to bathroom independently. Moving bowels. Luna removed and voiding. Tele with NSR, rates 70-90s Physical Exam Constitutional: WD/WN, vitals as above Neck: + abnormal visual inspection ([place] J co llar in place removed,+TTP posterior neck and traps) Respiratory: normal respiratory effort, lungs clear to auscultation Cardiovascular: RRR, no murmur, no edema Neurologic: moves all extremities and awake; no focal motor deficits and not confused Results & Data Results & Data Vital Signs (Past 12 Hours) Vital Signs Temp Pulse Resp BP BP Pulse Ox O2 Del Method 01/03/24 14:07 36.3 C L 86 18 134/87 94 Room Air 01/03/24 10:35 36.8 C 84 18 147/92 H 95 Room Air 01/03/24 07:07 36.3 C L 83 18 116/79 95 Room Air Laboratory Results no labs PG Care Time/CCT Total # of Minutes Spent Total Time Spent with Patient: Total time spent is greater than 50% in coordination of care (as documented) at patient's floor/unit and/or counseling patient: Coding Level of Care Code 95780 SUB INP/OBS CARE 2/35MIN Diagnoses Chronic neck pain M54.2; G89.29 Opioid use F11.90 Cardiac pacemaker Z95.0 Damion's thyroiditis E06.3
[2024-01-03] MEDS: HYDROmorphone HCL 4 MG TAB PO PRN (19:11)
[2024-01-04] MEDS: predniSONE 20 MG TAB PO SCH (08:26)
--- NOTE | 2024-01-04 13:38 | Discharge Summary ---
Discharge Summary Date of Service January 04, 2024 Notes For Next Care Provider Medication Changes From Visit Increased po dilaudid to 8mg po q4h prn and 4mg po q2h prn Discontinued Fentanyl patch Increased Valium back to 5mg po qid prn Added Lyrica 150mg po bid Prednisone taper Added midodrine 5mg po tid Admission HPI Per Admitting Provider Patient is a 33-year-old female with past medical history for chronic neck pain, pacemaker in place, SVT, 3 cervical surgeries. Patient has received trigger point injections and Botox injections. Patient has had 2 C-spine surgeries in 2021, C4-5 arthroplasty followed by C4-5 ACDF. She has also had a C5-6 ACDF. Patient has been following with pain management and has been taking hydromorphone and recently started fentanyl patches. Patient was started on 25 mcg fentanyl patches back on 11/23. She then had a follow-up approximately 3 days ago and her fentanyl patch was increased to 50 mcg. Patient also takes Valium which was decreased from 5 mg to 2 mg back on 11/23. Patient presented to the ED with mother. Patient's mother called patient this afternoon and the patient was not making sense and was mumbling things and t alking about her daughter. Mother states that the patient was having trouble with walking. Patient's brother removed her fentanyl patch and states that the patient earlier removed her other fentanyl patch. The mother removed the second fentanyl patch around 5 PM. The patient came into the ED in excruciating neck pain. She was given [place] morphine 1 mg, tizanidine 4 mg, and diazepam 2mg. When going to evaluate patient, patient was sleeping and majority of history had to be obtained from mother and chart review. Did wake up patient briefly to ask about fentanyl patch. Patient states that she put the patches on Tuesday and was supposed to take about Tuesday. Patient states that she is also having pain everywhere and specifically excruciating pain in her neck. Patient though was still going in and out of sleep and not responding to some questions due to falling back asleep. Of note, mother states that she does not want her daughter to be on a fentanyl patch. Principal Dx & Hospital Course #1 = Principal Diagnosis (1) Chronic neck pain: Acute on chronic exacerbation of cervicalgia. She says everything worsened when and all of her medications were switched by the pattern painter in [place]-started Fentanyl patch and titrated up to 50 mcg, decreased Valium dose to 2mg, decreased po dilaudid dose to 4mg qid. She has now been changed back to her usual home protocol which she states was working well for her in the past. Muscle spasms are the main problem now but improved with resuming usual Valium 5mg dose and steroids Three MRIs of Cervical spine since 10/2023 all without any significant findings other than post-op changes Pain Management here suspected opiate hyperalgesia and due to excessive sedation, recommended discontinuing previous [employer]PER[employer]ENT pump she was on and resuming po Dilaudid Was receiving copious amounts of IV dilaudid and at one point was on Dilaudid PC A during this admission -received Solu-Medrol IV and now changed to prednisone taper -STOPPED Fentanyl patch -added Lyrica 150mg po bid -continue dilaudid 8mg po q4h prn and add dilaudid 4mg po q2h for dose between 8mg dose as needed-Rx 2 week supply on discharge -continue Valium 5mg po qid prn -continue to remove neck collar daily and stretch, get ROM -recommend OMT and PT upon discharge -voltaren gel , heating pad to neck -continue bowel regimen to prevent OIC (2) Opioid use: Chronic, as above (3) Cardiac pacemaker: Due to her history of POTS. She may have had a syncopal event on admission. Now on midodrine for blood pressure support Also on metoprolol for tachycardia NSR on tele Had episode of syncope while here and likely syncope prior to arrival/admission as well (4) Damion's thyroiditis: Stable. Continue [place] thyroid Plan DVT proph-Lovenox Dispo-much improved, dc to home f/u Pain Management and new PCP Discharge Exam Constitutional WD/WN, vitals as above Neck + abnormal visual inspection ([place] J collar in place removed,+TTP posterior neck and traps) Respiratory normal respiratory effort, lungs clear to auscultation Cardiovascular RRR, no murmur, no edema Neurologic moves all extremities and awake; no focal motor deficits and not confused Psychiatric A+Ox3, euthymic affect Updated Medication List Medication Instructions Recorded Confirmed Type onabotulinumtoxinA [Botox] 1 syringe intradermal DIRECTED 01/29/22 12/16/23 History pentosan polysulfate sodium 100 mg 100 mg PO TID 90 days #270 caps 01/04/23 12/16/23 Rx capsule ([place]iron) ascorbic acid (vitamin C) 1,000 mg 1 g PO QAM 02/12/23 12/16/23 History tablet (Vitamin C) cholecalciferol (vitamin D3) 25 25 mcg PO QAM 02/12/23 12/16/23 History mcg (1,000 unit) tablet cyanocobalamin (vitamin B-12) 2,500 mcg sublingual QAM 02/12/23 12/16/23 History 2,500 mcg sublingual tablet (Vitamin B-12) loratadine 10 mg tablet 10 mg PO QAM 02/12/23 12/16/23 History turmeric root extract 500 mg 500 mg PO HS 04/05/23 12/16/23 History capsule divalproex 500 mg tablet,extended 500 mg PO HS #7 tabs 05/16/23 12/16/23 Rx release 24 hr (Depakote ER) nebivolol 5 mg tablet 5 mg PO DAILY #90 tabs 06/01/23 12/16/23 Rx galcanezumab-gnlm 120 mg/mL 120 mg subcut MONTHLY #1 mL 07/08/23 12/16/23 Rx subcutaneous pen injector (Emgality Pen) [place] Thyroid 15 mg tablet 15 mg PO QAM #90 tabs 08/11/23 12/16/23 Rx (thyroid (pork)) [place] Thyroid 60 mg tablet 60 mg PO QAM #90 tabs 08/11/23 12/16/23 Rx (thyroid (pork)) rizatriptan 10 mg tablet See Rx Instructions PO .COMPLEX #9 11/30/23 12/16/23 Rx tabs etonogestrel 0.12 mg-ethinyl 1 vag ring vaginal DIRECTED 12/16/23 12/16/23 History estradiol 0.015 mg/24 hr vaginal ring (NuvaRing) magnesium oxide 500 mg PO DAILY 12/16/23 12/16/23 History pyridoxine (vitamin B6) 250 mg 0 mg PO DAILY 12/16/23 12/16/23 History tablet (Vitamin B-6) zinc gluconate 50 mg tablet 50 mg PO DAILY 12/16/23 12/16/23 History diclofenac sodium 1 % topical gel 2 g EXT QID #60 grams 01/02/24 Rx (Voltaren Arthritis Pain) prednisone 10 mg tablet See Rx Instructions .Route 01/02/24 Rx .COMPLEX #18 tabs diazepam 5 mg tablet (Valium) 5 mg PO Q6H PRN muscle spasm #120 01/04/24 Rx tabs hydromorphone 8 mg tablet 4 - 8 mg (0.5 - 1 x 8 mg) PO Q2H 01/04/24 Rx (Dilaudid) PRN pain #105 tabs midodrine 5 mg tablet 5 mg PO TID #90 tabs 01/04/24 Rx polyethylene glycol 3350 17 gram 17 g PO BID #60 ea 01/04/24 Rx oral powder packet (Miralax) pregabalin 150 mg capsule (Lyrica) 150 mg PO BID #60 caps 01/04/24 Rx Hospital Stay Data Consultations 12/17/23 00:55 ED Decision to Admit Stat Diagnostic Imagining Performed 12/16/23 22:08 CT cervical spine wo con Stat 12/16/23 23:07 CT thoracic spine wo con Stat 12/21/23 00:00 MR cervical spine wo con Routine 01/02/24 00:00 MR cervical spine wo con Urgent Pending Results Patient Have Any Pending Studies at Discharge: No Discharge Instructions Given to Patient (Per Discharging Provider) Take prednisone in a tapering dose fashion as directed. Your Valium and Dialudid doses were increased back to your previous doses. Please follow up with your new PCP and with Pain Management at [place]. You were started on Lyrica as well to help with your pain. Please schedule an appointment for OMT also with either Dr. Ry Saini or a DO physician at [facility]. Total Time Total Time Spent Total Time Spent (In Minutes): 35 min Coding Level of Care Code 67501 INP/OBS DISCH >30 MIN Diagnoses Chronic neck pain M54.2; G89.29 Opioid use F11.90 Cardiac pacemaker Z95.0 Damion's thyroiditis E06.3
== END 2024-01-04 15:57 | disposition home or self-care (01) | DRG 92 ==
LOC: ED 17:43 → SUATTDRO 12-17 01:31 → EDINP 12-17 01:31 → 2E 12-17 04:06 → 3N 12-29 15:20 → 2S 12-29 23:21
DX: Z88.5 Allergy status to narcotic agent; Z88.6 Allergy status to analgesic agent; Z95.0 Presence of cardiac pacemaker; Z86.74 Personal history of sudden cardiac arrest; R20.8 Other disturbances of skin sensation; G89.4 Chronic pain syndrome; F11.288 Opioid dependence with other opioid-induced disorder; E06.3 Autoimmune thyroiditis; N30.10 Interstitial cystitis (chronic) without hematuria; Z91.041 Radiographic dye allergy status; F43.10 Post-traumatic stress disorder, unspecified; Z86.16 Personal history of COVID-19; F11.23 Opioid dependence with withdrawal; M54.2 Cervicalgia; G90.A Postural orthostatic tachycardia syndrome [POTS]; Z98.1 Arthrodesis status